=== PATIENT | male | born 1955 | race American Indian/Alaskan Native ===

== ENCOUNTER 2018-07-27 17:01 | Inpatient (IN) | payer OTHER, SELFPAY ==
[2018-07-27] MEDS ORDERED: ATIVAN IV STA (17:41)
--- NOTE | 2018-07-27 17:43 | Emergency Department Report ---
ED General Adult HPI - General Chief complaint: Extremity Injury, Lower Stated complaint: PAIN BOTH SHOULDER/FALL Time Seen by Provider: 07/27/18 17:31 Source: patient, EMS (ems notes not available at time of chart dictation), RN notes reviewed, old records reviewed Mode of arrival: Stretcher Limitations: Physical Limitation - History of Present Illness Initial comments: This is a 63-year-old gentleman, whom I have evaluated in the past, reports hist ory of hypertension, BPH, parkinsonism, typically walks with a walker. Patient presents to the ER with EMS. Patient reports a mechanical fall 2 days ago where he landed onto his left hip. Since then he's been having sharp aching burning left-sided hip pain. The pain does not radiate anywhere. Patient does not think he hit his head. Patient reports poor mobility at baseline, typically walks with a walker, and has had poor mobility for at least 6 months secondary to parkinsonism. He makes no complaint of headache, neck pain, chest pain, abdominal pain or shoulder pain. To me, the patient denies abdominal pain, hematemesis, bright red blood per rectum, or urinary symptoms. -: Sudden Location: left, lower extremity Radiation: non-radiation Quality: aching Consistency: other Improves with: other Worsens with: other Associated Symptoms: loss of appetite, malaise, weakness (global weakness), other (patient reports benzodiazepine dependence, reports that he is feeling very anxious.). denies: confusion, chest pain, cough, diaphoresis, fever/chills, headaches, nausea/vomiting, rash, seizure, shortness of breath, syncope - Related Data Home Medications Medication Instructions Recorded Confirmed Last Taken Finasteride [Proscar] 5 mg PO QDAY 09/17/15 09/17/15 Unknown Previous Rx's Medication Instructions Recorded Last Taken Type Lisinopril [Zestril TAB] 20 mg PO QDAY #30 tablet 04/07/14 04/08/14 Rx hydroCHLOROthiazide [HCTZ] 25 mg PO QDAY #30 tablet 04/07/14 04/08/14 Rx Ciprofloxacin HCl [Ciprofloxacin 500 mg PO Q12H #20 tab 09/11/15 Unknown Rx TAB] Tamsulosin [Flomax] 0.4 mg PO QDAY #30 cap 09/11/15 Unknown Rx Allergies Allergy/AdvReac Type Severity Reaction Status Date / Time No Known Allergies Allergy Verified 06/05/18 08:22 ED Review of Systems ROS: Stated complaint: PAIN BOTH SHOULDER/FALL Other details as noted in HPI Constitutional: denies: fever Eyes: denies: eye discharge ENT: denies: epistaxis Respiratory: denies: cough Cardiovascular: denies: chest pain Genitourinary: denies: urgency, dysuria Musculoskeletal: arthralgia, myalgia Skin: denies: lesions Neurological: weakness Psychiatric: anxiety ED Past Medical Hx - Past Medical History Hx Hypertension: Yes Hx Arthritis: Yes Additional medical history: BPH. parkinson - Surgical History Additional Surgical History: Jeffrey. knee surgery, eye surgery (detached retina). PROSTATE BIOPSY - Social History Smoking Status: Never Smoker Substance Use Type: None - Medications Home Medications: Home Medications Medication Instructions Recorded Confirmed Last Taken Type Lisinopril [Zestril TAB] 20 mg PO QDAY #30 tablet 04/07/14 09/17/15 04/08/14 Rx hydroCHLOROthiazide [HCTZ] 25 mg PO QDAY #30 tablet 04/07/14 09/17/15 04/08/14 Rx Ciprofloxacin HCl [Ciprofloxacin 500 mg PO Q12H #20 tab 09/11/15 09/17/15 Unknown Rx TAB] Tamsulosin [Flomax] 0.4 mg PO QDAY #30 cap 09/11/15 09/17/15 Unknown Rx Finasteride [Proscar] 5 mg PO QDAY 09/17/15 09/17/15 Unknown History ED Physical Exam - General Limitations: Physical Limitation General appearance: alert, anxious - Head Head exam: Present: atraumatic, normocephalic - Eye Eye exam: Present: normal appearance, EOMI. Absent: nystagmus - ENT ENT exam: Present: normal exam, normal orophraynx, mucous membranes moist, normal external ear exam - Neck Neck exam: Present: normal inspection, full ROM. Absent: tenderness, meningismus - Respiratory Respiratory exam: Present: normal lung sounds bilaterally. Absent: respiratory distress - Cardiovascular Cardiovascular Exam: Present: normal rhythm, tachycardia, normal heart sounds. Absent: systolic murmur, diastolic murmur, rubs, gallop - GI/Abdominal GI/Abdominal exam: Present: soft. Absent: distended, tenderness, guarding, rebound, rigid, pulsatile mass - Rectal Rectal exam: Present: deferred - Extremities Exam Extremities exam: Present: normal inspection, full ROM (full passive range of motion of the bilateral knees, bilateral hips.), tenderness (point tenderness to the left proximal femur, thigh), other (2+ pulses noted in the bilateral upper, lower extremities. Compartments soft. No long bony tenderness. The pelvis is stable.). Absent: calf tenderness - Back Exam Back exam: Present: normal inspection, full ROM. Absent: tenderness, CVA tenderness (R), paraspinal tenderness, vertebral tenderness - Neurological Exam Neurological exam: Present: alert, other (2+ pulses noted in the bilateral upper, lower extremities. Compartments soft. No long bony tenderness. The pelvis is stable.). Absent: motor sensory deficit - Psychiatric Psychiatric exam: Present: anxious - Skin Skin exam: Present: warm, dry, intact, normal color. Absent: rash ED Course Vital Signs 07/27/18 17:31 Temperature 97.1 F L Pulse Rate 103 H Respiratory 16 Rate Blood Pressure 103/64 O2 Sat by Pulse 97 Oximetry - Reevaluation(s) Reevaluation #1: 07/27/18 18:01 Differential diagnosis, including not limited to: Intracranial injury, fracture, dislocation, contusion, deconditioning, debility, rhabdomyolysis Assessment and plan: 63-year-old gentleman, who has chronic parkinsonism, chronic anxiety, after mechanical fall 2 days ago, with subacute left-sided hip pain. Patient has an intention tremor. Patient reports that he walks at home typically with a walker. We will treat the patient's pain, obtain screening laboratory studies to exclude renal insufficiency and rhabdomyolysis, obtain x- ray of the pelvis and left femur, noncontrast CT scan of the brain, give IV fluids, and Ativan. Case management consult and physical therapy consults have been requested for home evaluation. Reevaluation #2: 07/27/18 18:54 Laboratory studies demonstrate rhabdomyolysis and hypokalemia, with mild renal impairment. IV fluids, sodium bicarbonate, and potassium repletion has been ordered. X-ray of the pelvis is negative for acute disease, x-ray of the femur demonstrates DJD, possible avulsion fracture and nonspecific bony density. Hospital physician, Dr. Campbell will admit the patient to the medical service for rhabdomyolysis Reevaluation #3: 07/27/18 19:20 CT scan the brain interpreted as negative. Informed patient of pertinent laboratory findings and recommendation for admission, patient verbalized understanding and he is amenable to admission. ED Medical Decision Making - Lab Data Result diagrams: 07/27/18 17:56 07/27/18 17:56 Vital Signs 07/27/18 17:31 Temperature 97.1 F L Pulse Rate 103 H Respiratory 16 Rate Blood Pressure 103/64 O2 Sat by Pulse 97 Oximetry Lab Results 07/27/18 07/27/18 Range/Units 17:56 17:56 WBC 13.2 H (4.5-11.0) K/mm3 RBC 4.44 (3.65-5.03) M/mm3 Hgb 11.8 (11.8-15.2) gm/dl Hct 35.7 (35.5-45.6) % MCV 80 L (84-94) fl MCH 27 L (28-32) pg MCHC 33 (32-34) % RDW 14.7 (13.2-15.2) % Plt Count 402 (140-440) K/mm3 Sodium 137 (137-145) mmol/L Potassium 2.4 L* (3.6-5.0) mmol/L Chloride 93.1 L (98-107) mmol/L Carbon Dioxide 29 (22-30) mmol/L Anion Gap 17 mmol/L BUN 16 (9-20) mg/dL Creatinine 1.6 H (0.8-1.5) mg/dL Estimated GFR 53 ml/min BUN/Creatinine Ratio 10 % Glucose 108 H (75-100) mg/dL Calcium 8.4 (8.4-10.2) mg/dL Magnesium 2.00 (1.7-2.3) mg/dL Total Creatine Kinase 03361 H (55-170) units/L - Radiology Data Radiology results: image reviewed interpreted by me: X-ray of the pelvis shows DJD, no acute disease. X-ray of the femur shows DJD, questionable lesser trochanteric avulsion fracture, nonspecific linear density. Critical care attestation.: If time is entered above; I have spent that time in minutes in the direct care of this critically ill patient, excluding procedure time. ED Disposition Clinical Impression: Rhabdomyolysis, MYCHAL (acute kidney injury), Hypokalemia, Falls, Benzodiazepine dependence Disposition: DC-09 OP ADMIT IP TO THIS HOSP Is pt being admited?: Yes Condition: Good Referrals: PRIMARY CARE, [Primary Care Provider] - 3-5 Days
[2018-07-27] MEDS ORDERED: NACL 0.9% 500 ML 500 ML IV ONE (17:57)
[2018-07-27] MEDS ORDERED: TYLENOL PO ONE (17:58)
[2018-07-27 18:15] LABS: Hematocrit 35.7 % (35.5-45.6); Hemoglobin 11.8 gm/dl (11.8-15.2); Mean Corpuscular HGB Conc 33 % (32-34); Mean Corpuscular Volume 80 fl (84-94); Platelet Count 402 K/mm3 (140-440); Red Blood Count 4.44 M/mm3 (3.65-5.03); Red Cell Distribution Width 14.7 % (13.2-15.2)
[2018-07-27 18:36] LABS: Calcium 8.4 mg/dL (8.4-10.2)
[2018-07-27] MEDS ORDERED: NACL 0.9% 1000 ML 2,000 ML IV ONE (18:53)
[2018-07-27] MEDS ORDERED: K-DUR PO ONE (18:53)
--- NOTE | 2018-07-27 18:53 | History and Physical Report ---
History of Present Illness Chief complaint: confusion History of present illness: 63 YO Male with Dementia, HTN, OA, Parkinsons Disease, BPH presents to ED for evaluation. Pt is confused, and unable to provide detailed history. Pt history taken from ED staff, and EMS. As per staff, the patient has experienced increase d confusion and falls over the past 6 months. Pt experienced a fall 2 days ago, and has experienced increased confusion and weakness over the past 2 days. Pt lives with his son and brother. EMS notified, and upon arrival the patient was found to be confused. Pt transported to [facility] for further care and evaluation. Pt seen and evaluated in ED and found to have Rhabdomyolysis, Encephalopathy, SIRS, and ARF. Pt admitted to medical floor. No further history obtainable. - General Chief complaint: Extremity Injury, Lower Stated complaint: PAIN BOTH SHOULDER/FALL Time Seen by Provider: 07/27/18 17:31 Source: patient, EMS (ems notes not available at time of chart dictation), RN notes reviewed, old records reviewed Mode of arrival: Stretcher Limitations: Physical Limitation - History of Present Illness Initial comments: This is a 63-year-old gentleman, whom I have evaluated in the past, reports history of hypertension, BPH, parkinsonism, typically walks with a walker. Patient presents to the ER with EMS. Patient reports a mechanical fall 2 days ago where he landed onto his left hip. Since then he's been having sharp aching burning left-sided hip pain. The pain does not radiate anywhere. Patient does not think he hit his head. Patient reports poor mobility at baseline, typically walks with a walker, and has had poor mobility for at least 6 months secondary to parkinsonism. He makes no complaint of headache, neck pain, chest pain, abdominal pain or shoulder pain. To me, the patient denies abdominal pain, hematemesis, bright red blood per rectum, or urinary symptoms. -: Sudden Location: left, lower extremity Radiation: non-radiation Quality: aching Consistency: other Improves with: other Worsens with: other Associated Symptoms: loss of appetite, malaise, weakness (global weakness), other (patient reports benzodiazepine dependence, reports that he is feeling very anxious.). denies: confusion, chest pain, cough, diaphoresis, fever/chills, headaches, nausea/vomiting, rash, seizure, shortness of breath, syncope - Related Data Home Medications Medication Instructions Recorded Confirmed Last Taken Finasteride [Proscar] 5 mg PO QDAY 09/17/15 09/17/15 Unknown Previous Rx's Medication Instructions Recorded Last Taken Type Lisinopril [Zestril TAB] 20 mg PO QDAY #30 tablet 04/07/14 04/08/14 Rx hydroCHLOROthiazide [HCTZ] 25 mg PO QDAY #30 tablet 04/07/14 04/08/14 Rx Ciprofloxacin HCl [Ciprofloxacin 500 mg PO Q12H #20 tab 09/11/15 Unknown Rx TAB] Tamsulosin [Flomax] 0.4 mg PO QDAY #30 cap 09/11/15 Unknown Rx Allergies Allergy/AdvReac Type Severity Reaction Status Date / Time No Known Allergies Allergy Verified 06/05/18 08:22 ED Review of Systems ROS: Stated complaint: PAIN BOTH SHOULDER/FALL Other details as noted in HPI Constitutional: denies: fever Eyes: denies: eye discharge ENT: denies: epistaxis Respiratory: denies: cough Cardiovascular: denies: chest pain Genitourinary: denies: urgency, dysuria Musculoskeletal: arthralgia, myalgia Skin: denies: lesions Neurological: weakness Psychiatric: anxiety ED Past Medical Hx - Past Medical History Hx Hypertension: Yes Hx Arthritis: Yes Additional medical history: BPH. parkinson - Surgical History Additional Surgical History: Jeffrey. knee surgery, eye surgery (detached retina). PROSTATE BIOPSY - Social History Smoking Status: Never Smoker Substance Use Type: None - Medications Past History Past Medical History: hypertension, other (BPH, Parkinsons Disease, Dementia) Past Surgical History: total knee replacement, Other (Eye, Prostate Biopsy) Social history: single, lives with family. denies: smoking, alcohol abuse, prescription drug abuse Family history: no significant family history (reviewed) Medications and Allergies Allergies Allergy/AdvReac Type Severity Reaction Status Date / Time No Known Allergies Allergy Verified 06/05/18 08:22 Home Medications Medication Instructions Recorded Confirmed Last Taken Type Lisinopril [Zestril TAB] 20 mg PO QDAY #30 tablet 04/07/14 09/17/15 04/08/14 Rx hydroCHLOROthiazide [HCTZ] 25 mg PO QDAY #30 tablet 04/07/14 09/17/15 04/08/14 Rx Ciprofloxacin HCl [Ciprofloxacin 500 mg PO Q12H #20 tab 09/11/15 09/17/15 Unknown Rx TAB] Tamsulosin [Flomax] 0.4 mg PO QDAY #30 cap 09/11/15 09/17/15 Unknown Rx Finasteride [Proscar] 5 mg PO QDAY 09/17/15 09/17/15 Unknown History Review of Systems ROS unobtainable: due to mental status Exam - Constitutional Vitals: Temp Pulse Resp BP Pulse Ox 97.1 F L 103 H 16 103/64 97 07/27/18 17:31 07/27/18 17:31 07/27/18 17:31 07/27/18 17:31 07/27/18 17:31 General appearance: Present: mild distress - EENT Eyes: Present: PERRL ENT: hearing intact, clear oral mucosa - Neck Neck: Present: supple, normal ROM - Respiratory Respiratory effort: normal Respiratory: bilateral: CTA - Cardiovascular Heart Sounds: Present: S1 & S2. Absent: rub, click - Extremities Extremities: pulses symmetrical, No edema Peripheral Pulses: within normal limits - Abdominal General gastrointestinal: Present: soft, non-tender, non-distended, normal bowel sounds Male genitourinary: Present: normal - Integumentary Integumentary: Present: clear, warm, dry - Musculoskeletal Musculoskeletal: generalized weakness - Psychiatric Psychiatric: no appropriate mood/affect, no intact judgment & insight, no memory intact - Neurologic Neurologic: CNII-XII intact, no focal deficits, moves all extremities, no gait normal Results - Labs CBC & Chem 7: 07/27/18 17:56 07/27/18 19:17 Labs: Abnormal lab results 07/27/18 07/27/18 Range/Units 17:56 17:56 WBC 13.2 H (4.5-11.0) K/mm3 MCV 80 L (84-94) fl MCH 27 L (28-32) pg Potassium 2.4 L* (3.6-5.0) mmol/L Chloride 93.1 L (98-107) mmol/L Creatinine 1.6 H (0.8-1.5) mg/dL Glucose 108 H (75-100) mg/dL Total Creatine Kinase 62366 H (55-170) units/L Assessment and Plan - Patient Problems (1) Encephalopathy Current Visit: Yes Status: Acute Plan to address problem: CT Head, neuro check, thyroid panel, seizure precautions (2) SIRS (systemic inflammatory response syndrome) Current Visit: Yes Status: Acute Plan to address problem: Empiric antibiotic therapy x 1 dose, CBC, CMP, chest x ray, urinalysis (3) MYCHAL (acute kidney injury) Current Visit: Yes Status: Acute Plan to address problem: IVF resuscitation therapy, urine electrolytes, monitor uop q shift, monitor serum creatnine (4) Rhabdomyolysis Current Visit: Yes Status: Acute Qualifiers: Encounter type: initial encounter Plan to address problem: IVF resuscitation therapy, IV bicarbonate, repeat CK level, monitor uop q shift, (5) Debility Current Visit: Yes Status: Acute Plan to address problem: PT consulted. (6) DVT prophylaxis Current Visit: Yes Status: Acute Plan to address problem: SCD to BLE while in bed.
[2018-07-27] MEDS ORDERED: SODIUM CHLORIDE FLUSH SYRINGE 10 ML IV PRN (18:57)
[2018-07-27] MEDS ORDERED: ZOFRAN IV PRN (18:57)
[2018-07-27] MEDS ORDERED: PROVENTIL IH PRN (18:57)
--- NOTE | 2018-07-27 19:14 | Cat Scan Report ---
FINAL REPORT EXAM: CT HEAD/BRAIN WO CON HISTORY: FALL, WAS NOT SURE IF HIT HEAD. HE SEEMS A LITTLE AMS AND UNABLE TO MOVE BUT STATES HE HASN 'T EVER HAD A STROKE. TECHNIQUE: CT was performed from the foramen magnum through the vertex in the axial plane without th e use of intravenous contrast. PRIORS: None. FINDINGS: The yanez/white matter attenuation pattern is normal. There is no mass lesion or mass effect. There ar e no abnormal extra-axial fluid collections. There is no evidence of acute intracranial hemorrhage or infarct. The ventricles are of normal size and configuration. The skull and orbits are unremarkable . The visualized paranasal sinuses are clear. IMPRESSION: Normal CT of the head.
--- NOTE | 2018-07-27 19:47 | XRay Report ---
FINAL REPORT EXAM: XR FEMUR 2+V LT HISTORY: fall left leg pain TECHNIQUE: AP and lateral views of the left femur PRIORS: None. FINDINGS: The left hip joint is normally aligned. There are hypertrophic changes on both sides of the joint con sistent with osteoarthrosis. Bones are normally mineralized. There is a screw in place in the distal lateral femoral condyle. There is no evidence of acute fracture. There is a linear area of soft tissu e calcification in the medial thigh. IMPRESSION: No evidence of acute fracture or subluxation. Soft tissue calcification most likely due to old injury Previous left knee surgery.
--- NOTE | 2018-07-27 19:53 | XRay Report ---
FINAL REPORT EXAM: XR PELVIS 1-2V HISTORY: fall hip pain TECHNIQUE: AP view of the pelvis PRIORS: None. FINDINGS: The pelvic bones are intact. The hip joints are normally aligned. There are hypertrophic changes on b oth sides of both hip joints. The soft tissues are unremarkable. IMPRESSION: No evidence of acute fracture Osteoarthrosis of the bilateral hips
[2018-07-27] MEDS ORDERED: TYLENOL ONE (19:54)
[2018-07-27] MEDS ORDERED: NACL 0.9% 1000 ML 1,000 ML ONE (19:54)
[2018-07-27 20:02] LABS: Calcium 8.3 mg/dL (8.4-10.2)
[2018-07-27] MEDS: KCL 10MEQ/100ML 10 MEQ/100 ML BAG IV SCH ×2 (20:56→23:36)
[2018-07-27 21:24] LABS: Creatinine,Urine 258.6 mg/dL (0.1-20.0)
[2018-07-27] MEDS: SODIUM CHLORIDE FLUSH SYRINGE 10 ML IV SCH (22:22)
[2018-07-28] MEDS: KCL 10MEQ/100ML 10 MEQ/100 ML BAG IV SCH ×2 (00:38→01:46)
[2018-07-28] MEDS: NACL 0.45% 1000 ML 1,000 ML IV SCH ×3 (02:54→21:23)
[2018-07-28] MEDS: TYLENOL PO PRN ×2 (04:08→20:13)
[2018-07-28] MEDS: HCTZ PO SCH (09:57)
[2018-07-28] MEDS: PROSCAR PO SCH (09:59)
[2018-07-28] MEDS ORDERED: ZESTRIL PO SCH (10:00)
[2018-07-28] MEDS: SODIUM CHLORIDE FLUSH SYRINGE 10 ML IV SCH (10:02)
[2018-07-28] MEDS: FLOMAX PO SCH (10:02)
[2018-07-28] MEDS: XANAX PO PRN ×2 (12:20→20:12)
[2018-07-28 14:25] LABS: Blood Urea Nitrogen 13 mg/dL (9-20)
[2018-07-28 16:41] LABS: Bacteria,Urine 3+ /HPF (Negative); Bilirubin,Urine NEG (Negative); Blood,Urine MOD (Negative); Color,Urine Yellow (Yellow); Urobilinogen,Urine < 2.0 mg/dL (<2.0); WBC,Urine > 182.0 /HPF (0.0-6.0)
--- NOTE | 2018-07-28 16:41 | Progress Note ---
Assessment and Plan Assessment and plan: 63 YO Male with Dementia, HTN, OA, Parkinsons Disease, BPH presents to ED for evaluation. Pt is confused, and unable to provide detailed history. Pt history taken from ED staff, and EMS. As per staff, the patient has experienced increased confusion and falls over the past 6 months. Pt experienced a fall 2 days ago, and has experienced increased confusion and weakness over the past 2 days. Pt lives with his son and brother. EMS notified, and upon arrival the patient was found to be confused. Pt transported to [facility] for further care and evaluation. Pt seen and evaluated in ED and found to have Rhabdomyolysis, Encephalopathy, SIRS, and ARF. Pt admitted to medical floor. No further history obtainable. CT head: Normal examination Left hip x-ray shows no evidence of subluxation but no acute fracture Pelvic x-ray shows no evidence of acute fracture also shows osteoarthrosis of the bilateral hips Diagnosis (1) acute metabolic Encephalopathy-resolved (2) SIRS (systemic inflammatory response syndrome) (3) MYCHAL (acute kidney injury) likely secondary to this amount nephropathy (4) Rhabdomyolysis (5) Debility (6) Fall secondary to parkinson and mechanical reasons. No LOC (7) DVT prophylaxis Plan: Supportive care. Discussed with the son, Needs eval for rehab. Multiple falls Continue IV fluids and monitor resolution of creatinine and rhabdomylysis Continue home meds for HTN AND OTHER Chronic condition Check urinalysis. Although fall appears to be mechanical DVT/GI prophy Plan discussed with patient in detail. History Interval history: Patient is seen today for: Rhabdomyolysis Seen and examined at bedside; 24hour events reviewed; nursing staff ; no adverse overnight events reported to me; Denies any chest pain, nausea, vomiting, diarrhea No fever noted blood pressure controlled Hospitalist Physical - Physical exam Narrative exam: VITAL SIGNS: Reviewed. GENERAL: The patient appeared well nourished and normally developed. Vital signs as documented. HEAD: No signs of head trauma. EYES: Pupils are equal. Extraocular motions intact. EARS: Hearing grossly intact. MOUTH: Oropharynx is normal. NECK: No adenopathy, no JVD. CHEST: Chest with clear breath sounds bilaterally. No wheezes, rales, or rhonchi. CARDIAC: Regular rate and rhythm. S1 and S2, without murmurs, gallops, or rubs. VASCULAR: No Edema. Peripheral pulses normal and equal in all extremities. ABDOMEN: Soft, without detectable tenderness. No sign of distention. No rebound or guarding, and no masses palpated. Bowel Sounds normal. MUSCULOSKELETAL: Good range of motion of all major joints. Extremities without clubbing, cyanosis or edema. NEUROLOGIC EXAM: Alert and oriented x 3. No focal sensory or strength deficits. Speech normal. Follows commands. Resting tremor PSYCHIATRIC: Mood normal. SKIN: Excoriation on the right shoulder. - Constitutional Vitals: Temp Pulse Resp BP Pulse Ox 99.4 F 85 20 117/69 99 07/28/18 13:38 07/28/18 13:38 07/28/18 13:38 07/28/18 13:38 07/28/18 13:38 General appearance: Present: mild distress Results - Labs CBC & Chem 7: 07/27/18 17:56 07/28/18 13:48 Labs: Laboratory Last Values WBC 13.2 K/mm3 (4.5-11.0) H 07/27/18 17:56 RBC 4.44 M/mm3 (3.65-5.03) 07/27/18 17:56 Hgb 11.8 gm/dl (11.8-15.2) 07/27/18 17:56 Hct 35.7 % (35.5-45.6) 07/27/18 17:56 MCV 80 fl (84-94) L 07/27/18 17:56 MCH 27 pg (28-32) L 07/27/18 17:56 MCHC 33 % (32-34) 07/27/18 17:56 RDW 14.7 % (13.2-15.2) 07/27/18 17:56 Plt Count 402 K/mm3 (140-440) 07/27/18 17:56 Sodium 136 mmol/L (137-145) L 07/27/18 19:17 Potassium 3.4 mmol/L (3.6-5.0) L D 07/27/18 19:17 Chloride 94.1 mmol/L (98-107) L 07/27/18 19:17 Carbon Dioxide 26 mmol/L (22-30) 07/27/18 19:17 Anion Gap 19 mmol/L 07/27/18 19:17 BUN 13 mg/dL (9-20) 07/28/18 13:48 Creatinine 1.1 mg/dL (0.8-1.5) 07/28/18 13:48 Estimated GFR > 60 ml/min 07/28/18 13:48 BUN/Creatinine Ratio 9 % 07/27/18 19:17 Glucose 113 mg/dL (75-100) H 07/27/18 19:17 Calcium 8.3 mg/dL (8.4-10.2) L 07/27/18 19:17 Magnesium 2.00 mg/dL (1.7-2.3) 07/27/18 17:56 Total Creatine Kinase 8460 units/L (55-170) H 07/28/18 13:48 Urine Creatinine 258.6 mg/dL (0.1-20.0) H 07/27/18 20:44 Urine Sodium 49 mmol/L 07/27/18 20:44
--- NOTE | 2018-07-28 22:00 | XRay Report ---
FINAL REPORT PROCEDURE: XR FOOT 2V LT TECHNIQUE: LEFT foot radiographs, AP and lateral views. HISTORY: pain to Left foot, post fall COMPARISON: No prior studies are available for comparison. FINDINGS: Fracture (s) and/or Dislocation(s): None . Alignment: Normal. Joint space(s): Normal. Soft tissues: Normal. Bone mineralization: Mild degree osteophyte formation is noted involving 1st interphalangeal joint co nsistent with osteoarthritis. Foreign bodies: None. Calcaneal spurring: None. IMPRESSION: No acute fracture Osteoarthritis 1st interphalangeal joint
--- NOTE | 2018-07-28 22:04 | XRay Report ---
FINAL REPORT EXAM: XR ANKLE BILAT 2V HISTORY: fall with possible sprain TECHNIQUE: Two views of each ankle Comparison: None FINDINGS: Global osteopenia. There is an old left interosseous injury with ossification of the distal tibia to the fibula. Mild soft tissue swelling laterally and anteriorly of the bilateral ankles. Mature Achilles calcaneal spur. Small plantar calcaneal spur. Degenerative spurring of the dorsal midfoot the hindfoot. Patient's sock obscures some of the details. There is an incompletely characterized right 3 millimeter x 4 millimeter bone chip along the inferior tip medial malleolus. There appears to be incongruent tibiotalar joint on the left with ossification of the inferior tip me dial malleolus to the talus, possible bony union. IMPRESSION: Soft tissue swelling bilateral ankles laterally and anteriorly. Old injury with interosseous calcification left distal leg. Incongruity assess left tibiotalar joint with possible ankylosis of the medial malleolus to the talus . Degenerative spurring of the dorsal right greater than left midfoot to the hindfoot. 4 millimeter bone chip right medial malleolar tip, correlate for acute pain. Recommend dedicated imag es without the patient's socks on if patient has pain in this region.
[2018-07-29] MEDS: NACL 0.45% 1000 ML 1,000 ML IV SCH (04:25)
[2018-07-29 05:56] LABS: Hematocrit 29.3 % (35.5-45.6); Hemoglobin 9.8 gm/dl (11.8-15.2); Mean Corpuscular HGB Conc 33 % (32-34); Mean Corpuscular Volume 81 fl (84-94); Platelet Count 279 K/mm3 (140-440); Red Cell Distribution Width 14.5 % (13.2-15.2)
[2018-07-29 06:16] LABS: BUN/Creatinine Ratio 11; Blood Urea Nitrogen 11 mg/dL (9-20); Calcium 7.4 mg/dL (8.4-10.2); Hemolysis Index 48
[2018-07-29] MEDS: POTASSIUM CHLORIDE FEEDTUBE SCH ×2 (08:19→10:10)
[2018-07-29] MEDS: HCTZ PO SCH (10:09)
[2018-07-29] MEDS: NACL 0.9% 1000 ML 1,000 ML IV SCH ×3 (10:09→23:07)
[2018-07-29] MEDS: NORVASC PO SCH (10:09)
[2018-07-29] MEDS: FLOMAX PO SCH (10:09)
[2018-07-29] MEDS: PROSCAR PO SCH (10:11)
[2018-07-29] MEDS: ROCEPHIN/NS 1 GM/50 ML 1 GM/50 ML BAG IV SCH (10:11)
[2018-07-29] MEDS: SODIUM CHLORIDE FLUSH SYRINGE 10 ML IV SCH ×3 (10:12→23:07)
--- NOTE | 2018-07-29 13:52 | Progress Note ---
Assessment and Plan Assessment and plan: 63 YO Male with Dementia, HTN, OA, Parkinson's Disease, BPH presents to ED for evaluation. Pt is confused, and unable to provide detailed history. Pt history taken from ED staff, and EMS. As per staff, the patient has experienced increased confusion and falls over the past 6 months. Pt experienced a fall 2 days ago, and has experienced increased confusion and weakness over the past 2 days. Pt lives with his son and brother. EMS notified, and upon arrival the patient was found to be confused. Pt transported to [facility] for further care and evaluation. Pt seen and evaluated in ED and found to have Rhabdomyolysis, Encephalopathy, SIRS, and ARF. Pt admitted to medical floor. No further history obtainable. CT head: Normal examination Left hip x-ray shows no evidence of subluxation but no acute fracture Pelvic x-ray shows no evidence of acute fracture also shows osteoarthrosis of the bilateral hips acute metabolic Encephalopathy - Resolved, patient is alert and oriented Sepsis secondary to UTI - Continue current antibiotic regimen MYCHAL (acute kidney injury) likely due to vasomotor nephropathy - Resolved, without IV fluids Rhabdomyolysis - Continue IV fluids - continue CK Debility - Physical therapy is following Fall secondary to parkinson and mechanical reasons. No LOC - Physical therapy is working with her Hypokalemia - repleted - Will check BMP DVT prophylaxis History Interval history: Patient was seen and evaluated in the morning, patient's complaining left foot pain. Hospitalist Physical - Physical exam Narrative exam: Not in cardiopulmonary distress. The patient is obese. Vital signs as documented. Head exam is unremarkable. No scleral icterus . Neck is without jugular venous distension, thyromegaly, or carotid bruits. Lungs are clear to auscultation. Cardiac exam reveals regular rate and Rhythm. First and second heart sounds normal. No murmurs, rubs or gallops. Abdominal exam reveals normal bowel sounds, no masses, no organomegaly and no aortic enlargement. Extremities are nonedematous and both femoral and pedal pulses are normal. 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 Generalized weakness weakness. - Constitutional Vitals: Temp Pulse Resp BP Pulse Ox 98.3 F 81 20 130/74 99 07/29/18 07:54 07/29/18 10:00 07/29/18 10:00 07/29/18 07:54 07/29/18 13:23 General appearance: Present: mild distress Results - Labs CBC & Chem 7: 07/29/18 04:55 07/29/18 04:55 Labs: Laboratory Last Values WBC 9.2 K/mm3 (4.5-11.0) 07/29/18 04:55 RBC 3.60 M/mm3 (3.65-5.03) L 07/29/18 04:55 Hgb 9.8 gm/dl (11.8-15.2) L 07/29/18 04:55 Hct 29.3 % (35.5-45.6) L D 07/29/18 04:55 MCV 81 fl (84-94) L 07/29/18 04:55 MCH 27 pg (28-32) L 07/29/18 04:55 MCHC 33 % (32-34) 07/29/18 04:55 RDW 14.5 % (13.2-15.2) 07/29/18 04:55 Plt Count 279 K/mm3 (140-440) 07/29/18 04:55 Sodium 131 mmol/L (137-145) L 07/29/18 04:55 Potassium 2.7 mmol/L (3.6-5.0) L* D 07/29/18 04:55 Chloride 91.8 mmol/L (98-107) L 07/29/18 04:55 Carbon Dioxide 27 mmol/L (22-30) 07/29/18 04:55 Anion Gap 15 mmol/L 07/29/18 04:55 BUN 11 mg/dL (9-20) 07/29/18 04:55 Creatinine 1.0 mg/dL (0.8-1.5) 07/29/18 04:55 Estimated GFR > 60 ml/min 07/29/18 04:55 BUN/Creatinine Ratio 11 % 07/29/18 04:55 Glucose 87 mg/dL (75-100) 07/29/18 04:55 Calcium 7.4 mg/dL (8.4-10.2) L 07/29/18 04:55 Magnesium 2.00 mg/dL (1.7-2.3) 07/27/18 17:56 Total Creatine Kinase 5229 units/L (55-170) H 07/29/18 04:44 Urine Color Yellow (Yellow) 07/28/18 16:18 Urine Turbidity Turbid (Clear) 07/28/18 16:18 Urine pH 6.0 (5.0-7.0) 07/28/18 16:18 Ur Specific [place] 1.006 (1.003-1.030) 07/28/18 16:18 Urine Protein 100 mg/dl mg/dL (Negative) 07/28/18 16:18 Urine Glucose (UA) Neg mg/dL (Negative) 07/28/18 16:18 Urine Ketones Neg mg/dL (Negative) 07/28/18 16:18 Urine Blood Mod (Negative) 07/28/18 16:18 Urine Nitrite Neg (Negative) 07/28/18 16:18 Urine Bilirubin Neg (Negative) 07/28/18 16:18 Urine Urobilinogen < 2.0 mg/dL (<2.0) 07/28/18 16:18 Ur Leukocyte Esterase Lg (Negative) 07/28/18 16:18 Urine WBC (Auto) > 182.0 /HPF (0.0-6.0) H 07/28/18 16:18 Urine RBC (Auto) 34.0 /HPF (0.0-6.0) 07/28/18 16:18 Urine Bacteria (Auto) 3+ /HPF (Negative) 07/28/18 16:18 Urine WBC Clumps 2+ /HPF 07/28/18 16:18 Urine Creatinine 258.6 mg/dL (0.1-20.0) H 07/27/18 20:44 Urine Sodium 49 mmol/L 07/27/18 20:44 Nutrition/Malnutrition Assess - Dietary Evaluation Nutrition/Malnutrition Findings: Nutrition Notes Start: 07/28/18 16:38 Freq: Status: Active Protocol: Document 07/28/18 16:38 [facility] (Rec: 07/28/18 16:46 [facility] SRW- [email or web address]) Nutrition Notes Need for Assessment generated from: MST Initial or Follow up Assessment Current Diagnosis Acute Kidney Injury Hypertension Other Pertinent Diagnosis SIRS, Dementia, Parkinson's dz Current Diet Renal Labs/Tests K 3.4 Cr 1.7 Pertinent Medications 1/2NS at 125ml/hr Height 5 ft 6 in Weight 100.8 kg Usual Body Weight 100 kg [place] Body Weight (lbs) 142.0 BMI 35.9 Intake Prior to Admission Fair Weight Status Obese Subjective/Other Information Pt screened for malnutrition risk. He has difficulty feeding himself sec to bilat shoulder pain. Pt assisted with lunch today; he ate 50% of hamburger, 100% salad and 100% sweet tea. Burn Absent Trauma Absent GI Symptoms None Food Allergy No Skin Integrity/Comment Arya: 17 Current % PO Fair (50-74%) #1 Nutrition Diagnosis Predicted suboptimal energy intake Etiology fair appetite, hx of Parkinson 's dz As Evidenced by Signs and Symptoms pt consumed 50% of lunch today and required mealtime assistance Is patient on ventilator? No Is Patient Ambulatory and/or Out of Bed No REE-([place] or-confined to bed) 2099.736 Kcal/Kg value to use for calculation 18 Approximate Energy Requirements Using 1814 kcal/Kg Calculation Used for Recommendations Kcal/kg Additional Notes Pro needs 1-1.2g/kg adjBW: 83- 99g/day Fluid needs 1ml/kcal Nutrition Intervention Change Diet Order: Continue current diet order; provide mealtime assistance as needed Goal #1 PO intakes to meet at least 75 % energy and pro needs Anticipated Discharge Needs: None identified at this time Follow-Up By: 07/30/18 Additional Comments F/U: intakes, need for ONS
[2018-07-29 14:26] LABS: BUN/Creatinine Ratio 11; Blood Urea Nitrogen 11 mg/dL (9-20); Calcium 7.8 mg/dL (8.4-10.2); Hemolysis Index 32
--- NOTE | 2018-07-29 14:52 | XRay Report ---
LEFT FOOT, 2 views: History: Pain in left heel. Bone mineralization is normal. There are mild osteoarthritic changes in the mid foot and great toe. No evidence for fracture, bone lesion or malalignment. No bony erosions. The heel region is unremarkable. IMPRESSION: Osteoarthritic changes. No obvious abnormality in the left heel.
[2018-07-29] MEDS: TYLENOL PO PRN (17:44)
[2018-07-29] MEDS: XANAX PO PRN (18:53)
[2018-07-30] MEDS: NACL 0.9% 1000 ML 1,000 ML IV SCH ×2 (05:27→21:03)
--- NOTE | 2018-07-30 07:46 | Progress Note ---
Assessment and Plan Assessment and plan: 63 YO Male with Dementia, HTN, OA, Parkinson's Disease, BPH presents to ED for evaluation. Pt is confused, and unable to provide detailed history. Pt history taken from ED staff, and EMS. As per staff, the patient has experienced increased confusion and falls over the past 6 months. Pt experienced a fall 2 days ago, and has experienced increased confusion and weakness over the past 2 days. Pt lives with his son and brother. EMS notified, and upon arrival the patient was found to be confused. Pt transported to [facility] for further care and evaluation. Pt seen and evaluated in ED and found to have Rhabdomyolysis, Encephalopathy, SIRS, and ARF. Pt admitted to medical floor. No further history obtainable. CT head: Normal examination Left hip x-ray shows no evidence of subluxation but no acute fracture Pelvic x-ray shows no evidence of acute fracture also shows osteoarthrosis of the bilateral hips Left foot x-ray normal acute metabolic Encephalopathy - Resolved, patient is alert and oriented Sepsis secondary to UTI - Continue current antibiotic regimen - Resolving MYCHAL (acute kidney injury) likely due to vasomotor nephropathy - Resolved, without IV fluids Rhabdomyolysis - Continue IV fluids -Morning CK result is pending Debility - Physical therapy is following - Recommend a rolling walker and subacute rehabilitation Fall secondary to parkinson and mechanical reasons. No LOC - Physical therapy is working with her - We will go to subacute rehabilitation Hypokalemia - repleted - BMP from this morning is pending DVT prophylaxis - On heparin Disposition - Pending Subacute rehabilitationm placement. History Interval history: Patient was seen and evaluated in the morning, didn't have any complaints. Hospitalist Physical - Physical exam Narrative exam: Not in cardiopulmonary distress. The patient is obese. Vital signs as documented. Head exam is unremarkable. No scleral icterus . Neck is without jugular venous distension, thyromegaly, or carotid bruits. Lungs are clear to auscultation. Cardiac exam reveals regular rate and Rhythm. First and second heart sounds no rmal. No murmurs, rubs or gallops. Abdominal exam reveals normal bowel sounds, no masses, no organomegaly and no aortic enlargement. Extremities are nonedematous and both femoral and pedal pulses are normal. 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 Generalized weakness weakness. - Constitutional Vitals: Temp Pulse Resp BP Pulse Ox 99.2 F 80 20 132/74 100 07/30/18 01:59 01/16/19 01:59 07/30/18 06:30 07/30/18 01:59 07/30/18 01:59 General appearance: Present: mild distress Results - Labs CBC & Chem 7: 07/29/18 04:55 07/29/18 13:49 Labs: Laboratory Last Values WBC 9.2 K/mm3 (4.5-11.0) 07/29/18 04:55 RBC 3.60 M/mm3 (3.65-5.03) L 07/29/18 04:55 Hgb 9.8 gm/dl (11.8-15.2) L 07/29/18 04:55 Hct 29.3 % (35.5-45.6) L D 07/29/18 04:55 MCV 81 fl (84-94) L 07/29/18 04:55 MCH 27 pg (28-32) L 07/29/18 04:55 MCHC 33 % (32-34) 07/29/18 04:55 RDW 14.5 % (13.2-15.2) 07/29/18 04:55 Plt Count 279 K/mm3 (140-440) 07/29/18 04:55 Sodium 134 mmol/L (137-145) L 07/29/18 13:49 Potassium 3.4 mmol/L (3.6-5.0) L D 07/29/18 13:49 Chloride 94.0 mmol/L (98-107) L 07/29/18 13:49 Carbon Dioxide 27 mmol/L (22-30) 07/29/18 13:49 Anion Gap 16 mmol/L 07/29/18 13:49 BUN 11 mg/dL (9-20) 07/29/18 13:49 Creatinine 1.0 mg/dL (0.8-1.5) 07/29/18 13:49 Estimated GFR > 60 ml/min 07/29/18 13:49 BUN/Creatinine Ratio 11 % 07/29/18 13:49 Glucose 99 mg/dL (75-100) 07/29/18 13:49 Calcium 7.8 mg/dL (8.4-10.2) L 07/29/18 13:49 Magnesium 2.00 mg/dL (1.7-2.3) 07/27/18 17:56 Total Creatine Kinase 5229 units/L (55-170) H 07/29/18 04:44 Urine Color Yellow (Yellow) 07/28/18 16:18 Urine Turbidity Turbid (Clear) 07/28/18 16:18 Urine pH 6.0 (5.0-7.0) 07/28/18 16:18 Ur Specific [place] 1.006 (1.003-1.030) 07/28/18 16:18 Urine Protein 100 mg/dl mg/dL (Negative) 07/28/18 16:18 Urine Glucose (UA) Neg mg/dL (Negative) 07/28/18 16:18 Urine Ketones Neg mg/dL (Negative) 07/28/18 16:18 Urine Blood Mod (Negative) 07/28/18 16:18 Urine Nitrite Neg (Negative) 07/28/18 16:18 Urine Bilirubin Neg (Negative) 07/28/18 16:18 Urine Urobilinogen < 2.0 mg/dL (<2.0) 07/28/18 16:18 Ur Leukocyte Esterase Lg (Negative) 07/28/18 16:18 Urine WBC (Auto) > 182.0 /HPF (0.0-6.0) H 07/28/18 16:18 Urine RBC (Auto) 34.0 /HPF (0.0-6.0) 07/28/18 16:18 Urine Bacteria (Auto) 3+ /HPF (Negative) 07/28/18 16:18 Urine WBC Clumps 2+ /HPF 07/28/18 16:18 Urine Creatinine 258.6 mg/dL (0.1-20.0) H 07/27/18 20:44 Urine Sodium 49 mmol/L 07/27/18 20:44 Nutrition/Malnutrition Assess - Dietary Evaluation Nutrition/Malnutrition Findings: Nutrition Notes Start: 07/28/18 16:38 Freq: Status: Active Protocol: Document 07/28/18 16:38 [facility] (Rec: 07/28/18 16:46 [facility] SRW- [email or web address]) Nutrition Notes Need for Assessment generated from: MST Initial or Follow up Assessment Current Diagnosis Acute Kidney Injury Hypertension Other Pertinent Diagnosis SIRS, Dementia, Parkinson's dz Current Diet Renal Labs/Tests K 3.4 Cr 1.7 Pertinent Medications 1/2NS at 125ml/hr Height 5 ft 6 in Weight 100.8 kg Usual Body Weight 100 kg [place] Body Weight (lbs) 142.0 BMI 35.9 Intake Prior to Admission Fair Weight Status Obese Subjective/Other Information Pt screened for malnutrition risk. He has difficulty feeding himself sec to bilat shoulder pain. Pt assisted with lunch today; he ate 50% of hamburger, 100% salad and 100% sweet tea. Burn Absent Trauma Absent GI Symptoms None Food Allergy No Skin Integrity/Comment Arya: 17 Current % PO Fair (50-74%) #1 Nutrition Diagnosis Predicted suboptimal energy intake Etiology fair appetite, hx of Parkinson 's dz As Evidenced by Signs and Symptoms pt consumed 50% of lunch today and required mealtime assistance Is patient on ventilator? No Is Patient Ambulatory and/or Out of Bed No REE-([place]-confined to bed) 2099.736 Kcal/Kg value to use for calculation 18 Approximate Energy Requirements Using 1814 kcal/Kg Calculation Used for Recommendations Kcal/kg Additional Notes Pro needs 1-1.2g/kg adjBW: 83- 99g/day Fluid needs 1ml/kcal Nutrition Intervention Change Diet Order: Continue current diet order; provide mealtime assistance as needed Goal #1 PO intakes to meet at least 75 % energy and pro needs Anticipated Discharge Needs: None identified at this time Follow-Up By: 07/30/18 Additional Comments F/U: intakes, need for ONS
[2018-07-30 08:24] LABS: BUN/Creatinine Ratio 11; Blood Urea Nitrogen 9 mg/dL (9-20); Calcium 7.7 mg/dL (8.4-10.2); Hemolysis Index 1
[2018-07-30] MEDS ORDERED: POTASSIUM CHLORIDE FEEDTUBE ONE (09:11)
[2018-07-30] MEDS: ROCEPHIN/NS 1 GM/50 ML 1 GM/50 ML BAG IV SCH (10:53)
[2018-07-30] MEDS: FLOMAX PO SCH (10:56)
[2018-07-30] MEDS: NORVASC PO SCH (10:56)
[2018-07-30] MEDS: HCTZ PO SCH (10:56)
[2018-07-30] MEDS: HEPARIN SUB-Q SCH ×2 (10:56→21:00)
[2018-07-30] MEDS: PROSCAR PO SCH (10:57)
[2018-07-30] MEDS: SODIUM CHLORIDE FLUSH SYRINGE 10 ML IV SCH ×2 (18:39→21:00)
[2018-07-30] MEDS: TYLENOL PO PRN (20:55)
[2018-07-30] MEDS: XANAX PO PRN (20:57)
[2018-07-31 05:54] LABS: BUN/Creatinine Ratio 11; Blood Urea Nitrogen 8 mg/dL (9-20); Calcium 7.5 mg/dL (8.4-10.2); Hemolysis Index 7
[2018-07-31] MEDS: NACL 0.9% 1000 ML 1,000 ML IV SCH ×2 (06:36→18:48)
[2018-07-31] MEDS ORDERED: K-DUR PO ONE (07:45)
[2018-07-31] MEDS: KCL 10MEQ/100ML 10 MEQ/100 ML BAG IV SCH (08:38)
[2018-07-31] MEDS: ROCEPHIN/NS 1 GM/50 ML 1 GM/50 ML BAG IV SCH (08:42)
[2018-07-31] MEDS: K-DUR PO SCH ×2 (08:44→10:30)
[2018-07-31] MEDS: FLOMAX PO SCH (10:26)
[2018-07-31] MEDS: HCTZ PO SCH (10:26)
[2018-07-31] MEDS: PROSCAR PO SCH (10:31)
[2018-07-31] MEDS: NORVASC PO SCH (10:31)
[2018-07-31] MEDS: SODIUM CHLORIDE FLUSH SYRINGE 10 ML IV SCH ×2 (10:32→21:50)
[2018-07-31] MEDS: HEPARIN SUB-Q SCH ×2 (10:32→21:49)
--- NOTE | 2018-07-31 13:00 | Progress Note ---
Assessment and Plan Assessment and plan: 63 YO Male with Dementia, HTN, OA, Parkinson's Disease, BPH presents to ED for evaluation. Pt is confused, and unable to provide detailed history. Pt history taken from ED staff, and EMS. As per staff, the patient has experienced increased confusion and falls over the past 6 months. Pt experienced a fall 2 days ago, and has experienced increased confusion and weakness over the past 2 days. Pt lives with his son and brother. EMS notified, and upon arrival the patient was found to be confused. Pt transported to [facility] for further care and evaluation. Pt seen and evaluated in ED and found to have Rhabdomyolysis, Encephalopathy, SIRS, and ARF. Pt admitted to medical floor. No further history obtainable. CT head: Normal examination Left hip x-ray shows no evidence of subluxation but no acute fracture Pelvic x-ray shows no evidence of acute fracture also shows osteoarthrosis of the bilateral hips Left foot x-ray normal acute metabolic Encephalopathy - Resolved, patient is alert and oriented Sepsis secondary to UTI - Continue current antibiotic regimen - Resolving MYCHAL (acute kidney injury) likely due to vasomotor nephropathy - Resolved, without IV fluids Rhabdomyolysis - Continue IV fluids - Resolving Debility - Physical therapy is following - Recommend a rolling walker and subacute rehabilitation Fall secondary to parkinson and mechanical reasons. No LOC - Physical therapy is working with her - We will go to subacute rehabilitation Hypokalemia - repleted, magnesium level is normal - BMP from this morning is pending DVT prophylaxis - On heparin Disposition - Pending Subacute rehabilitationm placement. Patient is uninsured and is difficult to get rehab for him. History Interval history: Patient was seen and evaluated in the morning, didn't have any complaints. Hospitalist Physical - Physical exam Narrative exam: Not in cardiopulmonary distress. The patient is obese. Vital signs as documented. Head exam is unremarkable. No scleral icterus . Neck is without jugular venous distension, thyromegaly, or carotid bruits. Lungs are clear to auscultation. Cardiac exam reveals regular rate and Rhythm. First and second heart sounds normal. No murmurs, rubs or gallops. Abdominal exam reveals normal bowel sounds, no masses, no organomegaly and no aortic enlargement. Extremities are nonedematous and both femoral and pedal pulses are normal. 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 Generalized weakness weakness. - Constitutional Vitals: Temp Pulse Resp BP Pulse Ox 97.4 F L 77 18 118/72 100 07/31/18 08:15 07/31/18 10:31 07/31/18 08:15 07/31/18 10:31 07/31/18 08:15 General appearance: Present: mild distress Results - Labs CBC & Chem 7: 07/29/18 04:55 07/31/18 05:03 Labs: Laboratory Last Values WBC 9.2 K/mm3 (4.5-11.0) 07/29/18 04:55 RBC 3.60 M/mm3 (3.65-5.03) L 07/29/18 04:55 Hgb 9.8 gm/dl (11.8-15.2) L 07/29/18 04:55 Hct 29.3 % (35.5-45.6) L D 07/29/18 04:55 MCV 81 fl (84-94) L 07/29/18 04:55 MCH 27 pg (28-32) L 07/29/18 04:55 MCHC 33 % (32-34) 07/29/18 04:55 RDW 14.5 % (13.2-15.2) 07/29/18 04:55 Plt Count 279 K/mm3 (140-440) 07/29/18 04:55 Sodium 138 mmol/L (137-145) 07/31/18 05:03 Potassium 2.7 mmol/L (3.6-5.0) L* 07/31/18 05:03 Chloride 98.6 mmol/L (98-107) 07/31/18 05:03 Carbon Dioxide 31 mmol/L (22-30) H 07/31/18 05:03 Anion Gap 11 mmol/L 07/31/18 05:03 BUN 8 mg/dL (9-20) L 07/31/18 05:03 Creatinine 0.7 mg/dL (0.8-1.5) L 07/31/18 05:03 Estimated GFR > 60 ml/min 07/31/18 05:03 BUN/Creatinine Ratio 11 % 07/31/18 05:03 Glucose 99 mg/dL (75-100) 07/31/18 05:03 POC Glucose 115 (70-105) H 07/31/18 08:20 Calcium 7.5 mg/dL (8.4-10.2) L 07/31/18 05:03 Magnesium 1.90 mg/dL (1.7-2.3) 07/30/18 07:26 Total Creatine Kinase 1199 units/L (55-170) H 07/31/18 05:03 Urine Color Yellow (Yellow) 07/28/18 16:18 Urine Turbidity Turbid (Clear) 07/28/18 16:18 Urine pH 6.0 (5.0-7.0) 07/28/18 16:18 Ur Specific [place] 1.006 (1.003-1.030) 07/28/18 16:18 Urine Protein 100 mg/dl mg/dL (Negative) 07/28/18 16:18 Urine Glucose (UA) Neg mg/dL (Negative) 07/28/18 16:18 Urine Ketones Neg mg/dL (Negative) 07/28/18 16:18 Urine Blood Mod (Negative) 07/28/18 16:18 Urine Nitrite Neg (Negative) 07/28/18 16:18 Urine Bilirubin Neg (Negative) 07/28/18 16:18 Urine Urobilinogen < 2.0 mg/dL (<2.0) 07/28/18 16:18 Ur Leukocyte Esterase Lg (Negative) 07/28/18 16:18 Urine WBC (Auto) > 182.0 /HPF (0.0-6.0) H 07/28/18 16:18 Urine RBC (Auto) 34.0 /HPF (0.0-6.0) 07/28/18 16:18 Urine Bacteria (Auto) 3+ /HPF (Negative) 07/28/18 16:18 Urine WBC Clumps 2+ /HPF 07/28/18 16:18 Urine Creatinine 258.6 mg/dL (0.1-20.0) H 07/27/18 20:44 Urine Sodium 49 mmol/L 07/27/18 20:44 Nutrition/Malnutrition Assess - Dietary Evaluation Nutrition/Malnutrition Findings: Nutrition Notes Start: 07/28/18 16:38 Freq: Status: Active Protocol: Document 07/30/18 11:55 [facility] (Rec: 07/30/18 11:59 [facility] SRW- [email or web address]) Nutrition Notes Initial or Follow up Brief Note Current Diet Renal Labs/Tests K 2.6 Pertinent Medications 80mEq KCl x 1 Subjective/Other Information Pt has consumed 88% of meals since last assessment. Percent of energy/protein needs met: 100% energy 83% pro Nutrition Intervention Follow-Up By: 08/06/18 Additional Comments F/U: stable intakes
[2018-07-31] MEDS: TYLENOL PO PRN (19:01)
[2018-07-31] MEDS: XANAX PO PRN (19:03)
[2018-08-01] MEDS: NACL 0.9% 1000 ML 1,000 ML IV SCH ×2 (01:37→07:59)
[2018-08-01] MEDS: TYLENOL PO PRN ×3 (04:24→22:14)
[2018-08-01] MEDS ORDERED: K-DUR PO ONE (08:12)
[2018-08-01 09:59] LABS: BUN/Creatinine Ratio 9; Blood Urea Nitrogen 7 mg/dL (9-20); Hemolysis Index 2
[2018-08-01] MEDS: ROCEPHIN/NS 1 GM/50 ML 1 GM/50 ML BAG IV SCH (10:44)
[2018-08-01] MEDS: XANAX PO PRN (10:45)
[2018-08-01] MEDS: FLOMAX PO SCH (10:46)
[2018-08-01] MEDS: HEPARIN SUB-Q SCH ×2 (10:47→22:16)
[2018-08-01] MEDS: NORVASC PO SCH (10:48)
[2018-08-01] MEDS: PROSCAR PO SCH (10:50)
[2018-08-01] MEDS: SODIUM CHLORIDE FLUSH SYRINGE 10 ML IV SCH (10:51)
[2018-08-01] MEDS: K-DUR PO SCH (12:16)
--- NOTE | 2018-08-01 14:35 | Progress Note ---
Assessment and Plan Assessment and plan: 63 YO Male with Dementia, HTN, OA, Parkinson's Disease, BPH presents to ED for evaluation. Pt is confused, and unable to provide detailed history. Pt history taken from ED staff, and EMS. As per staff, the patient has experienced increased confusion and falls over the past 6 months. Pt experienced a fall 2 days ago, and has experienced increased confusion and weakness over the past 2 days. Pt lives with his son and brother. EMS notified, and upon arrival the patient was found to be confused. Pt transported to [facility] for further care and evaluation. Pt seen and evaluated in ED and found to have Rhabdomyolysis, Encephalopathy, SIRS, and ARF. Pt admitted to medical floor. No further history obtainable. CT head: Normal examination Left hip x-ray shows no evidence of subluxation but no acute fracture Pelvic x-ray shows no evidence of acute fracture also shows osteoarthrosis of the bilateral hips Left foot x-ray normal acute metabolic Encephalopathy - Resolved, patient is alert and oriented Sepsis secondary to UTI - Continue current antibiotic regimen - Resolving MYCHAL (acute kidney injury) likely due to vasomotor nephropathy - Resolved, without IV fluids Rhabdomyolysis - Continue IV fluids - Resolving Debility - Physical therapy is following - Recommend a rolling walker and subacute rehabilitation Fall secondary to parkinson and mechanical reasons. No LOC - Physical therapy is working with her - We will go to subacute rehabilitation Hypokalemia - repleted, magnesium level is normal - BMP from this morning is pending Parkison disease - Will consult neurology DVT prophylaxis - On heparin Disposition - Pending Subacute rehabilitation placement. Patient is uninsured and is diffi cult to get rehab for him. History Interval history: Patient was seen and evaluated in the morning, didn't have any complaints. He was emotional and was crying Hospitalist Physical - Physical exam Narrative exam: Not in cardiopulmonary distress. The patient is obese. Vital signs as documented. Head exam is unremarkable. No scleral icterus . Neck is without jugular venous distension, thyromegaly, or carotid bruits. Lungs are clear to auscultation. Cardiac exam reveals regular rate and Rhythm. First and second heart sounds normal. No murmurs, rubs or gallops. Abdominal exam reveals normal bowel sounds, no masses, no organomegaly and no aortic enlargement. Extremities are nonedematous and both femoral and pedal pulses are normal. 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 Generalized weakness weakness. - Constitutional Vitals: Temp Pulse Resp BP Pulse Ox 98.4 F 73 20 139/81 100 08/01/18 07:57 08/01/18 07:57 08/01/18 07:57 08/01/18 10:48 08/01/18 09:48 General appearance: Present: mild distress Results - Labs CBC & Chem 7: 07/29/18 04:55 08/01/18 15:54 Labs: Laboratory Last Values WBC 9.2 K/mm3 (4.5-11.0) 07/29/18 04:55 RBC 3.60 M/mm3 (3.65-5.03) L 07/29/18 04:55 Hgb 9.8 gm/dl (11.8-15.2) L 07/29/18 04:55 Hct 29.3 % (35.5-45.6) L D 07/29/18 04:55 MCV 81 fl (84-94) L 07/29/18 04:55 MCH 27 pg (28-32) L 07/29/18 04:55 MCHC 33 % (32-34) 07/29/18 04:55 RDW 14.5 % (13.2-15.2) 07/29/18 04:55 Plt Count 279 K/mm3 (140-440) 07/29/18 04:55 Sodium 142 mmol/L (137-145) 08/01/18 09:21 Potassium 3.0 mmol/L (3.6-5.0) L 08/01/18 09:21 Chloride 102.5 mmol/L (98-107) 08/01/18 09:21 Carbon Dioxide 30 mmol/L (22-30) 08/01/18 09:21 Anion Gap 13 mmol/L 08/01/18 09:21 BUN 7 mg/dL (9-20) L 08/01/18 09:21 Creatinine 0.8 mg/dL (0.8-1.5) 08/01/18 09:21 Estimated GFR > 60 ml/min 08/01/18 09:21 BUN/Creatinine Ratio 9 % 08/01/18 09:21 Glucose 119 mg/dL (75-100) H 08/01/18 09:21 POC Glucose 89 (70-105) 08/01/18 08:08 Calcium 8.0 mg/dL (8.4-10.2) L 08/01/18 09:21 Magnesium 1.90 mg/dL (1.7-2.3) 07/30/18 07:26 Total Creatine Kinase 703 units/L (55-170) H 08/01/18 09:21 Urine Color Yellow (Yellow) 07/28/18 16:18 Urine Turbidity Turbid (Clear) 07/28/18 16:18 Urine pH 6.0 (5.0-7.0) 07/28/18 16:18 Ur Specific [place] 1.006 (1.003-1.030) 07/28/18 16:18 Urine Protein 100 mg/dl mg/dL (Negative) 07/28/18 16:18 Urine Glucose (UA) Neg mg/dL (Negative) 07/28/18 16:18 Urine Ketones Neg mg/dL (Negative) 07/28/18 16:18 Urine Blood Mod (Negative) 07/28/18 16:18 Urine Nitrite Neg (Negative) 07/28/18 16:18 Urine Bilirubin Neg (Negative) 07/28/18 16:18 Urine Urobilinogen < 2.0 mg/dL (<2.0) 07/28/18 16:18 Ur Leukocyte Esterase Lg (Negative) 07/28/18 16:18 Urine WBC (Auto) > 182.0 /HPF (0.0-6.0) H 07/28/18 16:18 Urine RBC (Auto) 34.0 /HPF (0.0-6.0) 07/28/18 16:18 Urine Bacteria (Auto) 3+ /HPF (Negative) 07/28/18 16:18 Urine WBC Clumps 2+ /HPF 07/28/18 16:18 Urine Creatinine 258.6 mg/dL (0.1-20.0) H 07/27/18 20:44 Urine Sodium 49 mmol/L 07/27/18 20:44 Nutrition/Malnutrition Assess - Dietary Evaluation Nutrition/Malnutrition Findings: Nutrition Notes Start: 07/28/18 1 6:38 Freq: Status: Active Protocol: Document 07/30/18 11:55 [facility] (Rec: 07/30/18 11:59 [facility] SRW- [email or web address]) Nutrition Notes Initial or Follow up Brief Note Current Diet Renal Labs/Tests K 2.6 Pertinent Medications 80mEq KCl x 1 Subjective/Other Information Pt has consumed 88% of meals since last assessment. Percent of energy/protein needs met: 100% energy 83% pro Nutrition Intervention Follow-Up By: 08/06/18 Additional Comments F/U: stable intakes
[2018-08-02] MEDS: NACL 0.9% 1000 ML 1,000 ML IV SCH (01:10)
[2018-08-02] MEDS: SODIUM CHLORIDE FLUSH SYRINGE 10 ML IV SCH ×3 (01:11→23:41)
[2018-08-02] MEDS: ROCEPHIN/NS 1 GM/50 ML 1 GM/50 ML BAG IV SCH (10:06)
[2018-08-02] MEDS: FLOMAX PO SCH (10:19)
[2018-08-02] MEDS: K-DUR PO SCH (10:19)
[2018-08-02] MEDS: PROSCAR PO SCH (10:20)
[2018-08-02] MEDS: HEPARIN SUB-Q SCH ×2 (10:20→23:40)
[2018-08-02] MEDS: NORVASC PO SCH (10:21)
[2018-08-02 14:00] LABS: BUN/Creatinine Ratio 12; Blood Urea Nitrogen 7 mg/dL (9-20); Hemolysis Index 85
[2018-08-02] MEDS: TYLENOL PO PRN (23:40)
[2018-08-02] MEDS: XANAX PO PRN (23:40)
[2018-08-03] MEDS: K-DUR PO SCH ×2 (02:06→11:04)
[2018-08-03] MEDS: KCL 10MEQ/100ML 10 MEQ/100 ML BAG IV SCH ×2 (02:06→02:08)
[2018-08-03] MEDS: NACL 0.9% 1000 ML 1,000 ML IV SCH ×3 (02:27→19:55)
[2018-08-03 09:24] LABS: BUN/Creatinine Ratio 10; Blood Urea Nitrogen 7 mg/dL (9-20); Calcium 8.2 mg/dL (8.4-10.2); Hemolysis Index 22
[2018-08-03] MEDS: FLOMAX PO SCH (11:05)
[2018-08-03] MEDS: NORVASC PO SCH (11:05)
[2018-08-03] MEDS: PROSCAR PO SCH (11:05)
[2018-08-03] MEDS: HEPARIN SUB-Q SCH ×2 (11:05→22:21)
[2018-08-03] MEDS: SODIUM CHLORIDE FLUSH SYRINGE 10 ML IV SCH ×2 (11:06→22:22)
[2018-08-03] MEDS: ROCEPHIN/NS 1 GM/50 ML 1 GM/50 ML BAG IV SCH (11:33)
--- NOTE | 2018-08-03 12:16 | Progress Note ---
Assessment and Plan Assessment and plan: 63 YO Male with Dementia, HTN, OA, Parkinson's Disease, BPH presents to ED for evaluation. Pt is confused, and unable to provide detailed history. Pt history taken from ED staff, and EMS. As per staff, the patient has experienced increased confusion and falls over the past 6 months. Pt experienced a fall 2 days ago, and has experienced increased confusion and weakness over the past 2 days. Pt lives with his son and brother. EMS notified, and upon arrival the patient was found to be confused. Pt transported to [facility] for further care and evaluation. Pt seen and evaluated in ED and found to have Rhabdomyolysis, Encephalopathy, SIRS, and ARF. Pt admitted to medical floor. No further history obtainable. CT head: Normal examination Left hip x-ray shows no evidence of subluxation but no acute fracture Pelvic x-ray shows no evidence of acute fracture also shows osteoarthrosis of the bilateral hips Left foot x-ray normal acute metabolic Encephalopathy - Resolved, patient is alert and oriented Sepsis secondary to UTI - Continue current antibiotic regimen - Resolving MYCHAL (acute kidney injury) likely due to vasomotor nephropathy - Resolved, without IV fluids Rhabdomyolysis - Continue IV fluids - Resolving Debility - Physical therapy is following - Recommend a rolling walker and subacute rehabilitation Fall secondary to parkinson and mechanical reasons. No LOC -PT evaluation, need rehabilitation. Hypokalemia - repleted, and normal Parkison disease - Will consult neurology to start treatment DVT prophylaxis - On heparin Disposition - Pending Subacute rehabilitation placement. Patient is uninsured and is difficult to get rehab for him. History Interval history: Patient was seen and evaluated in the morning, patient wants to get treatment for his Parkinson's disease. Hospitalist Physical - Physical exam Narrative exam: Not in cardiopulmonary distress. The patient is obese. Vital signs as documented. Head exam is unremarkable. No scleral icterus . Neck is without jugular venous distension, thyromegaly, or carotid bruits. Lungs are clear to auscultation. Cardiac exam reveals regular rate and Rhythm. First and second heart sounds normal. No murmurs, rubs or gallops. Abdominal exam reveals normal bowel sounds, no masses, no organomegaly and no aortic enlargement. Extremities are nonedematous and both femoral and pedal pulses are normal. 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 Generalized weakness weakness. - Constitutional Vitals: Temp Pulse Resp BP Pulse Ox 97.6 F 71 18 144/78 99 08/03/18 07:39 08/03/18 07:50 08/03/18 07:39 08/03/18 11:05 08/03/18 08:21 General appearance: Present: mild distress Results - Labs CBC & Chem 7: 07/29/18 04:55 08/03/18 08:50 Labs: Laboratory Last Values WBC 9.2 K/mm3 (4.5-11.0) 07/29/18 04:55 RBC 3.60 M/mm3 (3.65-5.03) L 07/29/18 04:55 Hgb 9.8 gm/dl (11.8-15.2) L 07/29/18 04:55 Hct 29.3 % (35.5-45.6) L D 07/29/18 04:55 MCV 81 fl (84-94) L 07/29/18 04:55 MCH 27 pg (28-32) L 07/29/18 04:55 MCHC 33 % (32-34) 07/29/18 04:55 RDW 14.5 % (13.2-15.2) 07/29/18 04:55 Plt Count 279 K/mm3 (140-440) 07/29/18 04:55 Sodium 142 mmol/L (137-145) 08/03/18 08:50 Potassium 4.1 mmol/L (3.6-5.0) 08/03/18 08:50 Chloride 104.3 mmol/L (98-107) 08/03/18 08:50 Carbon Dioxide 27 mmol/L (22-30) 08/03/18 08:50 Anion Gap 15 mmol/L 08/03/18 08:50 BUN 7 mg/dL (9-20) L 08/03/18 08:50 Creatinine 0.7 mg/dL (0.8-1.5) L 08/03/18 08:50 Estimated GFR > 60 ml/min 08/03/18 08:50 BUN/Creatinine Ratio 10 % 08/03/18 08:50 Glucose 88 mg/dL (75-100) 08/03/18 08:50 POC Glucose 129 (70-105) H 08/03/18 11:17 Calcium 8.2 mg/dL (8.4-10.2) L 08/03/18 08:50 Magnesium 1.90 mg/dL (1.7-2.3) 07/30/18 07:26 Total Creatine Kinase 386 units/L (55-170) H 08/03/18 08:50 Urine Color Yellow (Yellow) 07/28/18 16:18 Urine Turbidity Turbid (Clear) 07/28/18 16:18 Urine pH 6.0 (5.0-7.0) 07/28/18 16:18 Ur Specific [place] 1.006 (1.003-1.030) 07/28/18 16:18 Urine Protein 100 mg/dl mg/dL (Negative) 07/28/18 16:18 Urine Glucose (UA) Neg mg/dL (Negative) 07/28/18 16:18 Urine Ketones Neg mg/dL (Negative) 07/28/18 16:18 Urine Blood Mod (Negative) 07/28/18 16:18 Urine Nitrite Neg (Negative) 07/28/18 16:18 Urine Bilirubin Neg (Negative) 07/28/18 16:18 Urine Urobilinogen < 2.0 mg/dL (<2.0) 07/28/18 16:18 Ur Leukocyte Esterase Lg (Negative) 07/28/18 16:18 Urine WBC (Auto) > 182.0 /HPF (0.0-6.0) H 07/28/18 16:18 Urine RBC (Auto) 34.0 /HPF (0.0-6.0) 07/28/18 16:18 Urine Bacteria (Auto) 3+ /HPF (Negative) 07/28/18 16:18 Urine WBC Clumps 2+ /HPF 07/28/18 16:18 Urine Creatinine 258.6 mg/dL (0.1-20.0) H 07/27/18 20:44 Urine Sodium 49 mmol/L 07/27/18 20:44 Nutrition/Malnutrition Assess - Dietary Evaluation Nutrition/Malnutrition Findings: Nutrition Notes Start: 07/28/18 16:38 Freq: Status: Active Protocol: Document 07/30/18 11:55 ANGELO (Rec: 07/30/18 11:59 ANGELO SRW- [email or web address]) Nutrition Notes Initial or Follow up Brief Note Current Diet Renal Labs/Tests K 2.6 Pertinent Medications 80mEq KCl x 1 Subjective/Other Information Pt has consumed 88% of meals since last assessment. Percent of energy/protein needs met: 100% energy 83% pro Nutrition Intervention Follow-Up By: 08/06/18 Additional Comments F/U: stable intakes
--- NOTE | 2018-08-03 18:59 | Progress Note ---
Subjective Date of service: 08/03/18 Interval history: CPK is mildly elevated at 386 the creatinine is OK will check w/u for myositis Objective - Vital Sign Vital Signs - 12hr 08/03/18 08/03/18 08/03/18 07:39 07:50 08:21 Temperature 97.6 F Pulse Rate 71 Respiratory 18 Rate Blood Pressure 144/78 O2 Sat by Pulse 99 99 Oximetry 08/03/18 08/03/18 08/03/18 10:00 11:05 15:38 Temperature 97.6 F Pulse Rate Respiratory 18 20 Rate Blood Pressure 144/78 143/86 O2 Sat by Pulse 99 Oximetry 08/03/18 16:31 Temperature Pulse Rate 75 Respiratory Rate Blood Pressure O2 Sat by Pulse 98 Oximetry - Laboratory Findings CBC and BMP: 07/29/18 04:55 08/03/18 08:50 Abnormal Lab Findings: Abnormal Labs 07/27/18 07/27/18 07/27/18 17:56 17:56 19:17 WBC 13.2 H RBC Hgb Hct MCV 80 L MCH 27 L Sodium 136 L Potassium 2.4 L* 3.4 L D Chloride 93.1 L 94.1 L Carbon Dioxide BUN Creatinine 1.6 H 1.7 H Glucose 108 H 113 H POC Glucose Calcium 8.3 L Total Creatine Kinase 89043 H Urine WBC (Auto) Urine Creatinine 07/27/18 07/28/18 07/28/18 20:44 06:26 13:48 WBC RBC Hgb Hct MCV MCH Sodium Potassium Chloride Carbon Dioxide BUN Creatinine Glucose POC Glucose Calcium Total Creatine Kinase 8832 H 8460 H Urine WBC (Auto) Urine Creatinine 258.6 H 07/28/18 07/29/18 07/29/18 16:18 04:44 04:55 WBC RBC 3.60 L Hgb 9.8 L Hct 29.3 L D MCV 81 L MCH 27 L Sodium Potassium Chloride Carbon Dioxide BUN Creatinine Glucose POC Glucose Calcium Total Creatine Kinase 5229 H Urine WBC (Auto) > 182.0 H Urine Creatinine 07/29/18 07/29/18 07/30/18 04:55 13:49 07:26 WBC RBC Hgb Hct MCV MCH Sodium 131 L 134 L Potassium 2.7 L* D 3.4 L D 2.6 L* D Chloride 91.8 L 94.0 L Carbon Dioxide BUN Creatinine Glucose POC Glucose Calcium 7.4 L 7.8 L 7.7 L Total Creatine Kinase 2390 H Urine WBC (Auto) Urine Creatinine 07/30/18 07/30/18 07/31/18 07:39 18:00 05:03 WBC RBC Hgb Hct MCV MCH Sodium Potassium 2.7 L* Chloride Carbon Dioxide 31 H BUN 8 L Creatinine 0.7 L Glucose POC Glucose 118 H 171 H Calcium 7.5 L Total Creatine Kinase 1199 H Urine WBC (Auto) Urine Creatinine 07/31/18 07/31/18 07/31/18 08:20 13:59 16:56 WBC RBC Hgb Hct MCV MCH Sodium Potassium 3.0 L Chloride Carbon Dioxide BUN Creatinine Glucose POC Glucose 115 H 118 H Calcium Total Creatine Kinase Urine WBC (Auto) Urine Creatinine 08/01/18 08/01/18 08/01/18 09:21 13:12 16:33 WBC RBC Hgb Hct MCV MCH Sodium Potassium 3.0 L Chloride Carbon Dioxide BUN 7 L Creatinine Glucose 119 H POC Glucose 133 H 114 H Calcium 8.0 L Total Creatine Kinase 703 H Urine WBC (Auto) Urine Creatinine 08/02/18 08/02/18 08/03/18 11:16 13:30 08:50 WBC RBC Hgb Hct MCV MCH Sodium Potassium Chloride Carbon Dioxide BUN 7 L 7 L Creatinine 0.6 L 0.7 L Glucose 116 H POC Glucose 120 H Calcium 8.0 L 8.2 L Total Creatine Kinase 386 H Urine WBC (Auto) Urine Creatinine 08/03/18 11:17 WBC RBC Hgb Hct MCV MCH Sodium Potassium Chloride Carbon Dioxide BUN Creatinine Glucose POC Glucose 129 H Calcium Total Creatine Kinase Urine WBC (Auto) Urine Creatinine
[2018-08-03] MEDS: XANAX PO PRN (22:26)
[2018-08-04] MEDS: NACL 0.9% 1000 ML 1,000 ML IV SCH ×3 (02:25→16:01)
--- NOTE | 2018-08-04 08:26 | Progress Note ---
Subjective Date of service: 08/04/18 Interval history: curious aspect of the hx is long duration of weakness and frequent falls etiology beinng worked up there has been no prior medical w/u for progressive muscle weakness etiology ? Objective - Vital Sign Vital Signs - 12hr 08/03/18 08/04/18 22:00 01:52 Temperature 98.9 F Pulse Rate 70 Respiratory 20 20 Rate Blood Pressure 158/89 O2 Sat by Pulse 100 96 Oximetry - Laboratory Findings CBC and BMP: 07/29/18 04:55 08/03/18 08:50 Abnormal Lab Findings: Abnormal Labs 07/27/18 07/27/18 07/27/18 17:56 17:56 19:17 WBC 13.2 H RBC Hgb Hct MCV 80 L MCH 27 L Sodium 136 L Potassium 2.4 L* 3.4 L D Chloride 93.1 L 94.1 L Carbon Dioxide BUN Creatinine 1.6 H 1.7 H Glucose 108 H 113 H POC Glucose Calcium 8.3 L Total Creatine Kinase 54934 H Urine WBC (Auto) Urine Creatinine 07/27/18 07/28/18 07/28/18 20:44 06:26 13:48 WBC RBC Hgb Hct MCV MCH Sodium Potassium Chloride Carbon Dioxide BUN Creatinine Glucose POC Glucose Calcium Total Creatine Kinase 8832 H 8460 H Urine WBC (Auto) Urine Creatinine 258.6 H 07/28/18 07/29/18 07/29/18 16:18 04:44 04:55 WBC RBC 3.60 L Hgb 9.8 L Hct 29.3 L D MCV 81 L MCH 27 L Sodium Potassium Chloride Carbon Dioxide BUN Creatinine Glucose POC Glucose Calcium Total Creatine Kinase 5229 H Urine WBC (Auto) > 182.0 H Urine Creatinine 07/29/18 07/29/18 07/30/18 04:55 13:49 07:26 WBC RBC Hgb Hct MCV MCH Sodium 131 L 134 L Potassium 2.7 L* D 3.4 L D 2.6 L* D Chloride 91.8 L 94.0 L Carbon Dioxide BUN Creatinine Glucose POC Glucose Calcium 7.4 L 7.8 L 7.7 L Total Creatine Kinase 2390 H Urine WBC (Auto) Urine Creatinine 07/30/18 07/30/18 07/31/18 07:39 18:00 05:03 WBC RBC Hgb Hct MCV MCH Sodium Potassium 2.7 L* Chloride Carbon Dioxide 31 H BUN 8 L Creatinine 0.7 L Glucose POC Glucose 118 H 171 H Calcium 7.5 L Total Creatine Kinase 1199 H Urine WBC (Auto) Urine Creatinine 07/31/18 07/31/18 07/31/18 08:20 13:59 16:56 WBC RBC Hgb Hct MCV MCH Sodium Potassium 3.0 L Chloride Carbon Dioxide BUN Creatinine Glucose POC Glucose 115 H 118 H Calcium Total Creatine Kinase Urine WBC (Auto) Urine Creatinine 08/01/18 08/01/18 08/01/18 09:21 13:12 16:33 WBC RBC Hgb Hct MCV MCH Sodium Potassium 3.0 L Chloride Carbon Dioxide BUN 7 L Creatinine Glucose 119 H POC Glucose 133 H 114 H Calcium 8.0 L Total Creatine Kinase 703 H Urine WBC (Auto) Urine Creatinine 08/02/18 08/02/18 08/03/18 11:16 13:30 08:50 WBC RBC Hgb Hct MCV MCH Sodium Potassium Chloride Carbon Dioxide BUN 7 L 7 L Creatinine 0.6 L 0.7 L Glucose 116 H POC Glucose 120 H Calcium 8.0 L 8.2 L Total Creatine Kinase 386 H Urine WBC (Auto) Urine Creatinine 08/03/18 11:17 WBC RBC Hgb Hct MCV MCH Sodium Potassium Chloride Carbon Dioxide BUN Creatinine Glucose POC Glucose 129 H Calcium Total Creatine Kinase Urine WBC (Auto) Urine Creatinine
--- NOTE | 2018-08-04 09:35 | Consultation ---
HISTORY OF PRESENT ILLNESS: This is a 63-year-old black male that was admitted to the Emergency Room of [facility] on 07/27/2018. Neurological consultation is obtained on 08/04/2018 for further evaluation of generalized weakness, elevated CPK, frequent falls. The patient has had a prior medical history of being weak, off balance for several months. He states he frequently falls, cannot get up, he has a prior history of hypertension and parkinsonism. He presented to the Emergency Room since then with being very poor mobility, complaining of malaise, weakness, generalized problems with movement. We do not have any history of what Parkinson's medicine he was having. He did have on presentation a CT scan of the head. His creatinine was elevated at 1.6, potassium was low at 2.4. Prior medical history would indicate that he has no known allergies. PHYSICAL EXAMINATION: GENERAL: He is alert, complains of generalized weakness. NEUROLOGIC: Motor tone is symmetrically reduced. Weakness is present throughout. There is increased rigidity, ____ problems. Motor tone is reduced in all extremities. He has slight tremor, slight rigidity. Cranial nerves are intact. Motor and sensory examination is otherwise unremarkable. No gross tremors are present. NECK: He has supple neck. IMPRESSION: From reviewing his CT scan, he has had some slight atrophy that I would expect to see given his level of Parkinson's. I believe Parkinson's is probably the cause of his falls. His CPK will be further assessed. Certainly he had electrolyte abnormality. I do not find any evidence to suggest he has Lewy body dementia. I will follow the patient with you. JOB# [id number] KIMBERLEE/NTS
[2018-08-04] MEDS: FLOMAX PO SCH (09:41)
[2018-08-04] MEDS: NORVASC PO SCH (09:45)
[2018-08-04] MEDS: XANAX PO PRN (09:45)
[2018-08-04] MEDS: PROSCAR PO SCH (09:46)
[2018-08-04] MEDS: HEPARIN SUB-Q SCH ×2 (09:46→21:38)
[2018-08-04] MEDS: SODIUM CHLORIDE FLUSH SYRINGE 10 ML IV SCH ×2 (09:47→21:39)
--- NOTE | 2018-08-04 13:13 | Discharge Summary ---
Providers - Providers Date of Admission: 07/27/18 18:57 Attending physician: RANI YUNG MD 07/27/18 17:41 Consult to Case Management [CONS] Stat Services Needed at Discharge: Physical Therapy Video Intern Notified:: awaiting call back Physical Therapy Evaluation and Treat [CONS] Stat Comment: Reason For Exam: needs ambulatory assistance Weight bearing status?: Partial wt bearing Assistive devices?: Yes If so list: Walker 07/27/18 20:26 Consult to Case Management [CONS] Routine Services Needed at Discharge: Other Notified:: YES If yes, spoke with:: DARSHAN Comment:: Discharge Planning 07/28/18 13:24 Consult to Case Management [CONS] Routine Services Needed at Discharge: Video Intern Notified:: DARSHAN Additional Physician Instructions: eval for SNF 07/31/18 08:10 Consult to Wound/ET Nurse [CONS] Routine Reason For Exam: wound eval for L heel wound. 08/03/18 10:46 Consult to Physician [CONS] Routine Comment: called answ. serv./teresa Consulting Provider: MERLYN PATTERSON Physician Instructions: Reason For Exam: parkinson, patient wants to start treatment Primary care physician: TECHNICAL CONSULTANT Hospitalization Reason for admission: Rhabdomyolysis, parkinson's disease, frequent fall Condition: Good Disposition: DC/[place]-06 HOME UNDER HOME HL[facility] Time spent for discharge: 34 minutes - Discharge Diagnoses (1) Parkinson disease, symptomatic Status: Acute (2) MYCHAL (acute kidney injury) Status: Acute (3) Debility Status: Acute (4) Falls Status: Acute (5) Hypokalemia Status: Acute (6) Rhabdomyolysis Status: Acute Qualifiers: Encounter type: initial encounter Core Measure Documentation - Palliative Care Palliative Care/ Comfort Measures: Not Applicable - Core Measures Any of the following diagnoses?: none Exam - Physical Exam Narrative exam: Not in cardiopulmonary distress. The patient is obese. Vital signs as documented. Head exam is unremarkable. No scleral icterus . Neck is without jugular venous distension, thyromegaly, or carotid bruits. Lungs are clear to auscultation. Cardiac exam reveals regular rate and Rhythm. First and second heart sounds normal. No murmurs, rubs or gallops. Abdominal exam reveals normal bowel sounds, no masses, no organomegaly and no aortic enlargement. 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 Generalized weakness weakness. - Constitutional Vitals: Temp Pulse Resp BP Pulse Ox 98.0 F 71 20 149/88 98 08/04/18 07:21 08/04/18 07:21 08/04/18 10:00 08/04/18 07:21 08/04/18 10:00 Plan Activity: advance as tolerated Weight Bearing Status: Weight Bear as Tolerated Diet: regular Special Instructions: physical therapy Additional Instructions: F/U at [facility] in 1-2 weeks Follow up with: AMANDA ROUSE MD [Primary Care Provider] - 3-5 Days MERLYN PATTERSON MD [Staff Physician] - 14 Days Prescriptions: ALPRAZolam [Xanax] 0.5 tab PO DAILY PRN #6 tablet PRN Reason: Anxiety amLODIPine [Norvasc] 5 mg PO DAILY #30 tablet Carbidopa/Levodopa 25-250 [Sinemet 25/250] 1 each PO BID #60 tablet Finasteride [Proscar] 5 mg PO QDAY #30 tablet Tamsulosin [Flomax] 0.4 mg PO QDAY #30 cap
--- NOTE | 2018-08-04 14:21 | Progress Note ---
Assessment and Plan Assessment and plan: 63 YO Male with Dementia, HTN, OA, Parkinson's Disease, BPH presents to ED for evaluation. Pt is confused, and unable to provide detailed history. Pt history taken from ED staff, and EMS. As per staff, the patient has experienced increased confusion and falls over the past 6 months. Pt experienced a fall 2 days ago, and has experienced increased confusion and weakness over the past 2 days. Pt lives with his son and brother. EMS notified, and upon arrival the patient was found to be confused. Pt transported to [facility] for further care and evaluation. Pt seen and evaluated in ED and found to have Rhabdomyolysis, Encephalopathy, SIRS, and ARF. Pt admitted to medical floor. No further history obtainable. CT head: Normal examination Left hip x-ray shows no evidence of subluxation but no acute fracture Pelvic x-ray shows no evidence of acute fracture also shows osteoarthrosis of the bilateral hips Left foot x-ray normal acute metabolic Encephalopathy - Resolved, patient is alert and oriented Sepsis secondary to UTI - Continue current antibiotic regimen - Resolved MYCHAL (acute kidney injury) likely due to vasomotor nephropathy - Resolved, with IV fluids Rhabdomyolysis - resolved with IV fluids Debility - Physical therapy is following - Recommended subacute rehabilitation Fall secondary to parkinson and mechanical reasons. No LOC -PT evaluation, need rehabilitation. Hypokalemia - repleted, and normal Parkison disease - consulted neurology started him on carbidopa/levodopa - MRI/MRA ordered by neurology today DVT prophylaxis - On heparin Disposition - The plan was to discharge him to subacute rehabilitation, but the patient is unfunded and couldn't get subacute rehab, so he will go to home with home health tomorrow. Follow MRI/MRA. discussed with case management. Scripts in the chart. - Patient Problems (1) Parkinson disease, symptomatic Current Visit: Yes Status: Acute (2) MYCHAL (acute kidney injury) Current Visit: Yes Status: Acute (3) Debility Current Visit: Yes Status: Acute (4) Falls Current Visit: Yes Status: Acute (5) Hypokalemia Current Visit: Yes Status: Acute (6) Rhabdomyolysis Current Visit: Yes Status: Acute Qualifiers: Encounter type: initial encounter History Interval history: Patient was seen and evaluated in the morning, no new complaints today. Hospitalist Physical - Physical exam Narrative exam: Not in cardiopulmonary distress. The patient is obese. Vital signs as documented. Head exam is unremarkable. No scleral icterus . Neck is without jugular venous distension, thyromegaly, or carotid bruits. Lungs are clear to auscultation. Cardiac exam reveals regular rate and Rhythm. First and second heart sounds normal. No murmurs, rubs or gallops. Abdominal exam reveals normal bowel sounds, no masses, no organomegaly and no aortic enlargement. 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 Generalized weakness. - Constitutional Vitals: Temp Pulse Resp BP Pulse Ox 97.6 F 88 18 156/85 99 08/04/18 13:51 08/04/18 13:51 08/04/18 13:51 08/04/18 13:51 08/04/18 13:51 General appearance: Present: mild distress Results - Labs CBC & Chem 7: 07/29/18 04:55 08/03/18 08:50 Labs: Laboratory Last Values WBC 9.2 K/mm3 (4.5-11.0) 07/29/18 04:55 RBC 3.60 M/mm3 (3.65-5.03) L 07/29/18 04:55 Hgb 9.8 gm/dl (11.8-15.2) L 07/29/18 04:55 Hct 29.3 % (35.5-45.6) L D 07/29/18 04:55 MCV 81 fl (84-94) L 07/29/18 04:55 MCH 27 pg (28-32) L 07/29/18 04:55 MCHC 33 % (32-34) 07/29/18 04:55 RDW 14.5 % (13.2-15.2) 07/29/18 04:55 Plt Count 279 K/mm3 (140-440) 07/29/18 04:55 ESR 79 mm/Hr (0-20) 08/03/18 Unknown Sodium 142 mmol/L (137-145) 08/03/18 08:50 Potassium 4.1 mmol/L (3.6-5.0) 08/03/18 08:50 Chloride 104.3 mmol/L (98-107) 08/03/18 08:50 Carbon Dioxide 27 mmol/L (22-30) 08/03/18 08:50 Anion Gap 15 mmol/L 08/03/18 08:50 BUN 7 mg/dL (9-20) L 08/03/18 08:50 Creatinine 0.7 mg/dL (0.8-1.5) L 08/03/18 08:50 Estimated GFR > 60 ml/min 08/03/18 08:50 BUN/Creatinine Ratio 10 % 08/03/18 08:50 Glucose 88 mg/dL (75-100) 08/03/18 08:50 POC Glucose 83 (70-105) 08/04/18 11:34 Calcium 8.2 mg/dL (8.4-10.2) L 08/03/18 08:50 Magnesium 1.90 mg/dL (1.7-2.3) 07/30/18 07:26 Total Creatine Kinase 386 units/L (55-170) H 08/03/18 08:50 Urine Color Yellow (Yellow) 07/28/18 16:18 Urine Turbidity Turbid (Clear) 07/28/18 16:18 Urine pH 6.0 (5.0-7.0) 07/28/18 16:18 Ur Specific [place] 1.006 (1.003-1.030) 07/28/18 16:18 Urine Protein 100 mg/dl mg/dL (Negative) 07/28/18 16:18 Urine Glucose (UA) Neg mg/dL (Negative) 07/28/18 16:18 Urine Ketones Neg mg/dL (Negative) 07/28/18 16:18 Urine Blood Mod (Negative) 07/28/18 16:18 Urine Nitrite Neg (Negative) 07/28/18 16:18 Urine Bilirubin Neg (Negative) 07/28/18 16:18 Urine Urobilinogen < 2.0 mg/dL (<2.0) 07/28/18 16:18 Ur Leukocyte Esterase Lg (Negative) 07/28/18 16:18 Urine WBC (Auto) > 182.0 /HPF (0.0-6.0) H 07/28/18 16:18 Urine RBC (Auto) 34.0 /HPF (0.0-6.0) 07/28/18 16:18 Urine Bacteria (Auto) 3+ /HPF (Negative) 07/28/18 16:18 Urine WBC Clumps 2+ /HPF 07/28/18 16:18 Urine Creatinine 258.6 mg/dL (0.1-20.0) H 07/27/18 20:44 Urine Sodium 49 mmol/L 07/27/18 20:44 Nutrition/Malnutrition Assess - Dietary Evaluation Nutrition/Malnutrition Findings: Nutrition Notes Start: 07/28/18 16:3 8 Freq: Status: Active Protocol: Document 07/30/18 11:55 ANGELO (Rec: 07/30/18 11:59 INCLEOPATRA SRW- [email or web address]) Nutrition Notes Initial or Follow up Brief Note Current Diet Renal Labs/Tests K 2.6 Pertinent Medications 80mEq KCl x 1 Subjective/Other Information Pt has consumed 88% of meals since last assessment. Percent of energy/protein needs met: 100% energy 83% pro Nutrition Intervention Follow-Up By: 08/06/18 Additional Comments F/U: stable intakes
[2018-08-04] MEDS: SINEMET PO SCH ×2 (16:11→21:38)
[2018-08-04] MEDS ORDERED: XANAX PO ONE (18:44)
--- NOTE | 2018-08-04 19:31 | Magnetic Resonance Report ---
FINAL REPORT EXAM: MR BRAIN WO CON HISTORY: seizure TECHNIQUE: MRI brain without contrast PRIORS: None. FINDINGS: There is normal signal throughout the brain parenchyma. No evidence for brain edema pattern or mass e ffect. Ventricles and sulci are within normal limits. No evidence for acute intra-axial or extra-axia l hemorrhage. No evidence for acute restriction on diffusion-weighted study. Brainstem and posterior fossa structur es are unremarkable. IMPRESSION: Negative. No focal abnormality identified which is a CT
[2018-08-05] MEDS: NACL 0.9% 1000 ML 1,000 ML IV SCH ×2 (02:36→10:12)
[2018-08-05] MEDS: FLOMAX PO SCH (10:11)
[2018-08-05] MEDS: NORVASC PO SCH (10:11)
[2018-08-05] MEDS: SINEMET PO SCH (10:11)
[2018-08-05] MEDS: PROSCAR PO SCH (10:12)
[2018-08-05] MEDS: HEPARIN SUB-Q SCH (10:12)
[2018-08-05] MEDS: SODIUM CHLORIDE FLUSH SYRINGE 10 ML IV SCH (10:22)
--- NOTE | 2018-08-05 11:51 | Discharge Summary ---
Providers - Providers Date of Admission: 07/27/18 18:57 Attending physician: SHERLY DICKERSON MD 07/27/18 17:41 Consult to Case Management [CONS] Stat Services Needed at Discharge: Physical Therapy Assistant Pressman Notified:: awaiting call back Physical Therapy Evaluation and Treat [CONS] Stat Comment: Reason For Exam: needs ambulatory assistance Weight bearing status?: Partial wt bearing Assistive devices?: Yes If so list: Walker 07/27/18 20:26 Consult to Case Management [CONS] Routine Services Needed at Discharge: Other Notified:: YES If yes, spoke with:: DARSHAN Comment:: Discharge Planning 07/28/18 13:24 Consult to Case Management [CONS] Routine Services Needed at Discharge: Assistant Pressman Notified:: DARSHAN Additional Physician Instructions: eval for SNF 07/31/18 08:10 Consult to Wound/ET Nurse [CONS] Routine Reason For Exam: wound eval for L heel wound. 08/03/18 10:46 Consult to Physician [CONS] Routine Comment: called answ. serv./teresa Consulting Provider: MERLYN PATTERSON Physician Instructions: Reason For Exam: parkinson, patient wants to start treatment Primary care physician: BEATER DUMPER Hospitalization Condition: Good Hospital course: 63 YO Male with Dementia, HTN, OA, Parkinson's Disease, who presented to the ER with confusion, generalized weakness. The patient was found to have UTI, he was treated with antibiotics, he was also found to have nontraumatic rhabdomyolysis and acute kidney injury, he received IV fluids with improvement, electrolytes were repleted. The patient's receive physical therapy, subacute rehabilitation placement was recommended, but patient was unfunded and cannot afford to go to the facilities. Therefore he was discharged home with home health for home PT baudilio services. CT head: Normal examination Left hip x-ray shows no evidence of subluxation but no acute fracture Pelvic x-ray shows no evidence of acute fracture also shows osteoarthrosis of the bilateral hips Left foot x-ray normal MRI brain no acute findings Diagnosis acute metabolic Encephalopathy Sepsis secondary to UTI MYCHAL (acute kidney injury) likely due to vasomotor nephropathy Rhabdomyolysis Debility Fall secondary to parkinson and mechanical reasons. Hypokalemia Parkison disease - Disposition: DC/TX-06 HOME UNDER HOME [facility] Time spent for discharge: 33 minutes Core Measure Documentation - Palliative Care Palliative Care/ Comfort Measures: Not Applicable - Core Measures Any of the following diagnoses?: none Exam - Constitutional Vitals: Temp Pulse Resp BP Pulse Ox 98.0 F 68 18 158/82 100 08/05/18 08:01 08/05/18 10:11 08/05/18 08:01 08/05/18 10:11 08/05/18 10:00 General appearance: Present: no acute distress, well-nourished - EENT Eyes: Present: PERRL ENT: hearing intact, clear oral mucosa - Neck Neck: Present: supple, normal ROM - Respiratory Respiratory effort: normal Respiratory: bilateral: CTA - Cardiovascular Heart Sounds: Present: S1 & S2. Absent: rub, click - Extremities Extremities: pulses symmetrical, No edema Peripheral Pulses: within normal limits - Abdominal General gastrointestinal: Present: soft, non-tender, non-distended, normal bowel sounds Male genitourinary: Present: normal - Integumentary Integumentary: Present: clear, warm, dry - Musculoskeletal Musculoskeletal: gait normal, strength equal bilaterally - Psychiatric Psychiatric: appropriate mood/affect, intact judgment & insight - Neurologic Neurologic: CNII-XII intact, moves all extremities (tremors in both hands, shuffling gait), no gait normal Plan Follow up with: PRIMARY CARE, [Primary Care Provider] - 3-5 Days MERLYN PATTERSON MD [Staff Physician] - 14 Days Prescriptions: ALPRAZolam [Xanax] 0.5 tab PO DAILY PRN #6 tablet PRN Reason: Anxiety amLODIPine [Norvasc] 5 mg PO DAILY #30 tablet Carbidopa/Levodopa 25-250 [Sinemet 25/250] 1 each PO BID #60 tablet Finasteride [Proscar] 5 mg PO QDAY #30 tablet Tamsulosin [Flomax] 0.4 mg PO QDAY #30 cap
[2018-08-05 13:41] VITALS: BP 115/75
== END 2018-08-05 18:30 | disposition home health service (06) | DRG 871 ==
LOC: ED 17:01 → 3A 18:57 → 2B-ACE 20:28
PROVIDERS: ADMIT Internal Medicine; ATTEND Internal Medicine
DX: A41.9 Sepsis, unspecified organism (principal); N17.0 Acute kidney failure with tubular necrosis; G93.41 Metabolic encephalopathy; M62.82 Rhabdomyolysis; N39.0 Urinary tract infection, site not specified; F13.20 Sedative, hypnotic or anxiolytic dependence, uncomplicated; F03.90 Unspecified dementia, unspecified severity, without behavioral disturbance, psychotic disturbance, mood disturbance, and anxiety; I10 Essential (primary) hypertension; M19.90 Unspecified osteoarthritis, unspecified site; G20 Parkinson's disease; W18.39XA Other fall on same level, initial encounter; E87.6 Hypokalemia; N40.0 Benign prostatic hyperplasia without lower urinary tract symptoms; Z96.659 Presence of unspecified artificial knee joint; F41.9 Anxiety disorder, unspecified; Y93.89 Activity, other specified; Y92.89 Other specified places as the place of occurrence of the external cause; Y99.8 Other external cause status; Z79.899 Other long term (current) drug therapy
CPT/HCPCS: 36415; 70450; 70551; 72170; 80048; 81001; 82550; 82565; 82570; 82962; 83735; 84132; 84300; 84520; 85027; 85652; 94760; 96361; 96374; 96375; G0378; J0696; J1644; J2060; J3480; J7030; J7040

== ENCOUNTER 2019-04-04 11:26 | Inpatient (IN) | payer OTHER, SELFPAY ==
[2019-04-04] MEDS ORDERED: SODIUM CHLORIDE 0.9% 500 ML 500 ML IV ONE (12:09)
[2019-04-04] MEDS ORDERED: SODIUM CHLORIDE 0.9% 1000 ML IV SOLN IV ONE (12:11)
[2019-04-04] MEDS ORDERED: SODIUM CHLORIDE 0.9% 1000 ML 1,000 ML ONE ×2 (12:14→15:56)
--- NOTE | 2019-04-04 12:20 | Emergency Department Report ---
ED General Adult HPI - General Chief complaint: Weakness Stated complaint: BARRON Time Seen by Provider: 04/04/19 12:01 Source: EMS Mode of arrival: Stretcher Limitations: Physical Limitation - History of Present Illness Initial comments: This is a 64 y/o male with a hx of parkinsons and UTI requiring hospitlization in 08/02. He states he has similar sx. He has been unable to get OOB since last NOC states 11 hrs. Sts ordinarily can walk. Presents with SIRS criteria and sts can't stop shaking. Thinks has UTI. Reticent to aloow daniel but cannot give urine specimen. Per July admission discharge summary: 63 YO Male with Dementia, HTN, OA, Parkinson's Disease, who presented to the ER with confusion, generalized weakness. The patient was found to have UTI, he was treated with antibiotics, he was also found to have nontraumatic rhabdomyolysis and acute kidney injury, he received IV fluids with improvement, electrolytes were repleted. The patient's receive physical therapy, subacute rehabilitation placement was recommended, but patient was unfunded and cannot afford to go to the facilities. Therefore he was discharged home with home health for home PT baudilio services. CT head: Normal examination Left hip x-ray shows no evidence of subluxation but no acute fracture Pelvic x-ray shows no evidence of acute fracture also shows osteoarthrosis of the bilateral hips Left foot x-ray normal MRI brain no acute findings Diagnosis acute metabolic Encephalopathy Sepsis secondary to UTI MYCHAL (acute kidney injury) likely due to vasomotor nephropathy Rhabdomyolysis Debility Fall secondary to parkinson and mechanical reasons. Hypokalemia Parkison disease - Disposition: DC/TX-06 HOME UNDER HOME [facility] Time spent for discharge: 33 minutes -: hour(s) Associated Symptoms: weakness, other (difficulty urinating) Treatments Prior to Arrival: none - Related Data Home Medications Medication Instructions Recorded Confirmed Last Taken amLODIPine 5 mg PO QDAY 07/28/18 07/28/18 07/27/18 10:00 Previous Rx's Medication Instructions Recorded Last Taken Type ALPRAZolam [Xanax] 0.5 tab PO DAILY PRN #6 tablet 08/04/18 Unknown Rx Carbidopa/Levodopa 25-250 [Sinemet 1 each PO BID #60 tablet 08/04/18 Unknown Rx 25/250] Finasteride [Proscar] 5 mg PO QDAY #30 tablet 08/04/18 Unknown Rx Tamsulosin [Flomax] 0.4 mg PO QDAY #30 cap 08/04/18 Unknown Rx amLODIPine [Norvasc] 5 mg PO DAILY #30 tablet 08/04/18 Unknown Rx Allergies Allergy/AdvReac Type Severity Reaction Status Date / Time No Known Allergies Allergy Verified 06/05/18 08:22 ED Review of Systems ROS: Stated complaint: BARRON Other details as noted in HPI Constitutional: chills (presume although pt thought was parkinson's initially), weakness, other (shaky) Eyes: denies: eye pain, vision change ENT: denies: throat pain, epistaxis Respiratory: shortness of breath. denies: cough Cardiovascular: denies: chest pain, palpitations Endocrine: no symptoms reported Gastrointestinal: denies: abdominal pain, vomiting Genitourinary: dysuria Skin: denies: rash, lesions Neurological: denies: headache, numbness Hematological/Lymphatic: denies: easy bleeding, easy bruising (denies trauma) ED Past Medical Hx - Past Medical History Previous Medical History?: Yes Hx Hypertension: Yes Hx Arthritis: Yes Additional medical history: BPH. parkinson - Surgical History Past Surgical History?: Yes Additional Surgical History: Jeffrey. knee surgery, eye surgery (detached retina). PROSTATE BIOPSY - Social History Smoking Status: Never Smoker Substance Use Type: None - Medications Home Medications: Home Medications Medication Instructions Recorded Confirmed Last Taken Type amLODIPine 5 mg PO QDAY 07/28/18 07/28/18 07/27/18 10:00 History ALPRAZolam [Xanax] 0.5 tab PO DAILY PRN #6 tablet 08/04/18 Unknown Rx Carbidopa/Levodopa 25-250 [Sinemet 1 each PO BID #60 tablet 08/04/18 Unknown Rx 25/250] Finasteride [Proscar] 5 mg PO QDAY #30 tablet 08/04/18 Unknown Rx Tamsulosin [Flomax] 0.4 mg PO QDAY #30 cap 08/04/18 Unknown Rx amLODIPine [Norvasc] 5 mg PO DAILY #30 tablet 08/04/18 Unknown Rx ED Physical Exam - General Limitations: Physical Limitation General appearance: alert, in no apparent distress, other (toxic appearing) - Head Head exam: Present: atraumatic, normocephalic - Eye Eye exam: Present: normal appearance. Absent: scleral icterus - ENT ENT exam: Present: mucous membranes dry - Neck Neck exam: Present: normal inspection. Absent: tenderness, meningismus - Respiratory Respiratory exam: Present: normal lung sounds bilaterally. Absent: respiratory distress - Cardiovascular Cardiovascular Exam: Present: normal rhythm, tachycardia. Absent: systolic murmur, diastolic murmur, rubs, gallop - GI/Abdominal GI/Abdominal exam: Present: soft, distended (somewhat), normal bowel sounds. Absent: tenderness, guarding, rebound, rigid - Rectal Rectal exam: Present: deferred - Extremities Exam Extremities exam: Present: normal inspection - Back Exam Back exam: Present: normal inspection, other (Limited exam). Absent: CVA tenderness (R), CVA tenderness (L) - Neurological Exam Neurological exam: Present: alert, oriented X3, other (no gross focal deficit) - Psychiatric Psychiatric exam: Present: normal mood, flat affect - Skin Skin exam: Present: warm, dry, intact, normal color. Absent: rash ED Course Vital Signs 04/04/19 04/04/19 11:40 11:52 Temperature 98.3 F Pulse Rate 100 H 140 H Blood Pressure 99/53 O2 Sat by Pulse 96 Oximetry - Reevaluation(s) Reevaluation #1: Patient was treated empirically for sepsis shortly after arrival. Modifications will be made as per findings of renal function, etc. Referred to the hospitalist service for further care and evaluation. They will need either likely stepdown unit or ICU placement depending on clinical progress 04/04/19 13:04 Reevaluation #2: The total white count is still pending. I have called the lab to check on the status. CK is also pending the patient's previously been in rhabdo. I asked nursing staff to place a Daniel that the patient will cooperate. 04/04/19 13:06 Reevaluation #3: White count now reported to be 1.0 04/04/19 13:13 ED Medical Decision Making - Lab Data Result diagrams: 04/04/19 12:18 04/04/19 12:18 Laboratory Results - last 24 hr 04/04/19 04/04/19 04/04/19 12:18 12:18 12:18 WBC RBC 4.68 Hgb 13.6 Hct 40.0 MCV 85 MCH 29 MCHC 34 RDW 13.3 Plt Count 206 Stanton % (Auto) 1.4 Eos % (Auto) 0.1 Stanton # 0.0 Eos # 0.0 Baso # 0.0 Seg Neutrophils % 83.5 H Seg Neutrophils # 0.8 L PT 14.5 INR 1.16 H APTT 26.6 VBG pH 7.417 Laboratory Results - last 24 hr 04/04/19 04/04/19 04/04/19 12:18 12:18 12:18 WBC RBC 4.68 Hgb 13.6 Hct 40.0 MCV 85 MCH 29 MCHC 34 RDW 13.3 Plt Count 206 Stanton % (Auto) 1.4 Eos % (Auto) 0.1 Stanton # 0.0 Eos # 0.0 Baso # 0.0 Seg Neutrophils % 83.5 H Seg Neutrophils # 0.8 L PT 14.5 INR 1.16 H APTT 26.6 VBG pH Sodium 140 Potassium 3.2 L Chloride 98.5 Carbon Dioxide 24 Anion Gap 21 BUN 19 Creatinine 1.4 Estimated GFR > 60 BUN/Creatinine Ratio 14 Glucose 105 H Lactic Acid Calcium 8.4 Total Bilirubin 0.60 AST 20 ALT 11 Alkaline Phosphatase 54 Troponin T Total Protein 6.9 Albumin 3.7 L Albumin/Globulin Ratio 1.2 04/04/19 04/04/19 04/04/19 12:18 12:18 12:18 WBC RBC Hgb Hct MCV MCH MCHC RDW Plt Count Stanton % (Auto) Eos % (Auto) Stanton # Eos # Baso # Seg Neutrophils % Seg Neutrophils # PT INR APTT VBG pH 7.417 Sodium Potassium Chloride Carbon Dioxide Anion Gap BUN Creatinine Estimated GFR BUN/Creatinine Ratio Glucose Lactic Acid 6.40 H* Calcium Total Bilirubin AST ALT Alkaline Phosphatase Troponin T 0.016 Total Protein Albumin Albumin/Globulin Ratio - EKG Data -: EKG Interpreted by Pr EKG shows normal: sinus rhythm Rate: tachycardia - EKG Data Interpretation: nonspecific ST-T wave nilson - Radiology Data Radiology results: report reviewed Diffuse ST depression Critical Care Time: Yes Critical care time in (mins) excluding proc time.: 60 Critical care attestation.: If time is entered above; I have spent that time in minutes in the direct care of this critically ill patient, excluding procedure time. ED Disposition Clinical Impression: Sepsis Qualifiers: Sepsis type: sepsis due to unspecified organism Sepsis acute organ dysfunction status: unspecified Qualified Code(s): A41.9 - Sepsis, unspecified organism Neutropenia Qualifiers: Neutropenia type: due to infection Qualified Code(s): D70.3 - Neutropenia due to infection Disposition: DC09 OP ADMIT IP TO THIS HOSP Is pt being admited?: Yes Does the pt Need Aspirin: Yes Condition: Stable Time of Disposition: 13:15
[2019-04-04 12:36] LABS: Hemoglobin 13.6 gm/dl (11.8-15.2); Mean Corpuscular HGB Conc 34 % (32-34); Mean Corpuscular Volume 85 fl (84-94); Platelet Count 206 K/mm3 (140-440); Red Blood Count 4.68 M/mm3 (3.65-5.03); Red Cell Distribution Width 13.3 % (13.2-15.2)
[2019-04-04 12:50] LABS: Eosinophils % (Auto) 0.1 % (0.0-4.3); Monocytes % (Auto) 1.4 % (0.0-7.3)
[2019-04-04 12:51] LABS: INR 1.16 (0.87-1.13)
[2019-04-04 12:52] LABS: Partial Thromboplastin Time 26.6 Sec. (24.2-36.6)
[2019-04-04] MEDS ORDERED: VANCOMYCIN PHARMACY TO DOSE IV SCH (13:00)
[2019-04-04 13:01] LABS: Alanine Aminotransferase 11 units/L (7-56); Albumin 3.7 g/dL (3.9-5); BUN/Creatinine Ratio 14; Blood Urea Nitrogen 19 mg/dL (9-20); Calcium 8.4 mg/dL (8.4-10.2); Hemolysis Index 5
--- NOTE | 2019-04-04 13:08 | XRay Report ---
CHEST 1 VIEW INDICATION / CLINICAL INFORMATION: possible Sepsis. COMPARISON: None available. FINDINGS: SUPPORT DEVICES: None. HEART / MEDIASTINUM: No significant abnormality. LUNGS / PLEURA: No significant pulmonary or pleural abnormality. No pneumothorax. ADDITIONAL FINDINGS: No significant additional findings. IMPRESSION: 1. No acute findings. Signer Name: Viral Pinto MD Signed: 04/04/2019 1:04 PM Workstation Name: [id number]
[2019-04-04] MEDS ORDERED: ASPIRIN 81 MG TAB CHEW PO ONE (13:15)
[2019-04-04] MEDS ORDERED: VANCOMYCIN 1,750 MG in SODIUM CHLORIDE 0.9% 500 ML 500 ML IV ONE (13:30)
--- NOTE | 2019-04-04 13:37 | History and Physical Report ---
History of Present Illness Chief complaint: I think i have another UTI History of present illness: 64 YO Male with Dementia, HTN, OA, Parkinsons Disease, BPH presents to ED for evaluation. Pt is confused, but is able to provide minimal history history. Pt reports feeling weak, and having shaking chills. Further history taken from son and daughter who are at bedside during exam and interview. As per family, the patient has experienced increased confusion and weakness over the past 2 weeks. As per son, the patient is currently non-ambulatory and bedbound, and requires 4/6 assistance with activities of daily living. EMS notified, and upon arrival the patient was found to be confused. Pt transported to [facility] for further care and evaluation. Pt seen and evaluated in ED and found to have SIRS, Neutropenia, UTI, Acidosis, and Encephalopathy. Pt admitted to medical floor. No reports of fever, chills, CP,Palpitations, NVD, Falls, Trauma, ingestion of food/water from now or different sources, productive cough, or recent ill contacts. Prior admission on 07/27/18 reviewed. All listed medication reconciled at time of admission. Past History Past Medical History: arthritis, hypertension, other (Dementia,Parkinsons Disease, BPH) Past Surgical History: total knee replacement, Other (Prostate biopsy, Eye surgery) Social history: single, lives with family. denies: smoking, alcohol abuse, prescription drug abuse Family history: hypertension Medications and Allergies Allergies Allergy/AdvReac Type Severity Reaction Status Date / Time No Known Allergies Allergy Verified 06/05/18 08:22 Home Medications Medication Instructions Recorded Confirmed Last Taken Type ALPRAZolam [Xanax] 0.5 tab PO DAILY PRN #6 tablet 08/04/18 04/04/19 Unknown Rx Carbidopa/Levodopa 25-250 [Sinemet 1 each PO BID #60 tablet 08/04/18 04/04/19 Unknown Rx 25/250] Tamsulosin [Flomax] 0.4 mg PO QDAY #30 cap 08/04/18 04/04/19 Unknown Rx amLODIPine [Norvasc] 5 mg PO DAILY #30 tablet 08/04/18 04/04/19 Unknown Rx Finasteride 1 mg PO DAILY 04/04/19 04/04/19 Unknown History Hydrochlorothiazide 25 mg PO DAILY 04/04/19 04/04/19 Unknown History Lisinopril 20 mg PO DAILY 04/04/19 04/04/19 Unknown History Losartan 50 mg PO DAILY 04/04/19 04/04/19 Unknown History Valsartan 320 mg PO DAILY 04/04/19 04/04/19 Unknown History Active Meds: Active Medications Aztreonam (Azactam/Ns 1 Gm/50 Ml) 1 gm in 50 mls @ 50 mls/hr IV Q8H ANDREZ; Protocol Vancomycin HCl 1,750 mg/ (Sodium Chloride) 535 mls @ 267.5 mls/hr IV ONCE ONE Stop: 04/04/19 15:29 Review of Systems ROS unobtainable: due to mental status Exam - Constitutional Vitals: Temp Pulse Resp BP Pulse Ox 98.3 F 140 H 99/53 96 04/04/19 11:40 04/04/19 11:52 04/04/19 11:40 04/04/19 11:40 General appearance: Present: mild distress - EENT Eyes: Present: PERRL ENT: hearing intact, clear oral mucosa - Neck Neck: Present: supple, normal ROM - Respiratory Respiratory effort: normal Respiratory: bilateral: CTA - Cardiovascular Heart Sounds: Present: S1 & S2. Absent: rub, click - Extremities Extremities: pulses symmetrical, No edema Peripheral Pulses: within normal limits - Abdominal General gastrointestinal: Present: soft, non-tender, non-distended, normal bowel sounds Male genitourinary: Present: normal - Integumentary Integumentary: Present: clear, dry, clammy, decreased turgor - Musculoskeletal Musculoskeletal: generalized weakness - Psychiatric Psychiatric: appropriate mood/affect, no intact judgment & insight, no memory intact, cooperative - Neurologic Neurologic: CNII-XII intact, moves all extremities, no gait normal Results - Labs CBC & Chem 7: 04/04/19 12:18 04/04/19 12:18 Labs: Abnormal lab results 04/04/19 04/04/19 04/04/19 Range/Units 12:18 12:18 12:18 WBC 1.0 L* (4.5-11.0) K/mm3 Seg Neutrophils % 83.5 H (40.0-70.0) % Seg Neutrophils # 0.8 L (1.8-7.7) K/mm3 INR 1.16 H (0.87-1.13) Potassium 3.2 L (3.6-5.0) mmol/L Glucose 105 H (75-100) mg/dL Lactic Acid (0.7-2.0) mmol/L Albumin 3.7 L (3.9-5) g/dL 04/04/19 Range/Units 12:18 WBC (4.5-11.0) K/mm3 Seg Neutrophils % (40.0-70.0) % Seg Neutrophils # (1.8-7.7) K/mm3 INR (0.87-1.13) Potassium (3.6-5.0) mmol/L Glucose (75-100) mg/dL Lactic Acid 6.40 H* (0.7-2.0) mmol/L Albumin (3.9-5) g/dL Assessment and Plan - Patient Problems (1) SIRS (systemic inflammatory response syndrome) Current Visit: Yes Status: Acute Plan to address problem: IV antibiotic therapy, CBC, CMP, Urinalysis, Chest x ray, HIV 1/2, PSA, CT Abdomen pelvis, (2) Acidosis Current Visit: Yes Status: Acute Plan to address problem: IVF resuscitation therapy, repeat bmp, (3) HTN (hypertension) Current Visit: Yes Status: Acute Qualifiers: Hypertension type: essential hypertension Qualified Code(s): I10 - Essential (primary) hypertension Plan to address problem: Monitor bp q shift, continue medical management. (4) Dementia Current Visit: Yes Status: Acute Qualifiers: Dementia type: Parkinson's disease Dementia behavioral disturbance: without behavioral disturbance Qualified Code(s): G20 - Parkinson's disease; F02.80 - Dementia in other diseases classified elsewhere without behavioral disturbance Plan to address problem: CT Head, continue current therapy, fall precautions, (5) Debility Current Visit: Yes Status: Acute Plan to address problem: supportive care, PT consulted in ED,. CT Lumbar spine (6) Neutropenia Current Visit: Yes Status: Acute Qualifiers: Neutropenia type: due to infection Qualified Code(s): D70.3 - Neutropenia due to infection Plan to address problem: supportive care, neutropenic precautions, ANC:800, ID consulted in ED (7) DVT prophylaxis Current Visit: Yes Status: Acute Plan to address problem: SCD to BLE while in bed, supportive care. prophylactic lovenox
[2019-04-04 13:39] LABS: Basophils % (Manual) 0 % (0.0-1.8); Monocytes % (Manual) 0 % (0.0-7.3); Platelet Estimate Consistent w Auto; RBC Morphology Normal; Total Cells Counted 100
[2019-04-04] MEDS ORDERED: ALPRAZolam 1 MG TAB PO PRN (13:43)
[2019-04-04] MEDS: AZTREONAM/NS 1 GM/50 ML 1 GM/50 ML VIAL IV SCH ×2 (13:56→22:43)
[2019-04-04 14:12] LABS: Amphetamine Screen,Urine PRESUMPTIVE NEGATIVE; Benzodiazepines Screen,Urine PRESUMPTIVE NEGATIVE; Cannabinoid Screen,Urine PRESUMPTIVE NEGATIVE; Cocaine Screen,Urine PRESUMPTIVE NEGATIVE; Methadone Screen,Urine PRESUMPTIVE NEGATIVE; Opiate Screen,Urine PRESUMPTIVE NEGATIVE
[2019-04-04 14:32] LABS: Bacteria,Urine 2+ /HPF (Negative); Bilirubin,Urine NEG (Negative); Blood,Urine LG (Negative); Color,Urine Yellow (Yellow); Urobilinogen,Urine < 2.0 mg/dL (<2.0)
[2019-04-04 14:34] LABS: WBC,Urine > 182.0 /HPF (0.0-6.0)
[2019-04-04] MEDS ORDERED: ONDANSETRON 4 MG/2 ML INJ IV PRN (14:35)
[2019-04-04] MEDS ORDERED: ALBUTEROL 2.5 MG/3 ML NEBU IH PRN (14:35)
--- NOTE | 2019-04-04 15:08 | Cat Scan Report ---
CT head/brain wo con INDICATION / CLINICAL INFORMATION: 64 years Male; confusion. TECHNIQUE: Routine CT head without contrast. All CT scans at this location are performed using CT dos e reduction for ALARA by means of automated exposure control. COMPARISON: 07/27/2018 FINDINGS: BRAIN / INTRACRANIAL CONTENTS: No acute hemorrhage, mass effect, midline shift, hydrocephalus, or acu te, large territorial infarct. There may be minimal cerebral atrophy. This is within normal limits gi priscila the patient's age. No significant white matter abnormality. CRANIOCERVICAL JUNCTION: No significant abnormality. ORBITS: No significant abnormality of visualized orbits. SINUSES / MASTOIDS: No significant abnormality of the visualized paranasal sinuses or mastoid air harris ls. Osteoma seen in the ethmoids on the right-of no clinical significance. ADDITIONAL FINDINGS: None. IMPRESSION: 1. No focal mass, hemorrhage, hydrocephalus, or acute, large territorial infarct. Signer Name: Yadiel Lowry MD, III Signed: 04/04/2019 3:03 PM Workstation Name: [id number]
[2019-04-04] MEDS: SODIUM CHLORIDE 0.9% 1000 ML 1,000 ML IV SCH ×2 (15:51→22:43)
--- NOTE | 2019-04-04 16:55 | Cat Scan Report ---
CT abdomen pelvis w con INDICATION / CLINICAL INFORMATION: MAIN: pain ABD PAIN OMNIP 300 100ML PT UNABLE TO RAISE ARMS. TECHNIQUE: All CT scans at this location are performed using CT dose reduction for ALARA by means of automated e xposure control. COMPARISON: None available. FINDINGS: Mild dependent atelectasis is seen in both lower lungs. No evidence of airspace consolidation. ABDOMEN: Moderate fluid and gas distention of the stomach. There is mild distention of the proximal small bowel without clear-cut transition zone. There is rete ntion of the fecal material throughout the colon and rectum. A small hepatic cyst is identified. No other significant hepatic findings. The gallbladder, spleen and pancreas are normal. Left hydronephrosis with duplex collecting system dilated to the level of the left ureterovesical ernst ction. Urinary bladder is catheterized and there may be an intraluminal mass at the level of the left trigon e. No evidence of right hydronephrosis. A 3.5 cm right renal cyst is identified. No retroperitoneal adenopathy. Pelvis: There are no acute inflammatory changes seen in the pelvis. IMPRESSION: 1. Suspected bladder lesion obstructing the left trigone resulting in hydronephrosis of the duplex le ft renal collecting system. 2. Moderate degree of colonic and rectal fecal retention with mild fluid distention of the stomach an d proximal small bowel. Signer Name: Viral Pinto MD Signed: 04/04/2019 4:51 PM Workstation Name: [id number]
--- NOTE | 2019-04-04 17:09 | Cat Scan Report ---
CT lumbar spine w con INDICATION / CLINICAL INFORMATION: 64 years Male; weakness. TECHNIQUE: Axial CT images of the lumbar spine were obtained. Sagittal and coronal reformatted images were prod uced. All CT scans at this location are performed using CT dose reduction for ALARA by means of autom ated exposure control. COMPARISON: None available. FINDINGS: POST-SURGICAL CHANGES: None. ALIGNMENT: No significant abnormality. VERTEBRAE: No signs of fracture. Vertebral bodies are grossly normal in height throughout. [id number] ANALYSIS: Intervertebral disc spaces are fairly well-maintained. L1-2: Mild facet hypertrophy. No significant sequela. L2-3: Mild disc bulge and facet hypertrophy. No significant sequela. Mild thecal sac narrowing. L3-4: Mild disc bulge and [id number] facet hypertrophy. Mild to moderate canal stenosis. There is moderate foraminal narrowing bilaterally from the facet hypertrophy. There is encroachment upon L 3 nerves without impingement. L4-5: Mild disc bulge and moderate facet hypertrophy. Mild to moderate canal narrowing. Moderate to high-grade foraminal narrowing seen from facet hypertrophy. There is encroachment upon and perhaps alexa rderline flattening of the exiting L4 nerves. L5-S1: Mild facet hypertrophy. Mild to moderate foraminal narrowing bilaterally. No significant sequ love. PARASPINAL SOFT TISSUES: No significant abnormality. ADDITIONAL FINDINGS: Simple cysts seen in the kidneys. Duplicated, dilated collecting system seen on the left. Please see report from CT of the abdomen and pelvis performed same day. Sacroiliac joint spurring noted bilaterally. IMPRESSION: 1. Degenerative changes of the lumbar spine as described above. Most marked findings may be at L4-5 o r perhaps L3-4. Signer Name: Yadiel Lowry MD, III Signed: 04/04/2019 5:05 PM Workstation Name: [id number]
[2019-04-04] MEDS: CARBIDOPA/LEVODOPA 25-250 TAB PO SCH (22:44)
[2019-04-05] MEDS: VANCOMYCIN/NS 1 GM/250 ML 1 GM/250 ML BAG IV SCH ×2 (01:13→15:49)
[2019-04-05 05:50] LABS: Hemoglobin 12.9 gm/dl (11.8-15.2); Mean Corpuscular HGB Conc 35 % (32-34); Mean Corpuscular Volume 84 fl (84-94); Platelet Count 144 K/mm3 (140-440); Red Blood Count 4.43 M/mm3 (3.65-5.03); Red Cell Distribution Width 13.6 % (13.2-15.2)
[2019-04-05] MEDS: AZTREONAM/NS 1 GM/50 ML 1 GM/50 ML VIAL IV SCH ×2 (06:11→14:02)
[2019-04-05 06:19] LABS: Albumin 3.2 g/dL (3.9-5); Calcium 7.6 mg/dL (8.4-10.2)
[2019-04-05 06:38] LABS: RBC Morphology Normal; Total Cells Counted 100
[2019-04-05] MEDS ORDERED: LISINOPRIL 20 MG TAB PO SCH (10:00)
[2019-04-05] MEDS ORDERED: NON-FORMULARY EACH (Amlodipine 5 MG) PO SCH (10:00)
[2019-04-05] MEDS ORDERED: amLODIPine 5 MG TAB PO SCH ×2 (10:00)
[2019-04-05] MEDS ORDERED: NON-FORMULARY EACH (Hydrochlorothiazide 25 MG) PO SCH (10:00)
[2019-04-05] MEDS ORDERED: FINASTERIDE 1 MG PO SCH (10:00)
[2019-04-05] MEDS ORDERED: VALSARTAN 320 MG PO SCH (10:00)
[2019-04-05] MEDS ORDERED: NON-FORMULARY EACH (Lisinopril 20 MG) PO SCH (10:00)
[2019-04-05] MEDS ORDERED: NON-FORMULARY EACH (Losartan 50 MG) PO SCH (10:00)
[2019-04-05] MEDS ORDERED: hydroCHLOROthiazide 25 MG TAB PO SCH (10:00)
[2019-04-05] MEDS ORDERED: LOSARTAN 50 MG TAB PO SCH (10:00)
[2019-04-05] MEDS ORDERED: VALSARTAN 160MG TAB PO SCH (10:00)
[2019-04-05] MEDS: FINASTERIDE 5 MG TAB PO SCH (10:27)
[2019-04-05] MEDS: TAMSULOSIN 0.4 MG CAP PO SCH (10:27)
[2019-04-05] MEDS: CARBIDOPA/LEVODOPA 25-250 TAB PO SCH ×2 (10:43→21:59)
[2019-04-05] MEDS ORDERED: SODIUM CHLORIDE 0.9% 500 ML 500 ML IV ONE (11:07)
--- NOTE | 2019-04-05 13:47 | History and Physical Report ---
History of Present Illness Date of examination: 04/05/19 Date of admission: 04/04/19 14:35 History of present illness: 64 YO Male with Dementia, HTN, OA, Parkinsons Disease, BPH presents to ED for evaluation. Pt is confused, but is able to provide minimal history history. Pt reports feeling weak, and having shaking chills. Further history taken from son and daughter who are at bedside during exam and interview. As per family, the patient has experienced increased confusion and weakness over the past 2 weeks. As per son, the patient is currently non-ambulatory and bedbound, and requires 4/6 assistance with activities of daily living. EMS notified, and upon arrival the patient was found to be confused. Pt transported to [facility] for further care and evaluation. Pt seen and evaluated in ED and found to have SIRS, Neutropenia, UTI, Acidosis, and Encephalopathy. Pt admitted to medical floor. No reports of fever, chills, CP,Palpitations, NVD, Falls, Trauma, ingestion of food/water from now or different sources, productive cough, or recent ill contacts. Prior admission on 07/27/18 reviewed. All listed medication reconciled at time of admission. Past History Past Medical History: arthritis, hypertension, other (Dementia,Parkinsons Disease, BPH) Past Surgical History: total knee replacement, Other (Prostate biopsy, Eye surgery) Social history: single, lives with family. denies: smoking, alcohol abuse, prescription drug abuse Family history: hypertension Medications and Allergies Allergies Allergy/AdvReac Type Severity Reaction Status Date / Time No Known Allergies Allergy Verified 06/05/18 08:22 Home Medications Medication Instructions Recorded Confirmed Last Taken Type ALPRAZolam [Xanax] 0.5 tab PO DAILY PRN #6 tablet 08/04/18 04/04/19 Unknown Rx Carbidopa/Levodopa 25-250 [Sinemet 1 each PO BID #60 tablet 08/04/18 04/04/19 Unknown Rx 25/250] Tamsulosin [Flomax] 0.4 mg PO QDAY #30 cap 08/04/18 04/04/19 Unknown Rx amLODIPine [Norvasc] 5 mg PO DAILY #30 tablet 08/04/18 04/04/19 Unknown Rx Finasteride 1 mg PO DAILY 04/04/19 04/04/19 Unknown History Hydrochlorothiazide 25 mg PO DAILY 04/04/19 04/04/19 Unknown History Lisinopril 20 mg PO DAILY 04/04/19 04/04/19 Unknown History Losartan 50 mg PO DAILY 04/04/19 04/04/19 Unknown History Valsartan 320 mg PO DAILY 04/04/19 04/04/19 Unknown History Active Meds: Active Medications Acetaminophen (Tylenol) 650 mg PO Q4H PRN PRN Reason: Pain MILD(1-3)/Fever >100.5/RIOJAS Albuterol (Proventil) 2.5 mg IH Q4HRT PRN PRN Reason: Shortness Of Breath Alprazolam (Xanax) 0.5 mg PO DAILY PRN PRN Reason: Anxiety Amlodipine Besylate (Norvasc) 5 mg PO DAILY [facility] Last Admin: 04/05/19 10:28 Dose: Not Given Documented by: Carbidopa/Levodopa (Sinemet) 1 each PO BID [facility] Last Admin: 04/05/19 10:43 Dose: 1 each Documented by: Finasteride (Proscar) 5 mg PO QDAY [facility] Last Admin: 04/05/19 10:27 Dose: 5 mg Documented by: Hydrochlorothiazide (Hctz) 25 mg PO QDAY [facility] Last Admin: 04/05/19 10:28 Dose: Not Given Documented by: Aztreonam (Azactam/Ns 1 Gm/50 Ml) 1 gm in 50 mls @ 50 mls/hr IV Q8H [facility]; Protocol Last Admin: 04/05/19 06:11 Dose: 50 mls/hr Documented by: Vancomycin HCl (Vancomycin/Ns 1 Gm/250 Ml) 1 gm in 250 mls @ 125 mls/hr IV Q12H [facility] Last Admin: 04/05/19 01:13 Dose: 125 mls/hr Documented by: Sodium Chloride (Nacl 0.9% 1000 Ml) 1,000 mls @ 75 mls/hr IV DIRECT [facility] Last Admin: 04/04/19 22:43 Dose: 75 mls/hr Documented by: Lisinopril (Zestril) 20 mg PO QDAY [facility] Last Admin: 04/05/19 10:29 Dose: Not Given Documented by: Miscellaneous Medication (Finasteride) 1 mg PO DAILY [facility] Ondansetron HCl (Zofran) 4 mg IV Q8H PRN PRN Reason: Nausea And Vomiting Sodium Chloride (Sodium Chloride Flush Syringe 10 Ml) 10 ml IV BID [facility] Last Admin: 04/05/19 10:29 Dose: 10 ml Documented by: Sodium Chloride (Sodium Chloride Flush Syringe 10 Ml) 10 ml IV PRN PRN PRN Reason: LINE FLUSH Tamsulosin HCl (Flomax) 0.4 mg PO QDAY [facility] Last Admin: 04/05/19 10:27 Dose: 0.4 mg Documented by: Valsartan (Diovan) 320 mg PO QDAY [facility] Last Admin: 04/05/19 10:28 Dose: Not Given Documented by: Exam - Constitutional Vitals: Temp Pulse Resp BP Pulse Ox 98.0 F 106 H 24 81/46 98 04/05/19 11:45 04/05/19 11:45 04/05/19 11:45 04/05/19 11:45 04/05/19 12:11 Results - Labs CBC & Chem 7: 04/05/19 05:22 04/05/19 05:22 Labs: Laboratory Last Values WBC 17.9 K/mm3 (4.5-11.0) H 04/05/19 05:22 RBC 4.43 M/mm3 (3.65-5.03) 04/05/19 05:22 Hgb 12.9 gm/dl (11.8-15.2) 04/05/19 05:22 Hct 37.0 % (35.5-45.6) 04/05/19 05:22 MCV 84 fl (84-94) 04/05/19 05:22 MCH 29 pg (28-32) 04/05/19 05:22 MCHC 35 % (32-34) H 04/05/19 05:22 RDW 13.6 % (13.2-15.2) 04/05/19 05:22 Plt Count 144 K/mm3 (140-440) 04/05/19 05:22 Schleicher % (Auto) 1.4 % (0.0-7.3) 04/04/19 12:18 Eos % (Auto) 0.1 % (0.0-4.3) 04/04/19 12:18 Schleicher # 0.0 K/mm3 (0.0-0.8) 04/04/19 12:18 Eos # 0.0 K/mm3 (0.0-0.4) 04/04/19 12:18 Baso # 0.0 K/mm3 (0.0-0.1) 04/04/19 12:18 Add Manual Diff Complete 04/05/19 05:22 Total Counted 100 04/05/19 05:22 Seg Neutrophils % Cfo Controller 04/05/19 05:22 Seg Neuts % (Manual) 93.0 % (40.0-70.0) H 04/05/19 05:22 0 % 04/05/19 05:22 2.0 % (13.4-35.0) L 04/05/19 05:22 Reactive Lymphs % (Man) 0 % 04/05/19 05:22 3.0 % (0.0-7.3) 04/05/19 05:22 1.0 % (0.0-4.3) 04/05/19 05:22 1.0 % (0.0-1.8) 04/05/19 05:22 0 % 04/05/19 05:22 0 % 04/05/19 05:22 0 % 04/05/19 05:22 0 % 04/05/19 05:22 Nucleated RBC % Not Reportable 04/05/19 05:22 Seg Neutrophils # 0.8 K/mm3 (1.8-7.7) L 04/04/19 12:18 Seg Neutrophils # Man 16.6 K/mm3 (1.8-7.7) H 04/05/19 05:22 Band Neutrophils # 0.0 K/mm3 04/05/19 05:22 0.4 K/mm3 (1.2-5.4) L 04/05/19 05:22 Abs React Lymphs (Man) 0.0 K/mm3 04/05/19 05:22 0.5 K/mm3 (0.0-0.8) 04/05/19 05:22 0.2 K/mm3 (0.0-0.4) 04/05/19 05:22 0.2 K/mm3 (0.0-0.1) H 04/05/19 05:22 0.0 K/mm3 04/05/19 05:22 0.0 K/mm3 04/05/19 05:22 0.0 K/mm3 04/05/19 05:22 Blast Cells # 0.0 K/mm3 04/05/19 05:22 WBC Morphology Not Reportable 04/05/19 05:22 Hypersegmented Neuts Not Reportable 04/05/19 05:22 Hyposegmented Neuts Not Reportable 04/05/19 05:22 Hypogranular Neuts Not Reportable 04/05/19 05:22 Not Reportable 04/05/19 05:22 Not Reportable 04/05/19 05:22 Not Reportable 04/05/19 05:22 Not Reportable 04/05/19 05:22 Not Reportable 04/05/19 05:22 Not Reportable 04/05/19 05:22 Not Reportable 04/05/19 05:22 Not Reportable 04/05/19 05:22 Plt Clumps, EDTA Not Reportable 04/05/19 05:22 Not Reportable 04/05/19 05:22 Not Reportable 04/05/19 05:22 Not Reportable 04/05/19 05:22 Plt Morphology Comment Not Reportable 04/05/19 05:22 RBC Morphology Normal 04/05/19 05:22 Dimorphic RBCs Not Reportable 04/05/19 05:22 Not Reportable 04/05/19 05:22 Not Reportable 04/05/19 05:22 Not Reportable 04/05/19 05:22 Not Reportable 04/05/19 05:22 Not Reportable 04/05/19 05:22 Not Reportable 04/05/19 05:22 Not Reportable 04/05/19 05:22 Not Reportable 04/05/19 05:22 Not Reportable 04/05/19 05:22 Not Reportable 04/05/19 05:22 Not Reportable 04/05/19 05:22 Not Reportable 04/05/19 05:22 Not Reportable 04/05/19 05:22 Not Reportable 04/05/19 05:22 Not Reportable 04/05/19 05:22 Not Reportable 04/05/19 05:22 Not Reportable 04/05/19 05:22 Not Reportable 04/05/19 05:22 Not Reportable 04/05/19 05:22 Acanthocytes (Spur) Not Reportable 04/05/19 05:22 Rouleaux Not Reportable 04/05/19 05:22 Not Reportable 04/05/19 05:22 Not Reportable 04/05/19 05:22 Not Reportable 04/05/19 05:22 Not Reportable 04/05/19 05:22 Hem Pathologist Commnt No 04/05/19 05:22 PT 14.5 Sec. (12.2-14.9) 04/04/19 12:18 INR 1.16 (0.87-1.13) H 04/04/19 12:18 APTT 26.6 Sec. (24.2-36.6) 04/04/19 12:18 VBG pH 7.417 (7.320-7.420) 04/04/19 12:18 Sodium 139 mmol/L (137-145) 04/05/19 05:22 Potassium 3.0 mmol/L (3.6-5.0) L 04/05/19 05:22 Chloride 101.6 mmol/L (98-107) 04/05/19 05:22 Carbon Dioxide 19 mmol/L (22-30) L 04/05/19 05:22 21 mmol/L 04/05/19 05:22 BUN 34 mg/dL (9-20) H 04/05/19 05:22 2.4 mg/dL (0.8-1.5) H D 04/05/19 05:22 Estimated GFR 33 ml/min 04/05/19 05:22 14 % 04/05/19 05:22 Glucose 72 mg/dL (75-100) L 04/05/19 05:22 Lactic Acid 2.80 mmol/L (0.7-2.0) H* 04/05/19 05:22 Calcium 7.6 mg/dL (8.4-10.2) L 04/05/19 05:22 Magnesium 1.50 mg/dL (1.7-2.3) L 04/04/19 13:53 0.50 mg/dL (0.1-1.2) 04/05/19 05:22 AST 250 units/L (5-40) H 04/05/19 05:22 ALT 108 units/L (7-56) H 04/05/19 05:22 52 units/L (35-129) 04/05/19 05:22 0.016 ng/mL (0.00-0.029) 04/04/19 12:18 6.2 g/dL (6.3-8.2) L 04/05/19 05:22 3.2 g/dL (3.9-5) L 04/05/19 05:22 1.1 % 04/05/19 05:22 Yellow (Yellow) 04/04/19 Unknown Turbid (Clear) 04/04/19 Unknown 7.0 (5.0-7.0) 04/04/19 Unknown Ur Specific [place] 1.008 (1.003-1.030) 04/04/19 Unknown 100 mg/dl mg/dL (Negative) 04/04/19 Unknown Neg mg/dL (Negative) 04/04/19 Unknown Neg mg/dL (Negative) 04/04/19 Unknown Lg (Negative) 04/04/19 Unknown Neg (Negative) 04/04/19 Unknown Neg (Negative) 04/04/19 Unknown < 2.0 mg/dL (<2.0) 04/04/19 Unknown Ur Leukocyte Esterase Lg (Negative) 04/04/19 Unknown > 182.0 /HPF (0.0-6.0) H 04/04/19 Unknown 87.0 /HPF (0.0-6.0) 04/04/19 Unknown 2+ /HPF (Negative) 04/04/19 Unknown 3+ /HPF 04/04/19 Unknown Presumptive negative 04/04/19 Unknown Presumptive negative 04/04/19 Unknown Ur Barbiturates Screen Presumptive negative 04/04/19 Unknown Ur Phencyclidine Scrn Presumptive negative 04/04/19 Unknown Ur Amphetamines Screen Presumptive negative 04/04/19 Unknown U Benzodiazepines Scrn Presumptive negative 04/04/19 Unknown Presumptive negative 04/04/19 Unknown U Marijuana (THC) Screen Presumptive negative 04/04/19 Unknown Disclamer 04/04/19 Unknown Assessment and Plan Assessment and plan: (1) SIRS (systemic inflammatory response syndrome) Current Visit: Yes Status: Acute Plan to address problem: Source of infection not clear IV antibiotic therapy, CBC, CMP, Urinalysis, Chest x ray, HIV 1/2, PSA, CT Abdomen pelvis, (2) Acidosis Current Visit: Yes Status: Acute Plan to address problem: IVF resuscitation therapy, repeat bmp, (3) HTN (hypertension) Current Visit: Yes Status: Acute Qualifiers: Hypertension type: essential hypertension Qualified Code(s): I10 - Essential (primary) hypertension Plan to address problem: Will hold antihypertensives b/c of low BP (4) Dementia Current Visit: Yes Status: Acute Qualifiers: Dementia type: Parkinson's disease Dementia behavioral disturbance: without behavioral disturbance Qualified Code(s): G20 - Parkinson's disease; F02.80 - Dementia in other diseases classified elsewhere without behavioral disturbance Plan to address problem: CT Head, continue current therapy, fall precautions, (5) Debility Current Visit: Yes Status: Acute Plan to address problem: supportive care, PT consulted in ED,. CT Lumbar spine (6) Neutropenia Current Visit: Yes Status: Acute Qualifiers: Neutropenia type: due to infection Qualified Code(s): D70.3 - Neutropenia due to infection Plan to address problem: Improved (7) DVT prophylaxis Current Visit: Yes Status: Acute Plan to address problem: SCD to BLE while in bed, supportive care. prophylactic lovenox Advance Directives: Yes
[2019-04-05] MEDS ORDERED: POTASSIUM CHLORIDE ER 20 MEQ TAB PO ONE (14:30)
[2019-04-05] MEDS ORDERED: VANCOMYCIN 1,500 MG in SODIUM CHLORIDE 0.9% 500 ML 500 ML IV SCH (15:00)
[2019-04-05] MEDS: SODIUM CHLORIDE 0.9% 1000 ML 1,000 ML IV SCH (16:13)
[2019-04-05] MEDS: ACETAMINOPHEN 325 MG TAB PO PRN (16:31)
--- NOTE | 2019-04-05 17:06 | Consultation ---
History of Present Illness - Reason for Consult Consult date: 04/05/19 fever, neutropenia, UTI Requesting physician: MERLYN LUKE - History of Present Illness 64 y/o male with history of Parkinson, BPH with a indwelling daniel and previous UTI admitted on due to 24 hour history of acute SOB, shakes and severe generalized weakness. Patient is confused currently. It seems like the daniel was placed 2 weeks ago. In the ED, temp 98.3--> 101.5, HR 100, BP 99/53, O2 sat 96%. WBC 1. Hg 13.6. Plat 2016. Seg 83%. Creat 1.4. Lactate 6.4. UA with large LE and wbc 182. Blood culture 04/04/2019 GNR 4 of 4 bottles. Urine culture 04/04/2019 GNR >100K colonies. CXR negative. CT head negative. ID consulted for management of neutropenia and fever. Review of Systems: limited General: no fever, chills, no malaise Cutaneous: no rash, pruritus Head: no headaches or injury Eyes: no changes in vision, eye pain, double vision Ears: no ear pain, ear discharge, ringing or hearing loss Nose: no nose bleeding, stuffiness Mouth & throat: no bleeding gums, no horseness, no dental problems, or swollen glands Neck: no pain, node enlargement/lumps, tyroid enlargement or tenderness Respiratory: + SOB, no cough, no SAWYER, wheezing, sputum, hemoptysis, pleuritic chest pain Cardiovascular: no chest pain, leg edema, cyanosis, SAWYER, orthopnea Musculoskeletal: no edema Gastrointestinal: no nausea, no vomiting, no hematemesis, diarrhea, constipation, melena, bright red blood in stools, fecal incontinence, jaundice Genitourinary/Reproductive: no frequent urination, dysuria, hematuria, incontinence Neurogical: no seizures, no headaches, no weakness, no paresthesias, no loss of speech or vision; no memory loss, no vertigo, no tremors, no numbness Psychiatric: stable mood; no excessive anxiety, sadness or moodiness Past History Past Medical History: arthritis, hypertension, other (Dementia,Parkinsons Disease, BPH) Past Surgical History: total knee replacement, Other (Prostate biopsy, Eye surgery) Social history: single, lives with family. denies: smoking, alcohol abuse, prescription drug abuse Family history: hypertension Medications and Allergies Allergies Allergy/AdvReac Type Severity Reaction Status Date / Time No Known Allergies Allergy Verified 06/05/18 08:22 Home Medications Medication Instructions Recorded Confirmed Last Taken Type ALPRAZolam [Xanax] 0.5 tab PO DAILY PRN #6 tablet 08/04/18 04/04/19 Unknown Rx Carbidopa/Levodopa 25-250 [Sinemet 1 each PO BID #60 tablet 08/04/18 04/04/19 Unknown Rx 25/250] Tamsulosin [Flomax] 0.4 mg PO QDAY #30 cap 08/04/18 04/04/19 Unknown Rx amLODIPine [Norvasc] 5 mg PO DAILY #30 tablet 08/04/18 04/04/19 Unknown Rx Finasteride 1 mg PO DAILY 04/04/19 04/04/19 Unknown History Hydrochlorothiazide 25 mg PO DAILY 04/04/19 04/04/19 Unknown History Lisinopril 20 mg PO DAILY 04/04/19 04/04/19 Unknown History Losartan 50 mg PO DAILY 04/04/19 04/04/19 Unknown History Valsartan 320 mg PO DAILY 04/04/19 04/04/19 Unknown History Active Meds: Active Medications Acetaminophen (Tylenol) 650 mg PO Q4H PRN PRN Reason: Pain MILD(1-3)/Fever >100.5/RIOJAS Last Admin: 04/05/19 16:31 Dose: 650 mg Documented by: Albuterol (Proventil) 2.5 mg IH Q4HRT PRN PRN Reason: Shortness Of Breath Alprazolam (Xanax) 0.5 mg PO DAILY PRN PRN Reason: Anxiety Carbidopa/Levodopa (Sinemet) 1 each PO BID [facility] Last Admin: 04/05/19 10:43 Dose: 1 each Documented by: Finasteride (Proscar) 5 mg PO QDAY [facility] Last Admin: 04/05/19 10:27 Dose: 5 mg Documented by: Aztreonam (Azactam/Ns 1 Gm/50 Ml) 1 gm in 50 mls @ 50 mls/hr IV Q8H [facility]; Prot ocol Last Admin: 04/05/19 14:02 Dose: 50 mls/hr Documented by: Vancomycin HCl 1,500 mg/ (Sodium Chloride) 530 mls @ 333.333 mls/hr IV Q24H [facility] Last Admin: 04/05/19 16:55 Dose: 333.333 mls/hr Documented by: Sodium Chloride (Nacl 0.9% 1000 Ml) 1,000 mls @ 100 mls/hr IV DIRECT [facility] Ondansetron HCl (Zofran) 4 mg IV Q8H PRN PRN Reason: Nausea And Vomiting Sodium Chloride (Sodium Chloride Flush Syringe 10 Ml) 10 ml IV BID [facility] Last Admin: 04/05/19 10:29 Dose: 10 ml Documented by: Sodium Chloride (Sodium Chloride Flush Syringe 10 Ml) 10 ml IV PRN PRN PRN Reason: LINE FLUSH Tamsulosin HCl (Flomax) 0.4 mg PO QDAY [facility] Last Admin: 04/05/19 10:27 Dose: 0.4 mg Documented by: Physical Examination - Physical Exam Narrative exam: General appearance: Alert in NAD confused Eyes: anicteric sclerae, moist conjunctivae; no lid-lag; PERRLA HENT: Atraumatic; oropharynx clear limited Lungs: CTA, with normal respiratory effort and no intercostal retractions CV: RRR no murmur Abdomen: Soft, non-tender; no masses or hepatosplenomegaly Extremities: katie leg edema Skin: No rash. Psych: No agitated Neuro: alert and oriented x 2. Moving all extremities - Constitutional Vitals: Vital Signs Temp Pulse Resp BP Pulse Ox 101.5 F H 107 H 20 87/50 93 04/05/19 16:14 04/05/19 16:14 04/05/19 16:14 04/05/19 16:14 04/05/19 16:14 Temperature -Last 24 Hours Temperature 101.5 F Temperature 98.0 F Temperature 98.9 F Temperature 97.9 F Temperature 97.4 F Results - Labs CBC & Chem 7: 04/05/19 05:22 04/05/19 05:22 Labs: Abnormal lab results 04/04/19 04/05/19 04/05/19 Range/Units 22:50 05:22 05:22 WBC 17.9 H (4.5-11.0) K/mm3 MCHC 35 H (32-34) % Seg Neuts % (Manual) 93.0 H (40.0-70.0) % Lymphocytes % (Manual) 2.0 L (13.4-35.0) % Seg Neutrophils # Man 16.6 H (1.8-7.7) K/mm3 Lymphocytes # (Manual) 0.4 L (1.2-5.4) K/mm3 Basophils # (Manual) 0.2 H (0.0-0.1) K/mm3 Potassium 3.0 L (3.6-5.0) mmol/L Carbon Dioxide 19 L (22-30) mmol/L BUN 34 H (9-20) mg/dL Creatinine 2.4 H D (0.8-1.5) mg/dL Glucose 72 L (75-100) mg/dL Lactic Acid 5.40 H* (0.7-2.0) mmol/L Calcium 7.6 L (8.4-10.2) mg/dL AST 250 H (5-40) units/L ALT 108 H (7-56) units/L Total Protein 6.2 L (6.3-8.2) g/dL Albumin 3.2 L (3.9-5) g/dL 04/05/19 Range/Units 05:22 WBC (4.5-11.0) K/mm3 MCHC (32-34) % Seg Neuts % (Manual) (40.0-70.0) % Lymphocytes % (Manual) (13.4-35.0) % Seg Neutrophils # Man (1.8-7.7) K/mm3 Lymphocytes # (Manual) (1.2-5.4) K/mm3 Basophils # (Manual) (0.0-0.1) K/mm3 Potassium (3.6-5.0) mmol/L Carbon Dioxide (22-30) mmol/L BUN (9-20) mg/dL Creatinine (0.8-1.5) mg/dL Glucose (75-100) mg/dL Lactic Acid 2.80 H* (0.7-2.0) mmol/L Calcium (8.4-10.2) mg/dL AST (5-40) units/L ALT (7-56) units/L Total Protein (6.3-8.2) g/dL Albumin (3.9-5) g/dL Assessment and Plan Cultures: Blood culture 04/04/2019 GNR 4 of 4 bottles. Urine culture 04/04/2019 GNR >100K colonies. Assessment: 64 y/o male with history of Parkinson, BPH with a indwelling daniel and previous UTI admitted on due to 24 hour history of acute SOB, shakes and severe generalized weakness. Patient is confused currently. It seems like the daniel was placed 2 weeks ago. In the ED, temp 98.3--> 101.5, HR 100, BP 99/53, O2 sat 96%. WBC 1. Hg 13.6. Plat 2016. Seg 83%. Creat 1.4. Lactate 6.4. UA with large LE and wbc 182. CXR negative. CT head negative. ID consulted for management of neutropenia and fever. 1) Severe Sepsis: present on admission with neutropenia (now resolved), fever, tachycardia, hypotension, elevated lactate; source UTI and GNR bacteremia. CXR negative. 2) GNR UTI with GNR bacteremia: CAUTI. Daniel was exchanged in the ED. Blood culture growing 04/04/2019 GNR 4 of 4 bottles. Urine culture 04/04/2019 GNR >100K colonies. History of previous UTIs. 3) Acute encephalopathy due to #1 Recommendations: f/u blood and urine cultures stop aztreonam and vancomycin start cefepime 2 gm IV q 12 hours (due to history of previous UTIs) f/u abdominal CT no need for neutropenic precautions Will follow.Dr Eli clay tomorrow Samantha Gómez MD Infectious Diseases Event Manager [facility] M [phone] O [phone]
[2019-04-05] MEDS: CEFEPIME/NS 2 GM/100 ML 2 GM/100 ML BAG IV SCH (21:58)
[2019-04-06] MEDS: SODIUM CHLORIDE 0.9% 1000 ML 1,000 ML IV SCH (05:46)
[2019-04-06] MEDS: CEFEPIME/NS 2 GM/100 ML 2 GM/100 ML BAG IV SCH (05:46)
[2019-04-06] MEDS: TAMSULOSIN 0.4 MG CAP PO SCH (10:24)
[2019-04-06] MEDS: CARBIDOPA/LEVODOPA 25-250 TAB PO SCH ×2 (10:24→23:17)
[2019-04-06] MEDS: FINASTERIDE 5 MG TAB PO SCH (10:24)
--- NOTE | 2019-04-06 13:10 | Progress Note ---
Assessment and Plan (1) Sepsis: Current Visit: Yes Status: Acute Plan to address problem: Sec to UTI On Cefepime ID consult appreciated (2)UTI GNR positive On Cefepime (3) Acidosis Current Visit: Yes Status: Acute Plan to address problem: IVF (4) HTN (hypertension) Current Visit: Yes Status: Acute Qualifiers: Hypertension type: essential hypertension Qualified Code(s): I10 - Essential (primary) hypertension Plan to address problem: Monitor bp q shift, continue medical management. (5) Dementia Current Visit: Yes Status: Acute Qualifiers: Dementia type: Parkinson's disease Dementia behavioral disturbance: without behavioral disturbance Qualified Code(s): G20 - Parkinson's disease; F02.80 - Dementia in other diseases classified elsewhere without behavioral disturbance Plan to address problem: CT Head, continue current therapy, fall precautions, (6) Debility Current Visit: Yes Status: Acute Plan to address problem: supportive care, PT consulted in ED,. CT Lumbar spine (7) Neutropenia Current Visit: Yes Status: Acute Qualifiers: Neutropenia type: due to infection Qualified Code(s): D70.3 - Neutropenia due to infection Plan to address problem: Resolved Now Leukocytosis (8) DVT prophylaxis Current Visit: Yes Status: Acute Plan to address problem: SCD to BLE while in bed, supportive care. prophylactic lovenox Subjective Date of service: 04/05/19 Principal diagnosis: Sepsis,UTI Interval history: 64 y/o male with a hx of parkinsons and UTI requiring hospitlization in Jul 2018. He states he has similar sx. He has been unable to get OOB since last admission. Sits ordinarily-- can walk. Presents with SIRS criteria and can't stop shaking. Has UTI. Objective - Constitutional Vitals: Vital Signs - 12hr 04/06/19 04/06/19 05:14 09:30 Temperature 99.7 F H Pulse Rate 102 H Pulse Rate [ 102 H Right] Respiratory 27 H 27 H Rate Blood Pressure 98/61 O2 Sat by Pulse 91 91 Oximetry General appearance: Present: no acute distress, well-nourished - EENT Eyes: PERRL, EOM intact ENT: hearing intact, clear oral mucosa Ears: bilateral: normal - Neck Neck: supple, normal ROM - Respiratory Respiratory effort: normal Respiratory: bilateral: CTA - Breasts Breasts: normal - Cardiovascular Heart rate: 88 Rhythm: regular Heart Sounds: Present: S1 & S2. Absent: gallop, rub Extremities: no ischemia, pulses intact, No edema, normal color, Full ROM - Gastrointestinal General gastrointestinal: Present: soft, non-tender, non-distended, normal bowel sounds - Genitourinary Male genitourinary: normal - Integumentary Integumentary: clear, warm, dry - Musculoskeletal Musculoskeletal: 1, strength equal bilaterally - Neurologic Neurologic: moves all extremities - Psychiatric Psychiatric: memory intact, appropriate mood/affect, intact judgment & insight - Allied health notes Allied health notes reviewed: nursing, case management - Labs CBC & Chem 7: 04/05/19 05:22 04/05/19 05:22
--- NOTE | 2019-04-06 13:15 | Progress Note ---
Assessment and Plan (1) Sepsis: Current Visit: Yes Status: Acute Plan to address problem: Sec to UTI On Cefepime ID consult appreciated (2)UTI GNR positive On Cefepime (3) Acidosis Current Visit: Yes Status: Acute Plan to address problem: IVF (4) HTN (hypertension) Current Visit: Yes Status: Acute Qualifiers: Hypertension type: essential hypertension Qualified Code(s): I10 - Essential (primary) hypertension Plan to address problem: Monitor bp q shift, continue medical management. (5) Dementia Current Visit: Yes Status: Acute Qualifiers: Dementia type: Parkinson's disease Dementia behavioral disturbance: without behavioral disturbance Qualified Code(s): G20 - Parkinson's disease; F02.80 - Dementia in other diseases classified elsewhere without behavioral disturbance Plan to address problem: CT Head, continue current therapy, fall precautions, (6) Debility Current Visit: Yes Status: Acute Plan to address problem: supportive care, PT consulted in ED,. CT Lumbar spine (7) Neutropenia Current Visit: Yes Status: Acute Qualifiers: Neutropenia type: due to infection Qualified Code(s): D70.3 - Neutropenia due to infection Plan to address problem: Resolved Now Leukocytosis (8) DVT prophylaxis Current Visit: Yes Status: Acute Plan to address problem: SCD to BLE while in bed, supportive care. prophylactic lovenox Subjective Date of service: 04/06/19 Principal diagnosis: Sepsis,UTI Interval history: 64 y/o male with a hx of parkinsons and UTI requiring hospitlization in Jul 2018. He states he has similar sx. He has been unable to get OOB since last admission. Sits ordinarily-- can walk. Presents with SIRS criteria and can't stop shaking. Has UTI. Objective - Constitutional Vitals: Vital Signs - 12hr 04/06/19 04/06/19 05:14 09:30 Temperature 99.7 F H Pulse Rate 102 H Pulse Rate [ 102 H Right] Respiratory 27 H 27 H Rate Blood Pressure 98/61 O2 Sat by Pulse 91 91 Oximetry General appearance: Present: no acute distress, well-nourished - EENT Eyes: PERRL, EOM intact ENT: hearing intact, clear oral mucosa Ears: bilateral: normal - Neck Neck: supple, normal ROM - Respiratory Respiratory effort: normal Respiratory: bilateral: CTA - Breasts Breasts: normal - Cardiovascular Heart rate: 78 Rhythm: regular Heart Sounds: Present: S1 & S2. Absent: gallop, rub Extremities: pulses intact, No edema, normal color, Full ROM - Gastrointestinal General gastrointestinal: Present: soft, non-tender, non-distended, normal bowel sounds - Genitourinary Male genitourinary: normal - Integumentary Integumentary: clear, warm, dry - Musculoskeletal Musculoskeletal: 1, strength equal bilaterally - Neurologic Neurologic: moves all extremities - Psychiatric Psychiatric: memory intact, appropriate mood/affect, intact judgment & insight - Labs CBC & Chem 7: 04/05/19 05:22 04/05/19 05:22
--- NOTE | 2019-04-06 13:16 | Progress Note ---
Assessment and Plan Cultures: Blood culture and urine culture: Klebsiella pneumoniae Assessment: 64 y/o male with Parkinson, BPH with a indwelling daniel and previous UTI admitted on due to 24 hour history of acute SOB, shakes and severe generalized weakness. Patient is confused currently. It seems like the daniel was placed 2 weeks ago. In the ED, temp 98.3--> 101.5, HR 100, BP 99/53, O2 sat 96%. WBC 1. Hg 13.6. Plat 2016. Seg 83%. Creat 1.4. Lactate 6.4. UA with large LE and wbc 182. CXR negative. CT head negative. ID consulted for management of neutropenia and fever. 1) Severe Sepsis secondary to Klebsiella bacteremia from UTI: CXR negative. Daniel was exchanged in the ED. History of previous UTIs. CT showed ?bladder lesion with left renal hydronephrosis. 2) Acute encephalopathy due to #1 Recommendations: discontinued Cefepime started IV Ceftriaxone Urology consult follow clinically, once improved, can d/c on PO abx d/w Dr Nadya Benitez MD, FACP [facility] M: [phone] O: [phone] F: [phone] Subjective Date of service: 04/06/19 Principal diagnosis: Sepsis,UTI Interval history: No fever. Still confused. Brother at bedside. Objective - Exam Narrative Exam: Physical Exam: Constitutional: Alert, confused Head, Ears, Nose: Normocephalic, atraumatic. External ears, nose normal Eyes: Conjunctivae/corneas clear. No icterus. No ptosis. Neck: Supple, no meningeal signs Cardiovascular: S1, S2 normal. Respiratory: Good air entry, clear to auscultation bilaterally GI: Soft, non-tender; bowel sounds normal. No peritoneal signs. Daniel + Musculoskeletal: No pedal edema, no cyanosis. Skin: No rash or abscess Hem/Lymphatic: No palpable cervical or supraclavicular nodes. No lymphangitis Psych: no agitation Neurological: Awake, alert, confused - Constitutional Vitals: Vital Signs Temp Pulse Resp BP Pulse Ox 99.7 F H 102 H 27 H 98/61 91 04/06/19 05:14 04/06/19 09:30 04/06/19 09:30 04/06/19 05:14 04/06/19 09:30 Temperature -Last 24 Hours Temperature 99.7 F Temperature 98.9 F Temperature 101.5 F - Labs CBC & Chem 7: 04/06/19 13:05 04/05/19 05:22 - Imaging and cardiology CT scan - abdomen: report reviewed, image reviewed (?bladder lesion with left hydronephrosis.)
[2019-04-06 13:49] LABS: Hematocrit 42.2 % (35.5-45.6); Hemoglobin 13.8 gm/dl (11.8-15.2); Mean Corpuscular HGB Conc 33 % (32-34); Mean Corpuscular Volume 86 fl (84-94); Platelet Count 133 K/mm3 (140-440); Red Blood Count 4.91 M/mm3 (3.65-5.03); Red Cell Distribution Width 14.1 % (13.2-15.2)
[2019-04-06 14:13] LABS: Albumin 3.1 g/dL (3.9-5); Calcium 6.9 mg/dL (8.4-10.2)
[2019-04-06] MEDS ORDERED: EPINEPHrine/PF (1:1,000) 1 MG/1 ML INJ ONE (14:27)
[2019-04-06 15:19] LABS: Band Neutrophils # (Manual) 8.2 K/mm3; Basophils % (Manual) 0 % (0.0-1.8); Eosinophils % (Manual) 0 % (0.0-4.3); Total Cells Counted 100
[2019-04-06 15:20] LABS: Dohle Bodies 2+
[2019-04-06 15:21] LABS: RBC Morphology Normal
[2019-04-06 15:22] LABS: Large Platelets Few; Platelet Estimate Cons
[2019-04-06] MEDS: cefTRIAXone/NS 2 GM/100 ML 2 GM/100 ML BAG IV SCH (15:43)
[2019-04-06] MEDS: ACETAMINOPHEN 325 MG TAB PO PRN (23:17)
[2019-04-07 05:26] LABS: Hematocrit 37.9 % (35.5-45.6); Hemoglobin 12.8 gm/dl (11.8-15.2); Mean Corpuscular HGB Conc 34 % (32-34); Mean Corpuscular Volume 85 fl (84-94); Red Blood Count 4.44 M/mm3 (3.65-5.03); Red Cell Distribution Width 14.4 % (13.2-15.2)
[2019-04-07 05:34] LABS: Platelet Count 95 K/mm3 (140-440)
[2019-04-07 05:50] LABS: Calcium 6.7 mg/dL (8.4-10.2)
[2019-04-07 06:49] LABS: Basophils % (Manual) 0 % (0.0-1.8); Eosinophils % (Manual) 0 % (0.0-4.3); Total Cells Counted 100
[2019-04-07 06:50] LABS: Burr Cells 1+; Platelet Estimate Consistent w Auto; Poikilocytosis 1+
[2019-04-07] MEDS: FINASTERIDE 5 MG TAB PO SCH (09:16)
[2019-04-07] MEDS: TAMSULOSIN 0.4 MG CAP PO SCH (09:16)
[2019-04-07] MEDS: cefTRIAXone/NS 2 GM/100 ML 2 GM/100 ML BAG IV SCH (09:17)
[2019-04-07] MEDS: CARBIDOPA/LEVODOPA 25-250 TAB PO SCH ×2 (09:17→22:47)
--- NOTE | 2019-04-07 12:30 | Progress Note ---
Assessment and Plan susppect hydro with infection LK needs perc neuro status sig impaired dictated Subjective Date of service: 04/07/19 Principal diagnosis: Sepsis,UTI Objective - Constitutional Vitals: Vital Signs - 12hr 04/07/19 04/07/19 04/07/19 04:37 08:19 10:00 Temperature 97.4 F L Pulse Rate 107 H 103 H Respiratory 19 Rate Blood Pressure 101/65 107/71 O2 Sat by Pulse 98 91 96 Oximetry 04/07/19 11:38 Temperature 97.3 F L Pulse Rate 99 H Respiratory 18 Rate Blood Pressure 105/73 O2 Sat by Pulse 90 Oximetry General appearance: Present: mild distress - Neck Neck: supple - Respiratory Respiratory effort: labored Extremities: no ischemia - Genitourinary Male genitourinary: symmetrical - Labs CBC & Chem 7: 04/07/19 04:55 04/07/19 04:55 Labs: Abnormal lab results 04/06/19 04/06/19 04/07/19 Range/Units 13:05 13:05 04:55 WBC 29.2 H 22.6 H (4.5-11.0) K/mm3 Plt Count 133 L 95 L (140-440) K/mm3 Seg Neuts % (Manual) 96.0 H (40.0-70.0) % Lymphocytes % (Manual) 2.0 L 2.0 L (13.4-35.0) % Seg Neutrophils # Man 19.6 H 21.7 H (1.8-7.7) K/mm3 Lymphocytes # (Manual) 0.6 L 0.5 L (1.2-5.4) K/mm3 Monocytes # (Manual) 0.9 H (0.0-0.8) K/mm3 Chloride (98-107) mmol/L Carbon Dioxide 16 L (22-30) mmol/L BUN 68 H (9-20) mg/dL Creatinine 3.6 H (0.8-1.5) mg/dL Calcium 6.9 L (8.4-10.2) mg/dL AST 355 H (5-40) units/L ALT 76 H (7-56) units/L Albumin 3.1 L (3.9-5) g/dL 04/07/19 Range/Units 04:55 WBC (4.5-11.0) K/mm3 Plt Count (140-440) K/mm3 Seg Neuts % (Manual) (40.0-70.0) % Lymphocytes % (Manual) (13.4-35.0) % Seg Neutrophils # Man (1.8-7.7) K/mm3 Lymphocytes # (Manual) (1.2-5.4) K/mm3 Monocytes # (Manual) (0.0-0.8) K/mm3 Chloride 108.7 H (98-107) mmol/L Carbon Dioxide 18 L (22-30) mmol/L BUN 79 H (9-20) mg/dL Creatinine 4.0 H (0.8-1.5) mg/dL Calcium 6.7 L (8.4-10.2) mg/dL AST (5-40) units/L ALT (7-56) units/L Albumin (3.9-5) g/dL Medications & Allergies - Medications Allergies/Adverse Reactions: Allergies No Known Allergies Allergy (Verified 06/05/18 08:22) Home Medications: Home Medications Medication Instructions Recorded Confirmed Last Taken Type ALPRAZolam [Xanax] 0.5 tab PO DAILY PRN #6 tablet 08/04/18 04/04/19 Unknown Rx Carbidopa/Levodopa 25-250 [Sinemet 1 each PO BID #60 tablet 08/04/18 04/04/19 Unknown Rx 25/250] Tamsulosin [Flomax] 0.4 mg PO QDAY #30 cap 08/04/18 04/04/19 Unknown Rx amLODIPine [Norvasc] 5 mg PO DAILY #30 tablet 08/04/18 04/04/19 Unknown Rx Finasteride 1 mg PO DAILY 04/04/19 04/04/19 Unknown History Hydrochlorothiazide 25 mg PO DAILY 04/04/19 04/04/19 Unknown History Lisinopril 20 mg PO DAILY 04/04/19 04/04/19 Unknown History Losartan 50 mg PO DAILY 04/04/19 04/04/19 Unknown History Valsartan 320 mg PO DAILY 04/04/19 04/04/19 Unknown History Active Medications: Generic Name Dose Route Start Last Admin Trade Name Freq PRN Reason Stop Dose Admin Acetaminophen 650 mg 04/04/19 14:35 04/06/19 23:17 Tylenol PO 650 mg Q4H PRN Administration Pain MILD(1-3)/Fever >100.5/RIOJAS Albuterol 2.5 mg 04/04/19 14:35 Proventil IH Q4HRT PRN Shortness Of Breath Alprazolam 0.5 mg 04/04/19 13:43 Xanax PO DAILY PRN Anxiety Carbidopa/Levodopa 1 each 04/04/19 22:00 04/07/19 09:17 Sinemet PO 1 each BID ANDREZ Administration Finasteride 5 mg 04/05/19 10:00 04/07/19 09:16 Proscar PO 5 mg QDAY ANDREZ Administration Sodium Chloride 1,000 mls @ 100 mls/hr 04/05/19 17:00 04/06/19 05:46 Nacl 0.9% 1000 Ml IV 100 mls/hr DIRECT ANDREZ Administration Ceftriaxone Sodium 2 gm in 100 mls @ 200 mls/hr 04/06/19 15:00 04/07/19 09:17 Rocephin/Ns 2 Gm/100 Ml IV 200 mls/hr Q24HR ANDREZ Administration Protocol Ondansetron HCl 4 mg 04/04/19 14:35 04/06/19 13:43 Zofran IV 4 mg Q8H PRN Administration Nausea And Vomiting Sodium Chloride 10 ml 04/04/19 22:00 04/07/19 09:18 Sodium Chloride Flush Syringe 10 Ml IV Not Given BID ANDREZ Sodium Chloride 10 ml 04/04/19 14:35 Sodium Chloride Flush Syringe 10 Ml IV PRN PRN LINE FLUSH Tamsulosin HCl 0.4 mg 04/05/19 10:00 04/07/19 09:16 Flomax PO 0.4 mg QDAY ANDREZ Administration
--- NOTE | 2019-04-07 14:13 | Progress Note ---
Assessment and Plan Cultures: Blood culture and urine culture: Klebsiella pneumoniae Assessment: 64 y/o male with Parkinson, BPH with a indwelling daniel and previous UTI admitted on due to 24 hour history of acute SOB, shakes and severe generalized weakness. Patient is confused currently. It seems like the daniel was placed 2 weeks ago. In the ED, temp 98.3--> 101.5, HR 100, BP 99/53, O2 sat 96%. WBC 1. Hg 13.6. Plat 2016. Seg 83%. Creat 1.4. Lactate 6.4. UA with large LE and wbc 182. CXR negative. CT head negative. ID consulted for management of neutropenia and fever. 1) Severe Sepsis secondary to Klebsiella bacteremia from UTI: CXR negative. Daniel was exchanged in the ED. History of previous UTIs. CT showed ?bladder lesion with left renal hydronephrosis. Urology consulted, planning possible perc neph. 2) Acute encephalopathy due to #1 3) MYCHAL: creatinine increasing. Recommendations: continue IV Ceftriaxone while inpatient, once improved, can d/c on PO abx appreciate urology recs, planned for possible perc neph Hay Benitez MD, FACP [facility] M: [phone] O: [phone] F: [phone] Subjective Date of service: 04/07/19 Principal diagnosis: Sepsis,UTI Interval history: No fever. Feels fair. Tired. Mental status be, slow to respond. Objective - Exam Narrative Exam: Physical Exam: Constitutional: Alert, awake Head, Ears, Nose: Normocephalic, atraumatic. External ears, nose normal Eyes: Conjunctivae/corneas clear. No icterus. No ptosis. Neck: Supple, no meningeal signs Cardiovascular: S1, S2 normal. Respiratory: Good air entry, clear to auscultation bilaterally GI: Soft, non-tender; bowel sounds normal. No peritoneal signs. Daniel + Musculoskeletal: No pedal edema, no cyanosis. Skin: No rash or abscess Hem/Lymphatic: No palpable cervical or supraclavicular nodes. No lymphangitis Psych: no agitation Neurological: Awake, alert - Constitutional Vitals: Vital Signs Temp Pulse Resp BP Pulse Ox 97.3 F L 99 H 18 105/73 90 04/07/19 11:38 04/07/19 11:38 04/07/19 11:38 04/07/19 11:38 04/07/19 11:38 Temperature -Last 24 Hours Temperature 97.3 F Temperature 97.4 F Temperature 97.6 F Temperature 99.1 F - Labs CBC & Chem 7: 04/07/19 04:55 04/07/19 04:55 Labs: Abnormal lab results 04/06/19 04/06/19 04/07/19 Range/Units 13:05 13:05 04:55 WBC 22.6 H (4.5-11.0) K/mm3 Plt Count 95 L (140-440) K/mm3 Seg Neuts % (Manual) 96.0 H (40.0-70.0) % Lymphocytes % (Manual) 2.0 L 2.0 L (13.4-35.0) % Seg Neutrophils # Man 19.6 H 21.7 H (1.8-7.7) K/mm3 Lymphocytes # (Manual) 0.6 L 0.5 L (1.2-5.4) K/mm3 Monocytes # (Manual) 0.9 H (0.0-0.8) K/mm3 Chloride (98-107) mmol/L Carbon Dioxide 16 L (22-30) mmol/L BUN 68 H (9-20) mg/dL Creatinine 3.6 H (0.8-1.5) mg/dL Calcium 6.9 L (8.4-10.2) mg/dL AST 355 H (5-40) units/L ALT 76 H (7-56) units/L Albumin 3.1 L (3.9-5) g/dL 04/07/19 Range/Units 04:55 WBC (4.5-11.0) K/mm3 Plt Count (140-440) K/mm3 Seg Neuts % (Manual) (40.0-70.0) % Lymphocytes % (Manual) (13.4-35.0) % Seg Neutrophils # Man (1.8-7.7) K/mm3 Lymphocytes # (Manual) (1.2-5.4) K/mm3 Monocytes # (Manual) (0.0-0.8) K/mm3 Chloride 108.7 H (98-107) mmol/L Carbon Dioxide 18 L (22-30) mmol/L BUN 79 H (9-20) mg/dL Creatinine 4.0 H (0.8-1.5) mg/dL Calcium 6.7 L (8.4-10.2) mg/dL AST (5-40) units/L ALT (7-56) units/L Albumin (3.9-5) g/dL
--- NOTE | 2019-04-07 15:19 | Progress Note ---
Assessment and Plan Assessment and plan: 64 y/o male with a hx of parkinsons and UTI requiring hospitlization in Jul 2018. He states he has similar sx. He has been unable to get OOB since last admission. Sits ordinarily-- can walk. Presents with SIRS criteria and can't stop shaking. Has UTI. (1) Sepsis: Current Visit: Yes Status: Acute Plan to address problem: Sec to UTI On Cefepime ID consult appreciated (2)UTI GNR positive On Cefepime Acute renal failure - CT abdomen and pelvis there is a lesion in the bladder with left hy dronephrosis - urology was consulted and will do nephrostomy tube today - I mad him NPO (3) Acidosis Current Visit: Yes Status: Acute Plan to address problem: IVF (4) HTN (hypertension) Current Visit: Yes Status: Acute Qualifiers: Hypertension type: essential hypertension Qualified Code(s): I10 - Essential (primary) hypertension Plan to address problem: Monitor bp q shift, continue medical management. (5) Dementia Current Visit: Yes Status: Acute Qualifiers: Dementia type: Parkinson's disease Dementia behavioral disturbance: without behavioral disturbance Qualified Code(s): G20 - Parkinson's disease; F02.80 - Dementia in other diseases classified elsewhere without behavioral disturbance Plan to address problem: CT Head, continue current therapy, fall precautions, (6) Debility Current Visit: Yes Status: Acute Plan to address problem: supportive care, PT consulted in ED,. CT Lumbar spine (7) Neutropenia Current Visit: Yes Status: Acute Qualifiers: Neutropenia type: due to infection Qualified Code(s): D70.3 - Neutropenia due to infection Plan to address problem: Resolved Now Leukocytosis (8) DVT prophylaxis Current Visit: Yes Status: Acute Plan to address problem: SCD to BLE while in bed, supportive care. prophylactic lovenox History Interval history: patient was seen and evaluated this morning. patient was slow to answer questions. Hospitalist Physical - Physical exam Narrative exam: Not in cardiopulmonary distress. The patient appeared well nourished and normally developed. Vital signs as documented. Head exam is unremarkable. No scleral icterus . Neck is without jugular venous distension, thyromegaly, or carotid bruits. Lungs are clear to auscultation. Cardiac exam reveals regular rate and Rhythm. Abdominal exam reveals normal bowel sounds. Extremities are nonedematous and both femoral and pedal pulses are normal. 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 No focal weakness. - Constitutional Vitals: Temp Pulse Resp BP Pulse Ox 97.3 F L 99 H 18 105/73 90 04/07/19 11:38 04/07/19 11:38 04/07/19 11:38 04/07/19 11:38 04/07/19 11:38 General appearance: Present: mild distress Results - Labs CBC & Chem 7: 04/07/19 04:55 04/07/19 04:55 Labs: Laboratory Last Values WBC 22.6 K/mm3 (4.5-11.0) H 04/07/19 04:55 RBC 4.44 M/mm3 (3.65-5.03) 04/07/19 04:55 Hgb 12.8 gm/dl (11.8-15.2) 04/07/19 04:55 Hct 37.9 % (35.5-45.6) 04/07/19 04:55 MCV 85 fl (84-94) 04/07/19 04:55 MCH 29 pg (28-32) 04/07/19 04:55 MCHC 34 % (32-34) 04/07/19 04:55 RDW 14.4 % (13.2-15.2) 04/07/19 04:55 Plt Count 95 K/mm3 (140-440) L 04/07/19 04:55 [place] % (Auto) 1.4 % (0.0-7.3) 04/04/19 12:18 Eos % (Auto) 0.1 % (0.0-4.3) 04/04/19 12:18 [place] # 0.0 K/mm3 (0.0-0.8) 04/04/19 12:18 Eos # 0.0 K/mm3 (0.0-0.4) 04/04/19 12:18 Baso # 0.0 K/mm3 (0.0-0.1) 04/04/19 12:18 Add Manual Diff Complete 04/07/19 04:55 Total Counted 100 04/07/19 04:55 Seg Neutrophils % Pipe Cleaner 04/06/19 13:05 Seg Neuts % (Manual) 96.0 % (40.0-70.0) H 04/07/19 04:55 0 % 04/07/19 04:55 2.0 % (13.4-35.0) L 04/07/19 04:55 Reactive Lymphs % (Man) 0 % 04/07/19 04:55 2.0 % (0.0-7.3) 04/07/19 04:55 0 % (0.0-4.3) 04/07/19 04:55 0 % (0.0-1.8) 04/07/19 04:55 0 % 04/07/19 04:55 0 % 04/07/19 04:55 0 % 04/07/19 04:55 0 % 04/07/19 04:55 Nucleated RBC % Not Reportable 04/07/19 04:55 Seg Neutrophils # 0.8 K/mm3 (1.8-7.7) L 04/04/19 12:18 Seg Neutrophils # Man 21.7 K/mm3 (1.8-7.7) H 04/07/19 04:55 Band Neutrophils # 0.0 K/mm3 04/07/19 04:55 0.5 K/mm3 (1.2-5.4) L 04/07/19 04:55 Abs React Lymphs (Man) 0.0 K/mm3 04/07/19 04:55 0.5 K/mm3 (0.0-0.8) 04/07/19 04:55 0.0 K/mm3 (0.0-0.4) 04/07/19 04:55 0.0 K/mm3 (0.0-0.1) 04/07/19 04:55 0.0 K/mm3 04/07/19 04:55 0.0 K/mm3 04/07/19 04:55 0.0 K/mm3 04/07/19 04:55 Blast Cells # 0.0 K/mm3 04/07/19 04:55 WBC Morphology Not Reportable 04/07/19 04:55 Hypersegmented Neuts Not Reportable 04/07/19 04:55 Hyposegmented Neuts Not Reportable 04/07/19 04:55 Hypogranular Neuts Not Reportable 04/07/19 04:55 Not Reportable 04/07/19 04:55 Not Reportable 04/07/19 04:55 Not Reportable 04/07/19 04:55 Not Reportable 04/07/19 04:55 Not Reportable 04/07/19 04:55 Not Reportable 04/07/19 04:55 Consistent w auto 04/07/19 04:55 Not Reportable 04/07/19 04:55 Plt Clumps, EDTA Not Reportable 04/07/19 04:55 Not Reportable 04/07/19 04:55 Not Reportable 04/07/19 04:55 Not Reportable 04/07/19 04:55 Plt Morphology Comment Not Reportable 04/07/19 04:55 RBC Morphology Not Reportable 04/07/19 04:55 Dimorphic RBCs Not Reportable 04/07/19 04:55 Not Reportable 04/07/19 04:55 Not Reportable 04/07/19 04:55 1+ 04/07/19 04:55 Not Reportable 04/07/19 04:55 Not Reportable 04/07/19 04:55 Not Reportable 04/07/19 04:55 Not Reportable 04/07/19 04:55 Not Reportable 04/07/19 04:55 Not Reportable 04/07/19 04:55 Not Reportable 04/07/19 04:55 Not Reportable 04/07/19 04:55 Not Reportable 04/07/19 04:55 Not Reportable 04/07/19 04:55 Not Reportable 04/07/19 04:55 Not Reportable 04/07/19 04:55 1+ 04/07/19 04:55 Not Reportable 04/07/19 04:55 Not Reportable 04/07/19 04:55 Not Reportable 04/07/19 04:55 Acanthocytes (Spur) Not Reportable 04/07/19 04:55 Rouleaux Not Reportable 04/07/19 04:55 Not Reportable 04/07/19 04:55 Not Reportable 04/07/19 04:55 Not Reportable 04/07/19 04:55 Not Reportable 04/07/19 04:55 Hem Pathologist Commnt No 04/07/19 04:55 PT 14.5 Sec. (12.2-14.9) 04/04/19 12:18 INR 1.16 (0.87-1.13) H 04/04/19 12:18 APTT 26.6 Sec. (24.2-36.6) 04/04/19 12:18 VBG pH 7.417 (7.320-7.420) 04/04/19 12:18 Sodium 140 mmol/L (137-145) 04/07/19 04:55 Potassium 4.5 mmol/L (3.6-5.0) 04/07/19 04:55 Chloride 108.7 mmol/L (98-107) H 04/07/19 04:55 Carbon Dioxide 18 mmol/L (22-30) L 04/07/19 04:55 18 mmol/L 04/07/19 04:55 BUN 79 mg/dL (9-20) H 04/07/19 04:55 4.0 mg/dL (0.8-1.5) H 04/07/19 04:55 Estimated GFR 18 ml/min 04/07/19 04:55 20 % 04/07/19 04:55 Glucose 90 mg/dL (75-100) 04/07/19 04:55 Lactic Acid 2.80 mmol/L (0.7-2.0) H* 04/05/19 05:22 Calcium 6.7 mg/dL (8.4-10.2) L 04/07/19 04:55 Magnesium 1.50 mg/dL (1.7-2.3) L 04/04/19 13:53 0.60 mg/dL (0.1-1.2) 04/06/19 13:05 AST 355 units/L (5-40) H 04/06/19 13:05 ALT 76 units/L (7-56) H 04/06/19 13:05 71 units/L (35-129) 04/06/19 13:05 0.016 ng/mL (0.00-0.029) 04/04/19 12:18 6.9 g/dL (6.3-8.2) 04/06/19 13:05 3.1 g/dL (3.9-5) L 04/06/19 13:05 0.8 % 04/06/19 13:05 Yellow (Yellow) 04/04/19 Unknown Turbid (Clear) 04/04/19 Unknown 7.0 (5.0-7.0) 04/04/19 Unknown Ur Specific Sneads 1.008 (1.003-1.030) 04/04/19 Unknown 100 mg/dl mg/dL (Negative) 04/04/19 Unknown Neg mg/dL (Negative) 04/04/19 Unknown Neg mg/dL (Negative) 04/04/19 Unknown Lg (Negative) 04/04/19 Unknown Neg (Negative) 04/04/19 Unknown Neg (Negative) 04/04/19 Unknown < 2.0 mg/dL (<2.0) 04/04/19 Unknown Ur Leukocyte Esterase Lg (Negative) 04/04/19 Unknown > 182.0 /HPF (0.0-6.0) H 04/04/19 Unknown 87.0 /HPF (0.0-6.0) 04/04/19 Unknown 2+ /HPF (Negative) 04/04/19 Unknown 3+ /HPF 04/04/19 Unknown Presumptive negative 04/04/19 Unknown Presumptive negative 04/04/19 Unknown Ur Barbiturates Screen Presumptive negative 04/04/19 Unknown Ur Phencyclidine Scrn Presumptive negative 04/04/19 Unknown Ur Amphetamines Screen Presumptive negative 04/04/19 Unknown U Benzodiazepines Scrn Presumptive negative 04/04/19 Unknown Presumptive negative 04/04/19 Unknown U Marijuana (THC) Screen Presumptive negative 04/04/19 Unknown Disclamer 04/04/19 Unknown HIV 1&2 Antibody Rapid Non react (Non React) 04/04/19 22:50 Non react (Non React) 04/04/19 22:50 Active Medications - Current Medications Current Medications: Generic Name Dose Route Start Last Admin Trade Name Freq PRN Reason Stop Dose Admin Acetaminophen 650 mg 04/04/19 14:35 04/06/19 23:17 Tylenol PO 650 mg Q4H PRN Administration Pain MILD(1-3)/Fever >100.5/RIOJAS Albuterol 2.5 mg 04/04/19 14:35 Proventil IH Q4HRT PRN Shortness Of Breath Alprazolam 0.5 mg 04/04/19 13:43 Xanax PO DAILY PRN Anxiety Carbidopa/Levodopa 1 each 04/04/19 22:00 04/07/19 09:17 Sinemet PO 1 each BID ANDREZ Administration Finasteride 5 mg 04/05/19 10:00 04/07/19 09:16 Proscar PO 5 mg QDAY ANDREZ Administration Sodium Chloride 1,000 mls @ 100 mls/hr 04/05/19 17:00 04/06/19 05:46 Nacl 0.9% 1000 Ml IV 100 mls/hr DIRECT ANDREZ Administration Ceftriaxone Sodium 2 gm in 100 mls @ 200 mls/hr 04/06/19 15:00 04/07/19 09:17 Rocephin/Ns 2 Gm/100 Ml IV 200 mls/hr Q24HR ANDREZ Administration Protocol Ondansetron HCl 4 mg 04/04/19 14:35 04/06/19 13:43 Zofran IV 4 mg Q8H PRN Administration Nausea And Vomiting Sodium Chloride 10 ml 04/04/19 22:00 04/07/19 09:18 Sodium Chloride Flush Syringe 10 Ml IV Not Given BID ANDREZ Sodium Chloride 10 ml 04/04/19 14:35 Sodium Chloride Flush Syringe 10 Ml IV PRN PRN LINE FLUSH Tamsulosin HCl 0.4 mg 04/05/19 10:00 04/07/19 09:16 Flomax PO 0.4 mg QDAY ANDREZ Administration Nutrition/Malnutrition Assess - Dietary Evaluation Nutrition/Malnutrition Findings: Nutrition Notes Start: 04/05/19 16:00 Freq: Status: Active Protocol: Document 04/07/19 13:33 DW (Rec: 04/07/19 13:59 DW [id number]) Co-Sign 04/07/19 13:33 NHALL Nutrition Notes Initial or Follow up Reassessment Current Diagnosis Sepsis,Hypertension Other Pertinent Diagnosis Dementia, Parkinsons Current Diet NPO Labs/Tests Reviewed Pertinent Medications Reviewed Height 6 ft 9 in Weight 108.3 kg [place] Body Weight (kg) 105.45 BMI 25.5 Subjective/Other Information Pt stated he has been eating 25% of his meals and drinks 100% ONS.Pt stated that he has been difficulty swallowing and needs assistance when eating. Pt NPO for schdeuled procedure tomorrow Percent of energy/protein needs met: 38%/39% Burn Absent Trauma Absent Difficulty In Swallowing Current % PO Poor (25-49%) #2 Nutrition Diagnosis Inadequate oral intake Etiology dementia and swallowing difficulty As Evidenced by Signs and Symptoms Pt consuming 25% of his meals and meeting 38% kcal needs and 39% PRO needs #1 Nutrition Diagnosis Malnutrition Diagnosis Progress(for reassessment Continues documentation) Is patient on ventilator? No Is Patient Ambulatory and/or Out of Bed No REE-([facility]-confined to bed) [phone] Calculation Used for Recommendations [facility] Additional Notes PRO needs: 108-130g (1-1.2g/kg ) Fluid Needs: 1 mL/kcal Nutrition Intervention Change Diet Order: Continue Current Diet Add Supplement/Snack (indicate name/kcal Ensure Enlive Chocolate BID /protein ) Provides kCal: 700 Provides Protein (gm) 40 Goal #1 Meet at least 75% of calorie and protein needs via PO and ONS intakes Anticipated Discharge Needs: Regular diet Follow-Up By: 04/08/19 Additional Comments FU diet advancement and ONS order
--- NOTE | 2019-04-07 16:34 | Consultation ---
History of Present Illness - Reason for Consult Consult date: 04/07/19 Hydronephrosis - History of Present Illness 64 YO Male with Dementia, HTN, OA, Parkinsons Disease, BPH presents to ED for e valuation. Pt is confused, but is able to provide minimal history history. Pt reports feeling weak, and having shaking chills. Further history taken from son and daughter who are at bedside during exam and interview. As per family, the patient has experienced increased confusion and weakness over the past 2 weeks. As per son, the patient is currently non-ambulatory and bedbound, and requires 4/6 assistance with activities of daily living. EMS notified, and upon arrival the patient was found to be confused. Pt transported to [facility] for further care and evaluation. Pt seen and evaluated in ED and found to have SIRS, Neutropenia, UTI, Acidosis, and Encephalopathy. Pt admitted to medical floor. No reports of fever, chills, CP,Palpitations, NVD, Falls, Trauma, ingestion of food/water from now or different sources, productive cough, or recent ill contacts. Prior admission on 07/27/18 reviewed. All listed medication reconciled at time of admission. Past History Past Medical History: arthritis, hypertension, other (Dementia,Parkinsons Disease, BPH) Past Surgical History: total knee replacement, Other (Prostate biopsy, Eye surge ry) Social history: single, lives with family. denies: smoking, alcohol abuse, prescription drug abuse Family history: hypertension Medications and Allergies Allergies Allergy/AdvReac Type Severity Reaction Status Date / Time No Known Allergies Allergy Verified 06/05/18 08:22 Home Medications Medication Instructions Recorded Confirmed Last Taken Type ALPRAZolam [Xanax] 0.5 tab PO DAILY PRN #6 tablet 08/04/18 04/04/19 Unknown Rx Carbidopa/Levodopa 25-250 [Sinemet 1 each PO BID #60 tablet 08/04/18 04/04/19 Unknown Rx 25/250] Tamsulosin [Flomax] 0.4 mg PO QDAY #30 cap 08/04/18 04/04/19 Unknown Rx amLODIPine [Norvasc] 5 mg PO DAILY #30 tablet 08/04/18 04/04/19 Unknown Rx Finasteride 1 mg PO DAILY 04/04/19 04/04/19 Unknown History Hydrochlorothiazide 25 mg PO DAILY 04/04/19 04/04/19 Unknown History Lisinopril 20 mg PO DAILY 04/04/19 04/04/19 Unknown History Losartan 50 mg PO DAILY 04/04/19 04/04/19 Unknown History Valsartan 320 mg PO DAILY 04/04/19 04/04/19 Unknown History Active Meds: Active Medications Acetaminophen (Tylenol) 650 mg PO Q4H PRN PRN Reason: Pain MILD(1-3)/Fever >100.5/RIOJAS Last Admin: 04/06/19 23:17 Dose: 650 mg Documented by: Albuterol (Proventil) 2.5 mg IH Q4HRT PRN PRN Reason: Shortness Of Breath Alprazolam (Xanax) 0.5 mg PO DAILY PRN PRN Reason: Anxiety Carbidopa/Levodopa (Sinemet) 1 each PO BID [facility] Last Admin: 04/07/19 09:17 Dose: 1 each Documented by: Finasteride (Proscar) 5 mg PO QDAY [facility] Last Admin: 04/07/19 09:16 Dose: 5 mg Documented by: Sodium Chloride (Nacl 0.9% 1000 Ml) 1,000 mls @ 100 mls/hr IV DIRECT [facility] Last Admin: 04/06/19 05:46 Dose: 100 mls/hr Documented by: Ceftriaxone Sodium (Rocephin/Ns 2 Gm/100 Ml) 2 gm in 100 mls @ 200 mls/hr IV Q24HR [facility]; Protocol Last Admin: 04/07/19 09:17 Dose: 200 mls/hr Documented by: Ondansetron HCl (Zofran) 4 mg IV Q8H PRN PRN Reason: Nausea And Vomiting Last Admin: 04/06/19 13:43 Dose: 4 mg Documented by: Sodium Chloride (Sodium Chloride Flush Syringe 10 Ml) 10 ml IV BID [facility] Last Admin: 04/07/19 09:18 Dose: Not Given Documented by: Sodium Chloride (Sodium Chloride Flush Syringe 10 Ml) 10 ml IV PRN PRN PRN Reason: LINE FLUSH Tamsulosin HCl (Flomax) 0.4 mg PO QDAY [facility] Last Admin: 04/07/19 09:16 Dose: 0.4 mg Documented by: Review of Systems ROS unobtainable: due to mental status Exam - Constitutional Vitals: Temp Pulse Resp BP Pulse Ox 97.3 F L 99 H 18 105/73 90 04/07/19 11:38 04/07/19 11:38 04/07/19 11:38 04/07/19 11:38 04/07/19 11:38 General appearance: Present: no acute distress, other (A&O x0) - Respiratory Respiratory effort: normal - Abdominal General gastrointestinal: Present: non-tender - Psychiatric Psychiatric: other (A&Ox0) - Neurologic Neurologic: other (A&Ox0) Results - Labs CBC & Chem 7: 04/07/19 04:55 04/07/19 04:55 Labs: Abnormal lab results 04/07/19 04/07/19 Range/Units 04:55 04:55 WBC 22.6 H (4.5-11.0) K/mm3 Plt Count 95 L (140-440) K/mm3 Seg Neuts % (Manual) 96.0 H (40.0-70.0) % Lymphocytes % (Manual) 2.0 L (13.4-35.0) % Seg Neutrophils # Man 21.7 H (1.8-7.7) K/mm3 Lymphocytes # (Manual) 0.5 L (1.2-5.4) K/mm3 Chloride 108.7 H (98-107) mmol/L Carbon Dioxide 18 L (22-30) mmol/L BUN 79 H (9-20) mg/dL Creatinine 4.0 H (0.8-1.5) mg/dL Calcium 6.7 L (8.4-10.2) mg/dL - Imaging and Cardiology CT scan - abdomen: report reviewed, image reviewed Assessment and Plan 64-year-old male who presents with urosepsis with left-sided hydronephrosis with suspected bladder lesion versus massively enlarged prostate. Urology contacted interventional radiology to assist with nephrostomy tube placement. Nephrostomy tube placement is reasonable. Patient is quite ill. We'll attempt the procedure with minimal sedation Risks, benefits, and alternatives discussed the patient's son.
[2019-04-07] MEDS ORDERED: HEPARIN 10,000 UNITS/10 ML VIAL ONE (18:01)
[2019-04-07] MEDS ORDERED: SODIUM CHLORIDE IRRI 500 ML 500 ML IR ONE (18:01)
[2019-04-07] MEDS ORDERED: LIDOCAINE 1%/EPINEPHRINE 1:100,000 VIAL (20 ML) INFILTRATI ONE (18:01)
[2019-04-07] MEDS ORDERED: ceFAZolin/Water 2 GM/20 ML 2 GM/20 ML SYRINGE IV ONE ×2 (18:06→19:14)
[2019-04-07] MEDS ORDERED: SODIUM CHLORIDE 0.9% 250ML 250 ML ONE (18:06)
[2019-04-07] MEDS ORDERED: PROPOFOL 1,000 MG/100 ML BOTTLE IV ONE (18:50)
[2019-04-07] MEDS ORDERED: MIDAZOLAM 5 MG/5 ML INJ MDV IV ONE (18:51)
[2019-04-07] MEDS ORDERED: KETAMINE/STERILE WATER 50 MG/ML SYRINGE ONE (18:51)
[2019-04-07] MEDS ORDERED: fentaNYL 250 MCG/5 ML INJ ONE (18:51)
[2019-04-07] MEDS ORDERED: SUCCINYLCHOLINE CHLORIDE 200 MG/10 ML INJ MDV ONE (18:52)
[2019-04-07] MEDS ORDERED: ROCURONIUM 50 MG/5 ML INJ IV ONE (18:52)
[2019-04-07] MEDS ORDERED: LIDOCAINE MPF (2%) 20 MG/1 ML VIAL 5 ML ONE (18:52)
[2019-04-07] MEDS ORDERED: PHENYLEPHRINE/NS 1,000 MCG/10 ML SYRINGE (OR USE) IV ONE (19:00)
[2019-04-07] MEDS ORDERED: SODIUM CHLORIDE 0.9% 1000 ML 1,000 ML ONE ×2 (19:15→21:22)
[2019-04-07] MEDS: SODIUM CHLORIDE 0.9% 1000 ML 1,000 ML IV SCH ×2 (20:04→23:08)
--- NOTE | 2019-04-07 20:47 | Anesthesia Day of Surgery ---
Anesthesia Day of Surgery - Day of Surgery Patient Examined: Yes Patient H&P Reviewed: Yes Patient is NPO: Yes
--- NOTE | 2019-04-07 20:47 | Anesthesia Consultation ---
Anesthesia Consult and Med Hx Date of service: 04/07/19 - Airway Mental/Hyoid Distance: Adequate Intubation Access Assessment: Possibly Difficult (uncooperative with airway exam) - Pulmonary Exam CTA: No (diminshed bilateral bases) - Cardiac Exam Cardiac Exam: RRR (tachycardia) - Pre-Operative Health Status ASA Pre-Surgery Classification: ASA4, Emergency Proposed Anesthetic Plan: General - Pulmonary Hx Respiratory Symptoms: Yes (increasing O2 requirements this admission per chart review) SOB: Yes - Cardiovascular System Hx Hypertension: Yes - Central Nervous System Hx Neuromuscular Disorder: Yes (parkinson's dementia) - Endocrine Hx Renal Disease: Yes (ARF) Hx Liver Disease: No Hx Insulin Dependent Diabetes: No Hx Non-Insulin Dependent Diabetes: No Hx Thyroid Disease: No - Hematic Hx Anemia: No (thrombocytopenia) - Other Systems Hx Obesity: No - Additional Comments Anesthesia Medical History Comments: Patient with urosepsis originally scheduled for IR nephrostomy tube placement with local only however patient desaturated after being placed in the prone position. Anesthesia consulted for sedation/airway management. Patient with increased WOB, SpO2 >95% on NRB, obtunded on initial exam (mentation at preprocedure baseline per report). Given overall clinical picture and urgent nature of procedure (sepsis, renal failure), plan GETA and post-op ICU admission with continued mechanical ventilation. Anesthetic plan and risks discussed with son, Vincent Jr Sabino via telephone. Consent also obtained for CVC placement as patient may require pressor support intra/post procedure.
--- NOTE | 2019-04-07 20:54 | Event Note ---
Date: 04/07/19 (Central Line Placement) Central line indication: sepsis w/ anticipated need for vasopressor support. Consent obtained from son Vincent GalloJr via telephone and covered in global anesthesia consent. Patient placed under general anesthesia and intubated for planned IR procedure. Sterile prep/drape of R neck in usual fashion. R IJ identified with ultrasound. Vessel punctured under ultrasound visualization and dark, non-pulsatile blood aspirated easily. Guidewire advanced to 20cm easily, no ectopy noted on EKG monitoring. Wire confirmed in vessel lumen with ultrasound. TLC advanced over wire, wire removed, and ports aspirated and flushed. Biopatch and sterile occlusive dressing applied. No immediate complications noted. Savita Bentley MD Anesthesiology
--- NOTE | 2019-04-07 21:14 | Post Operative Note ---
Date of procedure: 04/07/19 Pre-op diagnosis: Left hydronephrosis Post-op diagnosis: same Findings: Urine sent for culture Procedure: Ultrasound and fluoroscopic guided access of a posterior calyx of the left kidney Fluorscopic guided placement of an 8 Fr nephrostomy tube Anesthesia: SILVERIO Surgeon: BRYSON BUTLER Estimated blood loss: minimal Condition: stable Disposition: ICU
--- NOTE | 2019-04-07 21:14 | Operative Report ---
Operative Report Operative Report: EXAM: 1. Ultrasound and fluoroscopic guided access of a posterior lower pole left- sided calyx 2. Fluoroscopic-guided placement of a left-sided percutaneous nephrostomy tube DATE: 04/07/19 LEGAL ASSISTANT: BRYSON BUTLER MD INDICATION: Acute renal failure with left-sided hydronephrosis and urosepsis MEDICATIONS: Please see nursing report for full details. DEVICES: 8 Uzbek nephrostomy tube CONTRAST: Please see label fuser tender report for full details PROCEDURE: The risks, benefits, and alternatives were discussed with the patient; informed consent was obtained. The patient was prepped and draped in a sterile fashion in the prone position. The left flank was evaluated with ultrasound. Under direct ultrasound guidance, a left posterior calyx was punctured with a 21-gauge echo tipped needle. Urine was aspirated. Contrast was injected documenting the collecting system. Needle was exchanged for a 6 Uzbek transitional dilator Accustick system. After the dilator was advanced over the wire, the wire, inner metal cannula and inner dilator were removed. Contrast was injected confirming position within the collecting system. 0.035 inch wire was advanced through the transitional dilator. Transitional dilator was exchanged for an 8 Uzbek dilator. 8 Uzbek nephrostomy tube was then advanced over the wire. Wire was removed. The nephrostomy tube was positioned in the renal pelvis and the cope loop was successfully deployed. The nephrostomy tube was secured with 2-0 Ethilon. Patient tolerated the procedure well and was transferred out of the angiography suite in stable condition. FINDINGS: 1. Under direct ultrasound guidance, a posterior lower pole calyx was punctured with a 21-gauge needle. 2. Nephrostograms and antegrade ureterogram of the left collecting system demonstrates severe hydroureter with mild to moderate hydronephrosis. 3. Successful nephrostomy tube placement in the left collecting system through a lower pole posterior calyx. IMPRESSION: Successful nephrostomy tube placement in the left kidney.
--- NOTE | 2019-04-07 22:13 | Post Anesthesia Evaluation ---
- Post Anesthesia Evaluation Patient Participated: No (sedated) Airway Patent: Yes Stable Respiratory Function: Yes Nausea/Vomiting: No (unable to assess) Temp > 96.8F: Yes Pain Manageable: Yes Adequeate Hydration: Yes Anesthesia Complications: No Patient on Ventilator: Yes (500x14, FiO2 60%, Peep 6) Other Comments: Transported to ICU intubated/AMBU, monitors on with VSS throughout. Handoff given to SOLUTIONS DEVELOPMENT ANALYST at bedside. RT placed patient on vent. CXR ordered for line/tube placement.
--- NOTE | 2019-04-07 23:03 | XRay Report ---
CHEST 1 VIEW INDICATION / CLINICAL INFORMATION: Newly placed ETT and R IJ TLC. COMPARISON: 04/04/2019 chest FINDINGS: SUPPORT DEVICES: Endotracheal tube tip is in the midthoracic trachea in the usual position. Right IJ central venous line tip is at the atriocaval junction. HEART / MEDIASTINUM: Normal heart size. LUNGS / PLEURA: Low lung volumes. Bilateral patchy and linear airspace opacities are present. No pneu mothorax. ADDITIONAL FINDINGS: No significant additional findings. IMPRESSION: 1. Satisfactory device positioning. 2. Low lung volumes with bilateral platelike atelectasis. No other significant change in the appearan ce of the lungs. Signer Name: Dash Horn MD Signed: 04/07/2019 10:59 PM Workstation Name: [id number]
[2019-04-07] MEDS ORDERED: LIP THERAPY VASELINE TP PRN (23:24)
[2019-04-07] MEDS ORDERED: MINERAL OIL/PETROLATUM, WHITE OPHTH OINT 3.5 GM OU PRN (23:24)
[2019-04-07] MEDS ORDERED: PROPOFOL 1,000 MG/100 ML BOTTLE IV SCH (23:45)
--- NOTE | 2019-04-08 03:27 | Consultation ---
HISTORY OF PRESENT ILLNESS: The patient is a 64-year-old gentleman who was admitted 3 days ago and was found to have Klebsiella sepsis. He has moderate left hydro with a possible mass around the left orifice. He has a big prostate as well. He has significant mental status changes as well. I have just met him for the first time, but his son says 2 weeks ago, he was watching football and doing whatever he wanted to do. PAST MEDICAL HISTORY: Hypertension, ?dementia and Parkinson's. PAST SURGICAL HISTORY: Knee surgery and prostate biopsy. SOCIAL HISTORY: Negative. MEDICATIONS: Lisinopril, losartan, hydrochlorothiazide, Flomax, Proscar, L-Dopa. ALLERGIES: Negative. REVIEW OF SYSTEMS: Unobtainable. PHYSICAL EXAMINATION: GENERAL: On exam, he is in mild discomfort. He had some respiratory distress and he could not give a history. ABDOMEN: Distended. No localized tenderness. GENITALIA: He has a condom catheter draining dark urine. Testes mildly atrophic. IMPRESSION: A gentleman with mental status changes; severe hydronephrosis, left; history of prostatism, on Proscar and Flomax. I suspect he has been followed urologically. He needs emergent left percutaneous nephrostomy and only thing we can get anything in from below to see if that cools him down and makes him better and I spoke to Dr. Alcala about it and he will see the patient now. JOB# [id number] TORY/ELSIE
[2019-04-08] MEDS: SODIUM CHLORIDE 0.9% 1000 ML 1,000 ML IV SCH ×4 (08:30→17:42)
--- NOTE | 2019-04-08 08:39 | XRay Report ---
CHEST 1 VIEW INDICATION: follow up respiratory failure. COMPARISON: One day prior. FINDINGS: Support devices: Unchanged. Heart: Stable. Lungs/Pleura: Patchy bilateral pulmonary opacities and small left pleural effusion are relatively sta ble. No pneumothorax. IMPRESSION: 1. No significant change. Signer Name: Geremias Claire MD Signed: 04/08/2019 8:35 AM Workstation Name: [email or web address]
[2019-04-08 09:01] LABS: Hematocrit 32.2 % (35.5-45.6); Hemoglobin 10.7 gm/dl (11.8-15.2); Mean Corpuscular HGB Conc 33 % (32-34); Mean Corpuscular Volume 83 fl (84-94); Red Blood Count 3.86 M/mm3 (3.65-5.03); Red Cell Distribution Width 14.4 % (13.2-15.2)
[2019-04-08 09:12] LABS: Calcium 6.7 mg/dL (8.4-10.2)
[2019-04-08 09:13] LABS: Platelet Count 71 K/mm3 (140-440)
--- NOTE | 2019-04-08 09:23 | Consultation ---
History of Present Illness Consult date: 04/08/19 Requesting physician: BRYSON BUTLER Reason for consult: other (sepsis post nephrostomy tube placement) History of present illness: 64 y/o male with sepsis, hydronephrosis and pelvic mass vs enlarged prostate admitted to the ICU post op from nephrostomy tube placement for hydronephrosis. Patient was intubated for the procedure as he desaturated while prone. Patient was not extubated at the discretion of the anesthesia and IR and transitioned to the ICU. He did not require pressors overnight. Today he is awake and alert, following commands on 30% and PEEP of 6. Remainder of the review is negative or obtainable. Patient is not currently sedated. Past History Past Medical History: arthritis, hypertension, other (Dementia,Parkinsons Disease, BPH) Past Surgical History: total knee replacement, Other (Prostate biopsy, Eye surgery) Social history: single, lives with family. denies: smoking, alcohol abuse, prescription drug abuse Family history: hypertension Medications and Allergies Allergies Allergy/AdvReac Type Severity Reaction Status Date / Time No Known Allergies Allergy Verified 06/05/18 08:22 Home Medications Medication Instructions Recorded Confirmed Last Taken Type ALPRAZolam [Xanax] 0.5 tab PO DAILY PRN #6 tablet 08/04/18 04/04/19 Unknown Rx Carbidopa/Levodopa 25-250 [Sinemet 1 each PO BID #60 tablet 08/04/18 04/04/19 Unknown Rx 25/250] Tamsulosin [Flomax] 0.4 mg PO QDAY #30 cap 08/04/18 04/04/19 Unknown Rx amLODIPine [Norvasc] 5 mg PO DAILY #30 tablet 08/04/18 04/04/19 Unknown Rx Finasteride 1 mg PO DAILY 04/04/19 04/04/19 Unknown History Hydrochlorothiazide 25 mg PO DAILY 04/04/19 04/04/19 Unknown History Lisinopril 20 mg PO DAILY 04/04/19 04/04/19 Unknown History Losartan 50 mg PO DAILY 04/04/19 04/04/19 Unknown History Valsartan 320 mg PO DAILY 04/04/19 04/04/19 Unknown History Active Meds: Active Medications Acetaminophen (Tylenol) 650 mg PO Q4H PRN PRN Reason: Pain MILD(1-3)/Fever >100.5/RIOJAS Last Admin: 04/06/19 23:17 Dose: 650 mg Documented by: Albuterol (Proventil) 2.5 mg IH Q4HRT PRN PRN Reason: Shortness Of Breath Alprazolam (Xanax) 0.5 mg PO DAILY PRN PRN Reason: Anxiety Carbidopa/Levodopa (Sinemet) 1 each PO BID [facility] Last Admin: 04/07/19 22:47 Dose: Not Given Documented by: Finasteride (Proscar) 5 mg PO QDAY [facility] Last Admin: 04/07/19 09:16 Dose: 5 mg Documented by: Hydrophilic Ointment (Vaseline Lip Therapy) 1 applic TP Q2HR PRN PRN Reason: Dry Lips Sodium Chloride (Nacl 0.9% 1000 Ml) 1,000 mls @ 100 mls/hr IV DIRECT [facility] Last Admin: 04/08/19 08:30 Dose: 100 mls/hr Documented by: Ceftriaxone Sodium (Rocephin/Ns 2 Gm/100 Ml) 2 gm in 100 mls @ 200 mls/hr IV Q24HR [facility]; Protocol Last Admin: 04/07/19 09:17 Dose: 200 mls/hr Documented by: Propofol (Diprivan 10 Mg/Ml) 1,000 mg in 100 mls @ 3.249 mls/hr IV TITR [facility]; Protocol Multi-Ingred Cream/Lotion/Oil/Oint (Artificial Tears Ophth Oint) 1 applic OU Q4HR PRN PRN Reason: Dry Eye(s) Ondansetron HCl (Zofran) 4 mg IV Q8H PRN PRN Reason: Nausea And Vomiting Last Admin: 04/06/19 13:43 Dose: 4 mg Documented by: Sodium Chloride (Sodium Chloride Flush Syringe 10 Ml) 10 ml IV BID [facility] Last Admin: 04/07/19 22:48 Dose: Not Given Documented by: Sodium Chloride (Sodium Chloride Flush Syringe 10 Ml) 10 ml IV PRN PRN PRN Reason: LINE FLUSH Tamsulosin HCl (Flomax) 0.4 mg PO QDAY [facility] Last Admin: 04/07/19 09:16 Dose: 0.4 mg Documented by: Review of Systems ROS unobtainable: due to endotracheal tube Physical Examination Vital signs: Vital Signs Temp Pulse BP Pulse Ox 98.3 F 100 H 99/53 96 04/04/19 11:40 04/04/19 11:40 04/04/19 11:40 04/04/19 11:40 General appearance: no acute distress, alert Eyes: non-icteric ENT: other (orally intubated and sedated) Neck: supple, other (large in circumference) Effort: normal Ascultation: Bilateral: clear Percussion: Bilateral: not dull Cardiovascular: regular rate and rhythm Gastrointestinal: normoactive bowel sounds, soft, other (obese) Extremities: edema non-focal exam Results - Laboratory Findings CBC and BMP: 04/08/19 08:41 04/08/19 08:41 ABG POC ABG pH 7.340 (7.35-7.45) L 04/08/19 05:34 POC ABG pCO2 32.0 (35-45) L 04/08/19 05:34 POC ABG pO2 103 (80-105) 04/08/19 05:34 POC ABG HCO3 17.3 (22-26 mml/L) 04/08/19 05:34 POC ABG Total CO2 18 (23-27mmol/L) 04/08/19 05:34 POC ABG O2 Sat 98 04/08/19 05:34 PT/INR, D-dimer PT 14.5 Sec. (12.2-14.9) 04/04/19 12:18 INR 1.16 (0.87-1.13) H 04/04/19 12:18 Abnormal lab findings: Abnormal Labs 04/04/19 04/04/19 04/04/19 12:18 12:18 12:18 WBC 1.0 L* Hgb Hct MCV MCHC Plt Count Seg Neutrophils % 83.5 H Seg Neuts % (Manual) 80.0 H Lymphocytes % (Manual) 12.0 L Seg Neutrophils # 0.8 L Seg Neutrophils # Man 0.8 L Lymphocytes # (Manual) 0.1 L Monocytes # (Manual) Basophils # (Manual) INR 1.16 H POC ABG pH POC ABG pCO2 POC ABG pO2 Potassium 3.2 L Chloride Carbon Dioxide BUN Creatinine Glucose 105 H Lactic Acid Calcium Magnesium AST ALT Total Protein Albumin 3.7 L Urine WBC (Auto) 04/04/19 04/04/19 04/04/19 12:18 13:53 13:53 WBC Hgb Hct MCV MCHC Plt Count Seg Neutrophils % Seg Neuts % (Manual) Lymphocytes % (Manual) Seg Neutrophils # Seg Neutrophils # Man Lymphocytes # (Manual) Monocytes # (Manual) Basophils # (Manual) INR POC ABG pH POC ABG pCO2 POC ABG pO2 Potassium Chloride Carbon Dioxide BUN Creatinine Glucose Lactic Acid 6.40 H* 6.00 H* Calcium Magnesium 1.50 L AST ALT Total Protein Albumin Urine WBC (Auto) 04/04/19 04/04/19 04/05/19 22:50 Unknown 05:22 WBC 17.9 H Hgb Hct MCV MCHC 35 H Plt Count Seg Neutrophils % Seg Neuts % (Manual) 93.0 H Lymphocytes % (Manual) 2.0 L Seg Neutrophils # Seg Neutrophils # Man 16.6 H Lymphocytes # (Manual) 0.4 L Monocytes # (Manual) Basophils # (Manual) 0.2 H INR POC ABG pH POC ABG pCO2 POC ABG pO2 Potassium Chloride Carbon Dioxide BUN Creatinine Glucose Lactic Acid 5.40 H* Calcium Magnesium AST ALT Total Protein Albumin Urine WBC (Auto) > 182.0 H 04/05/19 04/05/19 04/06/19 05:22 05:22 13:05 WBC 29.2 H Hgb Hct MCV MCHC Plt Count 133 L Seg Neutrophils % Seg Neuts % (Manual) Lymphocytes % (Manual) 2.0 L Seg Neutrophils # Seg Neutrophils # Man 19.6 H Lymphocytes # (Manual) 0.6 L Monocytes # (Manual) 0.9 H Basophils # (Manual) INR POC ABG pH POC ABG pCO2 POC ABG pO2 Potassium 3.0 L Chloride Carbon Dioxide 19 L BUN 34 H Creatinine 2.4 H D Glucose 72 L Lactic Acid 2.80 H* Calcium 7.6 L Magnesium AST 250 H ALT 108 H Total Protein 6.2 L Albumin 3.2 L Urine WBC (Auto) 04/06/19 04/07/19 04/07/19 13:05 04:55 04:55 WBC 22.6 H Hgb Hct MCV MCHC Plt Count 95 L Seg Neutrophils % Seg Neuts % (Manual) 96.0 H Lymphocytes % (Manual) 2.0 L Seg Neutrophils # Seg Neutrophils # Man 21.7 H Lymphocytes # (Manual) 0.5 L Monocytes # (Manual) Basophils # (Manual) INR POC ABG pH POC ABG pCO2 POC ABG pO2 Potassium Chloride 108.7 H Carbon Dioxide 16 L 18 L BUN 68 H 79 H Creatinine 3.6 H 4.0 H Glucose Lactic Acid Calcium 6.9 L 6.7 L Magnesium AST 355 H ALT 76 H Total Protein Albumin 3.1 L Urine WBC (Auto) 04/07/19 04/08/19 04/08/19 23:44 05:34 08:41 WBC 21.0 H Hgb 10.7 L Hct 32.2 L MCV 83 L MCHC Plt Count 71 L Seg Neutrophils % Seg Neuts % (Manual) Lymphocytes % (Manual) Seg Neutrophils # Seg Neutrophils # Man Lymphocytes # (Manual) Monocytes # (Manual) Basophils # (Manual) INR POC ABG pH 7.207 L 7.340 L POC ABG pCO2 48.6 H 32.0 L POC ABG pO2 130 H Potassium Chloride Carbon Dioxide BUN Creatinine Glucose Lactic Acid Calcium Magnesium AST ALT Total Protein Albumin Urine WBC (Auto) 04/08/19 08:41 WBC Hgb Hct MCV MCHC Plt Count Seg Neutrophils % Seg Neuts % (Manual) Lymphocytes % (Manual) Seg Neutrophils # Seg Neutrophils # Man Lymphocytes # (Manual) Monocytes # (Manual) Basophils # (Manual) INR POC ABG pH POC ABG pCO2 POC ABG pO2 Potassium Chloride 108.6 H Carbon Dioxide 18 L BUN 96 H Creatinine 4.5 H Glucose Lactic Acid Calcium 6.7 L Magnesium AST ALT Total Protein Albumin Urine WBC (Auto) - Diagnostic Findings Chest x-ray: image reviewed (small left pleural effusion, same side as hydronephrosis other be clear) Assessment and Plan 64 y/o male with sepsis from urinary source and hydronephrosis s/p percutaneous nephrostomy tubes. 1. Extubate 2. Abx therapy, may need ID consult 3. Tube drainage 4. Given hemodynamic stability, once extubated will monitor for a few hours but likely can be transitioned back to floor for management. CCT 31 minutes
--- NOTE | 2019-04-08 10:31 | Progress Note ---
Assessment and Plan Cultures: Blood culture and urine culture: Klebsiella pneumoniae Assessment: 64 y/o male with Parkinson, BPH with a indwelling daniel and previous UTI admitted on due to 24 hour history of acute SOB, shakes and severe generalized weakness. Patient is confused currently. It seems like the daniel was placed 2 weeks ago. In the ED, temp 98.3--> 101.5, HR 100, BP 99/53, O2 sat 96%. WBC 1. Hg 13.6. Plat 2016. Seg 83%. Creat 1.4. Lactate 6.4. UA with large LE and wbc 182. CXR negative. CT head negative. ID consulted for management of neutropenia and fever. 1) Severe Sepsis secondary to Klebsiella bacteremia from UTI: CXR negative. Daniel was exchanged in the ED. History of previous UTIs. CT showed ?bladder lesion with left renal hydronephrosis. Urology and IR following, underwent perc neph. by IR on 04/07/2019. 2) Acute encephalopathy due to #1: improving. 3) MYCHAL: creatinine high. Renally dose abx. 4) Neutropenia has resolved. Recommendations: continue IV Ceftriaxone while inpatient, once improved, can d/c on PO abx. Plan for additional 7 days of abx from the date of nephrostomy placement neutropenia has resolved, neutropenic precautions discontinued Hay Benitez MD, FACP [facility] M: [phone] O: [phone] F: [phone] Subjective Date of service: 04/08/19 Principal diagnosis: Sepsis,UTI Interval history: no fever. got moved to ICU post procedure yesterday after he got intubated due to hypoxia while prone. Doing well today, already extubated. Denies any complaints. Objective - Exam Narrative Exam: Physical Exam: Constitutional: Alert, awake Head, Ears, Nose: Normocephalic, atraumatic. External ears, nose normal Eyes: Conjunctivae/corneas clear. No icterus. No ptosis. Neck: Supple, no meningeal signs Cardiovascular: S1, S2 normal. Respiratory: Good air entry, clear to auscultation bilaterally GI: Soft, non-tender; bowel sounds normal. No peritoneal signs. Daniel +, left sided nephrostomy + Musculoskeletal: No pedal edema, no cyanosis. Skin: No rash or abscess Hem/Lymphatic: No palpable cervical or supraclavicular nodes. No lymphangitis Psych: no agitation Neurological: Awake, alert. Tremors + - Constitutional Vitals: Vital Signs Temp Pulse Resp BP Pulse Ox 99.1 F 98 H 23 122/77 97 04/08/19 07:58 04/08/19 09:27 04/08/19 09:15 04/08/19 09:27 04/08/19 09:56 Temperature -Last 24 Hours Temperature 99.1 F Temperature 99.1 F Temperature 98.5 F Temperature 97.3 F Temperature 97.3 F - Labs CBC & Chem 7: 04/08/19 08:41 04/08/19 08:41 Labs: Abnormal lab results 04/07/19 04/08/19 04/08/19 Range/Units 23:44 05:34 08:41 WBC 21.0 H (4.5-11.0) K/mm3 Hgb 10.7 L (11.8-15.2) gm/dl Hct 32.2 L (35.5-45.6) % MCV 83 L (84-94) fl Plt Count 71 L (140-440) K/mm3 POC ABG pH 7.207 L 7.340 L (7.35-7.45) POC ABG pCO2 48.6 H 32.0 L (35-45) POC ABG pO2 130 H (80-105) Chloride (98-107) mmol/L Carbon Dioxide (22-30) mmol/L BUN (9-20) mg/dL Creatinine (0.8-1.5) mg/dL Calcium (8.4-10.2) mg/dL 04/08/19 Range/Units 08:41 WBC (4.5-11.0) K/mm3 Hgb (11.8-15.2) gm/dl Hct (35.5-45.6) % MCV (84-94) fl Plt Count (140-440) K/mm3 POC ABG pH (7.35-7.45) POC ABG pCO2 (35-45) POC ABG pO2 (80-105) Chloride 108.6 H (98-107) mmol/L Carbon Dioxide 18 L (22-30) mmol/L BUN 96 H (9-20) mg/dL Creatinine 4.5 H (0.8-1.5) mg/dL Calcium 6.7 L (8.4-10.2) mg/dL
[2019-04-08 10:45] LABS: Basophils % (Manual) 0 % (0.0-1.8); Eosinophils % (Manual) 0 % (0.0-4.3); Total Cells Counted 100
[2019-04-08 10:56] LABS: Anisocytosis Few; Platelet Estimate Consistent w Auto; Poikilocytosis Few
[2019-04-08 11:15] LABS: Hematocrit 29.3 % (35.5-45.6); Hemoglobin 9.9 gm/dl (11.8-15.2)
--- NOTE | 2019-04-08 12:13 | Gastroenterology Consultation ---
<DEWAYNE DUKES - Last Filed: 04/08/19 12:45> History of Present Illness - Reason for Consult Consult date: 04/08/19 GI bleed Requesting physician: RANI YUNG - History of Present Illness Patient is a 64 y/o male with PMH of Dementia, HTN, OA, Parkinsons Disease, and BPH who was admitted and currently being treated for severe sepsis 2/2 Klebsiella bacteremia from UTI with left renal hydronephrosis (s/p nephrostomy tube placement yesterday), acute renal failure, encephalopathy (improving), and neutropenia (resolved) who developed acute onset of rectal bleeding this am to which GI has been consulted. Upon exam, there is gross hematochezia on bed pad with clots underneath patient. No hematemesis or melena per nursing. Denies CP, SOB, abd pain or N/V. Prior GI history unknown. Past History Past Medical History: arthritis, hypertension, other (Dementia,Parkinsons Disease, BPH) Past Surgical History: total knee replacement, Other (Prostate biopsy, Eye surgery) Social history: single, lives with family. denies: smoking, alcohol abuse, prescription drug abuse Family history: hypertension Medications and Allergies Allergies Allergy/AdvReac Type Severity Reaction Status Date / Time No Known Allergies Allergy Verified 06/05/18 08:22 Home Medications Medication Instructions Recorded Confirmed Last Taken Type ALPRAZolam [Xanax] 0.5 tab PO DAILY PRN #6 tablet 08/04/18 04/04/19 Unknown Rx Carbidopa/Levodopa 25-250 [Sinemet 1 each PO BID #60 tablet 08/04/18 04/04/19 Unknown Rx 25/250] Tamsulosin [Flomax] 0.4 mg PO QDAY #30 cap 08/04/18 04/04/19 Unknown Rx amLODIPine [Norvasc] 5 mg PO DAILY #30 tablet 08/04/18 04/04/19 Unknown Rx Finasteride 1 mg PO DAILY 04/04/19 04/04/19 Unknown History Hydrochlorothiazide 25 mg PO DAILY 04/04/19 04/04/19 Unknown History Lisinopril 20 mg PO DAILY 04/04/19 04/04/19 Unknown History Losartan 50 mg PO DAILY 04/04/19 04/04/19 Unknown History Valsartan 320 mg PO DAILY 04/04/19 04/04/19 Unknown History Active Meds: Active Medications Acetaminophen (Tylenol) 650 mg PO Q4H PRN PRN Reason: Pain MILD(1-3)/Fever >100.5/RIOJAS Last Admin: 04/06/19 23:17 Dose: 650 mg Documented by: Albuterol (Proventil) 2.5 mg IH Q4HRT PRN PRN Reason: Shortness Of Breath Alprazolam (Xanax) 0.5 mg PO DAILY PRN PRN Reason: Anxiety Carbidopa/Levodopa (Sinemet) 1 each PO BID [facility] Last Admin: 04/07/19 22:47 Dose: Not Given Documented by: Finasteride (Proscar) 5 mg PO QDAY [facility] Last Admin: 04/07/19 09:16 Dose: 5 mg Documented by: Hydrophilic Ointment (Vaseline Lip Therapy) 1 applic TP Q2HR PRN PRN Reason: Dry Lips Sodium Chloride (Nacl 0.9% 1000 Ml) 1,000 mls @ 100 mls/hr IV DIRECT [facility] Last Admin: 04/08/19 08:30 Dose: 100 mls/hr Documented by: Ceftriaxone Sodium (Rocephin/Ns 2 Gm/100 Ml) 2 gm in 100 mls @ 200 mls/hr IV Q24HR [facility]; Protocol Last Admin: 04/07/19 09:17 Dose: 200 mls/hr Documented by: Multi-Ingred Cream/Lotion/Oil/Oint (Artificial Tears Ophth Oint) 1 applic OU Q4HR PRN PRN Reason: Dry Eye(s) Ondansetron HCl (Zofran) 4 mg IV Q8H PRN PRN Reason: Nausea And Vomiting Last Admin: 04/06/19 13:43 Dose: 4 mg Documented by: Sodium Chloride (Sodium Chloride Flush Syringe 10 Ml) 10 ml IV BID [facility] Last Admin: 04/07/19 22:48 Dose: Not Given Documented by: Sodium Chloride (Sodium Chloride Flush Syringe 10 Ml) 10 ml IV PRN PRN PRN Reason: LINE FLUSH Tamsulosin HCl (Flomax) 0.4 mg PO QDAY [facility] Last Admin: 04/07/19 09:16 Dose: 0.4 mg Documented by: medications reviewed/updated as required Review of Systems - Review of Systems Gastrointestinal: hematochezia Exam - Constitutional Vital Signs: Temp Pulse Resp BP Pulse Ox 99.1 F 99 H 14 123/81 98 04/08/19 07:58 04/08/19 11:01 04/08/19 11:01 04/08/19 11:01 04/08/19 11:01 General appearance: mild distress - EENT Eyes: PERRL, EOM intact - Respiratory Respiratory effort: normal - Cardiovascular Rhythm: other (tachycardia) - Gastrointestinal General gastrointestinal: Present: soft, non-tender, non-distended, normal bowel sounds - Neurologic Neurological: oriented to person - Labs CBC & Chem 7: 04/08/19 10:51 04/08/19 08:41 Lab Results: Laboratory Results - last 24 hr 04/07/19 04/08/19 04/08/19 23:44 05:34 08:41 WBC 21.0 H RBC 3.86 Hgb 10.7 L Hct 32.2 L MCV 83 L MCH 28 MCHC 33 RDW 14.4 Plt Count 71 L Add Manual Diff Complete Total Counted 100 Seg Neutrophils % Carriage Setter Seg Neuts % (Manual) 94.0 H Band Neutrophils % 0 Lymphocytes % (Manual) 4.0 L Reactive Lymphs % (Man) 0 Monocytes % (Manual) 2.0 Eosinophils % (Manual) 0 Basophils % (Manual) 0 Metamyelocytes % 0 Myelocytes % 0 Promyelocytes % 0 Blast Cells % 0 Nucleated RBC % Not Reportable Seg Neutrophils # Man 19.7 H Band Neutrophils # 0.0 Lymphocytes # (Manual) 0.8 L Abs React Lymphs (Man) 0.0 Monocytes # (Manual) 0.4 Eosinophils # (Manual) 0.0 Basophils # (Manual) 0.0 Metamyelocytes # 0.0 Myelocytes # 0.0 Promyelocytes # 0.0 Blast Cells # 0.0 WBC Morphology Not Reportable Hypersegmented Neuts Not Reportable Hyposegmented Neuts Not Reportable Hypogranular Neuts Not Reportable Smudge Cells Not Reportable Toxic Granulation Not Reportable Toxic Vacuolation Not Reportable Dohle Bodies Not Reportable Pelger-Huet Anomaly Not Reportable Araseli Rods Not Reportable Platelet Estimate Consistent w auto Clumped Platelets Not Reportable Plt Clumps, EDTA Not Reportable Large Platelets Not Reportable Giant Platelets Not Reportable Platelet Satelliting Not Reportable Plt Morphology Comment Not Reportable RBC Morphology Not Reportable Dimorphic RBCs Not Reportable Polychromasia Not Reportable Hypochromasia Not Reportable Poikilocytosis Few Anisocytosis Few Microcytosis Not Reportable Macrocytosis Not Reportable Spherocytes Not Reportable Pappenheimer Bodies Not Reportable Sickle Cells Not Reportable Target Cells Not Reportable Tear Drop Cells Not Reportable Ovalocytes Not Reportable Helmet Cells Not Reportable Reid-Edith Endave Bodies Not Reportable De Beque Rings Not Reportable [place] Cells Not Reportable Bite Cells Not Reportable Crenated Cell Not Reportable Elliptocytes Not Reportable Acanthocytes (Spur) Not Reportable Rouleaux Not Reportable Hemoglobin C Crystals Not Reportable Schistocytes Not Reportable Malaria parasites Not Reportable Amilcar Bodies Not Reportable Hem Pathologist Commnt No POC ABG pH 7.207 L 7.340 L POC ABG pCO2 48.6 H 32.0 L POC ABG pO2 130 H 103 POC ABG HCO3 19.3 17.3 POC ABG Total CO2 21 18 POC ABG O2 Sat 98 98 POC ABG Base Excess -9 -8 FiO2 60 30 Sodium Potassium Chloride Carbon Dioxide Anion Gap BUN Creatinine Estimated GFR BUN/Creatinine Ratio Glucose Calcium 04/08/19 04/08/19 08:41 10:51 WBC RBC Hgb 9.9 L Hct 29.3 L MCV MCH MCHC RDW Plt Count Add Manual Diff Total Counted Seg Neutrophils % Seg Neuts % (Manual) Band Neutrophils % Lymphocytes % (Manual) Reactive Lymphs % (Man) Monocytes % (Manual) Eosinophils % (Manual) Basophils % (Manual) Metamyelocytes % Myelocytes % Promyelocytes % Blast Cells % Nucleated RBC % Seg Neutrophils # Man Band Neutrophils # Lymphocytes # (Manual) Abs React Lymphs (Man) Monocytes # (Manual) Eosinophils # (Manual) Basophils # (Manual) Metamyelocytes # Myelocytes # Promyelocytes # Blast Cells # WBC Morphology Hypersegmented Neuts Hyposegmented Neuts Hypogranular Neuts Smudge Cells Toxic Granulation Toxic Vacuolation Dohle Bodies Pelger-Huet Anomaly Araseli Rods Platelet Estimate Clumped Platelets Plt Clumps, EDTA Large Platelets Giant Platelets Platelet Satelliting Plt Morphology Comment RBC Morphology Dimorphic RBCs Polychromasia Hypochromasia Poikilocytosis Anisocytosis Microcytosis Macrocytosis Spherocytes Pappenheimer Bodies Sickle Cells Target Cells Tear Drop Cells Ovalocytes Helmet Cells Reid-Edith Endave Bodies De Beque Rings Lorna Cells Bite Cells Crenated Cell Elliptocytes Acanthocytes (Spur) Rouleaux Hemoglobin C Crystals Schistocytes Malaria parasites Amilcar Bodies Hem Pathologist Commnt POC ABG pH POC ABG pCO2 POC ABG pO2 POC ABG HCO3 POC ABG Total CO2 POC ABG O2 Sat POC ABG Base Excess FiO2 Sodium 142 Potassium 4.3 Chloride 108.6 H Carbon Dioxide 18 L Anion Gap 20 BUN 96 H Creatinine 4.5 H Estimated GFR 16 BUN/Creatinine Ratio 21 Glucose 77 Calcium 6.7 L Assessment and Plan 1.GI bleed/gross hematochezia -plt 71-trending down -H/H 9.96/29.3-trending down -continue to monitor H/H and transfuse as needed -hold blood thinning medications -clinically, patient is currently in ICU with noted gross hematochezia w/ clots on bed pad underneath pt upon exam with also noted hypotension -etiology unclear -will order stat NM bleeding scan for further evaluation and labs to r/o DIC -start on PPI -continue supportive care -further recommendations to follow above results <BRYSON OREILLY - Last Filed: 04/08/19 23:23> Medications and Allergies Active Meds: Active Medications Acetaminophen (Tylenol) 650 mg PO Q4H PRN PRN Reason: Pain MILD(1-3)/Fever >100.5/RIOJAS Last Admin: 04/06/19 23:17 Dose: 650 mg Documented by: Albuterol (Proventil) 2.5 mg IH Q4HRT PRN PRN Reason: Shortness Of Breath Alprazolam (Xanax) 0.5 mg PO DAILY PRN PRN Reason: Anxiety Carbidopa/Levodopa (Sinemet) 1 each PO BID [facility] Last Admin: 04/08/19 12:57 Dose: Not Given Documented by: Finasteride (Proscar) 5 mg PO QDAY [facility] Last Admin: 04/08/19 12:57 Dose: Not Given Documented by: Hydrophilic Ointment (Vaseline Lip Therapy) 1 applic TP Q2HR PRN PRN Reason: Dry Lips Sodium Chloride (Nacl 0.9% 1000 Ml) 1,000 mls @ 100 mls/hr IV DIRECT [facility] Last Admin: 04/08/19 17:42 Dose: 100 mls/hr Documented by: Ceftriaxone Sodium (Rocephin/Ns 2 Gm/100 Ml) 2 gm in 100 mls @ 200 mls/hr IV Q24HR [facility]; Protocol Last Admin: 04/07/19 09:17 Dose: 200 mls/hr Documented by: Sodium Chloride (Nacl 0.9% 1000 Ml) 1,000 mls @ 0 mls/hr IV ONCE [facility] Stop: 04/09/19 13:01 Last Admin: 04/08/19 13:58 Dose: 999 mls/hr Documented by: Norepinephrine (Levophed Drip 4 Mg/Ns 250 Ml) 4 mg in 250 mls @ 7.5 mls/hr IV TITR [facility]; Protocol Last Titration: 04/08/19 15:00 Dose: 4 mcg/min, 15 mls/hr Documented by: Sodium Chloride (Nacl 0.9% 1000 Ml) 1,000 mls @ 50 mls/hr IV DIRECT [facility] Multi-Ingred Cream/Lotion/Oil/Oint (Artificial Tears Ophth Oint) 1 applic OU Q4HR PRN PRN Reason: Dry Eye(s) Ondansetron HCl (Zofran) 4 mg IV Q8H PRN PRN Reason: Nausea And Vomiting Last Admin: 04/06/19 13:43 Dose: 4 mg Documented by: Pantoprazole Sodium (Protonix) 40 mg IV BID [facility] Sodium Chloride (Sodium Chloride Flush Syringe 10 Ml) 10 ml IV BID [facility] Last Admin: 04/08/19 12:58 Dose: 10 ml Documented by: Sodium Chloride (Sodium Chloride Flush Syringe 10 Ml) 10 ml IV PRN PRN PRN Reason: LINE FLUSH Tamsulosin HCl (Flomax) 0.4 mg PO QDAY [facility] Last Admin: 04/08/19 12:57 Dose: Not Given Documented by: Exam - Constitutional Vital Signs: Temp Pulse Resp BP Pulse Ox 99.2 F 105 H 20 116/80 98 04/08/19 18:24 04/08/19 18:24 04/08/19 18:24 04/08/19 18:24 04/08/19 18:24 - Labs CBC & Chem 7: 04/08/19 17:36 04/08/19 08:41 Lab Results: Laboratory Results - last 24 hr 04/07/19 04/08/19 04/08/19 23:44 05:34 08:41 WBC 21.0 H RBC 3.86 Hgb 10.7 L Hct 32.2 L MCV 83 L MCH 28 MCHC 33 RDW 14.4 Plt Count 71 L Add Manual Diff Complete Total Counted 100 Seg Neutrophils % Carriage Setter Seg Neuts % (Manual) 94.0 H Band Neutrophils % 0 Lymphocytes % (Manual) 4.0 L Reactive Lymphs % (Man) 0 Monocytes % (Manual) 2.0 Eosinophils % (Manual) 0 Basophils % (Manual) 0 Metamyelocytes % 0 Myelocytes % 0 Promyelocytes % 0 Blast Cells % 0 Nucleated RBC % Not Reportable Seg Neutrophils # Man 19.7 H Band Neutrophils # 0.0 Lymphocytes # (Manual) 0.8 L Abs React Lymphs (Man) 0.0 Monocytes # (Manual) 0.4 Eosinophils # (Manual) 0.0 Basophils # (Manual) 0.0 Metamyelocytes # 0.0 Myelocytes # 0.0 Promyelocytes # 0.0 Blast Cells # 0.0 WBC Morphology Not Reportable Hypersegmented Neuts Not Reportable Hyposegmented Neuts Not Reportable Hypogranular Neuts Not Reportable Smudge Cells Not Reportable Toxic Granulation Not Reportable Toxic Vacuolation Not Reportable Dohle Bodies Not Reportable Pelger-Huet Anomaly Not Reportable Araseli Rods Not Reportable Platelet Estimate Consistent w auto Clumped Platelets Not Reportable Plt Clumps, EDTA Not Reportable Large Platelets Not Reportable Giant Platelets Not Reportable Platelet Satelliting Not Reportable Plt Morphology Comment Not Reportable RBC Morphology Not Reportable Dimorphic RBCs Not Reportable Polychromasia Not Reportable Hypochromasia Not Reportable Poikilocytosis Few Anisocytosis Few Microcytosis Not Reportable Macrocytosis Not Reportable Spherocytes Not Reportable Pappenheimer Bodies Not Reportable Sickle Cells Not Reportable Target Cells Not Reportable Tear Drop Cells Not Reportable Ovalocytes Not Reportable Helmet Cells Not Reportable Reid-Edith Endave Bodies Not Reportable De Beque Rings Not Reportable [place] Cells Not Reportable Bite Cells Not Reportable Crenated Cell Not Reportable Elliptocytes Not Reportable Acanthocytes (Spur) Not Reportable Rouleaux Not Reportable Hemoglobin C Crystals Not Reportable Schistocytes Not Reportable Malaria parasites Not Reportable Amilcar Bodies Not Reportable Hem Pathologist Commnt No PT INR APTT Fibrinogen D-Dimer POC ABG pH 7.207 L 7.340 L POC ABG pCO2 48.6 H 32.0 L POC ABG pO2 130 H 103 POC ABG HCO3 19.3 17.3 POC ABG Total CO2 21 18 POC ABG O2 Sat 98 98 POC ABG Base Excess -9 -8 FiO2 60 30 Sodium Potassium Chloride Carbon Dioxide Anion Gap BUN Creatinine Estimated GFR BUN/Creatinine Ratio Glucose Calcium Blood Type Antibody Screen Crossmatch 04/08/19 04/08/19 04/08/19 08:41 10:51 12:29 WBC RBC Hgb 9.9 L Hct 29.3 L MCV MCH MCHC RDW Plt Count Add Manual Diff Total Counted Seg Neutrophils % Seg Neuts % (Manual) Band Neutrophils % Lymphocytes % (Manual) Reactive Lymphs % (Man) Monocytes % (Manual) Eosinophils % (Manual) Basophils % (Manual) Metamyelocytes % Myelocytes % Promyelocytes % Blast Cells % Nucleated RBC % Seg Neutrophils # Man Band Neutrophils # Lymphocytes # (Manual) Abs React Lymphs (Man) Monocytes # (Manual) Eosinophils # (Manual) Basophils # (Manual) Metamyelocytes # Myelocytes # Promyelocytes # Blast Cells # WBC Morphology Hypersegmented Neuts Hyposegmented Neuts Hypogranular Neuts Smudge Cells Toxic Granulation Toxic Vacuolation Dohle Bodies Pelger-Huet Anomaly Araseli Rods Platelet Estimate Clumped Platelets Plt Clumps, EDTA Large Platelets Giant Platelets Platelet Satelliting Plt Morphology Comment RBC Morphology Dimorphic RBCs Polychromasia Hypochromasia Poikilocytosis Anisocytosis Microcytosis Macrocytosis Spherocytes Pappenheimer Bodies Sickle Cells Target Cells Tear Drop Cells Ovalocytes Helmet Cells Reid-Edith Endave Bodies De Beque Rings Lorna Cells Bite Cells Crenated Cell Elliptocytes Acanthocytes (Spur) Rouleaux Hemoglobin C Crystals Schistocytes Malaria parasites Amilcar Bodies Hem Pathologist Commnt PT 15.2 H INR 1.23 H APTT 31.1 Fibrinogen 355 D-Dimer > 35761 H POC ABG pH POC ABG pCO2 POC ABG pO2 POC ABG HCO3 POC ABG Total CO2 POC ABG O2 Sat POC ABG Base Excess FiO2 Sodium 142 Potassium 4.3 Chloride 108.6 H Carbon Dioxide 18 L Anion Gap 20 BUN 96 H Creatinine 4.5 H Estimated GFR 16 BUN/Creatinine Ratio 21 Glucose 77 Calcium 6.7 L Blood Type Antibody Screen Crossmatch 09/25/19 09/25/19 14:58 17:36 WBC RBC Hgb 7.1 L Hct 21.6 L D MCV MCH MCHC RDW Plt Count Add Manual Diff Total Counted Seg Neutrophils % Seg Neuts % (Manual) Band Neutrophils % Lymphocytes % (Manual) Reactive Lymphs % (Man) Monocytes % (Manual) Eosinophils % (Manual) Basophils % (Manual) Metamyelocytes % Myelocytes % Promyelocytes % Blast Cells % Nucleated RBC % Seg Neutrophils # Man Band Neutrophils # Lymphocytes # (Manual) Abs React Lymphs (Man) Monocytes # (Manual) Eosinophils # (Manual) Basophils # (Manual) Metamyelocytes # Myelocytes # Promyelocytes # Blast Cells # WBC Morphology Hypersegmented Neuts Hyposegmented Neuts Hypogranular Neuts Smudge Cells Toxic Granulation Toxic Vacuolation Dohle Bodies Pelger-Huet Anomaly Araseli Rods Platelet Estimate Clumped Platelets Plt Clumps, EDTA Large Platelets Giant Platelets Platelet Satelliting Plt Morphology Comment RBC Morphology Dimorphic RBCs Polychromasia Hypochromasia Poikilocytosis Anisocytosis Microcytosis Macrocytosis Spherocytes Pappenheimer Bodies Sickle Cells Target Cells Tear Drop Cells Ovalocytes Helmet Cells Reid-Edith Endave Bodies De Beque Rings [place] Cells Bite Cells Crenated Cell Elliptocytes Acanthocytes (Spur) Rouleaux Hemoglobin C Crystals Schistocytes Malaria parasites Amilcar Bodies Hem Pathologist Commnt PT INR APTT Fibrinogen D-Dimer POC ABG pH POC ABG pCO2 POC ABG pO2 POC ABG HCO3 POC ABG Total CO2 POC ABG O2 Sat POC ABG Base Excess FiO2 Sodium Potassium Chloride Carbon Dioxide Anion Gap BUN Creatinine Estimated GFR BUN/Creatinine Ratio Glucose Calcium Blood Type B POSITIVE Antibody Screen Negative Crossmatch See Detail Assessment and Plan patient with active bleeding, bleeding scan to help isolate source, with final plan based upon bleeding scan update - scan initially said bladder, reviewed with radiology, felt source is rectal (makes more sense based upon clinical presentation) so will proceed with emergency flex sig given active severe life threatening GI bleed - Patient Problems (1) Hematochezia Current Visit: Yes Status: Acute
--- NOTE | 2019-04-08 12:44 | Progress Note ---
Assessment and Plan post L perc above noted Subjective Date of service: 04/08/19 Principal diagnosis: Sepsis,UTI Objective - Constitutional Vitals: Vital Signs - 12hr 04/08/19 04/08/19 04/08/19 00:45 01:00 01:12 Temperature Pulse Rate 97 H 97 H 98 H Pulse Rate [ Right] Respiratory 15 16 Rate Blood Pressure 99/65 99/65 98/63 O2 Sat by Pulse 100 99 98 Oximetry 04/08/19 04/08/19 04/08/19 01:15 01:30 01:45 Temperature Pulse Rate 97 H 98 H 97 H Pulse Rate [ Right] Respiratory 16 17 16 Rate Blood Pressure 98/63 98/63 99/63 O2 Sat by Pulse 99 96 98 Oximetry 04/08/19 04/08/19 04/08/19 02:00 02:15 02:30 Temperature Pulse Rate 98 H 98 H 98 H Pulse Rate [ Right] Respiratory 17 15 21 Rate Blood Pressure 99/63 104/65 114/69 O2 Sat by Pulse 97 97 98 Oximetry 04/08/19 04/08/19 04/08/19 02:45 03:00 03:15 Temperature Pulse Rate 98 H 96 H 101 H Pulse Rate [ Right] Respiratory 17 18 22 Rate Blood Pressure 98/62 97/64 117/78 O2 Sat by Pulse 98 98 97 Oximetry 04/08/19 04/08/19 04/08/19 03:30 03:45 04:00 Temperature 99.1 F Pulse Rate 98 H 100 H 100 H Pulse Rate [ 98 H Right] Respiratory 20 21 24 Rate Blood Pressure 107/68 116/70 118/72 O2 Sat by Pulse 98 98 97 Oximetry 04/08/19 04/08/19 04/08/19 04:15 04:30 04:45 Temperature Pulse Rate 99 H 98 H 99 H Pulse Rate [ Right] Respiratory 22 22 21 Rate Blood Pressure 116/73 113/68 106/68 O2 Sat by Pulse 98 98 98 Oximetry 04/08/19 04/08/19 04/08/19 05:00 05:15 05:16 Temperature Pulse Rate 98 H 96 H 96 H Pulse Rate [ Right] Respiratory 21 21 Rate Blood Pressure 106/66 101/61 101/61 O2 Sat by Pulse 98 98 97 Oximetry 04/08/19 04/08/19 04/08/19 05:30 05:45 06:00 Temperature Pulse Rate 98 H 96 H 98 H Pulse Rate [ Right] Respiratory 22 23 25 H Rate Blood Pressure 111/68 106/66 103/70 O2 Sat by Pulse 98 98 98 Oximetry 04/08/19 04/08/19 04/08/19 06:15 06:30 06:45 Temperature Pulse Rate 97 H 97 H 98 H Pulse Rate [ Right] Respiratory 23 23 24 Rate Blood Pressure 109/63 105/66 112/71 O2 Sat by Pulse 98 98 98 Oximetry 04/08/19 04/08/19 04/08/19 07:00 07:15 07:30 Temperature Pulse Rate 107 H 105 H 103 H Pulse Rate [ Right] Respiratory 24 28 H 26 H Rate Blood Pressure 128/81 126/68 116/70 O2 Sat by Pulse 99 98 98 Oximetry 04/08/19 04/08/19 04/08/19 07:45 07:58 08:00 Temperature 99.1 F Pulse Rate 101 H 103 H Pulse Rate [ 101 H Right] Respiratory 22 25 H Rate Blood Pressure 118/69 125/79 O2 Sat by Pulse 98 97 Oximetry 04/08/19 04/08/19 04/08/19 08:15 08:30 08:45 Temperature Pulse Rate 102 H 105 H 101 H Pulse Rate [ Right] Respiratory 26 H 29 H 23 Rate Blood Pressure 123/72 140/92 140/92 O2 Sat by Pulse 98 98 98 Oximetry 04/08/19 04/08/19 04/08/19 09:00 09:15 09:27 Temperature Pulse Rate 99 H 97 H 98 H Pulse Rate [ Right] Respiratory 24 23 Rate Blood Pressure 138/77 126/77 122/77 O2 Sat by Pulse 99 98 99 Oximetry 04/08/19 04/08/19 04/08/19 09:30 09:45 09:56 Temperature Pulse Rate 98 H 100 H Pulse Rate [ Right] Respiratory 26 H 23 Rate Blood Pressure 125/75 138/80 O2 Sat by Pulse 99 99 97 Oximetry 04/08/19 04/08/19 04/08/19 10:00 10:15 10:30 Temperature Pulse Rate 99 H 100 H 98 H Pulse Rate [ Right] Respiratory 30 H 32 H 30 H Rate Blood Pressure 117/72 126/72 127/71 O2 Sat by Pulse 97 97 97 Oximetry 04/08/19 04/08/19 10:45 11:01 Temperature Pulse Rate 100 H 99 H Pulse Rate [ Right] Respiratory 34 H 14 Rate Blood Pressure 123/81 123/81 O2 Sat by Pulse 97 98 Oximetry - Labs CBC & Chem 7: 04/08/19 10:51 04/08/19 08:41 Labs: Abnormal lab results 04/07/19 04/08/19 04/08/19 Range/Units 23:44 05:34 08:41 WBC 21.0 H (4.5-11.0) K/mm3 Hgb 10.7 L (11.8-15.2) gm/dl Hct 32.2 L (35.5-45.6) % MCV 83 L (84-94) fl Plt Count 71 L (140-440) K/mm3 Seg Neuts % (Manual) 94.0 H (40.0-70.0) % Lymphocytes % (Manual) 4.0 L (13.4-35.0) % Seg Neutrophils # Man 19.7 H (1.8-7.7) K/mm3 Lymphocytes # (Manual) 0.8 L (1.2-5.4) K/mm3 POC ABG pH 7.207 L 7.340 L (7.35-7.45) POC ABG pCO2 48.6 H 32.0 L (35-45) POC ABG pO2 130 H (80-105) Chloride (98-107) mmol/L Carbon Dioxide (22-30) mmol/L BUN (9-20) mg/dL Creatinine (0.8-1.5) mg/dL Calcium (8.4-10.2) mg/dL 04/08/19 04/08/19 Range/Units 08:41 10:51 WBC (4.5-11.0) K/mm3 Hgb 9.9 L (11.8-15.2) gm/dl Hct 29.3 L (35.5-45.6) % MCV (84-94) fl Plt Count (140-440) K/mm3 Seg Neuts % (Manual) (40.0-70.0) % Lymphocytes % (Manual) (13.4-35.0) % Seg Neutrophils # Man (1.8-7.7) K/mm3 Lymphocytes # (Manual) (1.2-5.4) K/mm3 POC ABG pH (7.35-7.45) POC ABG pCO2 (35-45) POC ABG pO2 (80-105) Chloride 108.6 H (98-107) mmol/L Carbon Dioxide 18 L (22-30) mmol/L BUN 96 H (9-20) mg/dL Creatinine 4.5 H (0.8-1.5) mg/dL Calcium 6.7 L (8.4-10.2) mg/dL Medications & Allergies - Medications Allergies/Adverse Reactions: Allergies No Known Allergies Allergy (Verified 06/05/18 08:22) Home Medications: Home Medications Medication Instructions Recorded Confirmed Last Taken Type ALPRAZolam [Xanax] 0.5 tab PO DAILY PRN #6 tablet 08/04/18 04/04/19 Unknown Rx Carbidopa/Levodopa 25-250 [Sinemet 1 each PO BID #60 tablet 08/04/18 04/04/19 Unknown Rx 25/250] Tamsulosin [Flomax] 0.4 mg PO QDAY #30 cap 08/04/18 04/04/19 Unknown Rx amLODIPine [Norvasc] 5 mg PO DAILY #30 tablet 08/04/18 04/04/19 Unknown Rx Finasteride 1 mg PO DAILY 04/04/19 04/04/19 Unknown History Hydrochlorothiazide 25 mg PO DAILY 04/04/19 04/04/19 Unknown History Lisinopril 20 mg PO DAILY 04/04/19 04/04/19 Unknown History Losartan 50 mg PO DAILY 04/04/19 04/04/19 Unknown History Valsartan 320 mg PO DAILY 04/04/19 04/04/19 Unknown History Active Medications: Generic Name Dose Route Start Last Admin Trade Name Navjotq PRN Reason Stop Dose Admin Acetaminophen 650 mg 04/04/19 14:35 04/06/19 23:17 Tylenol PO 650 mg Q4H PRN Administration Pain MILD(1-3)/Fever >100.5/RIOJAS Albuterol 2.5 mg 04/04/19 14:35 Proventil IH Q4HRT PRN Shortness Of Breath Alprazolam 0.5 mg 04/04/19 13:43 Xanax PO DAILY PRN Anxiety Carbidopa/Levodopa 1 each 04/04/19 22:00 04/07/19 22:47 Sinemet PO Not Given BID ANDREZ Finasteride 5 mg 04/05/19 10:00 04/07/19 09:16 Proscar PO 5 mg QDAY ANDREZ Administration Hydrophilic Ointment 1 applic 04/07/19 23:24 Vaseline Lip Therapy TP Q2HR PRN Dry Lips Sodium Chloride 1,000 mls @ 100 mls/hr 04/05/19 17:00 04/08/19 08:30 Nacl 0.9% 1000 Ml IV 100 mls/hr DIRECT ANDREZ Administration Ceftriaxone Sodium 2 gm in 100 mls @ 200 mls/hr 04/06/19 15:00 04/07/19 09:17 Rocephin/Ns 2 Gm/100 Ml IV 200 mls/hr Q24HR ANDREZ Administration Protocol Multi-Ingred Cream/Lotion/Oil/Oint 1 applic 04/07/19 23:24 Artificial Tears Ophth Oint OU Q4HR PRN Dry Eye(s) Ondansetron HCl 4 mg 04/04/19 14:35 04/06/19 13:43 Zofran IV 4 mg Q8H PRN Administration Nausea And Vomiting Sodium Chloride 10 ml 04/04/19 22:00 04/07/19 22:48 Sodium Chloride Flush Syringe 10 Ml IV Not Given BID ANDREZ Sodium Chloride 10 ml 04/04/19 14:35 Sodium Chloride Flush Syringe 10 Ml IV PRN PRN LINE FLUSH Tamsulosin HCl 0.4 mg 04/05/19 10:00 04/07/19 09:16 Flomax PO 0.4 mg QDAY ANDREZ Administration
[2019-04-08] MEDS: TAMSULOSIN 0.4 MG CAP PO SCH (12:57)
[2019-04-08] MEDS: CARBIDOPA/LEVODOPA 25-250 TAB PO SCH ×2 (12:57→21:32)
[2019-04-08] MEDS: FINASTERIDE 5 MG TAB PO SCH (12:57)
[2019-04-08 13:00] LABS: Fibrinogen 355 mg/dl (211-480); INR 1.23 (0.87-1.13)
[2019-04-08 13:01] LABS: Partial Thromboplastin Time 31.1 Sec. (24.2-36.6)
[2019-04-08] MEDS: NORepinephrine/NS 4 MG-250 ML 4 MG/250 ML BAG IV SCH ×3 (14:45→22:34)
--- NOTE | 2019-04-08 15:18 | Nuclear Medicine Report ---
GI bleeding Scan HISTORY: GI bleed. TECHNIQUE: Patient was given 27.5 mCi of technetium UltraTag red blood cells. COMPARISON: CT abdomen from 04/04/2019 FINDINGS: There is radiotracer accumulation in the midline in the region of the urinary bladder over the lower abdomen/pelvis which is somewhat crescentic and irregular in appearance. There is otherwis e no abnormal radiotracer accumulation in the expected course of the GI tract or elsewhere within the abdomen/pelvis. On the comparison CT examination, the bladder is grossly abnormal which may reflect an underlying mass or possibly underlying blood clots. IMPRESSION: Abnormal appearance of the urinary bladder with radiotracer accumulation appears irregul ar within this region. Correlation with the previous CT abdomen from 4 days ago shows a bladder mass versus blood clot formation within the urinary bladder. Consider the bladder as a potential source of hemorrhage. Signer Name: Frandy Jackson MD Signed: 04/08/2019 3:13 PM Workstation Name: [id number]
--- NOTE | 2019-04-08 15:53 | Event Note ---
Date: 04/08/19 Bleeding scan results show bladder as potential source of hemorrhage. Hospitalist Dr. Spain notified.
--- NOTE | 2019-04-08 16:10 | Event Note ---
Date: 04/08/19 Patient has active rectal bleeding, with a drop in hemoglobin and hemodynamic instability. Discussed with Belen Burton. Discussed with Dr Alcala the interventional radiologist. Couldn't reach to GI attending production mechanic. Will try to contact him again. Ordered 2 units of blood to be given emergently discussed with his daughter Patricia Gallo about the prognosis of the patient.
[2019-04-08] MEDS ORDERED: SODIUM CHLORIDE 0.9% 500 ML 500 ML ONE ×2 (16:15→19:28)
--- NOTE | 2019-04-08 16:21 | Progress Note ---
Assessment and Plan Assessment and plan: 64 y/o male with a hx of parkinsons and UTI requiring hospitlization in Jul 2018. He states he has similar sx. He has been unable to get OOB since last admission. Sits ordinarily-- can walk. Presents with SIRS criteria and can't stop shaking. Has UTI. Patient was taken to OR yesterday and patient desat and not able to tolerate the procedure with out intubation, patient was intubated 04/07/[address] and transferred to ICU. patient extubated on 04/08/19 Rectal bleeding - patient is bleeding from the rectum massively, hemoglobin drop from 12.8 to 9.9, the true value may be lower, - patient is on emergency blood transfusion, 2 units of blood are hanging, will give him FFP patient has central line - Discussed with Dr Sherwood and said he will do emergent flex sigmoidoscopy - If that is not successful Dr Alcala said he will do angiography, embolization - patient is on levophed now - discussed with the daughter the patient's condition (1) Sepsis: Current Visit: Yes Status: Acute Plan to address problem: Sec to UTI On Cefepime ID consult appreciated Aspiration pneumonia, UTI - continue with Iv antibiotics Per ID - patient was intubated 04/07 and extubated 04/08 (2)UTI GNR positive On Cefepime Acute renal failure - CT abdomen and pelvis there is a lesion in the bladder with left hydronephrosis - urology was consulted and Nephrostomy tube was done yesterday by IR (3) Acidosis Current Visit: Yes Status: Acute Plan to address problem: IVF (4) HTN (hypertension) Current Visit: Yes Status: Acute Qualifiers: Hypertension type: essential hypertension Qualified Code(s): I10 - Essential (primary) hypertension Plan to address problem: Monitor bp q shift, continue medical management. (5) Dementia Current Visit: Yes Status: Acute Qualifiers: Dementia type: Parkinson's disease Dementia behavioral disturbance: without behavioral disturbance Qualified Code(s): G20 - Parkinson's disease; F02.80 - Dementia in other diseases classified elsewhere without behavioral disturbance Plan to address problem: CT Head, continue current therapy, fall precautions, (6) Debility - supportive care - PT/OT when stable (7) Neutropenia Resolved Now Leukocytosis (8) DVT prophylaxis Current Visit: Yes Status: Acute Plan to address problem: SCD to BLE while in bed The high probability of a clinically significant, sudden or life threatening deterioration of the [GI, renal, CVS] system(s) required my full and direct attention, intervention and personal management. The aggregate critical care time was [65] minutes. This time is in addition to time spent performing reported procedures but includes the following: [x] Data Review and interpretation [x Patient assessment and monitoring of vital signs [x] Documentation [x] Medication orders and management History Interval history: patient was seen and evaluated, Patient has active rectal bleeding. His bottom i s soaked with blood and his BP is dropping and tachycardic. Hospitalist Physical - Physical exam Narrative exam: Patient was extubated this morning and saturating well in room air. The patient is obese. Vital signs as documented. Head exam is unremarkable. No scleral icterus . Neck is without jugular venous distension, thyromegaly, or carotid bruits. Lungs intubated on MV. Cardiac exam reveals regular rate and Rhythm. Abdominal exam reveals normal bowel sounds. Active rectal bleeding his bottom is soaked with blood. there is left nephrostomy tube. Extremities are nonedematous. LEAD MATERIAL HANDLER: Alert and oriented 3. No focal weakness. - Constitutional Vitals: Temp Pulse Resp BP Pulse Ox 98.7 F 99 H 36 H 87/48 99 04/08/19 12:00 04/08/19 12:45 04/08/19 12:45 04/08/19 12:45 04/08/19 12:45 General appearance: Present: no acute distress, other (A&O x0) Results - Labs CBC & Chem 7: 04/08/19 10:51 04/08/19 08:41 Labs: Laboratory Last Values WBC 21.0 K/mm3 (4.5-11.0) H 04/08/19 08:41 RBC 3.86 M/mm3 (3.65-5.03) 04/08/19 08:41 Hgb 9.9 gm/dl (11.8-15.2) L 04/08/19 10:51 Hct 29.3 % (35.5-45.6) L 04/08/19 10:51 MCV 83 fl (84-94) L 04/08/19 08:41 MCH 28 pg (28-32) 04/08/19 08:41 MCHC 33 % (32-34) 04/08/19 08:41 RDW 14.4 % (13.2-15.2) 04/08/19 08:41 Plt Count 71 K/mm3 (140-440) L 04/08/19 08:41 Wood % (Auto) 1.4 % (0.0-7.3) 04/04/19 12:18 Eos % (Auto) 0.1 % (0.0-4.3) 04/04/19 12:18 Wood # 0.0 K/mm3 (0.0-0.8) 04/04/19 12:18 Eos # 0.0 K/mm3 (0.0-0.4) 04/04/19 12:18 Baso # 0.0 K/mm3 (0.0-0.1) 04/04/19 12:18 Add Manual Diff Complete 04/08/19 08:41 Total Counted 100 04/08/19 08:41 Seg Neutrophils % Collections Professional 04/08/19 08:41 Seg Neuts % (Manual) 94.0 % (40.0-70.0) H 04/08/19 08:41 0 % 04/08/19 08:41 4.0 % (13.4-35.0) L 04/08/19 08:41 Reactive Lymphs % (Man) 0 % 04/08/19 08:41 2.0 % (0.0-7.3) 04/08/19 08:41 0 % (0.0-4.3) 04/08/19 08:41 0 % (0.0-1.8) 04/08/19 08:41 0 % 04/08/19 08:41 0 % 04/08/19 08:41 0 % 04/08/19 08:41 0 % 04/08/19 08:41 Nucleated RBC % Not Reportable 04/08/19 08:41 Seg Neutrophils # 0.8 K/mm3 (1.8-7.7) L 04/04/19 12:18 Seg Neutrophils # Man 19.7 K/mm3 (1.8-7.7) H 04/08/19 08:41 Band Neutrophils # 0.0 K/mm3 04/08/19 08:41 0.8 K/mm3 (1.2-5.4) L 04/08/19 08:41 Abs React Lymphs (Man) 0.0 K/mm3 04/08/19 08:41 0.4 K/mm3 (0.0-0.8) 04/08/19 08:41 0.0 K/mm3 (0.0-0.4) 04/08/19 08:41 0.0 K/mm3 (0.0-0.1) 04/08/19 08:41 0.0 K/mm3 04/08/19 08:41 0.0 K/mm3 04/08/19 08:41 0.0 K/mm3 04/08/19 08:41 Blast Cells # 0.0 K/mm3 04/08/19 08:41 WBC Morphology Not Reportable 04/08/19 08:41 Hypersegmented Neuts Not Reportable 04/08/19 08:41 Hyposegmented Neuts Not Reportable 04/08/19 08:41 Hypogranular Neuts Not Reportable 04/08/19 08:41 Not Reportable 04/08/19 08:41 Not Reportable 04/08/19 08:41 Not Reportable 04/08/19 08:41 Not Reportable 04/08/19 08:41 Not Reportable 04/08/19 08:41 Not Reportable 04/08/19 08:41 Consistent w auto 04/08/19 08:41 Not Reportable 04/08/19 08:41 Plt Clumps, EDTA Not Reportable 04/08/19 08:41 Not Reportable 04/08/19 08:41 Not Reportable 04/08/19 08:41 Not Reportable 04/08/19 08:41 Plt Morphology Comment Not Reportable 04/08/19 08:41 RBC Morphology Not Reportable 04/08/19 08:41 Dimorphic RBCs Not Reportable 04/08/19 08:41 Not Reportable 04/08/19 08:41 Not Reportable 04/08/19 08:41 Few 04/08/19 08:41 Few 04/08/19 08:41 Not Reportable 04/08/19 08:41 Not Reportable 04/08/19 08:41 Not Reportable 04/08/19 08:41 Not Reportable 04/08/19 08:41 Not Reportable 04/08/19 08:41 Not Reportable 04/08/19 08:41 Not Reportable 04/08/19 08:41 Not Reportable 04/08/19 08:41 Not Reportable 04/08/19 08:41 Not Reportable 04/08/19 08:41 Not Reportable 04/08/19 08:41 Not Reportable 04/08/19 08:41 Not Reportable 04/08/19 08:41 Not Reportable 04/08/19 08:41 Not Reportable 04/08/19 08:41 Acanthocytes (Spur) Not Reportable 04/08/19 08:41 Rouleaux Not Reportable 04/08/19 08:41 Not Reportable 04/08/19 08:41 Not Reportable 04/08/19 08:41 Not Reportable 04/08/19 08:41 Not Reportable 04/08/19 08:41 Hem Pathologist Commnt No 04/08/19 08:41 PT 15.2 Sec. (12.2-14.9) H 04/08/19 12:29 INR 1.23 (0.87-1.13) H 04/08/19 12:29 APTT 31.1 Sec. (24.2-36.6) 04/08/19 12:29 355 mg/dl (211-480) 04/08/19 12:29 > 34019 ng/mlDDU (0-234) H 04/08/19 12:29 POC ABG pH 7.340 (7.35-7.45) L 04/08/19 05:34 POC ABG pCO2 32.0 (35-45) L 04/08/19 05:34 POC ABG pO2 103 (80-105) 04/08/19 05:34 POC ABG HCO3 17.3 (22-26 mml/L) 04/08/19 05:34 POC ABG Total CO2 18 (23-27mmol/L) 04/08/19 05:34 POC ABG O2 Sat 98 04/08/19 05:34 POC ABG Base Excess -8 ((-2) - (+3)mmol/L) 04/08/19 05:34 VBG pH 7.417 (7.320-7.420) 04/04/19 12:18 30 % 04/08/19 05:34 Sodium 142 mmol/L (137-145) 04/08/19 08:41 Potassium 4.3 mmol/L (3.6-5.0) 04/08/19 08:41 Chloride 108.6 mmol/L (98-107) H 04/08/19 08:41 Carbon Dioxide 18 mmol/L (22-30) L 04/08/19 08:41 20 mmol/L 04/08/19 08:41 BUN 96 mg/dL (9-20) H 04/08/19 08:41 4.5 mg/dL (0.8-1.5) H 04/08/19 08:41 Estimated GFR 16 ml/min 04/08/19 08:41 21 % 04/08/19 08:41 Glucose 77 mg/dL (75-100) 04/08/19 08:41 Lactic Acid 2.80 mmol/L (0.7-2.0) H* 04/05/19 05:22 Calcium 6.7 mg/dL (8.4-10.2) L 04/08/19 08:41 Magnesium 1.50 mg/dL (1.7-2.3) L 04/04/19 13:53 0.60 mg/dL (0.1-1.2) 04/06/19 13:05 AST 355 units/L (5-40) H 04/06/19 13:05 ALT 76 units/L (7-56) H 04/06/19 13:05 71 units/L (35-129) 04/06/19 13:05 0.016 ng/mL (0.00-0.029) 04/04/19 12:18 6.9 g/dL (6.3-8.2) 04/06/19 13:05 3.1 g/dL (3.9-5) L 04/06/19 13:05 0.8 % 04/06/19 13:05 Yellow (Yellow) 04/04/19 Unknown Turbid (Clear) 04/04/19 Unknown 7.0 (5.0-7.0) 04/04/19 Unknown Ur Specific Colon 1.008 (1.003-1.030) 04/04/19 Unknown 100 mg/dl mg/dL (Negative) 04/04/19 Unknown Neg mg/dL (Negative) 04/04/19 Unknown Neg mg/dL (Negative) 04/04/19 Unknown Lg (Negative) 04/04/19 Unknown Neg (Negative) 04/04/19 Unknown Neg (Negative) 04/04/19 Unknown < 2.0 mg/dL (<2.0) 04/04/19 Unknown Ur Leukocyte Esterase Lg (Negative) 04/04/19 Unknown > 182.0 /HPF (0.0-6.0) H 04/04/19 Unknown 87.0 /HPF (0.0-6.0) 04/04/19 Unknown 2+ /HPF (Negative) 04/04/19 Unknown 3+ /HPF 04/04/19 Unknown Presumptive negative 04/04/19 Unknown Presumptive negative 04/04/19 Unknown Ur Barbiturates Screen Presumptive negative 04/04/19 Unknown Ur Phencyclidine Scrn Presumptive negative 04/04/19 Unknown Ur Amphetamines Screen Presumptive negative 04/04/19 Unknown U Benzodiazepines Scrn Presumptive negative 04/04/19 Unknown Presumptive negative 04/04/19 Unknown U Marijuana (THC) Screen Presumptive negative 04/04/19 Unknown Disclamer 04/04/19 Unknown HIV 1&2 Antibody Rapid Non react (Non React) 04/04/19 22:50 Non react (Non React) 04/04/19 22:50 Crossmatch See Detail 04/08/19 14:58 Active Medications - Current Medications Current Medications: Generic Name Dose Route Start Last Admin Trade Name Freq PRN Reason Stop Dose Admin Acetaminophen 650 mg 04/04/19 14:35 04/06/19 23:17 Tylenol PO 650 mg Q4H PRN Administration Pain MILD(1-3)/Fever >100.5/RIOJAS Albuterol 2.5 mg 04/04/19 14:35 Proventil IH Q4HRT PRN Shortness Of Breath Alprazolam 0.5 mg 04/04/19 13:43 Xanax PO DAILY PRN Anxiety Carbidopa/Levodopa 1 each 04/04/19 22:00 04/08/19 12:57 Sinemet PO Not Given BID ANDREZ Finasteride 5 mg 04/05/19 10:00 04/08/19 12:57 Proscar PO Not Given QDAY ANDREZ Hydrophilic Ointment 1 applic 04/07/19 23:24 Vaseline Lip Therapy TP Q2HR PRN Dry Lips Sodium Chloride 1,000 mls @ 100 mls/hr 04/05/19 17:00 04/08/19 08:30 Nacl 0.9% 1000 Ml IV 100 mls/hr DIRECT ANDREZ Administration Ceftriaxone Sodium 2 gm in 100 mls @ 200 mls/hr 04/06/19 15:00 04/07/19 09:17 Rocephin/Ns 2 Gm/100 Ml IV 200 mls/hr Q24HR ANDREZ Administration Protocol Sodium Chloride 1,000 mls @ 0 mls/hr 04/08/19 13:00 04/08/19 13:58 Nacl 0.9% 1000 Ml IV 04/09/19 13:01 999 mls/hr ONCE ANDREZ Administration As Directed Norepinephrine 4 mg in 250 mls @ 7.5 mls/hr 04/08/19 13:00 04/08/19 15:00 Levophed Drip 4 Mg/Ns 250 Ml IV 4 mcg/min TITR ANDREZ 15 mls/hr Titration Protocol 2 MCG/MIN Multi-Ingred Cream/Lotion/Oil/Oint 1 applic 04/07/19 23:24 Artificial Tears Ophth Oint OU Q4HR PRN Dry Eye(s) Ondansetron HCl 4 mg 04/04/19 14:35 04/06/19 13:43 Zofran IV 4 mg Q8H PRN Administration Nausea And Vomiting Pantoprazole Sodium 40 mg 04/08/19 22:00 Protonix IV BID ANDREZ Sodium Chloride 10 ml 04/04/19 22:00 04/08/19 12:58 Sodium Chloride Flush Syringe 10 Ml IV 10 ml BID ANDREZ Administration Sodium Chloride 10 ml 04/04/19 14:35 Sodium Chloride Flush Syringe 10 Ml IV PRN PRN LINE FLUSH Tamsulosin HCl 0.4 mg 04/05/19 10:00 04/08/19 12:57 Flomax PO Not Given QDAY ANDREZ Nutrition/Malnutrition Assess - Dietary Evaluation Nutrition/Malnutrition Findings: Nutrition Notes Start: 04/05/19 16:00 Freq: Status: Active Protocol: Document 04/08/19 08:44 LM (Rec: 04/08/19 08:52 LM [id number]) Nutrition Notes Initial or Follow up Reassessment Current Diagnosis Acute Kidney Injury,Sepsis, Hypertension Other Pertinent Diagnosis Dementia, Parkinsons, UTI Current Diet NPO Labs/Tests BUN 79 Cr 4 Pertinent Medications Reviewed Height 5 ft 10 in Weight 108.3 kg [place] Body Weight (kg) 75.45 BMI 34.2 Subjective/Other Information MD consult to evaluate nutritional intake. Already following pt. Pt is on vent. Pt ht corrected. Burn Absent Trauma Absent Minimum of two criteria Yes #2 Nutrition Diagnosis Inadequate oral intake As Evidenced by Signs and Symptoms Pt on vent Diagnosis Progress(for reassessment Continues documentation) #1 Nutrition Diagnosis Malnutrition Diagnosis Progress(for reassessment Continues documentation) Is patient on ventilator? Yes Is Patient Ambulatory and/or Out of Bed No REE-([facility]-confined to bed) 2259.948 Kcal/Kg value to use for calculation 17 Approximate Energy Requirements Using 1841 kcal/Kg Calculation Used for Recommendations Kcal/kg Additional Notes Protein: 151 g (>2g/kg IBW 75. 45 kg) Fluids 1 ml/kcal or per MD Nutrition Intervention Change Diet Order: recommend TF or diet advancement if passes bedside swallow Nutrition Support: Vital HP at 75 ml/hr Flush 50 ml q4hr Kcal 1,800 Protein (gm) 158 Fluid (mL) 1,505 Goal #1 TF start/tolerance diet advancement per SHUTTLE PREPARATION SUPERVISOR Anticipated Discharge Needs: unable to determine at this time Follow-Up By: 04/10/19 Additional Comments F/U for TF consult/diet advancement
[2019-04-08] MEDS ORDERED: SODIUM CHLORIDE 0.9% 500 ML 500 ML IV ONE ×3 (16:43→16:50)
[2019-04-08] MEDS ORDERED: LIDOCAINE MPF (2%) 20 MG/1 ML VIAL 5 ML ONE (17:00)
[2019-04-08] MEDS ORDERED: PROPOFOL 200 MG/20 ML VIAL IV ONE ×2 (17:04→17:05)
[2019-04-08 17:52] LABS: Hematocrit 21.6 % (35.5-45.6); Hemoglobin 7.1 gm/dl (11.8-15.2)
--- NOTE | 2019-04-08 17:53 | Anesthesia Day of Surgery ---
Anesthesia Day of Surgery - Day of Surgery Patient Examined: Yes Patient H&P Reviewed: Yes Patient is NPO: Yes
[2019-04-08] MEDS ORDERED: SODIUM CHLORIDE 0.9% 1000 ML 1,000 ML IV SCH (18:00)
[2019-04-08] MEDS ORDERED: WATER FOR IRRIG STERILE 1,000 ML BOTTLE ONE (18:06)
--- NOTE | 2019-04-08 19:49 | Operative Report ---
Operative Report Operative Report: DOS: 04/08/19 SURGEON: Dash Sherwood MD Flexible sigmoidoscopy REPORT with hemostasis PREOPERATIVE AND POSTOPERATIVE DIAGNOSIS: GI bleeding DESCRIPTION OF PROCEDURE: The colonoscope was passed to the mid sigmoid colon Scope was carefully withdrawn. At the end of procedure, the scope was cleaned using normal technique. Vital signs monitored continuously throughout. SEDATION: Provided by Anesthesiology Services. Quality of the prep was poor COMPLICATIONS: None. ESTIMATED BLOOD LOSS: 250cc FINDINGS: * normal sigmoid colon with overlying brown stool * Large amount of blood in the distal sigmoid and rectum with fresh blood and clots. This was carefully and thoroughly washed * Multiple small clean based ulcers in the rectum, uncertain etiology * 4mm ulcer in the rectum with active bleeding. Attempted placement of a clip, this did not stop the bleeding. 5cc 1:10,000 epinephrine was then injected in 1cc aliquots around the bleeding ulcer. Then a second clip was placed. At this point the bleeding slowed significantly. Lastly, gold probe was used to cauterize the area, and complete hemostasis was attained. * The distal 1.5cm of the rectal mucosa was completely eroded, though there was no active bleeding. Etiology unclear, nurse reported to trauma and no rectal tubes this admission RECOMMENDATIONS: * Patient with many small ulcers and severe ulceration of the distal rectum, not actively bleeding, the bleeding ulcer was treated successfully but is at risk for rebleed. Therefore recommend monitor CBC Q6H and transfuse PRN. * If patient rebleeds, please call me back immediately and I will attempt to use hemospray to treat the area * If that fails, will ask IR to intervene
[2019-04-08] MEDS: PANTOPRAZOLE 40 MG INJ IV SCH (21:40)
[2019-04-09 02:57] LABS: Hematocrit 23.2 % (35.5-45.6); Hemoglobin 7.7 gm/dl (11.8-15.2)
--- NOTE | 2019-04-09 03:51 | XRay Report ---
CHEST 1 VIEW 04/09/2019 3:08 AM INDICATION / CLINICAL INFORMATION: follow up respiratory failure. COMPARISON: Chest x-ray on 04/08/2019 FINDINGS: SUPPORT DEVICES: The ET tube has been removed. Right IJ central venous catheter is in unchanged posit ion. HEART / MEDIASTINUM: Stable. LUNGS / PLEURA: Mildly increased small left pleural effusion. Stable bilateral perihilar opacities. N o pneumothorax. ADDITIONAL FINDINGS: No significant additional findings. IMPRESSION: 1. Mild increase in size of the small left pleural effusion. Signer Name: Jon Naik MD Signed: 04/09/2019 3:47 AM Workstation Name: [id number]
[2019-04-09 06:23] LABS: Hematocrit 22.3 % (35.5-45.6); Hemoglobin 7.4 gm/dl (11.8-15.2)
[2019-04-09] MEDS: cefTRIAXone/NS 2 GM/100 ML 2 GM/100 ML BAG IV SCH (10:41)
[2019-04-09] MEDS: PANTOPRAZOLE 40 MG INJ IV SCH (10:42)
[2019-04-09] MEDS: FINASTERIDE 5 MG TAB PO SCH (11:05)
[2019-04-09] MEDS: CARBIDOPA/LEVODOPA 25-250 TAB PO SCH ×2 (11:06→21:37)
[2019-04-09] MEDS: TAMSULOSIN 0.4 MG CAP PO SCH (11:07)
--- NOTE | 2019-04-09 11:07 | Progress Note ---
Assessment and Plan Cultures: Blood culture and urine culture: Klebsiella pneumoniae Assessment: 64 y/o male with Parkinson, BPH with a indwelling daniel and previous UTI admitted on due to 24 hour history of acute SOB, shakes and severe generalized weakness. Patient is confused currently. It seems like the daniel was placed 2 weeks ago. In the ED, temp 98.3--> 101.5, HR 100, BP 99/53, O2 sat 96%. WBC 1. Hg 13.6. Plat 2016. Seg 83%. Creat 1.4. Lactate 6.4. UA with large LE and wbc 182. CXR negative. CT head negative. ID consulted for management of neutropenia and fever. 1) Severe Sepsis secondary to Klebsiella bacteremia from UTI: CXR negative. Daniel was exchanged in the ED. History of previous UTIs. CT showed ?bladder lesion with left renal hydronephrosis. Urology and IR following, underwent perc neph. by IR on 04/07/2019. 2) Acute encephalopathy due to #1: improving. 3) MYCHAL: creatinine high. Renally dose abx. 4) Neutropenia has resolved. 5) Acute blood loss anemia, secondary to LGI Bleed: s/p flex sig, found to have bleeding rectal ulcer Recommendations: continue IV Ceftriaxone while inpatient, once improved, can d/c on PO abx. Plan for 7 days of abx from the date of nephrostomy placement (end date for abx: 04/14/2019) Hay Benitez MD, FACP [facility] ([facility] M: [phone] O: [phone] F: [phone] Subjective Date of service: 04/09/19 Principal diagnosis: Sepsis,UTI Interval history: No fever. Had lower GI bleed, underwent flex sig with identification of a bleeding rectal ulcer. Patient denies any complaints. Remains in ICU. Objective - Exam Narrative Exam: Physical Exam: Constitutional: Alert, awake Head, Ears, Nose: Normocephalic, atraumatic. External ears, nose normal Eyes: Conjunctivae/corneas clear. No icterus. No ptosis. Neck: Supple, no meningeal signs Cardiovascular: S1, S2 normal. Respiratory: Good air entry, clear to auscultation bilaterally GI: Soft, non-tender; bowel sounds normal. No peritoneal signs. Daniel +, left sided nephrostomy + Musculoskeletal: pedal edema +, no cyanosis. Skin: No rash or abscess Hem/Lymphatic: No palpable cervical or supraclavicular nodes. No lymphangitis Psych: no agitation Neurological: Awake, alert. Tremors + - Constitutional Vitals: Vital Signs Temp Pulse Resp BP Pulse Ox 98.3 F 92 H 19 138/79 100 04/09/19 04:00 04/09/19 09:15 04/09/19 09:15 04/09/19 09:15 04/09/19 09:15 Temperature -Last 24 Hours Temperature 98.3 F Temperature 98.6 F Temperature 98.6 F Temperature 98.6 F Temperature 99.2 F Temperature 99.2 F Temperature 99.6 F Temperature 99.6 F Temperature 99.2 F Temperature 99.2 F Temperature 99.0 F Temperature 99.0 F Temperature 98.8 F Temperature 99.6 F Temperature 98.7 F Temperature 98.7 F Temperature 99.2 F Temperature 99.2 F Temperature 98.7 F Temperature 98.1 F Temperature 98.2 F Temperature 98 F Temperature 98.7 F Temperature 99.2 F Temperature 98.7 F - Labs CBC & Chem 7: 04/09/19 05:55 04/08/19 08:41 Labs: Abnormal lab results 04/08/19 04/08/19 04/08/19 Range/Units 10:51 12:29 14:58 Hgb 9.9 L (11.8-15.2) gm/dl Hct 29.3 L (35.5-45.6) % PT 15.2 H (12.2-14.9) Sec. INR 1.23 H (0.87-1.13) D-Dimer > 57157 H (0-234) ng/mlDDU Crossmatch See Detail 04/08/19 04/09/19 04/09/19 Range/Units 17:36 02:30 05:55 Hgb 7.1 L 7.7 L 7.4 L (11.8-15.2) gm/dl Hct 21.6 L D 23.2 L 22.3 L (35.5-45.6) % PT (12.2-14.9) Sec. INR (0.87-1.13) D-Dimer (0-234) ng/mlDDU Crossmatch - Imaging and cardiology Chest x-ray: report reviewed, image reviewed (left pleural effusion)
[2019-04-09 11:24] LABS: Hematocrit 23.1 % (35.5-45.6); Hemoglobin 7.7 gm/dl (11.8-15.2)
--- NOTE | 2019-04-09 12:01 | Progress Note ---
Assessment and Plan 64 y/o male with sepsis from urinary source and hydronephrosis s/p percutaneous nephrostomy tubes, now with lower GI bleed from rectum 1. Continue q6hour H/H 2. Transfuse if less than 7 3. Abx per ID 4. Continue supportive care 5. Continue ICU monitoring at least another 24 hours. CCT 31 minutes Subjective Date of service: 04/09/19 Principal diagnosis: Sepsis,UTI Interval history: Patient scoped yesterday by GI, found to have numerous rectal ulcers. Some clipped and some cauterized. HgB has been stable at 7 but did get 4 units when HgB was 9.9 on yesterday. BP stable. Awake and alert on nasal cannula. Objective Vital Signs - 12hr 04/09/19 04/09/19 04/09/19 00:00 00:15 00:30 Temperature 98.6 F Pulse Rate 97 H 94 H 100 H Pulse Rate [ Right] Respiratory 22 23 37 H Rate Blood Pressure 126/77 137/70 115/82 O2 Sat by Pulse 100 100 100 Oximetry 04/09/19 04/09/19 04/09/19 00:45 01:00 01:08 Temperature 98.6 F Pulse Rate 96 H 97 H 99 H Pulse Rate [ Right] Respiratory 28 H 38 H 29 H Rate Blood Pressure 151/77 125/75 145/75 O2 Sat by Pulse 100 100 100 Oximetry 04/09/19 04/09/19 04/09/19 01:15 01:30 01:45 Temperature 98.6 F Pulse Rate 102 H 102 H 98 H Pulse Rate [ Right] Respiratory 29 H 31 H 27 H Rate Blood Pressure 124/53 138/72 147/76 O2 Sat by Pulse 100 100 99 Oximetry 04/09/19 04/09/19 04/09/19 02:00 02:15 02:30 Temperature Pulse Rate 97 H 91 H 94 H Pulse Rate [ Right] Respiratory 27 H 25 H 17 Rate Blood Pressure 135/72 125/61 120/66 O2 Sat by Pulse 100 100 100 Oximetry 04/09/19 04/09/19 04/09/19 02:45 03:00 03:15 Temperature Pulse Rate 94 H 93 H 95 H Pulse Rate [ Right] Respiratory 25 H 17 26 H Rate Blood Pressure 122/77 118/72 119/77 O2 Sat by Pulse 100 100 100 Oximetry 04/09/19 04/09/19 04/09/19 03:31 03:45 04:00 Temperature 98.3 F Pulse Rate 98 H 94 H 93 H Pulse Rate [ Right] Respiratory 33 H 27 H 27 H Rate Blood Pressure 129/76 131/70 132/77 O2 Sat by Pulse 100 100 100 Oximetry 04/09/19 04/09/19 04/09/19 04:15 04:30 04:45 Temperature Pulse Rate 96 H 92 H 93 H Pulse Rate [ Right] Respiratory 28 H 23 24 Rate Blood Pressure 152/69 133/74 133/79 O2 Sat by Pulse 100 100 100 Oximetry 04/09/19 04/09/19 04/09/19 05:00 05:15 05:30 Temperature Pulse Rate 92 H 97 H 92 H Pulse Rate [ Right] Respiratory 24 28 H 21 Rate Blood Pressure 127/76 131/81 128/74 O2 Sat by Pulse 100 100 100 Oximetry 04/09/19 04/09/19 04/09/19 05:45 06:00 06:15 Temperature Pulse Rate 92 H 95 H 94 H Pulse Rate [ Right] Respiratory 19 25 H 25 H Rate Blood Pressure 133/73 143/64 139/71 O2 Sat by Pulse 100 100 100 Oximetry 04/09/19 04/09/19 04/09/19 06:31 06:45 07:01 Temperature Pulse Rate 93 H 99 H 93 H Pulse Rate [ Right] Respiratory 17 30 H 28 H Rate Blood Pressure 127/75 139/81 135/67 O2 Sat by Pulse 100 100 100 Oximetry 04/09/19 04/09/19 04/09/19 07:15 07:31 07:37 Temperature Pulse Rate 95 H 92 H Pulse Rate [ 90 Right] Respiratory 31 H 27 H 26 H Rate Blood Pressure 132/69 122/66 O2 Sat by Pulse 100 100 100 Oximetry 04/09/19 04/09/19 04/09/19 07:45 08:00 08:01 Temperature 99.2 F Pulse Rate 94 H 93 H Pulse Rate [ Right] Respiratory 26 H 28 H Rate Blood Pressure 139/75 134/73 O2 Sat by Pulse 100 100 Oximetry 04/09/19 04/09/19 04/09/19 08:03 08:15 08:31 Temperature Pulse Rate 95 H 84 Pulse Rate [ Right] Respiratory 32 H 28 H Rate Blood Pressure 149/74 140/73 O2 Sat by Pulse 100 100 99 Oximetry 04/09/19 04/09/19 04/09/19 08:45 09:00 09:15 Temperature Pulse Rate 89 90 92 H Pulse Rate [ Right] Respiratory 25 H 29 H 19 Rate Blood Pressure 135/79 138/79 138/79 O2 Sat by Pulse 99 99 100 Oximetry 04/09/19 04/09/19 04/09/19 09:31 09:45 10:00 Temperature Pulse Rate 88 92 H 92 H Pulse Rate [ Right] Respiratory 20 29 H 27 H Rate Blood Pressure 138/79 138/79 149/73 O2 Sat by Pulse 100 100 100 Oximetry 04/09/19 04/09/19 04/09/19 10:15 10:31 10:45 Temperature Pulse Rate 88 86 90 Pulse Rate [ Right] Respiratory 19 14 30 H Rate Blood Pressure 149/73 149/73 149/73 O2 Sat by Pulse 100 100 100 Oximetry 04/09/19 11:00 Temperature Pulse Rate 89 Pulse Rate [ Right] Respiratory 29 H Rate Blood Pressure 145/78 O2 Sat by Pulse 100 Oximetry Constitutional: no acute distress, alert Eyes: non-icteric ENT: other (orally intubated and sedated) Neck: supple, other (large in circumference) Effort: normal Ascultation: Bilateral: clear Percussion: Bilateral: not dull Cardiovascular: regular rate and rhythm Gastrointestinal: normoactive bowel sounds, soft, other (obese) Extremities: edema Neurologic: non-focal exam CBC and BMP: 04/09/19 05:55 04/08/19 08:41 ABG, PT/INR, D-dimer: ABG POC ABG pH 7.340 (7.35-7.45) L 04/08/19 05:34 POC ABG pCO2 32.0 (35-45) L 04/08/19 05:34 POC ABG pO2 103 (80-105) 04/08/19 05:34 POC ABG HCO3 17.3 (22-26 mml/L) 04/08/19 05:34 POC ABG Total CO2 18 (23-27mmol/L) 04/08/19 05:34 POC ABG O2 Sat 98 04/08/19 05:34 PT/INR, D-dimer PT 15.2 Sec. (12.2-14.9) H 09/25/19 12:29 INR 1.23 (0.87-1.13) H 04/08/19 12:29 > 15758 ng/mlDDU (0-234) H 04/08/19 12:29 Abnormal lab findings: Abnormal Labs 04/04/19 04/04/19 04/04/19 12:18 12:18 12:18 WBC 1.0 L* Hgb Hct MCV MCHC Plt Count Seg Neutrophils % 83.5 H Seg Neuts % (Manual) 80.0 H Lymphocytes % (Manual) 12.0 L Seg Neutrophils # 0.8 L Seg Neutrophils # Man 0.8 L Lymphocytes # (Manual) 0.1 L Monocytes # (Manual) Basophils # (Manual) PT INR 1.16 H D-Dimer POC ABG pH POC ABG pCO2 POC ABG pO2 Potassium 3.2 L Chloride Carbon Dioxide BUN Creatinine Glucose 105 H Lactic Acid Calcium Magnesium AST ALT Total Protein Albumin 3.7 L Urine WBC (Auto) Crossmatch 04/04/19 04/04/19 04/04/19 12:18 13:53 13:53 WBC Hgb Hct MCV MCHC Plt Count Seg Neutrophils % Seg Neuts % (Manual) Lymphocytes % (Manual) Seg Neutrophils # Seg Neutrophils # Man Lymphocytes # (Manual) Monocytes # (Manual) Basophils # (Manual) PT INR D-Dimer POC ABG pH POC ABG pCO2 POC ABG pO2 Potassium Chloride Carbon Dioxide BUN Creatinine Glucose Lactic Acid 6.40 H* 6.00 H* Calcium Magnesium 1.50 L AST ALT Total Protein Albumin Urine WBC (Auto) Crossmatch 04/04/19 04/04/19 04/05/19 22:50 Unknown 05:22 WBC 17.9 H Hgb Hct MCV MCHC 35 H Plt Count Seg Neutrophils % Seg Neuts % (Manual) 93.0 H Lymphocytes % (Manual) 2.0 L Seg Neutrophils # Seg Neutrophils # Man 16.6 H Lymphocytes # (Manual) 0.4 L Monocytes # (Manual) Basophils # (Manual) 0.2 H PT INR D-Dimer POC ABG pH POC ABG pCO2 POC ABG pO2 Potassium Chloride Carbon Dioxide BUN Creatinine Glucose Lactic Acid 5.40 H* Calcium Magnesium AST ALT Total Protein Albumin Urine WBC (Auto) > 182.0 H Crossmatch 04/05/19 04/05/19 04/06/19 05:22 05:22 13:05 WBC 29.2 H Hgb Hct MCV MCHC Plt Count 133 L Seg Neutrophils % Seg Neuts % (Manual) Lymphocytes % (Manual) 2.0 L Seg Neutrophils # Seg Neutrophils # Man 19.6 H Lymphocytes # (Manual) 0.6 L Monocytes # (Manual) 0.9 H Basophils # (Manual) PT INR D-Dimer POC ABG pH POC ABG pCO2 POC ABG pO2 Potassium 3.0 L Chloride Carbon Dioxide 19 L BUN 34 H Creatinine 2.4 H D Glucose 72 L Lactic Acid 2.80 H* Calcium 7.6 L Magnesium AST 250 H ALT 108 H Total Protein 6.2 L Albumin 3.2 L Urine WBC (Auto) Crossmatch 04/06/19 04/07/19 04/07/19 13:05 04:55 04:55 WBC 22.6 H Hgb Hct MCV MCHC Plt Count 95 L Seg Neutrophils % Seg Neuts % (Manual) 96.0 H Lymphocytes % (Manual) 2.0 L Seg Neutrophils # Seg Neutrophils # Man 21.7 H Lymphocytes # (Manual) 0.5 L Monocytes # (Manual) Basophils # (Manual) PT INR D-Dimer POC ABG pH POC ABG pCO2 POC ABG pO2 Potassium Chloride 108.7 H Carbon Dioxide 16 L 18 L BUN 68 H 79 H Creatinine 3.6 H 4.0 H Glucose Lactic Acid Calcium 6.9 L 6.7 L Magnesium AST 355 H ALT 76 H Total Protein Albumin 3.1 L Urine WBC (Auto) Crossmatch 04/07/19 04/08/19 04/08/19 23:44 05:34 08:41 WBC 21.0 H Hgb 10.7 L Hct 32.2 L MCV 83 L MCHC Plt Count 71 L Seg Neutrophils % Seg Neuts % (Manual) 94.0 H Lymphocytes % (Manual) 4.0 L Seg Neutrophils # Seg Neutrophils # Man 19.7 H Lymphocytes # (Manual) 0.8 L Monocytes # (Manual) Basophils # (Manual) PT INR D-Dimer POC ABG pH 7.207 L 7.340 L POC ABG pCO2 48.6 H 32.0 L POC ABG pO2 130 H Potassium Chloride Carbon Dioxide BUN Creatinine Glucose Lactic Acid Calcium Magnesium AST ALT Total Protein Albumin Urine WBC (Auto) Crossmatch 04/08/19 04/08/19 04/08/19 08:41 10:51 12:29 WBC Hgb 9.9 L Hct 29.3 L MCV MCHC Plt Count Seg Neutrophils % Seg Neuts % (Manual) Lymphocytes % (Manual) Seg Neutrophils # Seg Neutrophils # Man Lymphocytes # (Manual) Monocytes # (Manual) Basophils # (Manual) PT 15.2 H INR 1.23 H D-Dimer > 68056 H POC ABG pH POC ABG pCO2 POC ABG pO2 Potassium Chloride 108.6 H Carbon Dioxide 18 L BUN 96 H Creatinine 4.5 H Glucose Lactic Acid Calcium 6.7 L Magnesium AST ALT Total Protein Albumin Urine WBC (Auto) Crossmatch 04/08/19 04/08/19 04/09/19 14:58 17:36 02:30 WBC Hgb 7.1 L 7.7 L Hct 21.6 L D 23.2 L MCV MCHC Plt Count Seg Neutrophils % Seg Neuts % (Manual) Lymphocytes % (Manual) Seg Neutrophils # Seg Neutrophils # Man Lymphocytes # (Manual) Monocytes # (Manual) Basophils # (Manual) PT INR D-Dimer POC ABG pH POC ABG pCO2 POC ABG pO2 Potassium Chloride Carbon Dioxide BUN Creatinine Glucose Lactic Acid Calcium Magnesium AST ALT Total Protein Albumin Urine WBC (Auto) Crossmatch See Detail 04/09/19 04/09/19 05:27 05:55 WBC Hgb 7.7 L 7.4 L Hct 23.1 L 22.3 L MCV MCHC Plt Count Seg Neutrophils % Seg Neuts % (Manual) Lymphocytes % (Manual) Seg Neutrophils # Seg Neutrophils # Man Lymphocytes # (Manual) Monocytes # (Manual) Basophils # (Manual) PT INR D-Dimer POC ABG pH POC ABG pCO2 POC ABG pO2 Potassium Chloride Carbon Dioxide BUN Creatinine Glucose Lactic Acid Calcium Magnesium AST ALT Total Protein Albumin Urine WBC (Auto) Crossmatch
[2019-04-09 12:20] LABS: Calcium 6.7 mg/dL (8.4-10.2)
--- NOTE | 2019-04-09 12:21 | Gastroenterology Progress Note ---
<DEWAYNE DUKES - Last Filed: 04/09/19 12:25> Assessment and Plan 1.GI bleed/gross hematochezia -H/H 7.4/22.3-stable -continue to monitor H/H and transfuse as needed -hold blood thinning medications -s/p flex sig yesterday that showed: normal sigmoid colon with overlying brown stool * Large amount of blood in the distal sigmoid and rectum with fresh blood and clots. This was carefully and thoroughly washed * Multiple small clean based ulcers in the rectum, uncertain etiology * 4mm ulcer in the rectum with active bleeding. Attempted placement of a clip, this did not stop the bleeding. 5cc 1:10,000 epinephrine was then injected in 1cc aliquots around the bleeding ulcer. Then a second clip was placed. At this point the bleeding slowed significantly. Lastly, gold probe was used to cauterize the area, and complete hemostasis was attained. * The distal 1.5cm of the rectal mucosa was completely eroded, though there was no active bleeding. Etiology unclear, nurse reported to trauma and no rectal tubes this admission (stercoral?) -clinically, patient remains in ICU but now off pressor support and currently HD stable with no active signs of bleeding this am. Denies abd pain or N/V. -okay for liquids today -start on daily stool softener -continue PPI and supportive care -if rebleeds, please call immediately and will repeat flex sig with use hemospray to treat the area (if this fails, will ask IR to intervene) -will follow Subjective Date of service: 04/09/19 Principal diagnosis: hematochezia Interval history: Patient remains in ICU but now off pressor support. No acute distress or active signs of bleeding this am. Denies abd pain or N/V. Objective - Constitutional Vitals: Temp Pulse Resp BP Pulse Ox 99.2 F 90 17 145/78 100 04/09/19 08:00 04/09/19 12:15 04/09/19 12:15 04/09/19 12:15 04/09/19 12:15 General appearance: no acute distress - Respiratory Respiratory effort: normal Respiratory: bilateral: CTA (anterior) - Cardiovascular Rhythm: regular - Gastrointestinal General gastrointestinal: Present: soft, non-distended, normal bowel sounds - Neurologic Neurological: oriented to person - Labs CBC & Chem 7: 04/09/19 05:55 04/09/19 05:27 Labs: Laboratory Results - last 24 hr 04/08/19 04/08/19 04/08/19 12:29 14:58 17:36 Hgb 7.1 L Hct 21.6 L D PT 15.2 H INR 1.23 H APTT 31.1 Fibrinogen 355 D-Dimer > 54132 H Sodium Potassium Chloride Carbon Dioxide Anion Gap BUN Creatinine Estimated GFR BUN/Creatinine Ratio Glucose Calcium Blood Type B POSITIVE Antibody Screen Negative Crossmatch See Detail 04/09/19 04/09/19 04/09/19 02:30 05:27 05:27 Hgb 7.7 L 7.7 L Hct 23.2 L 23.1 L PT INR APTT Fibrinogen D-Dimer Sodium 149 H Potassium 3.6 Chloride 118.8 H Carbon Dioxide 19 L Anion Gap 15 BUN 108 H Creatinine 4.3 H Estimated GFR 17 BUN/Creatinine Ratio 25 Glucose 95 Calcium 6.7 L Blood Type Antibody Screen Crossmatch 04/09/19 05:55 Hgb 7.4 L Hct 22.3 L PT INR APTT Fibrinogen D-Dimer Sodium Potassium Chloride Carbon Dioxide Anion Gap BUN Creatinine Estimated GFR BUN/Creatinine Ratio Glucose Calcium Blood Type Antibody Screen Crossmatch <BRYSON OREILLY - Last Filed: 04/09/19 23:13> Assessment and Plan Patient seen and examined. I have reviewed the advanced practitioner's evaluation, assessment, and plan, and agree with them. I note the following additions: bleeding stopped after successful intervention last night, etiology of the ulcers are not clear but do not recommend repeat flex sig for biopsy given recent life threatening bleed, will need to follow up and consider repeat flex sig in 2-4 weeks once patient is fully stabilized - Patient Problems (1) Hematochezia Current Visit: Yes Status: Acute Objective - Constitutional Vitals: Temp Pulse Resp BP Pulse Ox 98.5 F 98 H 35 H 138/75 100 04/09/19 23:11 04/09/19 22:46 04/09/19 22:46 04/09/19 22:46 04/09/19 22:46 - Labs CBC & Chem 7: 04/09/19 21:30 04/09/19 05:27 Labs: Laboratory Results - last 24 hr 04/08/19 04/09/19 04/09/19 14:58 02:30 05:27 Hgb 7.7 L 7.7 L Hct 23.2 L 23.1 L Sodium Potassium Chloride Carbon Dioxide Anion Gap BUN Creatinine Estimated GFR BUN/Creatinine Ratio Glucose Calcium Blood Type B POSITIVE Antibody Screen Negative Crossmatch See Detail 04/09/19 04/09/19 04/09/19 05:27 05:55 15:15 Hgb 7.4 L 7.4 L Hct 22.3 L 23.0 L Sodium 149 H Potassium 3.6 Chloride 118.8 H Carbon Dioxide 19 L Anion Gap 15 BUN 108 H Creatinine 4.3 H Estimated GFR 17 BUN/Creatinine Ratio 25 Glucose 95 Calcium 6.7 L Blood Type Antibody Screen Crossmatch 04/09/19 21:30 Hgb 7.5 L Hct 23.0 L Sodium Potassium Chloride Carbon Dioxide Anion Gap BUN Creatinine Estimated GFR BUN/Creatinine Ratio Glucose Calcium Blood Type Antibody Screen Crossmatch
--- NOTE | 2019-04-09 13:34 | Progress Note ---
Assessment and Plan Assessment and plan: 64 y/o male with a hx of parkinsons and UTI requiring hospitlization in Jul 2018. He states he has similar sx. He has been unable to get OOB since last admission. Sits ordinarily-- can walk. Presents with SIRS criteria and can't stop shaking. Has UTI. Patient was taken to OR yesterday and patient desat and not able to tolerate the procedure with out intubation, patient was intubated 04/07/[address] and transferred to ICU. patient extubated on 04/08/19 Rectal bleeding - Patient had massive rectal bleeding with hemodynamic compromise and significant drop in H&H - Patient was transfused 4 units of blood, FFP - GI did emergent flexible sigmoidoscopy and found patient has a rectal ulcers with active bleeding and stopped it - We'll follow H&H closely, will transfuse as needed (1) Sepsis secondary to GI Current Visit: Yes Status: Acute Plan to address problem: Sec to UTI On Cefepime ID consult appreciated Aspiration pneumonia, UTI - continue with Iv antibiotics Per ID - patient was intubated 04/07 and extubated 04/08 Acute renal failure - CT abdomen and pelvis there is a lesion in the bladder with left hydronephrosis - urology was consulted and Nephrostomy tube was done yesterday by IR (3) Acidosis Current Visit: Yes Status: Acute Plan to address problem: IVF (4) HTN (hypertension) Current Visit: Yes Status: Acute Qualifiers: Hypertension type: essential hypertension Qualified Code(s): I10 - Essential (primary) hypertension Plan to address problem: Monitor bp q shift, continue medical management. (5) Dementia - CT head is normal - Continue supportive care (6) Debility - supportive care - PT/OT when stable (7) Neutropenia Resolved Now Leukocytosis (8) DVT prophylaxis Current Visit: Yes Status: Acute Plan to address problem: SCD to BLE while in bed History Interval history: patient was seen and evaluated, Patient is stable today, off pressers. Hospitalist Physical - Physical exam Narrative exam: Patient is not in cardiopulmonary distress. The patient is obese. Vital signs as documented. Head exam is unremarkable. No scleral icterus . Neck is without jugular venous distension, thyromegaly, or carotid bruits. Lungs intubated on MV. Cardiac exam reveals regular rate and Rhythm. Abdominal exam reveals normal bowel sounds. There is left nephrostomy tube. Extremities are nonedematous. 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 No focal weakness. - Constitutional Vitals: Temp Pulse Resp BP Pulse Ox 99.2 F 90 17 145/78 100 04/09/19 08:00 04/09/19 12:15 04/09/19 12:15 04/09/19 12:15 04/09/19 12:15 General appearance: Present: no acute distress, other (A&O x0) Results - Labs CBC & Chem 7: 04/09/19 05:55 04/09/19 05:27 Labs: Laboratory Last Values WBC 21.0 K/mm3 (4.5-11.0) H 04/08/19 08:41 RBC 3.86 M/mm3 (3.65-5.03) 04/08/19 08:41 Hgb 7.4 gm/dl (11.8-15.2) L 04/09/19 05:55 Hct 22.3 % (35.5-45.6) L 04/09/19 05:55 MCV 83 fl (84-94) L 04/08/19 08:41 MCH 28 pg (28-32) 04/08/19 08:41 MCHC 33 % (32-34) 04/08/19 08:41 RDW 14.4 % (13.2-15.2) 04/08/19 08:41 Plt Count 71 K/mm3 (140-440) L 04/08/19 08:41 [place] % (Auto) 1.4 % (0.0-7.3) 04/04/19 12:18 Eos % (Auto) 0.1 % (0.0-4.3) 04/04/19 12:18 [place] # 0.0 K/mm3 (0.0-0.8) 04/04/19 12:18 Eos # 0.0 K/mm3 (0.0-0.4) 04/04/19 12:18 Baso # 0.0 K/mm3 (0.0-0.1) 04/04/19 12:18 Add Manual Diff Complete 04/08/19 08:41 Total Counted 100 04/08/19 08:41 Seg Neutrophils % Books Salesperson 04/08/19 08:41 Seg Neuts % (Manual) 94.0 % (40.0-70.0) H 04/08/19 08:41 0 % 04/08/19 08:41 4.0 % (13.4-35.0) L 04/08/19 08:41 Reactive Lymphs % (Man) 0 % 04/08/19 08:41 2.0 % (0.0-7.3) 04/08/19 08:41 0 % (0.0-4.3) 04/08/19 08:41 0 % (0.0-1.8) 04/08/19 08:41 0 % 04/08/19 08:41 0 % 04/08/19 08:41 0 % 04/08/19 08:41 0 % 04/08/19 08:41 Nucleated RBC % Not Reportable 04/08/19 08:41 Seg Neutrophils # 0.8 K/mm3 (1.8-7.7) L 04/04/19 12:18 Seg Neutrophils # Man 19.7 K/mm3 (1.8-7.7) H 04/08/19 08:41 Band Neutrophils # 0.0 K/mm3 04/08/19 08:41 0.8 K/mm3 (1.2-5.4) L 04/08/19 08:41 Abs React Lymphs (Man) 0.0 K/mm3 04/08/19 08:41 0.4 K/mm3 (0.0-0.8) 04/08/19 08:41 0.0 K/mm3 (0.0-0.4) 04/08/19 08:41 0.0 K/mm3 (0.0-0.1) 04/08/19 08:41 0.0 K/mm3 04/08/19 08:41 0.0 K/mm3 04/08/19 08:41 0.0 K/mm3 04/08/19 08:41 Blast Cells # 0.0 K/mm3 04/08/19 08:41 WBC Morphology Not Reportable 04/08/19 08:41 Hypersegmented Neuts Not Reportable 04/08/19 08:41 Hyposegmented Neuts Not Reportable 04/08/19 08:41 Hypogranular Neuts Not Reportable 04/08/19 08:41 Not Reportable 04/08/19 08:41 Not Reportable 04/08/19 08:41 Not Reportable 04/08/19 08:41 Not Reportable 04/08/19 08:41 Not Reportable 04/08/19 08:41 Not Reportable 04/08/19 08:41 Consistent w auto 04/08/19 08:41 Not Reportable 04/08/19 08:41 Plt Clumps, EDTA Not Reportable 04/08/19 08:41 Not Reportable 04/08/19 08:41 Not Reportable 04/08/19 08:41 Not Reportable 04/08/19 08:41 Plt Morphology Comment Not Reportable 04/08/19 08:41 RBC Morphology Not Reportable 04/08/19 08:41 Dimorphic RBCs Not Reportable 04/08/19 08:41 Not Reportable 04/08/19 08:41 Not Reportable 04/08/19 08:41 Few 04/08/19 08:41 Few 04/08/19 08:41 Not Reportable 04/08/19 08:41 Not Reportable 04/08/19 08:41 Not Reportable 04/08/19 08:41 Not Reportable 04/08/19 08:41 Not Reportable 04/08/19 08:41 Not Reportable 04/08/19 08:41 Not Reportable 04/08/19 08:41 Not Reportable 04/08/19 08:41 Not Reportable 04/08/19 08:41 Not Reportable 04/08/19 08:41 Not Reportable 04/08/19 08:41 Not Reportable 04/08/19 08:41 Not Reportable 04/08/19 08:41 Not Reportable 04/08/19 08:41 Not Reportable 04/08/19 08:41 Acanthocytes (Spur) Not Reportable 04/08/19 08:41 [place]le[place] Not Reportable 04/08/19 08:41 Not Reportable 04/08/19 08:41 Not Reportable 04/08/19 08:41 Not Reportable 04/08/19 08:41 Not Reportable 04/08/19 08:41 Hem Pathologist Commnt No 04/08/19 08:41 PT 15.2 Sec. (12.2-14.9) H 04/08/19 12:29 INR 1.23 (0.87-1.13) H 04/08/19 12:29 APTT 31.1 Sec. (24.2-36.6) 04/08/19 12:29 355 mg/dl (211-480) 04/08/19 12:29 > 32675 ng/mlDDU (0-234) H 04/08/19 12:29 POC ABG pH 7.340 (7.35-7.45) L 04/08/19 05:34 POC ABG pCO2 32.0 (35-45) L 04/08/19 05:34 POC ABG pO2 103 (80-105) 04/08/19 05:34 POC ABG HCO3 17.3 (22-26 mml/L) 04/08/19 05:34 POC ABG Total CO2 18 (23-27mmol/L) 04/08/19 05:34 POC ABG O2 Sat 98 04/08/19 05:34 POC ABG Base Excess -8 ((-2) - (+3)mmol/L) 04/08/19 05:34 VBG pH 7.417 (7.320-7.420) 04/04/19 12:18 30 % 04/08/19 05:34 Sodium 149 mmol/L (137-145) H 04/09/19 05:27 Potassium 3.6 mmol/L (3.6-5.0) 04/09/19 05:27 Chloride 118.8 mmol/L (98-107) H 04/09/19 05:27 Carbon Dioxide 19 mmol/L (22-30) L 04/09/19 05:27 15 mmol/L 04/09/19 05:27 BUN 108 mg/dL (9-20) H 04/09/19 05:27 4.3 mg/dL (0.8-1.5) H 04/09/19 05:27 Estimated GFR 17 ml/min 04/09/19 05:27 25 % 04/09/19 05:27 Glucose 95 mg/dL (75-100) 04/09/19 05:27 Lactic Acid 2.80 mmol/L (0.7-2.0) H* 04/05/19 05:22 Calcium 6.7 mg/dL (8.4-10.2) L 04/09/19 05:27 Magnesium 1.50 mg/dL (1.7-2.3) L 04/04/19 13:53 0.60 mg/dL (0.1-1.2) 04/06/19 13:05 AST 355 units/L (5-40) H 04/06/19 13:05 ALT 76 units/L (7-56) H 04/06/19 13:05 71 units/L (35-129) 04/06/19 13:05 0.016 ng/mL (0.00-0.029) 04/04/19 12:18 6.9 g/dL (6.3-8.2) 04/06/19 13:05 3.1 g/dL (3.9-5) L 04/06/19 13:05 0.8 % 04/06/19 13:05 Yellow (Yellow) 04/04/19 Unknown Turbid (Clear) 04/04/19 Unknown 7.0 (5.0-7.0) 04/04/19 Unknown Ur Specific [place] 1.008 (1.003-1.030) 04/04/19 Unknown 100 mg/dl mg/dL (Negative) 04/04/19 Unknown Neg mg/dL (Negative) 04/04/19 Unknown Neg mg/dL (Negative) 04/04/19 Unknown Lg (Negative) 04/04/19 Unknown Neg (Negative) 04/04/19 Unknown Neg (Negative) 04/04/19 Unknown < 2.0 mg/dL (<2.0) 04/04/19 Unknown Ur Leukocyte Esterase Lg (Negative) 04/04/19 Unknown > 182.0 /HPF (0.0-6.0) H 04/04/19 Unknown 87.0 /HPF (0.0-6.0) 04/04/19 Unknown 2+ /HPF (Negative) 04/04/19 Unknown 3+ /HPF 04/04/19 Unknown Presumptive negative 04/04/19 Unknown Presumptive negative 04/04/19 Unknown Ur Barbiturates Screen Presumptive negative 04/04/19 Unknown Ur Phencyclidine Scrn Presumptive negative 04/04/19 Unknown Ur Amphetamines Screen Presumptive negative 04/04/19 Unknown U Benzodiazepines Scrn Presumptive negative 04/04/19 Unknown Presumptive negative 04/04/19 Unknown U Marijuana (THC) Screen Presumptive negative 04/04/19 Unknown Disclamer 04/04/19 Unknown HIV 1&2 Antibody Rapid Non react (Non React) 04/04/19 22:50 Non react (Non React) 04/04/19 22:50 Blood Type B POSITIVE 04/08/19 14:58 Antibody Screen Negative 04/08/19 14:58 Crossmatch See Detail 04/08/19 14:58 Active Medications - Current Medications Current Medications: Generic Name Dose Route Start Last Admin Trade Name Freq PRN Reason Stop Dose Admin Acetaminophen 650 mg 04/04/19 14:35 04/06/19 23:17 Tylenol PO 650 mg Q4H PRN Administration Pain MILD(1-3)/Fever >100.5/RIOJAS Albuterol 2.5 mg 04/04/19 14:35 Proventil IH Q4HRT PRN Shortness Of Breath Alprazolam 0.5 mg 04/04/19 13:43 Xanax PO DAILY PRN Anxiety Carbidopa/Levodopa 1 each 04/04/19 22:00 04/09/19 11:06 Sinemet PO 1 each BID ANDREZ Administration Docusate Sodium 100 mg 04/09/19 22:00 Colace PO BID ANDREZ Finasteride 5 mg 04/05/19 10:00 04/09/19 11:05 Proscar PO 5 mg QDAY ANDREZ Administration Hydrophilic Ointment 1 applic 04/07/19 23:24 Vaseline Lip Therapy TP Q2HR PRN Dry Lips Sodium Chloride 1,000 mls @ 100 mls/hr 04/05/19 17:00 04/08/19 17:42 Nacl 0.9% 1000 Ml IV 100 mls/hr DIRECT ANDREZ Administration Ceftriaxone Sodium 2 gm in 100 mls @ 200 mls/hr 04/06/19 15:00 04/09/19 10:41 Rocephin/Ns 2 Gm/100 Ml IV 200 mls/hr Q24HR ANDREZ Administration Protocol Norepinephrine 4 mg in 250 mls @ 7.5 mls/hr 04/08/19 13:00 04/09/19 01:00 Levophed Drip 4 Mg/Ns 250 Ml IV 0 mcg/min TITR ANDREZ 0 mls/hr Titration Protocol 2 MCG/MIN Sodium Chloride 1,000 mls @ 50 mls/hr 04/08/19 18:00 Nacl 0.9% 1000 Ml IV DIRECT ANDREZ Multi-Ingred Cream/Lotion/Oil/Oint 1 applic 04/07/19 23:24 Artificial Tears Ophth Oint OU Q4HR PRN Dry Eye(s) Ondansetron HCl 4 mg 04/04/19 14:35 04/06/19 13:43 Zofran IV 4 mg Q8H PRN Administration Nausea And Vomiting Pantoprazole Sodium 40 mg 04/10/19 10:00 Protonix PO QDAY ANDREZ Sodium Chloride 10 ml 04/04/19 22:00 04/09/19 11:07 Sodium Chloride Flush Syringe 10 Ml IV 10 ml BID ANDREZ Administration Sodium Chloride 10 ml 04/04/19 14:35 Sodium Chloride Flush Syringe 10 Ml IV PRN PRN LINE FLUSH Tamsulosin HCl 0.4 mg 04/05/19 10:00 04/09/19 11:07 Flomax PO 0.4 mg QDAY ANDREZ Administration Nutrition/Malnutrition Assess - Dietary Evaluation Nutrition/Malnutrition Findings: Nutrition Notes Start: 04/05/19 16:00 Freq: Status: Active Protocol: Document 04/08/19 08:44 LM (Rec: 04/08/19 08:52 LM [facility][id number]) Nutrition Notes Initial or Follow up Reassessment Current Diagnosis Acute Kidney Injury,Sepsis, Hypertension Other Pertinent Diagnosis Dementia, Parkinsons, UTI Current Diet NPO Labs/Tests BUN 79 Cr 4 Pertinent Medications Reviewed Height 5 ft 10 in Weight 108.3 kg [place]ha Body Weight (kg) 75.45 BMI 34.2 Subjective/Other Information MD consult to evaluate nutritional intake. Already following pt. Pt is on vent. Pt ht corrected. Burn Absent Trauma Absent Minimum of two criteria Yes #2 Nutrition Diagnosis Inadequate oral intake As Evidenced by Signs and Symptoms Pt on vent Diagnosis Progress(for reassessment Continues documentation) #1 Nutrition Diagnosis Malnutrition Diagnosis Progress(for reassessment Continues documentation) Is patient on ventilator? Yes Is Patient Ambulatory and/or Out of Bed No REE-([place]-confined to bed) 2259.948 Kcal/Kg value to use for calculation 17 Approximate Energy Requirements Using 1841 kcal/Kg Calculation Used for Recommendations Kcal/kg Additional Notes Protein: 151 g (>2g/kg IBW 75. 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
[2019-04-09 16:16] LABS: Hemoglobin 7.4 gm/dl (11.8-15.2)
[2019-04-09] MEDS: DOCUSATE SODIUM 100 MG CAP PO SCH (21:37)
[2019-04-09 21:57] LABS: Hemoglobin 7.5 gm/dl (11.8-15.2)
[2019-04-10 00:36] LABS: Hematocrit 21.8 % (35.5-45.6); Hemoglobin 7.2 gm/dl (11.8-15.2)
--- NOTE | 2019-04-10 03:15 | XRay Report ---
CHEST 1 VIEW 04/10/2019 2:46 AM INDICATION / CLINICAL INFORMATION: follow up respiratory failure. COMPARISON: 04/09/2019. FINDINGS: SUPPORT DEVICES: Stable satisfactory device positioning. HEART / MEDIASTINUM: Stable. LUNGS / PLEURA: Stable small left pleural effusion and left greater than right perihilar opacities. N o pneumothorax. ADDITIONAL FINDINGS: No significant additional findings. IMPRESSION: 1. No adverse change from the prior exam. Signer Name: Jon Naik MD Signed: 04/10/2019 3:11 AM Workstation Name: [facility]
[2019-04-10 05:59] LABS: Hematocrit 21.7 % (35.5-45.6); Hemoglobin 7.1 gm/dl (11.8-15.2); Mean Corpuscular HGB Conc 33 % (32-34); Mean Corpuscular Volume 83 fl (84-94); Red Cell Distribution Width 16.6 % (13.2-15.2)
[2019-04-10 06:02] LABS: Platelet Count 97 K/mm3 (140-440)
[2019-04-10 06:45] LABS: Total Cells Counted 100
[2019-04-10 06:46] LABS: Band Neutrophils # (Manual) 0.3 K/mm3; Basophils % (Manual) 0 % (0.0-1.8); Eosinophils % (Manual) 0 % (0.0-4.3)
[2019-04-10 06:48] LABS: Platelet Estimate Consistent w Auto
--- NOTE | 2019-04-10 09:58 | Gastroenterology Progress Note ---
<DEWAYNE DUKES - Last Filed: 04/10/19 10:02> Assessment and Plan 1.GI bleed/gross hematochezia -H/H 7.1/21.6-stable -continue to monitor H/H and transfuse as needed -s/p flex sig 04/08/19 that showed: normal sigmoid colon with overlying brown stool * Large amount of blood in the distal sigmoid and rectum with fresh blood and clots. This was carefully and thoroughly washed * Multiple small clean based ulcers in the rectum, uncertain etiology * 4mm ulcer in the rectum with active bleeding. Attempted placement of a clip, this did not stop the bleeding. 5cc 1:10,000 epinephrine was then injected in 1cc aliquots around the bleeding ulcer. Then a second clip was placed. At this point the bleeding slowed significantly. Lastly, gold probe was used to cauterize the area, and complete hemostasis was attained. * The distal 1.5cm of the rectal mucosa was completely eroded, though there was no active bleeding. Etiology unclear, nurse reported to trauma and no rectal tubes this admission -etiology of ulcers unclear- possible stercoral vs other -clinically, patient remains in ICU but now HD stable with no active signs of bl eeding overnight or this am. Denies abd pain or N/V. -okay to advance diet as tolerated -continue daily stool softener -continue PPI and supportive care -recommend repeat flex sig with bx as outpatient in 2-4 weeks once patient is fully stabilized -no further GI recommendations at this time -will sign off; please call immediately if rebleeds (will repeat flex sig with hemospray to treat area-if this failys will ask IR to intervene) Subjective Date of service: 04/10/19 Principal diagnosis: hematochezia Interval history: No acute distress or active signs of bleeding overnight or this am. Denies abd pain or N/V. Objective - Constitutional Vitals: Temp Pulse Resp BP Pulse Ox 98.2 F 91 H 26 H 155/87 100 04/10/19 08:00 04/10/19 08:16 04/10/19 08:16 04/10/19 08:16 04/10/19 08:39 General appearance: no acute distress - Respiratory Respiratory effort: normal - Cardiovascular Rhythm: regular - Gastrointestinal General gastrointestinal: Present: soft, non-tender, non-distended, normal bowel sounds - Neurologic Neurological: oriented to person - Labs CBC & Chem 7: 04/10/19 04:57 04/10/19 04:57 Labs: Laboratory Results - last 24 hr 04/09/19 04/09/19 04/09/19 05:27 05:27 05:55 WBC RBC Hgb 7.7 L 7.4 L Hct 23.1 L 22.3 L MCV MCH MCHC RDW Plt Count Add Manual Diff Total Counted Seg Neutrophils % Seg Neuts % (Manual) Band Neutrophils % Lymphocytes % (Manual) Reactive Lymphs % (Man) Monocytes % (Manual) Eosinophils % (Manual) Basophils % (Manual) Metamyelocytes % Myelocytes % Promyelocytes % Blast Cells % Nucleated RBC % Seg Neutrophils # Man Band Neutrophils # Lymphocytes # (Manual) Abs React Lymphs (Man) Monocytes # (Manual) Eosinophils # (Manual) Basophils # (Manual) Metamyelocytes # Myelocytes # Promyelocytes # Blast Cells # WBC Morphology Hypersegmented Neuts Hyposegmented Neuts Hypogranular Neuts Smudge Cells Toxic Granulation Toxic Vacuolation Dohle Bodies Pelger-Huet Anomaly Araseli Rods Platelet Estimate Clumped Platelets Plt Clumps, EDTA Large Platelets Giant Platelets Platelet Satelliting Plt Morphology Comment RBC Morphology Dimorphic RBCs Polychromasia Hypochromasia Poikilocytosis Anisocytosis Microcytosis Macrocytosis Spherocytes Pappenheimer Bodies Sickle Cells Target Cells Tear Drop Cells Ovalocytes Helmet Cells Reid-Hock[place] Bodies [place] Rings [place] Cells Bite Cells Crenated Cell Elliptocytes Acanthocytes (Spur) Rouleaux Hemoglobin C Crystals Schistocytes Malaria parasites Amilcar Bodies Hem Pathologist Commnt Sodium 149 H Potassium 3.6 Chloride 118.8 H Carbon Dioxide 19 L Anion Gap 15 BUN 108 H Creatinine 4.3 H Estimated GFR 17 BUN/Creatinine Ratio 25 Glucose 95 Calcium 6.7 L Triglycerides 04/09/19 04/09/19 04/10/19 15:15 21:30 00:23 WBC RBC Hgb 7.4 L 7.5 L 7.2 L Hct 23.0 L 23.0 L 21.8 L MCV MCH MCHC RDW Plt Count Add Manual Diff Total Counted Seg Neutrophils % Seg Neuts % (Manual) Band Neutrophils % Lymphocytes % (Manual) Reactive Lymphs % (Man) Monocytes % (Manual) Eosinophils % (Manual) Basophils % (Manual) Metamyelocytes % Myelocytes % Promyelocytes % Blast Cells % Nucleated RBC % Seg Neutrophils # Man Band Neutrophils # Lymphocytes # (Manual) Abs React Lymphs (Man) Monocytes # (Manual) Eosinophils # (Manual) Basophils # (Manual) Metamyelocytes # Myelocytes # Promyelocytes # Blast Cells # WBC Morphology Hypersegmented Neuts Hyposegmented Neuts Hypogranular Neuts Smudge Cells Toxic Granulation Toxic Vacuolation Dohle Bodies Pelger-Huet Anomaly Araseli Rods Platelet Estimate Clumped Platelets Plt Clumps, EDTA Large Platelets Giant Platelets Platelet Satelliting Plt Morphology Comment RBC Morphology Dimorphic RBCs Polychromasia Hypochromasia Poikilocytosis Anisocytosis Microcytosis Macrocytosis Spherocytes Pappenheimer Bodies Sickle Cells Target Cells Tear Drop Cells Ovalocytes Helmet Cells Reid-Hockessin Bodies [place] Rings Lorna Cells Bite Cells Crenated Cell Elliptocytes Acanthocytes (Spur) Rouleaux Hemoglobin C Crystals Schistocytes Malaria parasites Amilcar Bodies Hem Pathologist Commnt Sodium Potassium Chloride Carbon Dioxide Anion Gap BUN Creatinine Estimated GFR BUN/Creatinine Ratio Glucose Calcium Triglycerides 04/10/19 04/10/19 04:57 04:57 WBC 32.9 H RBC 2.60 L Hgb 7.1 L Hct 21.7 L MCV 83 L MCH 27 L MCHC 33 RDW 16.6 H Plt Count 97 L Add Manual Diff Complete Total Counted 100 Seg Neutrophils % Corporate Administrative Assistant Seg Neuts % (Manual) 89.0 H Band Neutrophils % 1.0 Lymphocytes % (Manual) 4.0 L Reactive Lymphs % (Man) 0 Monocytes % (Manual) 4.0 Eosinophils % (Manual) 0 Basophils % (Manual) 0 Metamyelocytes % 2.0 Myelocytes % 0 Promyelocytes % 0 Blast Cells % 0 Nucleated RBC % Not Reportable Seg Neutrophils # Man 29.3 H Band Neutrophils # 0.3 Lymphocytes # (Manual) 1.3 Abs React Lymphs (Man) 0.0 Monocytes # (Manual) 1.3 H Eosinophils # (Manual) 0.0 Basophils # (Manual) 0.0 Metamyelocytes # 0.7 Myelocytes # 0.0 Promyelocytes # 0.0 Blast Cells # 0.0 WBC Morphology Not Reportable Hypersegmented Neuts Not Reportable Hyposegmented Neuts Not Reportable Hypogranular Neuts Not Reportable Smudge Cells Not Reportable Toxic Granulation Not Reportable Toxic Vacuolation Not Reportable Dohle Bodies Not Reportable Pelger-Huet Anomaly Not Reportable Araseli Rods Not Reportable Platelet Estimate Consistent w auto Clumped Platelets Not Reportable Plt Clumps, EDTA Not Reportable Large Platelets Not Reportable Giant Platelets Not Reportable Platelet Satelliting Not Reportable Plt Morphology Comment Not Reportable RBC Morphology Not Reportable Dimorphic RBCs Not Reportable Polychromasia Not Reportable Hypochromasia Not Reportable Poikilocytosis Not Reportable Anisocytosis Not Reportable Microcytosis Few Macrocytosis Not Reportable Spherocytes Not Reportable Pappenheimer Bodies Not Reportable Sickle Cells Not Reportable Target Cells Not Reportable Tear Drop Cells Not Reportable Ovalocytes Not Reportable Helmet Cells Not Reportable Reid-Hockessin Bodies Not Reportable [place] Rings Not Reportable [place] Cells Not Reportable Bite Cells Not Reportable Crenated Cell Not Reportable Elliptocytes Few Acanthocytes (Spur) Not Reportable Rouleaux Not Reportable Hemoglobin C Crystals Not Reportable Schistocytes Not Reportable Malaria parasites Not Reportable Amilcar Bodies Not Reportable Hem Pathologist Commnt Sent to pathology Sodium 147 H Potassium 3.5 L Chloride 116.3 H Carbon Dioxide 20 L Anion Gap 14 BUN 108 H Creatinine 4.1 H Estimated GFR 18 BUN/Creatinine Ratio 26 Glucose 97 Calcium 7.0 L Triglycerides 126 <BRYSON OREILLY - Last Filed: 04/10/19 14:15> Assessment and Plan Patient seen and examined. I have reviewed the advanced practitioner's evaluation, assessment, and plan, and agree with them. I note the following additions: No more bleeding, will sign off, recommend repeat flex sig with bx as outpatient in 2-4 weeks once patient is fully stabilized - Patient Problems (1) Hematochezia Current Visit: Yes Status: Acute Objective - Constitutional Vitals: Temp Pulse Resp BP Pulse Ox 97.4 F L 86 22 146/85 100 04/10/19 12:00 04/10/19 12:16 04/10/19 12:16 04/10/19 12:16 04/10/19 12:16 - Labs CBC & Chem 7: 04/10/19 04:57 04/10/19 04:57 Labs: Laboratory Results - last 24 hr 04/09/19 04/09/19 04/10/19 15:15 21:30 00:23 WBC RBC Hgb 7.4 L 7.5 L 7.2 L Hct 23.0 L 23.0 L 21.8 L MCV MCH MCHC RDW Plt Count Add Manual Diff Total Counted Seg Neutrophils % Seg Neuts % (Manual) Band Neutrophils % Lymphocytes % (Manual) Reactive Lymphs % (Man) Monocytes % (Manual) Eosinophils % (Manual) Basophils % (Manual) Metamyelocytes % Myelocytes % Promyelocytes % Blast Cells % Nucleated RBC % Seg Neutrophils # Man Band Neutrophils # Lymphocytes # (Manual) Abs React Lymphs (Man) Monocytes # (Manual) Eosinophils # (Manual) Basophils # (Manual) Metamyelocytes # Myelocytes # Promyelocytes # Blast Cells # Pathologist Review WBC Morphology Hypersegmented Neuts Hyposegmented Neuts Hypogranular Neuts Smudge Cells Toxic Granulation Toxic Vacuolation Dohle Bodies Pelger-Huet Anomaly Araseli Rods Platelet Estimate Clumped Platelets Plt Clumps, EDTA Large Platelets Giant Platelets Platelet Satelliting Plt Morphology Comment RBC Morphology Dimorphic RBCs Polychromasia Hypochromasia Poikilocytosis Anisocytosis Microcytosis Macrocytosis Spherocytes Pappenheimer Bodies Sickle Cells Target Cells Tear Drop Cells Ovalocytes Helmet Cells Reid-Hockessin Bodies [place] Rings Lorna Cells Bite Cells Crenated Cell Elliptocytes Acanthocytes (Spur) Rouleaux Hemoglobin C Crystals Schistocytes Malaria parasites Amilcar Bodies Hem Pathologist Commnt Sodium Potassium Chloride Carbon Dioxide Anion Gap BUN Creatinine Estimated GFR BUN/Creatinine Ratio Glucose Calcium Triglycerides 04/10/19 04/10/19 04:57 04:57 WBC 32.9 H RBC 2.60 L Hgb 7.1 L Hct 21.7 L MCV 83 L MCH 27 L MCHC 33 RDW 16.6 H Plt Count 97 L Add Manual Diff Complete Total Counted 100 Seg Neutrophils % Corporate Administrative Assistant Seg Neuts % (Manual) 89.0 H Band Neutrophils % 1.0 Lymphocytes % (Manual) 4.0 L Reactive Lymphs % (Man) 0 Monocytes % (Manual) 4.0 Eosinophils % (Manual) 0 Basophils % (Manual) 0 Metamyelocytes % 2.0 Myelocytes % 0 Promyelocytes % 0 Blast Cells % 0 Nucleated RBC % Not Reportable Seg Neutrophils # Man 29.3 H Band Neutrophils # 0.3 Lymphocytes # (Manual) 1.3 Abs React Lymphs (Man) 0.0 Monocytes # (Manual) 1.3 H Eosinophils # (Manual) 0.0 Basophils # (Manual) 0.0 Metamyelocytes # 0.7 Myelocytes # 0.0 Promyelocytes # 0.0 Blast Cells # 0.0 Pathologist Review WBC Morphology Not Reportable Hypersegmented Neuts Not Reportable Hyposegmented Neuts Not Reportable Hypogranular Neuts Not Reportable Smudge Cells Not Reportable Toxic Granulation Not Reportable Toxic Vacuolation Not Reportable Dohle Bodies Not Reportable Pelger-Huet Anomaly Not Reportable Araseli Rods Not Reportable Platelet Estimate Consistent w auto Clumped Platelets Not Reportable Plt Clumps, EDTA Not Reportable Large Platelets Not Reportable Giant Platelets Not Reportable Platelet Satelliting Not Reportable Plt Morphology Comment Not Reportable RBC Morphology Not Reportable Dimorphic RBCs Not Reportable Polychromasia Not Reportable Hypochromasia Not Reportable Poikilocytosis Not Reportable Anisocytosis Not Reportable Microcytosis Few Macrocytosis Not Reportable Spherocytes Not Reportable Pappenheimer Bodies Not Reportable Sickle Cells Not Reportable Target Cells Not Reportable Tear Drop Cells Not Reportable Ovalocytes Not Reportable Helmet Cells Not Reportable Reid-Hockessin Bodies Not Reportable [place] Rings Not Reportable [place] Cells Not Reportable Bite Cells Not Reportable Crenated Cell Not Reportable Elliptocytes Few Acanthocytes (Spur) Not Reportable Rouleaux Not Reportable Hemoglobin C Crystals Not Reportable Schistocytes Not Reportable Malaria parasites Not Reportable Amilcar Bodies Not Reportable Hem Pathologist Commnt Sent to pathology Sodium 147 H Potassium 3.5 L Chloride 116.3 H Carbon Dioxide 20 L Anion Gap 14 BUN 108 H Creatinine 4.1 H Estimated GFR 18 BUN/Creatinine Ratio 26 Glucose 97 Calcium 7.0 L Triglycerides 126
[2019-04-10] MEDS: TAMSULOSIN 0.4 MG CAP PO SCH (10:59)
[2019-04-10] MEDS: cefTRIAXone/NS 2 GM/100 ML 2 GM/100 ML BAG IV SCH (10:59)
[2019-04-10] MEDS: PANTOPRAZOLE 40 MG TAB PO SCH (10:59)
[2019-04-10] MEDS: DOCUSATE SODIUM 100 MG CAP PO SCH ×2 (10:59→22:56)
[2019-04-10] MEDS: CARBIDOPA/LEVODOPA 25-250 TAB PO SCH ×2 (10:59→22:56)
[2019-04-10] MEDS: FINASTERIDE 5 MG TAB PO SCH (10:59)
--- NOTE | 2019-04-10 11:16 | Progress Note ---
Assessment and Plan 64 y/o male with sepsis from urinary source and hydronephrosis s/p percutaneous nephrostomy tubes, now with lower GI bleed from rectum 1. Can likely go back to daily CBC 2. Transfuse if less than 7 3. Abx per ID 4. Continue supportive care 5. Will order PT consult with specific instructions that ok to work with given HgB less than 8 6. STable for transfer to the floor. Subjective Date of service: 04/10/19 Principal diagnosis: hematochezia Interval history: No acute events. No further bleeding. HgB has been stable. Mental status is stable. BP stable to elevated. Objective Vital Signs - 12hr 04/09/19 04/09/19 04/09/19 23:16 23:30 23:46 Temperature Pulse Rate 97 H 95 H 95 H Pulse Rate [ Right] Respiratory 28 H 27 H 26 H Rate Blood Pressure 141/90 141/90 141/90 O2 Sat by Pulse 100 100 100 Oximetry 04/10/19 04/10/19 04/10/19 00:00 00:16 00:30 Temperature Pulse Rate 98 H 91 H 93 H Pulse Rate [ 98 H Right] Respiratory 33 H 21 20 Rate Blood Pressure 157/88 157/88 157/88 O2 Sat by Pulse 99 100 100 Oximetry 04/10/19 04/10/19 04/10/19 00:46 01:00 01:16 Temperature Pulse Rate 90 91 H 91 H Pulse Rate [ Right] Respiratory 22 22 18 Rate Blood Pressure 157/88 134/69 134/69 O2 Sat by Pulse 100 100 100 Oximetry 04/10/19 04/10/19 04/10/19 01:30 01:46 02:00 Temperature Pulse Rate 91 H 99 H 97 H Pulse Rate [ 97 H Right] Respiratory 18 33 H 33 H Rate Blood Pressure 134/69 134/69 148/86 O2 Sat by Pulse 100 100 99 Oximetry 04/10/19 04/10/19 04/10/19 02:16 02:30 02:46 Temperature Pulse Rate 98 H 98 H 97 H Pulse Rate [ Right] Respiratory 34 H 32 H 33 H Rate Blood Pressure 148/86 148/86 148/86 O2 Sat by Pulse 99 100 100 Oximetry 04/10/19 04/10/19 04/10/19 03:00 03:16 03:30 Temperature Pulse Rate 96 H 96 H 104 H Pulse Rate [ Right] Respiratory 31 H 30 H 45 H Rate Blood Pressure 136/81 136/81 136/81 O2 Sat by Pulse 100 99 98 Oximetry 04/10/19 04/10/19 04/10/19 03:46 03:47 04:00 Temperature 99.7 F H Pulse Rate 92 H 94 H Pulse Rate [ 97 H Right] Respiratory 23 28 H Rate Blood Pressure 136/81 126/79 O2 Sat by Pulse 99 100 Oximetry 04/10/19 04/10/19 04/10/19 04:16 04:30 04:46 Temperature Pulse Rate 93 H 91 H 91 H Pulse Rate [ Right] Respiratory 19 18 18 Rate Blood Pressure 126/79 126/79 126/79 O2 Sat by Pulse 99 100 99 Oximetry 04/10/19 04/10/19 04/10/19 05:00 05:16 05:30 Temperature Pulse Rate 85 93 H 92 H Pulse Rate [ Right] Respiratory 30 H 30 H 22 Rate Blood Pressure 156/88 156/88 156/88 O2 Sat by Pulse 100 100 100 Oximetry 04/10/19 04/10/19 04/10/19 05:46 06:00 06:16 Temperature Pulse Rate 92 H 93 H 90 Pulse Rate [ 98 H Right] Respiratory 25 H 29 H 17 Rate Blood Pressure 156/88 141/85 141/85 O2 Sat by Pulse 100 100 99 Oximetry 04/10/19 04/10/19 04/10/19 06:30 06:46 07:00 Temperature Pulse Rate 89 90 91 H Pulse Rate [ Right] Respiratory 18 18 26 H Rate Blood Pressure 141/85 141/85 144/76 O2 Sat by Pulse 100 99 100 Oximetry 04/10/19 04/10/19 04/10/19 07:16 07:30 07:46 Temperature Pulse Rate 93 H 93 H 91 H Pulse Rate [ Right] Respiratory 23 29 H 26 H Rate Blood Pressure 144/76 144/76 144/76 O2 Sat by Pulse 100 99 100 Oximetry 04/10/19 04/10/19 04/10/19 08:00 08:16 08:30 Temperature 98.2 F Pulse Rate 93 H 91 H 91 H Pulse Rate [ 92 H Right] Respiratory 28 H 26 H 29 H Rate Blood Pressure 155/87 155/87 155/87 O2 Sat by Pulse 100 100 100 Oximetry 04/10/19 04/10/19 04/10/19 08:39 08:46 09:00 Temperature Pulse Rate 91 H 90 Pulse Rate [ Right] Respiratory 25 H 29 H Rate Blood Pressure 155/87 150/78 O2 Sat by Pulse 100 100 100 Oximetry 04/10/19 04/10/19 04/10/19 09:16 09:30 09:46 Temperature Pulse Rate 88 88 91 H Pulse Rate [ Right] Respiratory 16 17 28 H Rate Blood Pressure 150/78 150/78 150/78 O2 Sat by Pulse 100 100 99 Oximetry 04/10/19 04/10/19 04/10/19 10:00 10:16 10:30 Temperature Pulse Rate 94 H 91 H 92 H Pulse Rate [ Right] Respiratory 32 H 31 H 30 H Rate Blood Pressure 160/87 160/87 160/87 O2 Sat by Pulse 100 100 100 Oximetry Constitutional: no acute distress, alert Eyes: non-icteric ENT: other (orally intubated and sedated) Neck: supple, other (large in circumference) Effort: normal Ascultation: Bilateral: clear Percussion: Bilateral: not dull Cardiovascular: regular rate and rhythm Gastrointestinal: normoactive bowel sounds, soft, other (obese) Extremities: edema Neurologic: non-focal exam CBC and BMP: 04/10/19 04:57 04/10/19 04:57 ABG, PT/INR, D-dimer: ABG POC ABG pH 7.340 (7.35-7.45) L 04/08/19 05:34 POC ABG pCO2 32.0 (35-45) L 04/08/19 05:34 POC ABG pO2 103 (80-105) 04/08/19 05:34 POC ABG HCO3 17.3 (22-26 mml/L) 04/08/19 05:34 POC ABG Total CO2 18 (23-27mmol/L) 04/08/19 05:34 POC ABG O2 Sat 98 04/08/19 05:34 PT/INR, D-dimer PT 15.2 Sec. (12.2-14.9) H 04/08/19 12:29 INR 1.23 (0.87-1.13) H 04/08/19 12:29 > 43465 ng/mlDDU (0-234) H 04/08/19 12:29 Abnormal lab findings: Abnormal Labs 0904/04/19 04/04/19 12:18 12:18 12:18 WBC 1.0 L* RBC Hgb Hct MCV MCH MCHC RDW Plt Count Seg Neutrophils % 83.5 H Seg Neuts % (Manual) 80.0 H Lymphocytes % (Manual) 12.0 L Seg Neutrophils # 0.8 L Seg Neutrophils # Man 0.8 L Lymphocytes # (Manual) 0.1 L Monocytes # (Manual) Basophils # (Manual) PT INR 1.16 H D-Dimer POC ABG pH POC ABG pCO2 POC ABG pO2 Sodium Potassium 3.2 L Chloride Carbon Dioxide BUN Creatinine Glucose 105 H Lactic Acid Calcium Magnesium AST ALT Total Protein Albumin 3.7 L Urine WBC (Auto) Crossmatch 04/04/19 04/04/19 04/04/19 12:18 13:53 13:53 WBC RBC Hgb Hct MCV MCH MCHC RDW Plt Count Seg Neutrophils % Seg Neuts % (Manual) Lymphocytes % (Manual) Seg Neutrophils # Seg Neutrophils # Man Lymphocytes # (Manual) Monocytes # (Manual) Basophils # (Manual) PT INR D-Dimer POC ABG pH POC ABG pCO2 POC ABG pO2 Sodium Potassium Chloride Carbon Dioxide BUN Creatinine Glucose Lactic Acid 6.40 H* 6.00 H* Calcium Magnesium 1.50 L AST ALT Total Protein Albumin Urine WBC (Auto) Crossmatch 04/04/19 04/04/19 04/05/19 22:50 Unknown 05:22 WBC 17.9 H RBC Hgb Hct MCV MCH MCHC 35 H RDW Plt Count Seg Neutrophils % Seg Neuts % (Manual) 93.0 H Lymphocytes % (Manual) 2.0 L Seg Neutrophils # Seg Neutrophils # Man 16.6 H Lymphocytes # (Manual) 0.4 L Monocytes # (Manual) Basophils # (Manual) 0.2 H PT INR D-Dimer POC ABG pH POC ABG pCO2 POC ABG pO2 Sodium Potassium Chloride Carbon Dioxide BUN Creatinine Glucose Lactic Acid 5.40 H* Calcium Magnesium AST ALT Total Protein Albumin Urine WBC (Auto) > 182.0 H Crossmatch 04/05/19 04/05/19 04/06/19 05:22 05:22 13:05 WBC 29.2 H RBC Hgb Hct MCV MCH MCHC RDW Plt Count 133 L Seg Neutrophils % Seg Neuts % (Manual) Lymphocytes % (Manual) 2.0 L Seg Neutrophils # Seg Neutrophils # Man 19.6 H Lymphocytes # (Manual) 0.6 L Monocytes # (Manual) 0.9 H Basophils # (Manual) PT INR D-Dimer POC ABG pH POC ABG pCO2 POC ABG pO2 Sodium Potassium 3.0 L Chloride Carbon Dioxide 19 L BUN 34 H Creatinine 2.4 H D Glucose 72 L Lactic Acid 2.80 H* Calcium 7.6 L Magnesium AST 250 H ALT 108 H Total Protein 6.2 L Albumin 3.2 L Urine WBC (Auto) Crossmatch 04/06/19 04/07/19 04/07/19 13:05 04:55 04:55 WBC 22.6 H RBC Hgb Hct MCV MCH MCHC RDW Plt Count 95 L Seg Neutrophils % Seg Neuts % (Manual) 96.0 H Lymphocytes % (Manual) 2.0 L Seg Neutrophils # Seg Neutrophils # Man 21.7 H Lymphocytes # (Manual) 0.5 L Monocytes # (Manual) Basophils # (Manual) PT INR D-Dimer POC ABG pH POC ABG pCO2 POC ABG pO2 Sodium Potassium Chloride 108.7 H Carbon Dioxide 16 L 18 L BUN 68 H 79 H Creatinine 3.6 H 4.0 H Glucose Lactic Acid Calcium 6.9 L 6.7 L Magnesium AST 355 H ALT 76 H Total Protein Albumin 3.1 L Urine WBC (Auto) Crossmatch 04/07/19 04/08/19 04/08/19 23:44 05:34 08:41 WBC 21.0 H RBC Hgb 10.7 L Hct 32.2 L MCV 83 L MCH MCHC RDW Plt Count 71 L Seg Neutrophils % Seg Neuts % (Manual) 94.0 H Lymphocytes % (Manual) 4.0 L Seg Neutrophils # Seg Neutrophils # Man 19.7 H Lymphocytes # (Manual) 0.8 L Monocytes # (Manual) Basophils # (Manual) PT INR D-Dimer POC ABG pH 7.207 L 7.340 L POC ABG pCO2 48.6 H 32.0 L POC ABG pO2 130 H Sodium Potassium Chloride Carbon Dioxide BUN Creatinine Glucose Lactic Acid Calcium Magnesium AST ALT Total Protein Albumin Urine WBC (Auto) Crossmatch 04/08/19 04/08/19 04/08/19 08:41 10:51 12:29 WBC RBC Hgb 9.9 L Hct 29.3 L MCV MCH MCHC RDW Plt Count Seg Neutrophils % Seg Neuts % (Manual) Lymphocytes % (Manual) Seg Neutrophils # Seg Neutrophils # Man Lymphocytes # (Manual) Monocytes # (Manual) Basophils # (Manual) PT 15.2 H INR 1.23 H D-Dimer > 96317 H POC ABG pH POC ABG pCO2 POC ABG pO2 Sodium Potassium Chloride 108.6 H Carbon Dioxide 18 L BUN 96 H Creatinine 4.5 H Glucose Lactic Acid Calcium 6.7 L Magnesium AST ALT Total Protein Albumin Urine WBC (Auto) Crossmatch 04/08/19 04/08/19 04/09/19 14:58 17:36 02:30 WBC RBC Hgb 7.1 L 7.7 L Hct 21.6 L D 23.2 L MCV MCH MCHC RDW Plt Count Seg Neutrophils % Seg Neuts % (Manual) Lymphocytes % (Manual) Seg Neutrophils # Seg Neutrophils # Man Lymphocytes # (Manual) Monocytes # (Manual) Basophils # (Manual) PT INR D-Dimer POC ABG pH POC ABG pCO2 POC ABG pO2 Sodium Potassium Chloride Carbon Dioxide BUN Creatinine Glucose Lactic Acid Calcium Magnesium AST ALT Total Protein Albumin Urine WBC (Auto) Crossmatch See Detail 04/09/19 04/09/19 04/09/19 05:27 05:27 05:55 WBC RBC Hgb 7.7 L 7.4 L Hct 23.1 L 22.3 L MCV MCH MCHC RDW Plt Count Seg Neutrophils % Seg Neuts % (Manual) Lymphocytes % (Manual) Seg Neutrophils # Seg Neutrophils # Man Lymphocytes # (Manual) Monocytes # (Manual) Basophils # (Manual) PT INR D-Dimer POC ABG pH POC ABG pCO2 POC ABG pO2 Sodium 149 H Potassium Chloride 118.8 H Carbon Dioxide 19 L BUN 108 H Creatinine 4.3 H Glucose Lactic Acid Calcium 6.7 L Magnesium AST ALT Total Protein Albumin Urine WBC (Auto) Crossmatch 04/09/19 04/09/19 04/10/19 15:15 21:30 00:23 WBC RBC Hgb 7.4 L 7.5 L 7.2 L Hct 23.0 L 23.0 L 21.8 L MCV MCH MCHC RDW Plt Count Seg Neutrophils % Seg Neuts % (Manual) Lymphocytes % (Manual) Seg Neutrophils # Seg Neutrophils # Man Lymphocytes # (Manual) Monocytes # (Manual) Basophils # (Manual) PT INR D-Dimer POC ABG pH POC ABG pCO2 POC ABG pO2 Sodium Potassium Chloride Carbon Dioxide BUN Creatinine Glucose Lactic Acid Calcium Magnesium AST ALT Total Protein Albumin Urine WBC (Auto) Crossmatch 04/10/19 04/10/19 04:57 04:57 WBC 32.9 H RBC 2.60 L Hgb 7.1 L Hct 21.7 L MCV 83 L MCH 27 L MCHC RDW 16.6 H Plt Count 97 L Seg Neutrophils % Seg Neuts % (Manual) 89.0 H Lymphocytes % (Manual) 4.0 L Seg Neutrophils # Seg Neutrophils # Man 29.3 H Lymphocytes # (Manual) Monocytes # (Manual) 1.3 H Basophils # (Manual) PT INR D-Dimer POC ABG pH POC ABG pCO2 POC ABG pO2 Sodium 147 H Potassium 3.5 L Chloride 116.3 H Carbon Dioxide 20 L BUN 108 H Creatinine 4.1 H Glucose Lactic Acid Calcium 7.0 L Magnesium AST ALT Total Protein Albumin Urine WBC (Auto) Crossmatch
--- NOTE | 2019-04-10 11:57 | Consultation ---
History of Present Illness - Reason for Consult Consult date: 04/10/19 acute renal failure - History of Present Illness patient was admitted on 04/04/19 for severe sepsis secondary to UTI and was found to have left hydronephosis and underwent nephrostomy tube placement, he also had rectal bleeding required transfusion and GI evaluation for colonoscopy, his creatinine noted to be rising slowly and renal consult was requested Past History Past Medical History: arthritis, hypertension, other (Dementia,Parkinsons Disease, BPH) Past Surgical History: total knee replacement, Other (Prostate biopsy, Eye surgery) Social history: single, lives with family. denies: smoking, alcohol abuse, prescription drug abuse Family history: hypertension Medications and Allergies Allergies Allergy/AdvReac Type Severity Reaction Status Date / Time No Known Allergies Allergy Verified 06/05/18 08:22 Home Medications Medication Instructions Recorded Confirmed Last Taken Type ALPRAZolam [Xanax] 0.5 tab PO DAILY PRN #6 tablet 08/04/18 04/04/19 Unknown Rx Carbidopa/Levodopa 25-250 [Sinemet 1 each PO BID #60 tablet 08/04/18 04/04/19 Unknown Rx 25/250] Tamsulosin [Flomax] 0.4 mg PO QDAY #30 cap 08/04/18 04/04/19 Unknown Rx amLODIPine [Norvasc] 5 mg PO DAILY #30 tablet 08/04/18 04/04/19 Unknown Rx Finasteride 1 mg PO DAILY 04/04/19 04/04/19 Unknown History Hydrochlorothiazide 25 mg PO DAILY 04/04/19 04/04/19 Unknown History Lisinopril 20 mg PO DAILY 04/04/19 04/04/19 Unknown History Losartan 50 mg PO DAILY 04/04/19 04/04/19 Unknown History Valsartan 320 mg PO DAILY 04/04/19 04/04/19 Unknown History Active Meds: Active Medications Acetaminophen (Tylenol) 650 mg PO Q4H PRN PRN Reason: Pain MILD(1-3)/Fever >100.5/RIOJAS Last Admin: 04/06/19 23:17 Dose: 650 mg Documented by: Albuterol (Proventil) 2.5 mg IH Q4HRT PRN PRN Reason: Shortness Of Breath Alprazolam (Xanax) 0.5 mg PO DAILY PRN PRN Reason: Anxiety Carbidopa/Levodopa (Sinemet) 1 each PO BID [facility] Last Admin: 04/10/19 10:59 Dose: 1 each Documented by: Docusate Sodium (Colace) 100 mg PO BID [facility] Last Admin: 04/10/19 10:59 Dose: 100 mg Documented by: Finasteride (Proscar) 5 mg PO QDAY [facility] Last Admin: 04/10/19 10:59 Dose: 5 mg Documented by: Hydrophilic Ointment (Vaseline Lip Therapy) 1 applic TP Q2HR PRN PRN Reason: Dry Lips Ceftriaxone Sodium (Rocephin/Ns 2 Gm/100 Ml) 2 gm in 100 mls @ 200 mls/hr IV Q24HR [facility]; Protocol Last Admin: 04/10/19 10:59 Dose: 200 mls/hr Documented by: Norepinephrine (Levophed Drip 4 Mg/Ns 250 Ml) 4 mg in 250 mls @ 7.5 mls/hr IV TITR [facility]; Protocol Last Titration: 04/09/19 01:00 Dose: 0 mcg/min, 0 mls/hr Documented by: Multi-Ingred Cream/Lotion/Oil/Oint (Artificial Tears Ophth Oint) 1 applic OU Q4HR PRN PRN Reason: Dry Eye(s) Ondansetron HCl (Zofran) 4 mg IV Q8H PRN PRN Reason: Nausea And Vomiting Last Admin: 04/06/19 13:43 Dose: 4 mg Documented by: Pantoprazole Sodium (Protonix) 40 mg PO QDAY [facility] Last Admin: 04/10/19 10:59 Dose: 40 mg Documented by: Sodium Chloride (Sodium Chloride Flush Syringe 10 Ml) 10 ml IV BID [facility] Last Admin: 04/10/19 11:00 Dose: 10 ml Documented by: Sodium Chloride (Sodium Chloride Flush Syringe 10 Ml) 10 ml IV PRN PRN PRN Reason: LINE FLUSH Tamsulosin HCl (Flomax) 0.4 mg PO QDAY [facility] Last Admin: 04/10/19 10:59 Dose: 0.4 mg Documented by: Review of Systems All systems: negative (weakness) Exam - Vital Signs Vital signs: Vital Signs Temp Pulse BP Pulse Ox 98.3 F 100 H 99/53 96 04/04/19 11:40 04/04/19 11:40 04/04/19 11:40 04/04/19 11:40 - General Appearance General appearance: well-developed, well-nourished EENT: ATNC, PERRL, mucous membranes moist Neck: Present: neck supple Respiratory: Clear to Ascultation Heart: regular, S1S2 Gastrointestinal: Present: normoactive bowel sounds. Absent: tenderness, distended Integumentary: no rash, warm and dry Neurologic: no focal deficit, no asterixis Musculoskeletal: Present: other (trace pitting edema in BLE) Psychiatric: cooperative Results - Lab Results 04/10/19 04:57 04/10/19 04:57 Most recent lab results Calcium 7.0 mg/dL (8.4-10.2) L 04/10/19 04:57 Magnesium 1.50 mg/dL (1.7-2.3) L 04/04/19 13:53 Assessment and Plan acute kidney injury secondary to ischemic ATN Left hydronephrosis s/p nephrostomy tube GI bleed, s/p transfusion, followed by GI Sepsis on broad spectrum abx, followed by ID Acidosis secondary to renal failure Hypernatremia due to decreased oral fluid intake - will check urine lytes, eos and protein - appears volume overloaded, no indication for IVF for now - currnelty non-oliguric, 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
--- NOTE | 2019-04-10 12:01 | Progress Note ---
Assessment and Plan Cultures: Blood culture and urine culture: Klebsiella pneumoniae 04/07/2019 left kidney: no growth 04/07/2019 sputum: usual resp everett Assessment: 64 y/o male with Parkinson, BPH with a indwelling daniel and previous UTI admitted with: 1) Severe Sepsis secondary to Klebsiella bacteremia from UTI: CXR negative. Daniel was exchanged in the ED. History of previous UTIs. CT showed ?bladder lesion with left renal hydronephrosis. Urology and IR following, underwent perc neph. by IR on 04/07/2019. 2) Acute encephalopathy due to #1: improving. 3) MYCHAL: creatinine high. Renally dose abx. 4) Neutropenia has resolved. Now has Leukemoid reaction. 5) Acute blood loss anemia, secondary to LGI Bleed: s/p flex sig, found to have bleeding rectal ulcer. Recommendations: clinically stable. Leukemoid reaction is probably reactive from GI bleed. No fever. continue IV Ceftriaxone, once improved, can d/c on PO abx. Plan for 7 days of abx from the date of nephrostomy placement (end date for abx: 04/14/2019) Hay Benitez MD, FACP [facility] ([facility] M: [phone] O: [phone] F: [phone] Subjective Date of service: 04/10/19 Principal diagnosis: hematochezia Interval history: No fever. No new complaints. Adequate urine output per RN. Patient feels well. No new GI bleed. Objective - Exam Narrative Exam: Physical Exam: Constitutional: Alert, awake Head, Ears, Nose: Normocephalic, atraumatic. External ears, nose normal Eyes: Conjunctivae/corneas clear. No icterus. No ptosis. Neck: Supple, no meningeal signs Cardiovascular: S1, S2 normal. Respiratory: Good air entry, clear to auscultation bilaterally GI: Soft, non-tender; bowel sounds normal. No peritoneal signs. Condom cath +, left sided nephrostomy + Musculoskeletal: pedal edema +, no cyanosis. Skin: No rash or abscess Hem/Lymphatic: No palpable cervical or supraclavicular nodes. No lymphangitis Psych: no agitation Neurological: Awake, alert. Tremors + - Constitutional Vitals: Vital Signs Temp Pulse Resp BP Pulse Ox 98.2 F 92 H 30 H 160/87 100 04/10/19 08:00 04/10/19 10:30 04/10/19 10:30 04/10/19 10:30 04/10/19 10:30 Temperature -Last 24 Hours Temperature 98.2 F Temperature 99.7 F Temperature 98.5 F Temperature 98.1 F Temperature 97.6 F Temperature 97.9 F Temperature 97.9 F - Labs CBC & Chem 7: 04/10/19 04:57 04/10/19 04:57 Labs: Abnormal lab results 04/09/19 04/09/19 04/09/19 Range/Units 05:27 15:15 21:30 WBC (4.5-11.0) K/mm3 RBC (3.65-5.03) M/mm3 Hgb 7.4 L 7.5 L (11.8-15.2) gm/dl Hct 23.0 L 23.0 L (35.5-45.6) % MCV (84-94) fl MCH (28-32) pg RDW (13.2-15.2) % Plt Count (140-440) K/mm3 Seg Neuts % (Manual) (40.0-70.0) % Lymphocytes % (Manual) (13.4-35.0) % Seg Neutrophils # Man (1.8-7.7) K/mm3 Monocytes # (Manual) (0.0-0.8) K/mm3 Sodium 149 H (137-145) mmol/L Potassium (3.6-5.0) mmol/L Chloride 118.8 H (98-107) mmol/L Carbon Dioxide 19 L (22-30) mmol/L BUN 108 H (9-20) mg/dL Creatinine 4.3 H (0.8-1.5) mg/dL Calcium 6.7 L (8.4-10.2) mg/dL 04/10/19 04/10/19 04/10/19 Range/Units 00:23 04:57 04:57 WBC 32.9 H (4.5-11.0) K/mm3 RBC 2.60 L (3.65-5.03) M/mm3 Hgb 7.2 L 7.1 L (11.8-15.2) gm/dl Hct 21.8 L 21.7 L (35.5-45.6) % MCV 83 L (84-94) fl MCH 27 L (28-32) pg RDW 16.6 H (13.2-15.2) % Plt Count 97 L (140-440) K/mm3 Seg Neuts % (Manual) 89.0 H (40.0-70.0) % Lymphocytes % (Manual) 4.0 L (13.4-35.0) % Seg Neutrophils # Man 29.3 H (1.8-7.7) K/mm3 Monocytes # (Manual) 1.3 H (0.0-0.8) K/mm3 Sodium 147 H (137-145) mmol/L Potassium 3.5 L (3.6-5.0) mmol/L Chloride 116.3 H (98-107) mmol/L Carbon Dioxide 20 L (22-30) mmol/L BUN 108 H (9-20) mg/dL Creatinine 4.1 H (0.8-1.5) mg/dL Calcium 7.0 L (8.4-10.2) mg/dL
--- NOTE | 2019-04-10 14:32 | Progress Note ---
Assessment and Plan Assessment and plan: 64 y/o male with a hx of parkinsons and UTI requiring hospitlization in Jul 2018. He states he has similar sx. He has been unable to get OOB since last admission. Sits ordinarily-- can walk. Presents with SIRS criteria and can't stop shaking. Has UTI. Patient was taken to OR yesterday and patient desat and not able to tolerate the procedure with out intubation, patient was intubated 04/07/[address] and transferred to ICU. patient extubated on 04/08/19 Rectal bleeding - Patient had massive rectal bleeding with hemodynamic compromise and significant drop in H&H - Patient was transfused 4 units of blood, FFP - GI did emergent flexible sigmoidoscopy and found patient has a rectal ulcers with active bleeding and stopped it - We'll follow H&H closely, will transfuse as needed\ Severe anemia secondary to acute blood loss anemia - Patient has hgb 7.1 this morning - Will transfuse him if hgb drop below 7 or symptomatic (1) Sepsis secondary to GI Current Visit: Yes Status: Acute Plan to address problem: Sec to UTI On Cefepime ID consult appreciated Aspiration pneumonia, UTI - continue with Iv antibiotics Per ID - patient was intubated 04/07 and extubated 04/08 Acute renal failure secondary to ATN - CT abdomen and pelvis there is a lesion in the bladder with left hydronephrosis - urology was consulted and Nephrostomy tube was done yesterday by IR - Nephrology is following, no 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 (5) Dementia - CT head is normal - Continue supportive care (6) Debility - supportive care - PT/OT when stable (7) Neutropenia Resolved Now Leukocytosis (8) DVT prophylaxis Current Visit: Yes Status: Acute Plan to address problem: SCD to BLE while in bed Disposition; transfer the patient to the floor. History Interval history: patient was seen and evaluated, Patient is stable today, alert and oriented. Hospitalist Physical - Physical exam Narrative exam: Patient is not in cardiopulmonary distress. The patient is obese. Vital signs as documented. Head exam is unremarkable. No scleral icterus . Neck is without jugular venous distension, thyromegaly, or carotid bruits. Lungs intubated on MV. Cardiac exam reveals regular rate and Rhythm. Abdominal exam reveals normal bowel sounds. There is left nephrostomy tube. Extremities are nonedematous. 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 No focal weakness. - Constitutional Vitals: Temp Pulse Resp BP Pulse Ox 97.4 F L 86 22 146/85 100 04/10/19 12:00 04/10/19 12:16 04/10/19 12:16 04/10/19 12:16 04/10/19 12:16 General appearance: Present: no acute distress, other (A&O x0) Results - Labs CBC & Chem 7: 04/10/19 04:57 04/10/19 04:57 Labs: Laboratory Last Values WBC 32.9 K/mm3 (4.5-11.0) H 04/10/19 04:57 RBC 2.60 M/mm3 (3.65-5.03) L 04/10/19 04:57 Hgb 7.1 gm/dl (11.8-15.2) L 04/10/19 04:57 Hct 21.7 % (35.5-45.6) L 04/10/19 04:57 MCV 83 fl (84-94) L 04/10/19 04:57 MCH 27 pg (28-32) L 04/10/19 04:57 MCHC 33 % (32-34) 04/10/19 04:57 RDW 16.6 % (13.2-15.2) H 04/10/19 04:57 Plt Count 97 K/mm3 (140-440) L 04/10/19 04:57 [place] % (Auto) 1.4 % (0.0-7.3) 04/04/19 12:18 Eos % (Auto) 0.1 % (0.0-4.3) 04/04/19 12:18 [place] # 0.0 K/mm3 (0.0-0.8) 04/04/19 12:18 Eos # 0.0 K/mm3 (0.0-0.4) 04/04/19 12:18 Baso # 0.0 K/mm3 (0.0-0.1) 04/04/19 12:18 Add Manual Diff Complete 04/10/19 04:57 Total Counted 100 04/10/19 04:57 Seg Neutrophils % Clean Room Assembler 04/10/19 04:57 Seg Neuts % (Manual) 89.0 % (40.0-70.0) H 04/10/19 04:57 1.0 % 04/10/19 04:57 4.0 % (13.4-35.0) L 04/10/19 04:57 Reactive Lymphs % (Man) 0 % 04/10/19 04:57 4.0 % (0.0-7.3) 04/10/19 04:57 0 % (0.0-4.3) 04/10/19 04:57 0 % (0.0-1.8) 04/10/19 04:57 2.0 % 04/10/19 04:57 0 % 04/10/19 04:57 0 % 04/10/19 04:57 0 % 04/10/19 04:57 Nucleated RBC % Not Reportable 04/10/19 04:57 Seg Neutrophils # 0.8 K/mm3 (1.8-7.7) L 04/04/19 12:18 Seg Neutrophils # Man 29.3 K/mm3 (1.8-7.7) H 04/10/19 04:57 Band Neutrophils # 0.3 K/mm3 04/10/19 04:57 1.3 K/mm3 (1.2-5.4) 04/10/19 04:57 Abs React Lymphs (Man) 0.0 K/mm3 04/10/19 04:57 1.3 K/mm3 (0.0-0.8) H 04/10/19 04:57 0.0 K/mm3 (0.0-0.4) 04/10/19 04:57 0.0 K/mm3 (0.0-0.1) 04/10/19 04:57 0.7 K/mm3 04/10/19 04:57 0.0 K/mm3 04/10/19 04:57 0.0 K/mm3 04/10/19 04:57 Blast Cells # 0.0 K/mm3 04/10/19 04:57 Pathologist Review 04/10/19 04:57 WBC Morphology Not Reportable 04/10/19 04:57 Hypersegmented Neuts Not Reportable 04/10/19 04:57 Hyposegmented Neuts Not Reportable 04/10/19 04:57 Hypogranular Neuts Not Reportable 04/10/19 04:57 Not Reportable 04/10/19 04:57 Not Reportable 04/10/19 04:57 Not Reportable 04/10/19 04:57 Not Reportable 04/10/19 04:57 Not Reportable 04/10/19 04:57 Not Reportable 04/10/19 04:57 Consistent w auto 04/10/19 04:57 Not Reportable 04/10/19 04:57 Plt Clumps, EDTA Not Reportable 04/10/19 04:57 Not Reportable 04/10/19 04:57 Not Reportable 04/10/19 04:57 Not Reportable 04/10/19 04:57 Plt Morphology Comment Not Reportable 04/10/19 04:57 RBC Morphology Not Reportable 04/10/19 04:57 Dimorphic RBCs Not Reportable 04/10/19 04:57 Not Reportable 04/10/19 04:57 Not Reportable 04/10/19 04:57 Not Reportable 04/10/19 04:57 Not Reportable 04/10/19 04:57 Few 04/10/19 04:57 Not Reportable 04/10/19 04:57 Not Reportable 04/10/19 04:57 Not Reportable 04/10/19 04:57 Not Reportable 04/10/19 04:57 Not Reportable 04/10/19 04:57 Not Reportable 04/10/19 04:57 Not Reportable 04/10/19 04:57 Not Reportable 04/10/19 04:57 Not Reportable 04/10/19 04:57 Not Reportable 04/10/19 04:57 Not Reportable 04/10/19 04:57 Not Reportable 04/10/19 04:57 Not Reportable 04/10/19 04:57 Few 04/10/19 04:57 Acanthocytes (Spur) Not Reportable 04/10/19 04:57 Rouleaux Not Reportable 04/10/19 04:57 Not Reportable 04/10/19 04:57 Not Reportable 04/10/19 04:57 Not Reportable 04/10/19 04:57 Not Reportable 04/10/19 04:57 Hem Pathologist Commnt Sent to pathology 04/10/19 04:57 PT 15.2 Sec. (12.2-14.9) H 04/08/19 12:29 INR 1.23 (0.87-1.13) H 04/08/19 12:29 APTT 31.1 Sec. (24.2-36.6) 04/08/19 12:29 355 mg/dl (211-480) 04/08/19 12:29 > 42844 ng/mlDDU (0-234) H 04/08/19 12:29 POC ABG pH 7.340 (7.35-7.45) L 04/08/19 05:34 POC ABG pCO2 32.0 (35-45) L 04/08/19 05:34 POC ABG pO2 103 (80-105) 04/08/19 05:34 POC ABG HCO3 17.3 (22-26 mml/L) 04/08/19 05:34 POC ABG Total CO2 18 (23-27mmol/L) 04/08/19 05:34 POC ABG O2 Sat 98 04/08/19 05:34 POC ABG Base Excess -8 ((-2) - (+3)mmol/L) 04/08/19 05:34 VBG pH 7.417 (7.320-7.420) 04/04/19 12:18 30 % 04/08/19 05:34 Sodium 147 mmol/L (137-145) H 04/10/19 04:57 Potassium 3.5 mmol/L (3.6-5.0) L 04/10/19 04:57 Chloride 116.3 mmol/L (98-107) H 04/10/19 04:57 Carbon Dioxide 20 mmol/L (22-30) L 04/10/19 04:57 14 mmol/L 04/10/19 04:57 BUN 108 mg/dL (9-20) H 04/10/19 04:57 4.1 mg/dL (0.8-1.5) H 04/10/19 04:57 Estimated GFR 18 ml/min 04/10/19 04:57 26 % 04/10/19 04:57 Glucose 97 mg/dL (75-100) 04/10/19 04:57 Lactic Acid 2.80 mmol/L (0.7-2.0) H* 04/05/19 05:22 Calcium 7.0 mg/dL (8.4-10.2) L 04/10/19 04:57 Magnesium 1.50 mg/dL (1.7-2.3) L 04/04/19 13:53 0.60 mg/dL (0.1-1.2) 04/06/19 13:05 AST 355 units/L (5-40) H 04/06/19 13:05 ALT 76 units/L (7-56) H 04/06/19 13:05 71 units/L (35-129) 04/06/19 13:05 0.016 ng/mL (0.00-0.029) 04/04/19 12:18 6.9 g/dL (6.3-8.2) 04/06/19 13:05 3.1 g/dL (3.9-5) L 04/06/19 13:05 0.8 % 04/06/19 13:05 Triglycerides 126 mg/dL (2-149) 04/10/19 04:57 Yellow (Yellow) 04/04/19 Unknown Turbid (Clear) 04/04/19 Unknown 7.0 (5.0-7.0) 04/04/19 Unknown Ur Specific [place] 1.008 (1.003-1.030) 04/04/19 Unknown 100 mg/dl mg/dL (Negative) 04/04/19 Unknown Neg mg/dL (Negative) 04/04/19 Unknown Neg mg/dL (Negative) 04/04/19 Unknown Lg (Negative) 04/04/19 Unknown Neg (Negative) 04/04/19 Unknown Neg (Negative) 04/04/19 Unknown < 2.0 mg/dL (<2.0) 04/04/19 Unknown Ur Leukocyte Esterase Lg (Negative) 04/04/19 Unknown > 182.0 /HPF (0.0-6.0) H 04/04/19 Unknown 87.0 /HPF (0.0-6.0) 04/04/19 Unknown 2+ /HPF (Negative) 04/04/19 Unknown 3+ /HPF 04/04/19 Unknown Presumptive negative 04/04/19 Unknown Presumptive negative 04/04/19 Unknown Ur Barbiturates Screen Presumptive negative 04/04/19 Unknown Ur Phencyclidine Scrn Presumptive negative 04/04/19 Unknown Ur Amphetamines Screen Presumptive negative 04/04/19 Unknown U Benzodiazepines Scrn Presumptive negative 04/04/19 Unknown Presumptive negative 04/04/19 Unknown U Marijuana (THC) Screen Presumptive negative 04/04/19 Unknown Disclamer 04/04/19 Unknown HIV 1&2 Antibody Rapid Non react (Non React) 04/04/19 22:50 Non react (Non React) 04/04/19 22:50 Blood Type B POSITIVE 04/08/19 14:58 Antibody Screen Negative 04/08/19 14:58 Crossmatch See Detail 04/08/19 14:58 Active Medications - Current Medications Current Medications: Generic Name Dose Route Start Last Admin Trade Name Freq PRN Reason Stop Dose Admin Acetaminophen 650 mg 04/04/19 14:35 04/06/19 23:17 Tylenol PO 650 mg Q4H PRN Administration Pain MILD(1-3)/Fever >100.5/RIOJAS Albuterol 2.5 mg 04/04/19 14:35 Proventil IH Q4HRT PRN Shortness Of Breath Alprazolam 0.5 mg 04/04/19 13:43 Xanax PO DAILY PRN Anxiety Carbidopa/Levodopa 1 each 04/04/19 22:00 04/10/19 10:59 Sinemet PO 1 each BID ANDREZ Administration Docusate Sodium 100 mg 04/09/19 22:00 04/10/19 10:59 Colace PO 100 mg BID ANDREZ Administration Finasteride 5 mg 04/05/19 10:00 04/10/19 10:59 Proscar PO 5 mg QDAY ANDREZ Administration Ceftriaxone Sodium 2 gm in 100 mls @ 200 mls/hr 04/06/19 15:00 04/10/19 10:59 Rocephin/Ns 2 Gm/100 Ml IV 200 mls/hr Q24HR ANDREZ Administration Protocol Ondansetron HCl 4 mg 04/04/19 14:35 04/06/19 13:43 Zofran IV 4 mg Q8H PRN Administration Nausea And Vomiting Pantoprazole Sodium 40 mg 04/10/19 10:00 04/10/19 10:59 Protonix PO 40 mg QDAY ANDREZ Administration Sodium Chloride 10 ml 04/04/19 22:00 04/10/19 11:00 Sodium Chloride Flush Syringe 10 Ml IV 10 ml BID ANDREZ Administration Sodium Chloride 10 ml 04/04/19 14:35 Sodium Chloride Flush Syringe 10 Ml IV PRN PRN LINE FLUSH Tamsulosin HCl 0.4 mg 04/05/19 10:00 04/10/19 10:59 Flomax PO 0.4 mg QDAY ANDREZ Administration Nutrition/Malnutrition Assess - Dietary Evaluation Nutrition/Malnutrition Findings: Nutrition Notes Start: 04/05/19 16:00 Freq: Status: Active Protocol: Document 04/10/19 09:10 LM (Rec: 04/10/19 09:20 LM [id number]) Nutrition Notes Initial or Follow up Reassessment Current Diagnosis Acute Kidney Injury,Sepsis, Hypertension Other Pertinent Diagnosis Dementia, Parkinsons, UTI Current Diet Full liquid diet Labs/Tests Na 147 K 3.5 BUN 108 Cr 4.1 Pertinent Medications Reviewed Height 5 ft 10 in Weight 108.8 kg [place] Body Weight (kg) 75.45 BMI 34.4 Subjective/Other Information Pt extubated and diet advanced to full liquid yesterday. Pt did not eat any full liquids this AM. Pt stated he only wants juice. Percent of energy/protein needs met: 0%/0% Burn Absent Trauma Absent Minimum of two criteria Yes #2 Nutrition Diagnosis Inadequate oral intake As Evidenced by Signs and Symptoms diet advanced to full liquid Diagnosis Progress(for reassessment Improved documentation) #1 Nutrition Diagnosis Malnutrition Diagnosis Progress(for reassessment Continues documentation) Is patient on ventilator? No Is Patient Ambulatory and/or Out of Bed No REE-([facility]-confined to bed) 2265.936 Kcal/Kg value to use for calculation 17 Approximate Energy Requirements Using 1850 kcal/Kg Calculation Used for Recommendations Kcal/kg Additional Notes Protein: 92-120g (1-1.3g/kg AdBW 92 kg) Fluid: 1 ml/kcal or per MD Nutrition Intervention Change Diet Order: Continue full liquids Add Supplement/Snack (indicate name/kcal Ensure Clear daily /protein ) Provides kCal: 240 Provides Protein (gm) 8 Goal #1 Meet at least 75% of energy and protein needs Goal #2 diet advancement Anticipated Discharge Needs: unable to determine at this time Follow-Up By: 04/13/19 Additional Comments F/U for PO/ONS intakes, diet advancement
[2019-04-11 05:29] LABS: Hematocrit 20.7 % (35.5-45.6); Hemoglobin 6.7 gm/dl (11.8-15.2); Mean Corpuscular HGB Conc 32 % (32-34); Mean Corpuscular Volume 84 fl (84-94); Platelet Count 125 K/mm3 (140-440); Red Blood Count 2.48 M/mm3 (3.65-5.03); Red Cell Distribution Width 16.8 % (13.2-15.2)
[2019-04-11 05:44] LABS: Creatinine,Urine 57.2 mg/dL (0.1-20.0)
[2019-04-11] MEDS ORDERED: SODIUM CHLORIDE 0.9% 500 ML 500 ML IV ONE ×2 (06:04→08:41)
--- NOTE | 2019-04-11 06:07 | Event Note ---
Date: 04/11/19 Hgb this am 6.7 (trensing down from 7.1 yesterday), ordered 1u PRBC for transfusion. F/U post transfusion h/H.
[2019-04-11 06:20] LABS: Total Cells Counted 100
[2019-04-11 06:21] LABS: RBC Morphology Normal
[2019-04-11 06:22] LABS: Creatinine,Urine 57.2 mg/dL (0.1-20.0); Protein/Creatinine Ratio,Urine 0.66
[2019-04-11] MEDS: cefTRIAXone/NS 2 GM/100 ML 2 GM/100 ML BAG IV SCH ×3 (08:15→10:34)
[2019-04-11] MEDS ORDERED: SODIUM CHLORIDE 0.9% 500 ML 500 ML IV NR (08:30)
--- NOTE | 2019-04-11 08:46 | Progress Note ---
Assessment and Plan acute kidney injury secondary to ischemic ATN Left hydronephrosis s/p nephrostomy tube GI bleed, s/p transfusion, followed by GI Sepsis on broad spectrum abx, followed by ID Acidosis secondary to renal failure Hypernatremia due to decreased oral fluid intake - urine eos pending - some improvement in Cr and BUN after IVF, good UOP - will check creatinine clearance - strict I&O - Daily weight - renally dose meds - strict I&O Bandar boles MD [phone] Subjective Date of service: 04/11/19 Principal diagnosis: hematochezia Interval history: feels weak but comfortable Objective - Vital Signs Vital signs: Vital Signs - 12hr 04/10/19 04/10/19 04/11/19 21:06 23:33 05:07 Temperature 97.3 F L 98.1 F Pulse Rate 90 89 Pulse Rate [ 70 Bilateral Throughout] Respiratory 22 20 Rate Respiratory 20 Rate [Bilateral Throughout] Blood Pressure 156/87 149/87 O2 Sat by Pulse 99 100 100 Oximetry 04/11/19 08:38 Temperature Pulse Rate Pulse Rate [ Bilateral Throughout] Respiratory Rate Respiratory Rate [Bilateral Throughout] Blood Pressure O2 Sat by Pulse 100 Oximetry - General Appearance General appearance: well-developed, well-nourished, appears stated age EENT: ATNC, PERRL, mucous membranes moist Neck: no JVD, no carotid bruit Respiratory: Present: Clear to Ascultation. Absent: Rales, Ronchi Cardiology: regular, S1S2 Gastrointestinal: normoactive bowel sounds, no hypoactive bowel sounds, no absent bowel sounds Integumentary: no rash, warm and dry Neurologic: no focal deficit, no asterixis, alert and oriented x3 Musculoskeletal: other (2+ pitting edema in BLE) Psychiatric: mood/affect appropriate, cooperative - Lab 04/11/19 05:00 04/11/19 05:00 Most recent lab results Calcium 7.0 mg/dL (8.4-10.2) L 04/11/19 05:00 Phosphorus 3.10 mg/dL (2.5-4.5) 04/11/19 05:00 Magnesium 1.50 mg/dL (1.7-2.3) L 04/04/19 13:53 57.2 mg/dL (0.1-20.0) H 04/11/19 05:00 57.2 mg/dL (0.1-20.0) H 04/11/19 05:00 30 mmol/L 04/11/19 05:00 38 mg/dL (5-11.8) H 04/11/19 05:00 Medications & Allergies - Medications Allergies/Adverse Reactions: Allergies No Known Allergies Allergy (Verified 06/05/18 08:22) Home Medications: Home Medications Medication Instructions Recorded Confirmed Last Taken Type ALPRAZolam [Xanax] 0.5 tab PO DAILY PRN #6 tablet 08/04/18 04/04/19 Unknown Rx Carbidopa/Levodopa 25-250 [Sinemet 1 each PO BID #60 tablet 08/04/18 04/04/19 Unknown Rx 25/250] Tamsulosin [Flomax] 0.4 mg PO QDAY #30 cap 08/04/18 04/04/19 Unknown Rx amLODIPine [Norvasc] 5 mg PO DAILY #30 tablet 08/04/18 04/04/19 Unknown Rx Finasteride 1 mg PO DAILY 04/04/19 04/04/19 Unknown History Hydrochlorothiazide 25 mg PO DAILY 04/04/19 04/04/19 Unknown History Lisinopril 20 mg PO DAILY 04/04/19 04/04/19 Unknown History Losartan 50 mg PO DAILY 04/04/19 04/04/19 Unknown History Valsartan 320 mg PO DAILY 04/04/19 04/04/19 Unknown History Active Medications: Generic Name Dose Route Start Last Admin Trade Name Freq PRN Reason Stop Dose Admin Acetaminophen 650 mg 04/04/19 14:35 04/06/19 23:17 Tylenol PO 650 mg Q4H PRN Administration Pain MILD(1-3)/Fever >100.5/RIOJAS Albuterol 2.5 mg 04/04/19 14:35 Proventil IH Q4HRT PRN Shortness Of Breath Alprazolam 0.5 mg 04/04/19 13:43 Xanax PO DAILY PRN Anxiety Carbidopa/Levodopa 1 each 04/04/19 22:00 04/10/19 22:56 Sinemet PO 1 each BID ANDREZ Administration Docusate Sodium 100 mg 04/09/19 22:00 04/10/19 22:56 Colace PO 100 mg BID ANDREZ Administration Finasteride 5 mg 04/05/19 10:00 04/10/19 10:59 Proscar PO 5 mg QDAY ANDREZ Administration Ceftriaxone Sodium 2 gm in 100 mls @ 200 mls/hr 04/06/19 15:00 04/11/19 08:17 Rocephin/Ns 2 Gm/100 Ml IV Not Given Q24HR ANDREZ Protocol Sodium Chloride 500 mls @ 0 mls/hr 04/11/19 08:30 Nacl 0.9% 500 Ml IV 04/11/19 15:00 ONCE NR As Directed Sodium Chloride 500 mls @ 0 mls/hr 04/11/19 08:41 Nacl 0.9% 500 Ml IV 04/11/19 08:42 ONCE ONE As Directed Ondansetron HCl 4 mg 04/04/19 14:35 04/06/19 13:43 Zofran IV 4 mg Q8H PRN Administration Nausea And Vomiting Pantoprazole Sodium 40 mg 04/10/19 10:00 04/10/19 10:59 Protonix PO 40 mg QDAY ANDREZ Administration Sodium Chloride 10 ml 04/04/19 22:00 04/10/19 22:57 Sodium Chloride Flush Syringe 10 Ml IV 10 ml BID ANDREZ Administration Sodium Chloride 10 ml 04/04/19 14:35 Sodium Chloride Flush Syringe 10 Ml IV PRN PRN LINE FLUSH Tamsulosin HCl 0.4 mg 04/05/19 10:00 04/10/19 10:59 Flomax PO 0.4 mg QDAY ANDREZ Administration
[2019-04-11] MEDS: PANTOPRAZOLE 40 MG TAB PO SCH (10:34)
[2019-04-11] MEDS: DOCUSATE SODIUM 100 MG CAP PO SCH ×2 (10:34→23:28)
[2019-04-11] MEDS: TAMSULOSIN 0.4 MG CAP PO SCH (10:34)
[2019-04-11] MEDS: FINASTERIDE 5 MG TAB PO SCH (10:34)
[2019-04-11] MEDS: CARBIDOPA/LEVODOPA 25-250 TAB PO SCH ×2 (10:37→23:28)
--- NOTE | 2019-04-11 13:00 | Progress Note ---
Assessment and Plan Assessment and plan: 64 y/o male with a hx of parkinsons and UTI requiring hospitlization in Jul 2018. He states he has similar sx. He has been unable to get OOB since last admission. Sits ordinarily-- can walk. Presents with SIRS criteria and can't stop shaking. Has UTI. Patient was taken to OR yesterday and patient desat and not able to tolerate the procedure with out intubation, patient was intubated 04/07/[address] and transferred to ICU. patient extubated on 04/08/19 Rectal bleeding - Patient had massive rectal bleeding with hemodynamic compromise and significant drop in H&H on 04/07 - Patient was transfused 4 units of blood, FFP - GI did emergent flexible sigmoidoscopy and found patient has a rectal ulcers with active bleeding and stopped it - We'll follow H&H closely, will transfuse as needed Severe anemia secondary to acute blood loss anemia - Patient has hgb 6.7 this morning and will transfuse him 2 units of blood - Monitor H&H - No active bleeding (1) Sepsis secondary to GI Current Visit: Yes Status: Acute Plan to address problem: Sec to UTI On Cefepime ID consult appreciated Aspiration pneumonia, UTI - continue with Iv antibiotics Per ID - patient was intubated 04/07 and extubated 04/08 Acute renal failure secondary to ATN - CT abdomen and pelvis there is a lesion in the bladder with left hydronephrosis - urology was consulted and Nephrostomy tube was done yesterday by IR - Nephrology is following, no PIPELINE TECHNICIAN for now will consider in the next 24-48 hrs if no improvement - Creatinine is trending down (3) Acidosis Improving with IVF (4) HTN (hypertension) - Continue to monitor and adjust BP meds as needed (5) Dementia - CT head is normal - Continue supportive care (6) Debility - supportive care - PT/OT when stable (7) Neutropenia Resolved Now Leukocytosis PTOT evaluation (8) DVT prophylaxis Current Visit: Yes Status: Acute Plan to address problem: SCD to BLE while in bed Disposition; continue inpatient care. History Interval history: patient was seen and evaluated, Patient is stable today, alert and oriented. No new complaints. H/H was dropping overnight. Hospitalist Physical - Physical exam Narrative exam: Patient is not in cardiopulmonary distress. The patient is obese. Vital signs as documented. Head exam is unremarkable. No scleral icterus . Neck is without jugular venous distension, thyromegaly, or carotid bruits. Lungs clear to auscultation bilaterally Cardiac exam reveals regular rate and Rhythm. Abdominal exam reveals normal bowel sounds. There is left nephrostomy tube. Extremities are nonedematous. TANGLED YARN SPOOL STRAIGHTENER: Alert and oriented 3. No focal weakness. - Constitutional Vitals: Temp Pulse Resp BP Pulse Ox 98.0 F 99 H 18 149/71 96 04/11/19 12:13 04/11/19 12:13 04/11/19 12:13 04/11/19 12:13 04/11/19 12:13 General appearance: Present: no acute distress, other (A&O x0) Results - Labs CBC & Chem 7: 04/11/19 05:00 04/11/19 05:00 Labs: Laboratory Last Values WBC 36.7 K/mm3 (4.5-11.0) H 04/11/19 05:00 RBC 2.48 M/mm3 (3.65-5.03) L 04/11/19 05:00 Hgb 6.7 gm/dl (11.8-15.2) L 04/11/19 05:00 Hct 20.7 % (35.5-45.6) L 04/11/19 05:00 MCV 84 fl (84-94) 04/11/19 05:00 MCH 27 pg (28-32) L 04/11/19 05:00 MCHC 32 % (32-34) 04/11/19 05:00 RDW 16.8 % (13.2-15.2) H 04/11/19 05:00 Plt Count 125 K/mm3 (140-440) L 04/11/19 05:00 Boyd % (Auto) 1.4 % (0.0-7.3) 04/04/19 12:18 Eos % (Auto) 0.1 % (0.0-4.3) 04/04/19 12:18 Boyd # 0.0 K/mm3 (0.0-0.8) 04/04/19 12:18 Eos # 0.0 K/mm3 (0.0-0.4) 04/04/19 12:18 Baso # 0.0 K/mm3 (0.0-0.1) 04/04/19 12:18 Add Manual Diff Complete 04/11/19 05:00 Total Counted 100 04/11/19 05:00 Seg Neutrophils % Glass Bulb Silverer 04/11/19 05:00 Seg Neuts % (Manual) 90.0 % (40.0-70.0) H 04/11/19 05:00 0 % 04/11/19 05:00 4.0 % (13.4-35.0) L 04/11/19 05:00 Reactive Lymphs % (Man) 0 % 04/11/19 05:00 4.0 % (0.0-7.3) 04/11/19 05:00 1.0 % (0.0-4.3) 04/11/19 05:00 1.0 % (0.0-1.8) 04/11/19 05:00 0 % 04/11/19 05:00 0 % 04/11/19 05:00 0 % 04/11/19 05:00 0 % 04/11/19 05:00 Nucleated RBC % Not Reportable 04/11/19 05:00 Seg Neutrophils # 0.8 K/mm3 (1.8-7.7) L 04/04/19 12:18 Seg Neutrophils # Man 33.0 K/mm3 (1.8-7.7) H 04/11/19 05:00 Band Neutrophils # 0.0 K/mm3 04/11/19 05:00 1.5 K/mm3 (1.2-5.4) 04/11/19 05:00 Abs React Lymphs (Man) 0.0 K/mm3 04/11/19 05:00 1.5 K/mm3 (0.0-0.8) H 04/11/19 05:00 0.4 K/mm3 (0.0-0.4) 04/11/19 05:00 0.4 K/mm3 (0.0-0.1) H 04/11/19 05:00 0.0 K/mm3 04/11/19 05:00 0.0 K/mm3 04/11/19 05:00 0.0 K/mm3 04/11/19 05:00 Blast Cells # 0.0 K/mm3 04/11/19 05:00 Pathologist Review 04/10/19 04:57 WBC Morphology Not Reportable 04/11/19 05:00 Hypersegmented Neuts Not Reportable 04/11/19 05:00 Hyposegmented Neuts Not Reportable 04/11/19 05:00 Hypogranular Neuts Not Reportable 04/11/19 05:00 Not Reportable 04/11/19 05:00 Not Reportable 04/11/19 05:00 Not Reportable 04/11/19 05:00 Not Reportable 04/11/19 05:00 Not Reportable 04/11/19 05:00 Not Reportable 04/11/19 05:00 Not Reportable 04/11/19 05:00 Not Reportable 04/11/19 05:00 Plt Clumps, EDTA Not Reportable 04/11/19 05:00 Not Reportable 04/11/19 05:00 Not Reportable 04/11/19 05:00 Not Reportable 04/11/19 05:00 Plt Morphology Comment Not Reportable 04/11/19 05:00 RBC Morphology Normal 04/11/19 05:00 Dimorphic RBCs Not Reportable 04/11/19 05:00 Not Reportable 04/11/19 05:00 Not Reportable 04/11/19 05:00 Not Reportable 04/11/19 05:00 Not Reportable 04/11/19 05:00 Not Reportable 04/11/19 05:00 Not Reportable 04/11/19 05:00 Not Reportable 04/11/19 05:00 Not Reportable 04/11/19 05:00 Not Reportable 04/11/19 05:00 Not Reportable 04/11/19 05:00 Not Reportable 04/11/19 05:00 Not Reportable 04/11/19 05:00 Not Reportable 04/11/19 05:00 Not Reportable 04/11/19 05:00 Not Reportable 04/11/19 05:00 Not Reportable 04/11/19 05:00 Not Reportable 04/11/19 05:00 Not Reportable 04/11/19 05:00 Not Reportable 04/11/19 05:00 Acanthocytes (Spur) Not Reportable 04/11/19 05:00 Rouleaux Not Reportable 04/11/19 05:00 Not Reportable 04/11/19 05:00 Not Reportable 04/11/19 05:00 Not Reportable 04/11/19 05:00 Not Reportable 04/11/19 05:00 246 mg/dL (43-212) H 04/08/19 12:29 Hem Pathologist Commnt No 04/11/19 05:00 PT 15.2 Sec. (12.2-14.9) H 04/08/19 12:29 INR 1.23 (0.87-1.13) H 04/08/19 12:29 APTT 31.1 Sec. (24.2-36.6) 04/08/19 12:29 355 mg/dl (211-480) 04/08/19 12:29 > 55638 ng/mlDDU (0-234) H 04/08/19 12:29 POC ABG pH 7.340 (7.35-7.45) L 04/08/19 05:34 POC ABG pCO2 32.0 (35-45) L 04/08/19 05:34 POC ABG pO2 103 (80-105) 04/08/19 05:34 POC ABG HCO3 17.3 (22-26 mml/L) 04/08/19 05:34 POC ABG Total CO2 18 (23-27mmol/L) 04/08/19 05:34 POC ABG O2 Sat 98 04/08/19 05:34 POC ABG Base Excess -8 ((-2) - (+3)mmol/L) 04/08/19 05:34 VBG pH 7.417 (7.320-7.420) 04/04/19 12:18 30 % 04/08/19 05:34 Sodium 147 mmol/L (137-145) H 04/11/19 05:00 Potassium 3.5 mmol/L (3.6-5.0) L 04/11/19 05:00 Chloride 115.3 mmol/L (98-107) H 04/11/19 05:00 Carbon Dioxide 22 mmol/L (22-30) 04/11/19 05:00 13 mmol/L 04/11/19 05:00 BUN 97 mg/dL (9-20) H 04/11/19 05:00 3.4 mg/dL (0.8-1.5) H 04/11/19 05:00 Estimated GFR 22 ml/min 04/11/19 05:00 29 % 04/11/19 05:00 Glucose 86 mg/dL (75-100) 04/11/19 05:00 Lactic Acid 2.80 mmol/L (0.7-2.0) H* 04/05/19 05:22 Calcium 7.0 mg/dL (8.4-10.2) L 04/11/19 05:00 Phosphorus 3.10 mg/dL (2.5-4.5) 04/11/19 05:00 Magnesium 1.50 mg/dL (1.7-2.3) L 04/04/19 13:53 0.60 mg/dL (0.1-1.2) 04/06/19 13:05 AST 355 units/L (5-40) H 04/06/19 13:05 ALT 76 units/L (7-56) H 04/06/19 13:05 71 units/L (35-129) 04/06/19 13:05 0.016 ng/mL (0.00-0.029) 04/04/19 12:18 6.9 g/dL (6.3-8.2) 04/06/19 13:05 3.1 g/dL (3.9-5) L 04/06/19 13:05 0.8 % 04/06/19 13:05 Triglycerides 126 mg/dL (2-149) 04/10/19 04:57 Yellow (Yellow) 04/04/19 Unknown Turbid (Clear) 04/04/19 Unknown 7.0 (5.0-7.0) 04/04/19 Unknown Ur Specific [place] 1.008 (1.003-1.030) 04/04/19 Unknown 100 mg/dl mg/dL (Negative) 04/04/19 Unknown Neg mg/dL (Negative) 04/04/19 Unknown Neg mg/dL (Negative) 04/04/19 Unknown Lg (Negative) 04/04/19 Unknown Neg (Negative) 04/04/19 Unknown Neg (Negative) 04/04/19 Unknown < 2.0 mg/dL (<2.0) 04/04/19 Unknown Ur Leukocyte Esterase Lg (Negative) 04/04/19 Unknown > 182.0 /HPF (0.0-6.0) H 04/04/19 Unknown 87.0 /HPF (0.0-6.0) 04/04/19 Unknown 2+ /HPF (Negative) 04/04/19 Unknown 3+ /HPF 04/04/19 Unknown 57.2 mg/dL (0.1-20.0) H 04/11/19 05:00 57.2 mg/dL (0.1-20.0) H 04/11/19 05:00 Protein/Creatinin Ratio 0.66 04/11/19 05:00 30 mmol/L 04/11/19 05:00 38 mg/dL (5-11.8) H 04/11/19 05:00 Presumptive negative 04/04/19 Unknown Presumptive negative 04/04/19 Unknown Ur Barbiturates Screen Presumptive negative 04/04/19 Unknown Ur Phencyclidine Scrn Presumptive negative 04/04/19 Unknown Ur Amphetamines Screen Presumptive negative 04/04/19 Unknown U Benzodiazepines Scrn Presumptive negative 04/04/19 Unknown Presumptive negative 04/04/19 Unknown U Marijuana (THC) Screen Presumptive negative 04/04/19 Unknown Disclamer 04/04/19 Unknown HIV 1&2 Antibody Rapid Non react (Non React) 04/04/19 22:50 Non react (Non React) 04/04/19 22:50 Blood Type B POSITIVE 04/11/19 09:34 Antibody Screen Negative 04/11/19 09:34 Crossmatch See Detail 04/11/19 09:34 Active Medications - Current Medications Current Medications: Generic Name Dose Route Start Last Admin Trade Name Freq PRN Reason Stop Dose Admin Acetaminophen 650 mg 04/04/19 14:35 04/06/19 23:17 Tylenol PO 650 mg Q4H PRN Administration Pain MILD(1-3)/Fever >100.5/RIOJAS Albuterol 2.5 mg 04/04/19 14:35 Proventil IH Q4HRT PRN Shortness Of Breath Alprazolam 0.5 mg 04/04/19 13:43 Xanax PO DAILY PRN Anxiety Carbidopa/Levodopa 1 each 04/04/19 22:00 04/11/19 10:37 Sinemet PO 1 each BID ANDREZ Administration Docusate Sodium 100 mg 04/09/19 22:00 04/11/19 10:34 Colace PO 100 mg BID ANDREZ Administration Finasteride 5 mg 04/05/19 10:00 04/11/19 10:34 Proscar PO 5 mg QDAY ANDREZ Administration Ceftriaxone Sodium 2 gm in 100 mls @ 200 mls/hr 04/06/19 15:00 04/11/19 10:34 Rocephin/Ns 2 Gm/100 Ml IV 200 mls/hr Q24HR ANDREZ Administration Protocol Sodium Chloride 500 mls @ 0 mls/hr 04/11/19 08:30 Nacl 0.9% 500 Ml IV 04/11/19 15:00 ONCE NR As Directed Ondansetron HCl 4 mg 04/04/19 14:35 04/06/19 13:43 Zofran IV 4 mg Q8H PRN Administration Nausea And Vomiting Pantoprazole Sodium 40 mg 04/10/19 10:00 04/11/19 10:34 Protonix PO 40 mg QDAY ANDREZ Administration Sodium Chloride 10 ml 04/04/19 22:00 04/11/19 10:38 Sodium Chloride Flush Syringe 10 Ml IV 10 ml BID ANDREZ Administration Sodium Chloride 10 ml 04/04/19 14:35 Sodium Chloride Flush Syringe 10 Ml IV PRN PRN LINE FLUSH Tamsulosin HCl 0.4 mg 04/05/19 10:00 04/11/19 10:34 Flomax PO 0.4 mg QDAY ANDREZ Administration Nutrition/Malnutrition Assess - Dietary Evaluation Nutrition/Malnutrition Findings: Nutrition Notes Start: 04/05/19 16:00 Freq: Status: Active Protocol: Document 04/10/19 09:10 LM (Rec: 04/10/19 09:20 LM [id number]) Nutrition Notes Initial or Follow up Reassessment Current Diagnosis Acute Kidney Injury,Sepsis, Hypertension Other Pertinent Diagnosis Dementia, Parkinsons, UTI Current Diet Full liquid diet Labs/Tests Na 147 K 3.5 BUN 108 Cr 4.1 Pertinent Medications Reviewed Height 5 ft 10 in Weight 108.8 kg [place] Body Weight (kg) 75.45 BMI 34.4 Subjective/Other Information Pt extubated and diet advanced to full liquid yesterday. Pt did not eat any full liquids this AM. Pt stated he only wants juice. Percent of energy/protein needs met: 0%/0% Burn Absent Trauma Absent Minimum of two criteria Yes #2 Nutrition Diagnosis Inadequate oral intake As Evidenced by Signs and Symptoms diet advanced to full liquid Diagnosis Progress(for reassessment Improved documentation) #1 Nutrition Diagnosis Malnutrition Diagnosis Progress(for reassessment Continues documentation) Is patient on ventilator? No Is Patient Ambulatory and/or Out of Bed No REE-([place]-St. Jeor-confined to bed) 2265.936 Kcal/Kg value to use for calculation 17 Approximate Energy Requirements Using 1850 kcal/Kg Calculation Used for Recommendations Kcal/kg Additional Notes Protein: 92-120g (1-1.3g/kg AdBW 92 kg) Fluid: 1 ml/kcal or per MD Nutrition Intervention Change Diet Order: Continue full liquids Add Supplement/Snack (indicate name/kcal Ensure Clear daily /protein ) Provides kCal: 240 Provides Protein (gm) 8 Goal #1 Meet at least 75% of energy and protein needs Goal #2 diet advancement Anticipated Discharge Needs: unable to determine at this time Follow-Up By: 04/13/19 Additional Comments F/U for PO/ONS intakes, diet advancement
[2019-04-12 05:10] LABS: Hematocrit 25.5 % (35.5-45.6); Hemoglobin 8.4 gm/dl (11.8-15.2); Mean Corpuscular HGB Conc 33 % (32-34); Mean Corpuscular Volume 85 fl (84-94); Platelet Count 171 K/mm3 (140-440); Red Blood Count 3.01 M/mm3 (3.65-5.03); Red Cell Distribution Width 16.4 % (13.2-15.2)
[2019-04-12 05:22] LABS: Calcium 7.3 mg/dL (8.4-10.2)
[2019-04-12 05:49] LABS: Basophils % (Manual) 0 % (0.0-1.8); RBC Morphology Normal; Total Cells Counted 100
--- NOTE | 2019-04-12 09:06 | Progress Note ---
Assessment and Plan acute kidney injury secondary to ischemic ATN Left hydronephrosis s/p nephrostomy tube GI bleed, s/p transfusion, followed by GI Sepsis on broad spectrum abx, followed by ID Acidosis secondary to renal failure Hypernatremia due to decreased oral fluid intake - urine eos pending - some improvement in Cr and BUN after IVF, good UOP - creatinine clearance is pending - no indication for CIVIL DRAFTER - strict I&O - Daily weight - renally dose meds - strict I&O Bandar boles MD [phone] Subjective Date of service: 04/12/19 Principal diagnosis: hematochezia Interval history: weak but denies acute issues Objective - Vital Signs Vital signs: Vital Signs - 12hr 04/11/19 04/11/19 04/12/19 22:20 23:46 05:02 Temperature 97.6 F Pulse Rate 96 H 91 H Respiratory 16 20 Rate Blood Pressure 156/85 179/87 O2 Sat by Pulse 99 100 100 Oximetry - General Appearance General appearance: well-developed, well-nourished EENT: ATNC, PERRL, mucous membranes moist Neck: no JVD, no carotid bruit Respiratory: Present: Clear to Ascultation. Absent: Rales, Ronchi Cardiology: regular, S1S2 Gastrointestinal: normoactive bowel sounds Integumentary: no rash, warm and dry Neurologic: no focal deficit, no asterixis, alert and oriented x3 Musculoskeletal: other (trace pitting edema in BLE) Psychiatric: mood/affect appropriate, cooperative - Lab 04/12/19 04:55 04/12/19 04:55 Most recent lab results Calcium 7.3 mg/dL (8.4-10.2) L 04/12/19 04:55 Phosphorus 2.80 mg/dL (2.5-4.5) 04/12/19 04:55 Magnesium 1.50 mg/dL (1.7-2.3) L 04/04/19 13:53 57.2 mg/dL (0.1-20.0) H 04/11/19 05:00 57.2 mg/dL (0.1-20.0) H 04/11/19 05:00 30 mmol/L 04/11/19 05:00 38 mg/dL (5-11.8) H 04/11/19 05:00 Medications & Allergies - Medications Allergies/Adverse Reactions: Allergies No Known Allergies Allergy (Verified 06/05/18 08:22) Home Medications: Home Medications Medication Instructions Recorded Confirmed Last Taken Type ALPRAZolam [Xanax] 0.5 tab PO DAILY PRN #6 tablet 08/04/18 04/04/19 Unknown Rx Carbidopa/Levodopa 25-250 [Sinemet 1 each PO BID #60 tablet 08/04/18 04/04/19 Unknown Rx 25/250] Tamsulosin [Flomax] 0.4 mg PO QDAY #30 cap 08/04/18 04/04/19 Unknown Rx amLODIPine [Norvasc] 5 mg PO DAILY #30 tablet 08/04/18 04/04/19 Unknown Rx Finasteride 1 mg PO DAILY 04/04/19 04/04/19 Unknown History Hydrochlorothiazide 25 mg PO DAILY 04/04/19 04/04/19 Unknown History Lisinopril 20 mg PO DAILY 04/04/19 04/04/19 Unknown History Losartan 50 mg PO DAILY 04/04/19 04/04/19 Unknown History Valsartan 320 mg PO DAILY 04/04/19 04/04/19 Unknown History Active Medications: Generic Name Dose Route Start Last Admin Trade Name Freq PRN Reason Stop Dose Admin Acetaminophen 650 mg 04/04/19 14:35 04/06/19 23:17 Tylenol PO 650 mg Q4H PRN Administration Pain MILD(1-3)/Fever >100.5/RIOJAS Albuterol 2.5 mg 04/04/19 14:35 Proventil IH Q4HRT PRN Shortness Of Breath Alprazolam 0.5 mg 04/04/19 13:43 Xanax PO DAILY PRN Anxiety Carbidopa/Levodopa 1 each 04/04/19 22:00 04/11/19 23:28 Sinemet PO 1 each BID ANDREZ Administration Docusate Sodium 100 mg 04/09/19 22:00 04/11/19 23:28 Colace PO 100 mg BID ANDREZ Administration Finasteride 5 mg 04/05/19 10:00 04/11/19 10:34 Proscar PO 5 mg QDAY ANDREZ Administration Ceftriaxone Sodium 2 gm in 100 mls @ 200 mls/hr 04/06/19 15:00 04/11/19 10:34 Rocephin/Ns 2 Gm/100 Ml IV 10/01/19 23:59 200 mls/hr Q24HR ANDREZ Administration Protocol Ondansetron HCl 4 mg 04/04/19 14:35 04/06/19 13:43 Zofran IV 4 mg Q8H PRN Administration Nausea And Vomiting Pantoprazole Sodium 40 mg 04/10/19 10:00 04/11/19 10:34 Protonix PO 40 mg QDAY ANDREZ Administration Sodium Chloride 10 ml 04/04/19 22:00 04/11/19 10:38 Sodium Chloride Flush Syringe 10 Ml IV 10 ml BID ANDREZ Administration Sodium Chloride 10 ml 04/04/19 14:35 Sodium Chloride Flush Syringe 10 Ml IV PRN PRN LINE FLUSH Tamsulosin HCl 0.4 mg 04/05/19 10:00 04/11/19 10:34 Flomax PO 0.4 mg QDAY ANDREZ Administration
--- NOTE | 2019-04-12 09:56 | Progress Note ---
Assessment and Plan Assessment and plan: 64 y/o male with a hx of parkinsons and UTI requiring hospitlization in Jul 2018. He states he has similar sx. He has been unable to get OOB since last admission. Sits ordinarily-- can walk. Presents with SIRS criteria and can't stop shaking. Has UTI. Patient was taken to OR yesterday and patient desat and not able to tolerate the procedure with out intubation, patient was intubated 04/07/[address] and transferred to ICU. patient extubated on 04/08/19 Rectal bleeding - Patient had massive rectal bleeding with hemodynamic compromise and significant drop in H&H on 04/07 - Patient was transfused 4 units of blood, FFP - GI did emergent flexible sigmoidoscopy and found patient has a rectal ulcers with active bleeding and stopped it Severe anemia secondary to acute blood loss anemia -Hemoglobin this morning was 8.4 -No active bleeding (1) Sepsis secondary to UTI due to Klebsiella pneumonia, bacteremia Was on cefepime and currently on ceftriaxone Urine and blood grew Klebsiella pneumoniae ID consult appreciated Aspiration pneumonia, UTI - continue with Iv antibiotics Per ID - patient was intubated 04/07 and extubated 04/08 Acute renal failure secondary to ATN - CT abdomen and pelvis there is a lesion in the bladder with left hydronephrosis - urology was consulted and Nephrostomy tube was done yesterday by IR - Nephrology is following, no MEDIA PRODUCTION MANAGER for now - Creatinine is trending down from 4-2.5 this morning (3) Acidosis Improving with IVF (4) HTN (hypertension) - Continue to monitor and adjust BP meds as needed (5) Dementia - CT head is normal - Continue supportive care (6) Debility - supportive care - PT/OT when stable (7) leukocytosis - Could be reactive due to GI bleeding - WBC count was 37K this morning - If no improvement consider hematology consult PTOT evaluation (8) DVT prophylaxis Current Visit: Yes Status: Acute Plan to address problem: SCD to BLE while in bed Disposition; continue inpatient care. History Interval history: patient was seen and evaluated, Patient is stable today, alert and oriented. No new complaints. Hospitalist Physical - Physical exam Narrative exam: Patient is not in cardiopulmonary distress. The patient is obese. Vital signs as documented. Head exam is unremarkable. No scleral icterus . Neck is without jugular venous distension, thyromegaly, or carotid bruits. Lungs clear to auscultation bilaterally Cardiac exam reveals regular rate and Rhythm. Abdominal exam reveals normal bowel sounds. There is left nephrostomy tube. Extremities are nonedematous. SKIVER HAND: Alert and oriented 3. No focal weakness. - Constitutional Vitals: Temp Pulse Resp BP Pulse Ox 97.6 F 91 H 20 179/87 100 04/12/19 05:02 04/12/19 05:02 04/12/19 05:02 04/12/19 05:02 04/12/19 05:02 General appearance: Present: no acute distress, other (A&O x0) Results - Labs CBC & Chem 7: 04/12/19 04:55 04/12/19 04:55 Labs: Laboratory Last Values WBC 37.6 K/mm3 (4.5-11.0) H 04/12/19 04:55 RBC 3.01 M/mm3 (3.65-5.03) L 04/12/19 04:55 Hgb 8.4 gm/dl (11.8-15.2) L 04/12/19 04:55 Hct 25.5 % (35.5-45.6) L 04/12/19 04:55 MCV 85 fl (84-94) 04/12/19 04:55 MCH 28 pg (28-32) 04/12/19 04:55 MCHC 33 % (32-34) 04/12/19 04:55 RDW 16.4 % (13.2-15.2) H 04/12/19 04:55 Plt Count 171 K/mm3 (140-440) 04/12/19 04:55 [place] % (Auto) 1.4 % (0.0-7.3) 04/04/19 12:18 Eos % (Auto) 0.1 % (0.0-4.3) 04/04/19 12:18 [place] # 0.0 K/mm3 (0.0-0.8) 04/04/19 12:18 Eos # 0.0 K/mm3 (0.0-0.4) 04/04/19 12:18 Baso # 0.0 K/mm3 (0.0-0.1) 04/04/19 12:18 Add Manual Diff Complete 04/12/19 04:55 Total Counted 100 04/12/19 04:55 Seg Neutrophils % [employer] 04/11/19 05:00 Seg Neuts % (Manual) 87.0 % (40.0-70.0) H 04/12/19 04:55 0 % 04/12/19 04:55 5.0 % (13.4-35.0) L 04/12/19 04:55 Reactive Lymphs % (Man) 0 % 04/12/19 04:55 6.0 % (0.0-7.3) 04/12/19 04:55 2.0 % (0.0-4.3) 04/12/19 04:55 0 % (0.0-1.8) 04/12/19 04:55 0 % 04/12/19 04:55 0 % 04/12/19 04:55 0 % 04/12/19 04:55 0 % 04/12/19 04:55 Nucleated RBC % 4.0 % (0.0-0.9) H 04/12/19 04:55 Seg Neutrophils # 0.8 K/mm3 (1.8-7.7) L 04/04/19 12:18 Seg Neutrophils # Man 32.7 K/mm3 (1.8-7.7) H 04/12/19 04:55 Band Neutrophils # 0.0 K/mm3 04/12/19 04:55 1.9 K/mm3 (1.2-5.4) 04/12/19 04:55 Abs React Lymphs (Man) 0.0 K/mm3 04/12/19 04:55 2.3 K/mm3 (0.0-0.8) H 04/12/19 04:55 0.8 K/mm3 (0.0-0.4) H 04/12/19 04:55 0.0 K/mm3 (0.0-0.1) 04/12/19 04:55 0.0 K/mm3 04/12/19 04:55 0.0 K/mm3 04/12/19 04:55 0.0 K/mm3 04/12/19 04:55 Blast Cells # 0.0 K/mm3 04/12/19 04:55 Pathologist Review 04/10/19 04:57 WBC Morphology Not Reportable 04/12/19 04:55 Hypersegmented Neuts Not Reportable 04/12/19 04:55 Hyposegmented Neuts Not Reportable 04/12/19 04:55 Hypogranular Neuts Not Reportable 04/12/19 04:55 Not Reportable 04/12/19 04:55 Not Reportable 04/12/19 04:55 Not Reportable 04/12/19 04:55 Not Reportable 04/12/19 04:55 Not Reportable 04/12/19 04:55 Not Reportable 04/12/19 04:55 Not Reportable 04/12/19 04:55 Not Reportable 04/12/19 04:55 Plt Clumps, EDTA Not Reportable 04/12/19 04:55 Not Reportable 04/12/19 04:55 Not Reportable 04/12/19 04:55 Not Reportable 04/12/19 04:55 Plt Morphology Comment Not Reportable 04/12/19 04:55 RBC Morphology Normal 04/12/19 04:55 Dimorphic RBCs Not Reportable 04/12/19 04:55 Not Reportable 04/12/19 04:55 Not Reportable 04/12/19 04:55 Not Reportable 04/12/19 04:55 Not Reportable 04/12/19 04:55 Not Reportable 04/12/19 04:55 Not Reportable 04/12/19 04:55 Not Reportable 04/12/19 04:55 Not Reportable 04/12/19 04:55 Not Reportable 04/12/19 04:55 Not Reportable 04/12/19 04:55 Not Reportable 04/12/19 04:55 Not Reportable 04/12/19 04:55 Not Reportable 04/12/19 04:55 Not Reportable 04/12/19 04:55 Not Reportable 04/12/19 04:55 Not Reportable 04/12/19 04:55 Not Reportable 04/12/19 04:55 Not Reportable 04/12/19 04:55 Not Reportable 04/12/19 04:55 Acanthocytes (Spur) Not Reportable 04/12/19 04:55 Rouleaux Not Reportable 04/12/19 04:55 Not Reportable 04/12/19 04:55 Not Reportable 04/12/19 04:55 Not Reportable 04/12/19 04:55 Not Reportable 04/12/19 04:55 246 mg/dL (43-212) H 04/08/19 12:29 Hem Pathologist Commnt No 04/12/19 04:55 PT 15.2 Sec. (12.2-14.9) H 04/08/19 12:29 INR 1.23 (0.87-1.13) H 04/08/19 12:29 APTT 31.1 Sec. (24.2-36.6) 04/08/19 12:29 355 mg/dl (211-480) 04/08/19 12:29 > 32279 ng/mlDDU (0-234) H 04/08/19 12:29 POC ABG pH 7.340 (7.35-7.45) L 04/08/19 05:34 POC ABG pCO2 32.0 (35-45) L 04/08/19 05:34 POC ABG pO2 103 (80-105) 04/08/19 05:34 POC ABG HCO3 17.3 (22-26 mml/L) 04/08/19 05:34 POC ABG Total CO2 18 (23-27mmol/L) 04/08/19 05:34 POC ABG O2 Sat 98 04/08/19 05:34 POC ABG Base Excess -8 ((-2) - (+3)mmol/L) 04/08/19 05:34 VBG pH 7.417 (7.320-7.420) 04/04/19 12:18 30 % 04/08/19 05:34 Sodium 147 mmol/L (137-145) H 04/12/19 04:55 Potassium 3.5 mmol/L (3.6-5.0) L 04/12/19 04:55 Chloride 113.9 mmol/L (98-107) H 04/12/19 04:55 Carbon Dioxide 24 mmol/L (22-30) 04/12/19 04:55 13 mmol/L 04/12/19 04:55 BUN 81 mg/dL (9-20) H 04/12/19 04:55 2.5 mg/dL (0.8-1.5) H 04/12/19 04:55 Estimated GFR 32 ml/min 04/12/19 04:55 32 % 04/12/19 04:55 Glucose 97 mg/dL (75-100) 04/12/19 04:55 Lactic Acid 2.80 mmol/L (0.7-2.0) H* 04/05/19 05:22 Calcium 7.3 mg/dL (8.4-10.2) L 04/12/19 04:55 Phosphorus 2.80 mg/dL (2.5-4.5) 04/12/19 04:55 Magnesium 1.50 mg/dL (1.7-2.3) L 04/04/19 13:53 0.60 mg/dL (0.1-1.2) 04/06/19 13:05 AST 355 units/L (5-40) H 04/06/19 13:05 ALT 76 units/L (7-56) H 04/06/19 13:05 71 units/L (35-129) 04/06/19 13:05 0.016 ng/mL (0.00-0.029) 04/04/19 12:18 6.9 g/dL (6.3-8.2) 04/06/19 13:05 3.1 g/dL (3.9-5) L 04/06/19 13:05 0.8 % 04/06/19 13:05 Triglycerides 126 mg/dL (2-149) 04/10/19 04:57 Yellow (Yellow) 04/04/19 Unknown Turbid (Clear) 04/04/19 Unknown 7.0 (5.0-7.0) 04/04/19 Unknown Ur Specific [place] 1.008 (1.003-1.030) 04/04/19 Unknown 100 mg/dl mg/dL (Negative) 04/04/19 Unknown Neg mg/dL (Negative) 04/04/19 Unknown Neg mg/dL (Negative) 04/04/19 Unknown Lg (Negative) 04/04/19 Unknown Neg (Negative) 04/04/19 Unknown Neg (Negative) 04/04/19 Unknown < 2.0 mg/dL (<2.0) 04/04/19 Unknown Ur Leukocyte Esterase Lg (Negative) 04/04/19 Unknown > 182.0 /HPF (0.0-6.0) H 04/04/19 Unknown 87.0 /HPF (0.0-6.0) 04/04/19 Unknown 2+ /HPF (Negative) 04/04/19 Unknown 3+ /HPF 04/04/19 Unknown 57.2 mg/dL (0.1-20.0) H 04/11/19 05:00 57.2 mg/dL (0.1-20.0) H 04/11/19 05:00 Protein/Creatinin Ratio 0.66 04/11/19 05:00 30 mmol/L 04/11/19 05:00 38 mg/dL (5-11.8) H 04/11/19 05:00 Presumptive negative 04/04/19 Unknown Presumptive negative 04/04/19 Unknown Ur Barbiturates Screen Presumptive negative 04/04/19 Unknown Ur Phencyclidine Scrn Presumptive negative 04/04/19 Unknown Ur Amphetamines Screen Presumptive negative 04/04/19 Unknown U Benzodiazepines Scrn Presumptive negative 04/04/19 Unknown Presumptive negative 04/04/19 Unknown U Marijuana (THC) Screen Presumptive negative 04/04/19 Unknown Disclamer 04/04/19 Unknown HIV 1&2 Antibody Rapid Non react (Non React) 04/04/19 22:50 Non react (Non React) 04/04/19 22:50 Blood Type B POSITIVE 04/11/19 09:34 Antibody Screen Negative 04/11/19 09:34 Crossmatch See Detail 04/11/19 09:34 Active Medications - Current Medications Current Medications: Generic Name Dose Route Start Last Admin Trade Name Freq PRN Reason Stop Dose Admin Acetaminophen 650 mg 04/04/19 14:35 04/06/19 23:17 Tylenol PO 650 mg Q4H PRN Administration Pain MILD(1-3)/Fever >100.5/RIOJAS Albuterol 2.5 mg 04/04/19 14:35 Proventil IH Q4HRT PRN Shortness Of Breath Alprazolam 0.5 mg 04/04/19 13:43 Xanax PO DAILY PRN Anxiety Carbidopa/Levodopa 1 each 04/04/19 22:00 04/11/19 23:28 Sinemet PO 1 each BID ANDREZ Administration Docusate Sodium 100 mg 04/09/19 22:00 04/11/19 23:28 Colace PO 100 mg BID ANDREZ Administration Finasteride 5 mg 04/05/19 10:00 04/11/19 10:34 Proscar PO 5 mg QDAY ANDREZ Administration Ceftriaxone Sodium 2 gm in 100 mls @ 200 mls/hr 04/06/19 15:00 04/11/19 10:34 Rocephin/Ns 2 Gm/100 Ml IV 04/14/19 23:59 200 mls/hr Q24HR ANDREZ Administration Protocol Ondansetron HCl 4 mg 04/04/19 14:35 04/06/19 13:43 Zofran IV 4 mg Q8H PRN Administration Nausea And Vomiting Pantoprazole Sodium 40 mg 04/10/19 10:00 04/11/19 10:34 Protonix PO 40 mg QDAY ANDREZ Administration Sodium Chloride 10 ml 04/04/19 22:00 04/11/19 10:38 Sodium Chloride Flush Syringe 10 Ml IV 10 ml BID ANDREZ Administration Sodium Chloride 10 ml 04/04/19 14:35 Sodium Chloride Flush Syringe 10 Ml IV PRN PRN LINE FLUSH Tamsulosin HCl 0.4 mg 04/05/19 10:00 04/11/19 10:34 Flomax PO 0.4 mg QDAY ANDREZ Administration Nutrition/Malnutrition Assess - Dietary Evaluation Nutrition/Malnutrition Findings: Nutrition Notes Start: 04/05/19 16:00 Freq: Status: Active Protocol: Document 04/10/19 09:10 LM (Rec: 04/10/19 09:20 LM [id number]) Nutrition Notes Initial or Follow up Reassessment Current Diagnosis Acute Kidney Injury,Sepsis, Hypertension Other Pertinent Diagnosis Dementia, Parkinsons, UTI Current Diet Full liquid diet Labs/Tests Na 147 K 3.5 BUN 108 Cr 4.1 Pertinent Medications Reviewed Height 5 ft 10 in Weight 108.8 kg [place] Body Weight (kg) 75.45 BMI 34.4 Subjective/Other Information Pt extubated and diet advanced to full liquid yesterday. Pt did not eat any full liquids this AM. Pt stated he only wants juice. Percent of energy/protein needs met: 0%/0% Burn Absent Trauma Absent Minimum of two criteria Yes #2 Nutrition Diagnosis Inadequate oral intake As Evidenced by Signs and Symptoms diet advanced to full liquid Diagnosis Progress(for reassessment Improved documentation) #1 Nutrition Diagnosis Malnutrition Diagnosis Progress(for reassessment Continues documentation) Is patient on ventilator? No Is Patient Ambulatory and/or Out of Bed No REE-([facility]-confined to bed) 2265.936 Kcal/Kg value to use for calculation 17 Approximate Energy Requirements Using 1850 kcal/Kg Calculation Used for Recommendations Kcal/kg Additional Notes Protein: 92-120g (1-1.3g/kg AdBW 92 kg) Fluid: 1 ml/kcal or per MD Nutrition Intervention Change Diet Order: Continue full liquids Add Supplement/Snack (indicate name/kcal Ensure Clear daily /protein ) Provides kCal: 240 Provides Protein (gm) 8 Goal #1 Meet at least 75% of energy and protein needs Goal #2 diet advancement Anticipated Discharge Needs: unable to determine at this time Follow-Up By: 04/13/19 Additional Comments F/U for PO/ONS intakes, diet advancement
[2019-04-12] MEDS: CARBIDOPA/LEVODOPA 25-250 TAB PO SCH ×2 (10:30→21:40)
[2019-04-12] MEDS: TAMSULOSIN 0.4 MG CAP PO SCH (10:30)
[2019-04-12] MEDS: PANTOPRAZOLE 40 MG TAB PO SCH (10:30)
[2019-04-12] MEDS: DOCUSATE SODIUM 100 MG CAP PO SCH ×2 (10:30→21:40)
[2019-04-12] MEDS: FINASTERIDE 5 MG TAB PO SCH (10:30)
[2019-04-12] MEDS: cefTRIAXone/NS 2 GM/100 ML 2 GM/100 ML BAG IV SCH (10:32)
[2019-04-12 13:16] LABS: Creatinine,Urine 52.7 mg/dL (0.1-20.0)
[2019-04-12 13:44] LABS: Creatinine 24 Hour,Urine 1.7 (0.8-2.8)
[2019-04-13 07:31] LABS: Calcium 7.2 mg/dL (8.4-10.2); Hematocrit 25.6 % (35.5-45.6); Hemoglobin 8.3 gm/dl (11.8-15.2); Mean Corpuscular HGB Conc 32 % (32-34); Mean Corpuscular Volume 85 fl (84-94); Platelet Count 191 K/mm3 (140-440); Red Blood Count 3.02 M/mm3 (3.65-5.03); Red Cell Distribution Width 16.5 % (13.2-15.2)
--- NOTE | 2019-04-13 08:44 | Progress Note ---
Assessment and Plan acute kidney injury secondary to ischemic ATN Left hydronephrosis s/p nephrostomy tube GI bleed, s/p transfusion, followed by GI Sepsis on broad spectrum abx, followed by ID Acidosis secondary to renal failure Hypernatremia due to decreased oral fluid intake - Cr and BUN cont to improve, good UOP - will signs off, to be followed in my office upon discharge - strict I&O - Daily weight - renally dose meds - strict I&O Bandar boles MD [phone] Subjective Date of service: 04/13/19 Principal diagnosis: hematochezia Interval history: denies acute issues Objective - Vital Signs Vital signs: Vital Signs - 12hr 04/12/19 04/13/19 21:12 05:55 Temperature 98.4 F 97.5 F L Pulse Rate 84 80 Respiratory 24 24 Rate Blood Pressure 155/78 157/72 O2 Sat by Pulse 98 99 Oximetry - Lab 04/13/19 05:20 04/13/19 05:20 Most recent lab results Calcium 7.2 mg/dL (8.4-10.2) L 04/13/19 05:20 Phosphorus 2.90 mg/dL (2.5-4.5) 04/13/19 05:20 Magnesium 1.50 mg/dL (1.7-2.3) L 04/04/19 13:53 Urine Creatinine 52.7 mg/dL (0.1-20.0) H 04/11/19 08:43 Urine Sodium 30 mmol/L 04/11/19 05:00 Urine Total Protein 38 mg/dL (5-11.8) H 04/11/19 05:00 Medications & Allergies - Medications Allergies/Adverse Reactions: Allergies No Known Allergies Allergy (Verified 06/05/18 08:22) Home Medications: Home Medications Medication Instructions Recorded Confirmed Last Taken Type ALPRAZolam [Xanax] 0.5 tab PO DAILY PRN #6 tablet 08/04/18 04/04/19 Unknown Rx Carbidopa/Levodopa 25-250 [Sinemet 1 each PO BID #60 tablet 08/04/18 04/04/19 Unknown Rx 25/250] Tamsulosin [Flomax] 0.4 mg PO QDAY #30 cap 08/04/18 04/04/19 Unknown Rx amLODIPine [Norvasc] 5 mg PO DAILY #30 tablet 08/04/18 04/04/19 Unknown Rx Finasteride 1 mg PO DAILY 04/04/19 04/04/19 Unknown History Hydrochlorothiazide 25 mg PO DAILY 04/04/19 04/04/19 Unknown History Lisinopril 20 mg PO DAILY 04/04/19 04/04/19 Unknown History Losartan 50 mg PO DAILY 04/04/19 04/04/19 Unknown History Valsartan 320 mg PO DAILY 04/04/19 04/04/19 Unknown History Active Medications: Generic Name Dose Route Start Last Admin Trade Name Freq PRN Reason Stop Dose Admin Acetaminophen 650 mg 04/04/19 14:35 04/06/19 23:17 Tylenol PO 650 mg Q4H PRN Administration Pain MILD(1-3)/Fever >100.5/RIOJAS Albuterol 2.5 mg 04/04/19 14:35 Proventil IH Q4HRT PRN Shortness Of Breath Alprazolam 0.5 mg 04/04/19 13:43 Xanax PO DAILY PRN Anxiety Carbidopa/Levodopa 1 each 04/04/19 22:00 04/12/19 21:40 Sinemet PO 1 each BID ANDREZ Administration Docusate Sodium 100 mg 04/09/19 22:00 04/12/19 21:40 Colace PO 100 mg BID ANDREZ Administration Finasteride 5 mg 04/05/19 10:00 04/12/19 10:30 Proscar PO 5 mg QDAY ANDREZ Administration Ceftriaxone Sodium 2 gm in 100 mls @ 200 mls/hr 04/06/19 15:00 04/12/19 10:32 Rocephin/Ns 2 Gm/100 Ml IV 04/14/19 23:59 200 mls/hr Q24HR ANDREZ Administration Protocol Ondansetron HCl 4 mg 04/04/19 14:35 04/06/19 13:43 Zofran IV 4 mg Q8H PRN Administration Nausea And Vomiting Pantoprazole Sodium 40 mg 04/10/19 10:00 04/12/19 10:30 Protonix PO 40 mg QDAY ANDREZ Administration Sodium Chloride 10 ml 04/04/19 22:00 04/12/19 21:41 Sodium Chloride Flush Syringe 10 Ml IV 10 ml BID ANDREZ Administration Sodium Chloride 10 ml 04/04/19 14:35 Sodium Chloride Flush Syringe 10 Ml IV PRN PRN LINE FLUSH Tamsulosin HCl 0.4 mg 04/05/19 10:00 04/12/19 10:30 Flomax PO 0.4 mg QDAY ANDREZ Administration
[2019-04-13] MEDS: cefTRIAXone/NS 2 GM/100 ML 2 GM/100 ML BAG IV SCH (09:49)
[2019-04-13] MEDS: DOCUSATE SODIUM 100 MG CAP PO SCH ×2 (09:50→23:17)
[2019-04-13] MEDS: FINASTERIDE 5 MG TAB PO SCH (09:50)
[2019-04-13] MEDS: PANTOPRAZOLE 40 MG TAB PO SCH (09:50)
[2019-04-13] MEDS: TAMSULOSIN 0.4 MG CAP PO SCH (09:50)
[2019-04-13] MEDS: CARBIDOPA/LEVODOPA 25-250 TAB PO SCH ×2 (09:50→22:05)
--- NOTE | 2019-04-13 10:29 | Discharge Summary ---
Providers - Providers Date of Admission: 04/06/19 16:28 Attending physician: SHERLY DICKERSON MD 04/04/19 15:19 Consult to Physician [CONS] Urgent Comment: Consulting Provider: LEEANN GAYTAN Physician Instructions: Reason For Exam: sepsis neutropenia UTI 04/06/19 15:04 Consult to Physician [CONS] Routine Comment: Consulting Provider: ELENI SCHREIBER Physician Instructions: Reason For Exam: bladder lesion causing left hydronephrosis 04/06/19 16:27 Physical Therapy Evaluation and Treat [CONS] Routine Comment: Reason For Exam: generalized weakness 04/08/19 08:00 Consult to Dietitian/Nutrition [CONS] Routine Physician Instructions: Reason For Exam: Reason for Consult: Evaluate nutritional intake 04/08/19 11:41 Consult to Physician [CONS] Routine Comment: Consulting Provider: JOHNY HICKEY Physician Instructions: Reason For Exam: bloody stools, drop in H&H. 04/10/19 07:54 Consult to Physician [CONS] Routine Comment: Consulting Provider: DIEGO CORADO Physician Instructions: Reason For Exam: acute renal failure 04/10/19 11:16 Physical Therapy Evaluation and Treat [CONS] Routine Comment: Ok to eval with HgB of less than 8 Reason For Exam: Debility 04/10/19 20:31 Consult to Wound/ET Nurse [CONS] Routine Reason For Exam: wound eval [facility] Condition: Stable Hospital course: 64-year-old man with history of Parkinson's who was brought to the hospital for weakness and because he could not stop shaking, his Parkinson's was not under control. Patient had massive rectal bleeding received multiple units of blood he had flex sig which showed rectal ulcers, bleeding has since stopped. Patient was treated with antibiotics for UTI Aspiration pneumonia, received antibiotics, he had respiratory failure due to pneumonia, he was on ventilator for about 24 hours after which he was extubated Acute renal failure, improved with IV fluids and antibiotics -He was seen by neurologist and Parkinson's medications were optimized Diagnosis Acute lower GI bleeding Acute blood loss anemia Sepsis secondary to UTI and pneumonia Acute kidney injury due to ATN Hypertension Debility Uncontrolled Parkinson's disease Acute respiratory failure on mechanical ventilator less than 96 hours Disposition: [id number] HOME [facility] Time spent for discharge: 33 mins Core Measure Documentation - Palliative Care Palliative Care/ Comfort Measures: Not Applicable - Core Measures Any of the following diagnoses?: none Exam - Physical Exam Narrative exam: General.: Appears chronically ill HEENT: Moist mucous membranes, extraocular muscles intact, no lymphadenopathy Neck: supple Cardiac: S1-S2 heard Lungs: clear to auscultation bilaterally Abdomen: soft , nontender, nondistended, bowel sounds positive Extremities: no edema clubbing or cyanosis Skin: no rash or lesions Neurologic: no gross focal deficits, resting tremors in hands Psych: calm, and cooperative - Constitutional Vitals: Temp Pulse Resp BP Pulse Ox 97.5 F L 80 24 157/72 99 04/13/19 05:55 04/13/19 05:55 04/13/19 05:55 04/13/19 05:55 04/13/19 09:05 Plan Follow up with: JOSE ALSTONADAMS RUN MD CANELO [Primary Care Provider] - 7 Days Prescriptions: Tamsulosin [Flomax] 0.4 mg PO QDAY #30 cap amLODIPine [Norvasc] 10 mg PO DAILY #30 tab Finasteride [Proscar] 5 mg PO QDAY #30 tablet Pantoprazole [Protonix TAB] 40 mg PO QDAY #30 tablet Carbidopa/Levodopa 25-250 [Sinemet 25/250] 1 each PO QID 30 Days tablet Carbidopa/Levodopa 25-250 [Sinemet] 1 each PO QID #120 tab
[2019-04-13] MEDS ORDERED: POTASSIUM CHLORIDE ER 20 MEQ TAB PO ONE ×2 (11:00→18:07)
--- NOTE | 2019-04-13 11:16 | Progress Note ---
Assessment and Plan Cultures: Blood culture and urine culture: Klebsiella pneumoniae 04/07/2019 left kidney: no growth 04/07/2019 sputum: usual resp [place] Assessment: 64 y/o male with history of Parkinson, BPH with a indwelling daniel and previous UTI admitted on due to 24 hour history of acute SOB, shakes and severe generalized weakness: 1) Severe Sepsis: resolved; source UTI and GNR bacteremia. CXR negative. 2) Klebsiella UTI with bacteremia: CAUTI. Daniel was exchanged in the ED. Blood culture growing 04/04/2019 Klebsiela 4 of 4 bottles. Urine culture 04/04/2019 Klebsiella >100K colonies. History of previous UTIs. CT showed ?bladder lesion with left renal hydronephrosis S/p perc nephrostomy placement by IR on 04/07/2019. 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 Samantha Gómez MD Infectious Diseases [facility] M [phone] O [phone] Subjective Date of service: 04/13/19 Principal diagnosis: hematochezia Interval history: Patient feels better, no fever. No GI bleed. Objective - Exam Narrative Exam: General appearance: Alert in NAD on NC O2 Eyes: anicteric sclerae, moist conjunctivae; no lid-lag; PERRLA HENT: Atraumatic; oropharynx clear limited Lungs: CTA, with normal respiratory effort and no intercostal retractions CV: RRR no murmur Abdomen: Soft, non-tender; no masses or hepatosplenomegaly Extremities: katie leg edema Skin: No rash. Psych: No agitated Neuro: alert and oriented x 2. Moving all extremities Right IJ cath comdon cath - Constitutional Vitals: Vital Signs Temp Pulse Resp BP Pulse Ox 97.5 F L 80 24 157/72 99 04/13/19 05:55 04/13/19 05:55 04/13/19 05:55 04/13/19 05:55 04/13/19 09:05 Temperature -Last 24 Hours Temperature 97.5 F Temperature 98.4 F Temperature 97.9 F Temperature 97.9 F - Labs CBC & Chem 7: 04/13/19 05:20 04/13/19 05:20 Labs: Abnormal lab results 04/11/19 04/13/19 04/13/19 Range/Units 08:43 05:20 05:20 WBC 29.5 H (4.5-11.0) K/mm3 RBC 3.02 L (3.65-5.03) M/mm3 Hgb 8.3 L (11.8-15.2) gm/dl Hct 25.6 L (35.5-45.6) % MCH 27 L (28-32) pg RDW 16.5 H (13.2-15.2) % Potassium 3.2 L (3.6-5.0) mmol/L Chloride 108.0 H (98-107) mmol/L BUN 62 H (9-20) mg/dL Creatinine 1.8 H (0.8-1.5) mg/dL Glucose 107 H (75-100) mg/dL Calcium 7.2 L (8.4-10.2) mg/dL Urine Creatinine 52.7 H (0.1-20.0) mg/dL
[2019-04-13 11:41] LABS: Band Neutrophils # (Manual) 1.8 K/mm3; Basophils % (Manual) 0 % (0.0-1.8); Total Cells Counted 100
[2019-04-13 11:42] LABS: Anisocytosis Few; Ovalocytes Few
[2019-04-13 11:48] LABS: Platelet Estimate Consistent w Auto
--- NOTE | 2019-04-13 18:20 | Consultation ---
Past History Past Medical History: arthritis, hypertension, other (Dementia,Parkinsons Disease, BPH) Past Surgical History: total knee replacement, Other (Prostate biopsy, Eye surgery) Social history: single, lives with family. denies: smoking, alcohol abuse, prescription drug abuse Family history: hypertension Medications and Allergies Allergies Allergy/AdvReac Type Severity Reaction Status Date / Time No Known Allergies Allergy Verified 06/05/18 08:22 Home Medications Medication Instructions Recorded Confirmed Last Taken Type ALPRAZolam [Xanax TAB] 0.5 mg PO DAILY PRN #7 tablet 04/13/19 Unknown Rx Carbidopa/Levodopa 25-250 [Sinemet 1 each PO BID #60 tablet 04/13/19 Unknown Rx 25/250] Finasteride [Proscar] 5 mg PO QDAY #30 tablet 04/13/19 Unknown Rx Pantoprazole [Protonix TAB] 40 mg PO QDAY #30 tablet 04/13/19 Unknown Rx Tamsulosin [Flomax] 0.4 mg PO QDAY #30 cap 04/13/19 Unknown Rx amLODIPine [Norvasc] 10 mg PO DAILY #30 tab 04/13/19 Unknown Rx cephALEXin [Keflex] 500 mg PO Q12HR #3 cap 04/13/19 Unknown Rx Active Meds: Active Medications Acetaminophen (Tylenol) 650 mg PO Q4H PRN PRN Reason: Pain MILD(1-3)/Fever >100.5/RIOJAS Last Admin: 04/06/19 23:17 Dose: 650 mg Documented by: Albuterol (Proventil) 2.5 mg IH Q4HRT PRN PRN Reason: Shortness Of Breath Alprazolam (Xanax) 0.5 mg PO DAILY PRN PRN Reason: Anxiety Carbidopa/Levodopa (Sinemet) 1 each PO BID [facility] Last Admin: 04/13/19 09:50 Dose: 1 each Documented by: Docusate Sodium (Colace) 100 mg PO BID [facility] Last Admin: 04/13/19 09:50 Dose: 100 mg Documented by: Finasteride (Proscar) 5 mg PO QDAY [facility] Last Admin: 04/13/19 09:50 Dose: 5 mg Documented by: Ceftriaxone Sodium (Rocephin/Ns 2 Gm/100 Ml) 2 gm in 100 mls @ 200 mls/hr IV Q24HR [facility]; Protocol Stop: 04/14/19 23:59 Last Admin: 04/13/19 09:49 Dose: 200 mls/hr Documented by: Ondansetron HCl (Zofran) 4 mg IV Q8H PRN PRN Reason: Nausea And Vomiting Last Admin: 04/06/19 13:43 Dose: 4 mg Documented by: Pantoprazole Sodium (Protonix) 40 mg PO QDAY [facility] Last Admin: 04/13/19 09:50 Dose: 40 mg Documented by: Sodium Chloride (Sodium Chloride Flush Syringe 10 Ml) 10 ml IV BID [facility] Last Admin: 04/13/19 09:51 Dose: 10 ml Documented by: Sodium Chloride (Sodium Chloride Flush Syringe 10 Ml) 10 ml IV PRN PRN PRN Reason: LINE FLUSH Tamsulosin HCl (Flomax) 0.4 mg PO QDAY [facility] Last Admin: 04/13/19 09:50 Dose: 0.4 mg Documented by: Physical Examination - Vital Signs Vital Signs: Vital Signs Temp Pulse BP Pulse Ox 98.3 F 100 H 99/53 96 04/04/19 11:40 04/04/19 11:40 04/04/19 11:40 04/04/19 11:40 Results - Laboratory Findings CBC and BMP: 04/13/19 05:20 04/13/19 05:20 Abnormal Lab Findings: Abnormal Labs 04/04/19 04/04/19 04/04/19 12:18 12:18 12:18 WBC 1.0 L* RBC Hgb Hct MCV MCH MCHC RDW Plt Count Seg Neutrophils % 83.5 H Seg Neuts % (Manual) 80.0 H Lymphocytes % (Manual) 12.0 L Nucleated RBC % Seg Neutrophils # 0.8 L Seg Neutrophils # Man 0.8 L Lymphocytes # (Manual) 0.1 L Monocytes # (Manual) Eosinophils # (Manual) Basophils # (Manual) Haptoglobin PT INR 1.16 H D-Dimer POC ABG pH POC ABG pCO2 POC ABG pO2 Sodium Potassium 3.2 L Chloride Carbon Dioxide BUN Creatinine Glucose 105 H Lactic Acid Calcium Magnesium AST ALT Total Protein Albumin 3.7 L Urine WBC (Auto) Urine Creatinine Urine Total Protein Crossmatch 04/04/19 04/04/19 04/04/19 12:18 13:53 13:53 WBC RBC Hgb Hct MCV MCH MCHC RDW Plt Count Seg Neutrophils % Seg Neuts % (Manual) Lymphocytes % (Manual) Nucleated RBC % Seg Neutrophils # Seg Neutrophils # Man Lymphocytes # (Manual) Monocytes # (Manual) Eosinophils # (Manual) Basophils # (Manual) Haptoglobin PT INR D-Dimer POC ABG pH POC ABG pCO2 POC ABG pO2 Sodium Potassium Chloride Carbon Dioxide BUN Creatinine Glucose Lactic Acid 6.40 H* 6.00 H* Calcium Magnesium 1.50 L AST ALT Total Protein Albumin Urine WBC (Auto) Urine Creatinine Urine Total Protein Crossmatch 04/04/19 04/04/19 04/05/19 22:50 Unknown 05:22 WBC 17.9 H RBC Hgb Hct MCV MCH MCHC 35 H RDW Plt Count Seg Neutrophils % Seg Neuts % (Manual) 93.0 H Lymphocytes % (Manual) 2.0 L Nucleated RBC % Seg Neutrophils # Seg Neutrophils # Man 16.6 H Lymphocytes # (Manual) 0.4 L Monocytes # (Manual) Eosinophils # (Manual) Basophils # (Manual) 0.2 H Haptoglobin PT INR D-Dimer POC ABG pH POC ABG pCO2 POC ABG pO2 Sodium Potassium Chloride Carbon Dioxide BUN Creatinine Glucose Lactic Acid 5.40 H* Calcium Magnesium AST ALT Total Protein Albumin Urine WBC (Auto) > 182.0 H Urine Creatinine Urine Total Protein Crossmatch 04/05/19 04/05/19 04/06/19 05:22 05:22 13:05 WBC 29.2 H RBC Hgb Hct MCV MCH MCHC RDW Plt Count 133 L Seg Neutrophils % Seg Neuts % (Manual) Lymphocytes % (Manual) 2.0 L Nucleated RBC % Seg Neutrophils # Seg Neutrophils # Man 19.6 H Lymphocytes # (Manual) 0.6 L Monocytes # (Manual) 0.9 H Eosinophils # (Manual) Basophils # (Manual) Haptoglobin PT INR D-Dimer POC ABG pH POC ABG pCO2 POC ABG pO2 Sodium Potassium 3.0 L Chloride Carbon Dioxide 19 L BUN 34 H Creatinine 2.4 H D Glucose 72 L Lactic Acid 2.80 H* Calcium 7.6 L Magnesium AST 250 H ALT 108 H Total Protein 6.2 L Albumin 3.2 L Urine WBC (Auto) Urine Creatinine Urine Total Protein Crossmatch 04/06/19 04/07/19 04/07/19 13:05 04:55 04:55 WBC 22.6 H RBC Hgb Hct MCV MCH MCHC RDW Plt Count 95 L Seg Neutrophils % Seg Neuts % (Manual) 96.0 H Lymphocytes % (Manual) 2.0 L Nucleated RBC % Seg Neutrophils # Seg Neutrophils # Man 21.7 H Lymphocytes # (Manual) 0.5 L Monocytes # (Manual) Eosinophils # (Manual) Basophils # (Manual) Haptoglobin PT INR D-Dimer POC ABG pH POC ABG pCO2 POC ABG pO2 Sodium Potassium Chloride 108.7 H Carbon Dioxide 16 L 18 L BUN 68 H 79 H Creatinine 3.6 H 4.0 H Glucose Lactic Acid Calcium 6.9 L 6.7 L Magnesium AST 355 H ALT 76 H Total Protein Albumin 3.1 L Urine WBC (Auto) Urine Creatinine Urine Total Protein Crossmatch 04/07/19 04/08/19 04/08/19 23:44 05:34 08:41 WBC 21.0 H RBC Hgb 10.7 L Hct 32.2 L MCV 83 L MCH MCHC RDW Plt Count 71 L Seg Neutrophils % Seg Neuts % (Manual) 94.0 H Lymphocytes % (Manual) 4.0 L Nucleated RBC % Seg Neutrophils # Seg Neutrophils # Man 19.7 H Lymphocytes # (Manual) 0.8 L Monocytes # (Manual) Eosinophils # (Manual) Basophils # (Manual) Haptoglobin PT INR D-Dimer POC ABG pH 7.207 L 7.340 L POC ABG pCO2 48.6 H 32.0 L POC ABG pO2 130 H Sodium Potassium Chloride Carbon Dioxide BUN Creatinine Glucose Lactic Acid Calcium Magnesium AST ALT Total Protein Albumin Urine WBC (Auto) Urine Creatinine Urine Total Protein Crossmatch 04/08/19 04/08/19 04/08/19 08:41 10:51 12:29 WBC RBC Hgb 9.9 L Hct 29.3 L MCV MCH MCHC RDW Plt Count Seg Neutrophils % Seg Neuts % (Manual) Lymphocytes % (Manual) Nucleated RBC % Seg Neutrophils # Seg Neutrophils # Man Lymphocytes # (Manual) Monocytes # (Manual) Eosinophils # (Manual) Basophils # (Manual) Haptoglobin PT 15.2 H INR 1.23 H D-Dimer > 53528 H POC ABG pH POC ABG pCO2 POC ABG pO2 Sodium Potassium Chloride 108.6 H Carbon Dioxide 18 L BUN 96 H Creatinine 4.5 H Glucose Lactic Acid Calcium 6.7 L Magnesium AST ALT Total Protein Albumin Urine WBC (Auto) Urine Creatinine Urine Total Protein Crossmatch 04/08/19 04/08/1904/08/19 12:29 14:58 17:36 WBC RBC Hgb 7.1 L Hct 21.6 L D MCV MCH MCHC RDW Plt Count Seg Neutrophils % Seg Neuts % (Manual) Lymphocytes % (Manual) Nucleated RBC % Seg Neutrophils # Seg Neutrophils # Man Lymphocytes # (Manual) Monocytes # (Manual) Eosinophils # (Manual) Basophils # (Manual) Haptoglobin 246 H PT INR D-Dimer POC ABG pH POC ABG pCO2 POC ABG pO2 Sodium Potassium Chloride Carbon Dioxide BUN Creatinine Glucose Lactic Acid Calcium Magnesium AST ALT Total Protein Albumin Urine WBC (Auto) Urine Creatinine Urine Total Protein Crossmatch See Detail 04/09/19 04/09/19 04/09/19 02:30 05:27 05:27 WBC RBC Hgb 7.7 L 7.7 L Hct 23.2 L 23.1 L MCV MCH MCHC RDW Plt Count Seg Neutrophils % Seg Neuts % (Manual) Lymphocytes % (Manual) Nucleated RBC % Seg Neutrophils # Seg Neutrophils # Man Lymphocytes # (Manual) Monocytes # (Manual) Eosinophils # (Manual) Basophils # (Manual) Haptoglobin PT INR D-Dimer POC ABG pH POC ABG pCO2 POC ABG pO2 Sodium 149 H Potassium Chloride 118.8 H Carbon Dioxide 19 L BUN 108 H Creatinine 4.3 H Glucose Lactic Acid Calcium 6.7 L Magnesium AST ALT Total Protein Albumin Urine WBC (Auto) Urine Creatinine Urine Total Protein Crossmatch 04/09/19 04/09/19 04/09/19 05:55 15:15 21:30 WBC RBC Hgb 7.4 L 7.4 L 7.5 L Hct 22.3 L 23.0 L 23.0 L MCV MCH MCHC RDW Plt Count Seg Neutrophils % Seg Neuts % (Manual) Lymphocytes % (Manual) Nucleated RBC % Seg Neutrophils # Seg Neutrophils # Man Lymphocytes # (Manual) Monocytes # (Manual) Eosinophils # (Manual) Basophils # (Manual) Haptoglobin PT INR D-Dimer POC ABG pH POC ABG pCO2 POC ABG pO2 Sodium Potassium Chloride Carbon Dioxide BUN Creatinine Glucose Lactic Acid Calcium Magnesium AST ALT Total Protein Albumin Urine WBC (Auto) Urine Creatinine Urine Total Protein Crossmatch 04/10/19 04/10/19 04/10/19 00:23 04:57 04:57 WBC 32.9 H RBC 2.60 L Hgb 7.2 L 7.1 L Hct 21.8 L 21.7 L MCV 83 L MCH 27 L MCHC RDW 16.6 H Plt Count 97 L Seg Neutrophils % Seg Neuts % (Manual) 89.0 H Lymphocytes % (Manual) 4.0 L Nucleated RBC % Seg Neutrophils # Seg Neutrophils # Man 29.3 H Lymphocytes # (Manual) Monocytes # (Manual) 1.3 H Eosinophils # (Manual) Basophils # (Manual) Haptoglobin PT INR D-Dimer POC ABG pH POC ABG pCO2 POC ABG pO2 Sodium 147 H Potassium 3.5 L Chloride 116.3 H Carbon Dioxide 20 L BUN 108 H Creatinine 4.1 H Glucose Lactic Acid Calcium 7.0 L Magnesium AST ALT Total Protein Albumin Urine WBC (Auto) Urine Creatinine Urine Total Protein Crossmatch 04/11/19 04/11/19 04/11/19 05:00 05:00 05:00 WBC 36.7 H RBC 2.48 L Hgb 6.7 L Hct 20.7 L MCV MCH 27 L MCHC RDW 16.8 H Plt Count 125 L Seg Neutrophils % Seg Neuts % (Manual) 90.0 H Lymphocytes % (Manual) 4.0 L Nucleated RBC % Seg Neutrophils # Seg Neutrophils # Man 33.0 H Lymphocytes # (Manual) Monocytes # (Manual) 1.5 H Eosinophils # (Manual) Basophils # (Manual) 0.4 H Haptoglobin PT INR D-Dimer POC ABG pH POC ABG pCO2 POC ABG pO2 Sodium Potassium Chloride Carbon Dioxide BUN Creatinine Glucose Lactic Acid Calcium Magnesium AST ALT Total Protein Albumin Urine WBC (Auto) Urine Creatinine 57.2 H 57.2 H Urine Total Protein 38 H Crossmatch 04/11/19 04/11/19 04/11/19 05:00 08:43 09:34 WBC RBC Hgb Hct MCV MCH MCHC RDW Plt Count Seg Neutrophils % Seg Neuts % (Manual) Lymphocytes % (Manual) Nucleated RBC % Seg Neutrophils # Seg Neutrophils # Man Lymphocytes # (Manual) Monocytes # (Manual) Eosinophils # (Manual) Basophils # (Manual) Haptoglobin PT INR D-Dimer POC ABG pH POC ABG pCO2 POC ABG pO2 Sodium 147 H Potassium 3.5 L Chloride 115.3 H Carbon Dioxide BUN 97 H Creatinine 3.4 H Glucose Lactic Acid Calcium 7.0 L Magnesium AST ALT Total Protein Albumin Urine WBC (Auto) Urine Creatinine 52.7 H Urine Total Protein Crossmatch See Detail 04/12/19 04/12/19 04/13/19 04:55 04:55 05:20 WBC 37.6 H 29.5 H RBC 3.01 L 3.02 L Hgb 8.4 L 8.3 L Hct 25.5 L 25.6 L MCV MCH 27 L MCHC RDW 16.4 H 16.5 H Plt Count Seg Neutrophils % Seg Neuts % (Manual) 87.0 H 84.0 H Lymphocytes % (Manual) 5.0 L 2.0 L Nucleated RBC % 4.0 H Seg Neutrophils # Seg Neutrophils # Man 32.7 H 24.8 H Lymphocytes # (Manual) 0.6 L Monocytes # (Manual) 2.3 H 2.1 H Eosinophils # (Manual) 0.8 H Basophils # (Manual) Haptoglobin PT INR D-Dimer POC ABG pH POC ABG pCO2 POC ABG pO2 Sodium 147 H Potassium 3.5 L Chloride 113.9 H Carbon Dioxide BUN 81 H Creatinine 2.5 H Glucose Lactic Acid Calcium 7.3 L Magnesium AST ALT Total Protein Albumin Urine WBC (Auto) Urine Creatinine Urine Total Protein Crossmatch 04/13/19 05:20 WBC RBC Hgb Hct MCV MCH MCHC RDW Plt Count Seg Neutrophils % Seg Neuts % (Manual) Lymphocytes % (Manual) Nucleated RBC % Seg Neutrophils # Seg Neutrophils # Man Lymphocytes # (Manual) Monocytes # (Manual) Eosinophils # (Manual) Basophils # (Manual) Haptoglobin PT INR D-Dimer POC ABG pH POC ABG pCO2 POC ABG pO2 Sodium Potassium 3.2 L Chloride 108.0 H Carbon Dioxide BUN 62 H Creatinine 1.8 H Glucose 107 H Lactic Acid Calcium 7.2 L Magnesium AST ALT Total Protein Albumin Urine WBC (Auto) Urine Creatinine Urine Total Protein Crossmatch Assessment and Plan 64 YR OLD MALE WITH HIST OF PARKINSON'S DISEASE,HYPERTENSION,OA, WHO PRESENTED TO ER WITH CONFUSION AND GNERALIZED WEAKNESS MORE THAN A WEEK AGO. HE WAS ADMITTED IN THE ICU FOR ACUTE METABOLIC ENCEPHALOPATHY FROM UTI AND ALSO HAD NON TRAUMATIC RHABDOMYOLYSIS. AFTER ADMISSION HE DEVELOPED GI BLEED AND ALSO HAD NEPHROSTOMY TUBE PLACED DUE TO HYDROEPHROSIS. AFTER STABILZING HE WAS TRANSFERED TO REGULAR FLOOR AND PRIOR TO DISCHARGE HE WAS FOUND TO HAVE STIFFNESS CAUSING DIFFCIULTY TO GET PHYSICAL THERAPY. PHYSICAL EXAMINATION- PATIENT IS ALERT AND APPROPRIATE. HAS INSIGHT INTO HIS PROBLEM AND ANSWERS QUESTIONS APPROPRIATELY HEART- NORMAL RATE AND RYTHM. CAROTIDS-BOTH PALPABLE, CRANIAL NERVES- ALL CRANIAL NERVES ARE WITH IN NORMAL LIMIT, MOTOR- RIGID ALL FOUR EXTREMITIES, HAS COG WHEELING IN THE WRIST JOINTS,NO ASYMMETRY OF STRENGTH BETWEEN EXTREMITIES. MILD RESTING TREMOR WAS NOTED, PATIENT ALSO WAS NOTED TO HAVE TREMOR ON THE RT HAND WHICH INCREASED WHILE HE ATTEMPTED TO EAT REFLEXES- ALL REFLEXES WERE WITH IN NORMAL LIMIT WITH BILATERAL UP GOING TOES SENOSRY EXAMINATION WAS GROSSLY WITH IN NORMAL LIMIT. IMPRESSION. 1. PATIENT HAS PARKINSON'S DISEASE NOT SUFFICIENTLY TREATED AT PRESENT. RIGIDITY/STIFFNESS IS DUE TO INSUFFICIENTLY TREATED PARKINSON'S DISEASE 2. PATIENT ALSO HAS SOME ELEMENT OF BENIGN ESSENTIAL TREMOR, WHICH IS MILD AT PRESENT. RECOMMEND. 1. PLEASE GIVE HIM SINEMET 25/100 MG PO Q5 HRS FOLLOWS, EACH SINEMET TO BE GIVEN AT LEAST ONE TO ONE AND HALF HOUR BEFORE FOOD, AT 6AM, 11AM,4PM AND 9PM. 2. ONCE STIFFNESS IS ADEQUATELY CONTROLLED HE WILL BENEFIT FROM PHYSICAL THERAPY. 3. MAY NEED FURTHER ADJUSTMENT OF SINEMET DOSE. 4. WILL FOLLOW UP.
[2019-04-14 06:16] VITALS: BP 112/63
[2019-04-14 08:15] LABS: Hematocrit 26.3 % (35.5-45.6); Hemoglobin 8.9 gm/dl (11.8-15.2); Mean Corpuscular HGB Conc 34 % (32-34); Mean Corpuscular Volume 85 fl (84-94); Platelet Count 219 K/mm3 (140-440); Red Cell Distribution Width 16.5 % (13.2-15.2)
[2019-04-14 08:37] LABS: BUN/Creatinine Ratio 34; Blood Urea Nitrogen 44 mg/dL (9-20); Calcium 7.2 mg/dL (8.4-10.2); Hemolysis Index 7
--- NOTE | 2019-04-14 10:04 | Progress Note ---
Assessment and Plan Assessment and plan: 64-year-old man with history of Parkinson's who was brought to the hospital for weakness and because he could not stop shaking, his Parkinson's was not under control. Patient had massive rectal bleeding received multiple units of blood he had flex sig which showed rectal ulcers, bleeding has since stopped. Patient was treated with antibiotics for UTI Aspiration pneumonia, received antibiotics, he had respiratory failure due to pneumonia, he was on ventilator for about 24 hours after which he was extubated Acute renal failure, improved with IV fluids and antibiotics -He was seen by neurologist and Parkinson's medications were optimized Diagnosis Acute lower GI bleeding Acute blood loss anemia Sepsis secondary to UTI and pneumonia Acute kidney injury due to ATN Hypertension Debility Uncontrolled Parkinson's disease Acute respiratory failure on mechanical ventilator less than 96 hours History Interval history: Review of systems Constitutional: No fevers, no malaise, no joint pains CVS: No chest pain, no orthopnea, no pedal edema GI: No abdominal pain, no diarrhea, no vomiting, no constipation Respiratory: No shortness of breath, no wheezing, no coughing Hospitalist Physical - Physical exam Narrative exam: General.: Appears chronically ill HEENT: Moist mucous membranes, extraocular muscles intact, no lymphadenopathy Neck: supple Cardiac: S1-S2 heard Lungs: clear to auscultation bilaterally Abdomen: soft , nontender, nondistended, bowel sounds positive Extremities: no edema clubbing or cyanosis Skin: no rash or lesions Neurologic: no gross focal deficits, resting tremors in hands Psych: calm, and cooperative - Constitutional Vitals: Temp Pulse Resp BP Pulse Ox 98.0 F 80 18 112/63 97 04/14/19 05:45 04/14/19 05:45 04/14/19 05:45 04/14/19 05:45 04/14/19 09:37 General appearance: Present: no acute distress, other (A&O x0) Results - Labs CBC & Chem 7: 04/14/19 07:55 04/14/19 07:55 Labs: Laboratory Last Values WBC 25.5 K/mm3 (4.5-11.0) H 04/14/19 07:55 RBC 3.10 M/mm3 (3.65-5.03) L 04/14/19 07:55 Hgb 8.9 gm/dl (11.8-15.2) L 04/14/19 07:55 Hct 26.3 % (35.5-45.6) L 04/14/19 07:55 MCV 85 fl (84-94) 04/14/19 07:55 MCH 29 pg (28-32) 04/14/19 07:55 MCHC 34 % (32-34) 04/14/19 07:55 RDW 16.5 % (13.2-15.2) H 04/14/19 07:55 Plt Count 219 K/mm3 (140-440) 04/14/19 07:55 [place] % (Auto) 1.4 % (0.0-7.3) 04/04/19 12:18 Eos % (Auto) 0.1 % (0.0-4.3) 04/04/19 12:18 [place] # 0.0 K/mm3 (0.0-0.8) 04/04/19 12:18 Eos # 0.0 K/mm3 (0.0-0.4) 04/04/19 12:18 Baso # 0.0 K/mm3 (0.0-0.1) 04/04/19 12:18 Add Manual Diff Complete 04/13/19 05:20 Total Counted 100 04/13/19 05:20 Seg Neutrophils % Infectious Waste Technician 04/11/19 05:00 Seg Neuts % (Manual) 84.0 % (40.0-70.0) H 04/13/19 05:20 Band Neutrophils % 6.0 % 04/13/19 05:20 Lymphocytes % (Manual) 2.0 % (13.4-35.0) L 04/13/19 05:20 Reactive Lymphs % (Man) 0 % 04/13/19 05:20 Monocytes % (Manual) 7.0 % (0.0-7.3) 04/13/19 05:20 Eosinophils % (Manual) 1.0 % (0.0-4.3) 04/13/19 05:20 Basophils % (Manual) 0 % (0.0-1.8) 04/13/19 05:20 Metamyelocytes % 0 % 04/13/19 05:20 Myelocytes % 0 % 04/13/19 05:20 Promyelocytes % 0 % 04/13/19 05:20 Blast Cells % 0 % 04/13/19 05:20 Nucleated RBC % Not Reportable 04/13/19 05:20 Seg Neutrophils # 0.8 K/mm3 (1.8-7.7) L 04/04/19 12:18 Seg Neutrophils # Man 24.8 K/mm3 (1.8-7.7) H 04/13/19 05:20 Band Neutrophils # 1.8 K/mm3 04/13/19 05:20 Lymphocytes # (Manual) 0.6 K/mm3 (1.2-5.4) L 04/13/19 05:20 Abs React Lymphs (Man) 0.0 K/mm3 04/13/19 05:20 Monocytes # (Manual) 2.1 K/mm3 (0.0-0.8) H 04/13/19 05:20 Eosinophils # (Manual) 0.3 K/mm3 (0.0-0.4) 04/13/19 05:20 Basophils # (Manual) 0.0 K/mm3 (0.0-0.1) 04/13/19 05:20 Metamyelocytes # 0.0 K/mm3 04/13/19 05:20 Myelocytes # 0.0 K/mm3 04/13/19 05:20 Promyelocytes # 0.0 K/mm3 04/13/19 05:20 Blast Cells # 0.0 K/mm3 04/13/19 05:20 Pathologist Review 04/10/19 04:57 WBC Morphology Not Reportable 04/13/19 05:20 Hypersegmented Neuts Not Reportable 04/13/19 05:20 Hyposegmented Neuts Not Reportable 04/13/19 05:20 Hypogranular Neuts Not Reportable 04/13/19 05:20 Smudge Cells Not Reportable 04/13/19 05:20 Toxic Granulation Not Reportable 04/13/19 05:20 Toxic Vacuolation Not Reportable 04/13/19 05:20 Dohle Bodies Not Reportable 04/13/19 05:20 Pelger-Huet Anomaly Not Reportable 04/13/19 05:20 Araseli Rods Not Reportable 04/13/19 05:20 Platelet Estimate Consistent w auto 04/13/19 05:20 Clumped Platelets Not Reportable 04/13/19 05:20 Plt Clumps, EDTA Not Reportable 04/13/19 05:20 Large Platelets Not Reportable 04/13/19 05:20 Giant Platelets Not Reportable 04/13/19 05:20 Platelet Satelliting Not Reportable 04/13/19 05:20 Plt Morphology Comment Not Reportable 04/13/19 05:20 RBC Morphology Not Reportable 04/13/19 05:20 Dimorphic RBCs Not Reportable 04/13/19 05:20 Polychromasia Not Reportable 04/13/19 05:20 Hypochromasia Not Reportable 04/13/19 05:20 Poikilocytosis Not Reportable 04/13/19 05:20 Anisocytosis Few 04/13/19 05:20 Microcytosis Not Reportable 04/13/19 05:20 Macrocytosis Not Reportable 04/13/19 05:20 Spherocytes Not Reportable 04/13/19 05:20 Pappenheimer Bodies Not Reportable 04/13/19 05:20 Sickle Cells Not Reportable 04/13/19 05:20 Target Cells Not Reportable 04/13/19 05:20 Tear Drop Cells Not Reportable 04/13/19 05:20 Ovalocytes Few 04/13/19 05:20 Helmet Cells Not Reportable 04/13/19 05:20 [place] Bodies Not Reportable 04/13/19 05:20 [place] Rings Not Reportable 04/13/19 05:20 Lorna Cells Not Reportable 04/13/19 05:20 Bite Cells Not Reportable 04/13/19 05:20 Crenated Cell Not Reportable 04/13/19 05:20 Elliptocytes Not Reportable 04/13/19 05:20 Acanthocytes (Spur) Not Reportable 04/13/19 05:20 Rouleaux Not Reportable 04/13/19 05:20 Hemoglobin C Crystals Not Reportable 04/13/19 05:20 Schistocytes Not Reportable 04/13/19 05:20 Malaria parasites Not Reportable 04/13/19 05:20 Amilcar Bodies Not Reportable 04/13/19 05:20 Haptoglobin 246 mg/dL (43-212) H 04/08/19 12:29 Hem Pathologist Commnt No 04/13/19 05:20 PT 15.2 Sec. (12.2-14.9) H 04/08/19 12:29 INR 1.23 (0.87-1.13) H 04/08/19 12:29 APTT 31.1 Sec. (24.2-36.6) 04/08/19 12:29 Fibrinogen 355 mg/dl (211-480) 04/08/19 12:29 D-Dimer > 77533 ng/mlDDU (0-234) H 04/08/19 12:29 POC ABG pH 7.340 (7.35-7.45) L 04/08/19 05:34 POC ABG pCO2 32.0 (35-45) L 04/08/19 05:34 POC ABG pO2 103 (80-105) 04/08/19 05:34 POC ABG HCO3 17.3 (22-26 mml/L) 04/08/19 05:34 POC ABG Total CO2 18 (23-27mmol/L) 04/08/19 05:34 POC ABG O2 Sat 98 04/08/19 05:34 POC ABG Base Excess -8 ((-2) - (+3)mmol/L) 04/08/19 05:34 VBG pH 7.417 (7.320-7.420) 04/04/19 12:18 FiO2 30 % 04/08/19 05:34 Sodium 146 mmol/L (137-145) H 04/14/19 07:55 Potassium 3.6 mmol/L (3.6-5.0) 04/14/19 07:55 Chloride 111.8 mmol/L (98-107) H 04/14/19 07:55 Carbon Dioxide 23 mmol/L (22-30) 04/14/19 07:55 Anion Gap 15 mmol/L 04/14/19 07:55 BUN 44 mg/dL (9-20) H 04/14/19 07:55 Creatinine 1.3 mg/dL (0.8-1.5) 04/14/19 07:55 Estimated GFR > 60 ml/min 04/14/19 07:55 BUN/Creatinine Ratio 34 % 04/14/19 07:55 Glucose 90 mg/dL (75-100) 04/14/19 07:55 POC Glucose 89 (70-105) 04/14/19 07:54 Lactic Acid 2.80 mmol/L (0.7-2.0) H* 04/05/19 05:22 Calcium 7.2 mg/dL (8.4-10.2) L 04/14/19 07:55 Phosphorus 3.00 mg/dL (2.5-4.5) 04/14/19 07:55 Magnesium 1.50 mg/dL (1.7-2.3) L 04/04/19 13:53 Total Bilirubin 0.60 mg/dL (0.1-1.2) 04/06/19 13:05 AST 355 units/L (5-40) H 04/06/19 13:05 ALT 76 units/L (7-56) H 04/06/19 13:05 Alkaline Phosphatase 71 units/L (35-129) 04/06/19 13:05 Troponin T 0.016 ng/mL (0.00-0.029) 04/04/19 12:18 Total Protein 6.9 g/dL (6.3-8.2) 04/06/19 13:05 Albumin 3.1 g/dL (3.9-5) L 04/06/19 13:05 Albumin/Globulin Ratio 0.8 % 04/06/19 13:05 Triglycerides 126 mg/dL (2-149) 04/10/19 04:57 Urine Color Yellow (Yellow) 04/04/19 Unknown Urine Turbidity Turbid (Clear) 04/04/19 Unknown Urine pH 7.0 (5.0-7.0) 04/04/19 Unknown Ur Specific [place] 1.008 (1.003-1.030) 04/04/19 Unknown Urine Protein 100 mg/dl mg/dL (Negative) 04/04/19 Unknown Urine Glucose (UA) Neg mg/dL (Negative) 04/04/19 Unknown Urine Ketones Neg mg/dL (Negative) 04/04/19 Unknown Urine Blood Lg (Negative) 04/04/19 Unknown Urine Nitrite Neg (Negative) 04/04/19 Unknown Urine Bilirubin Neg (Negative) 04/04/19 Unknown Urine Urobilinogen < 2.0 mg/dL (<2.0) 04/04/19 Unknown Ur Leukocyte Esterase Lg (Negative) 04/04/19 Unknown Urine WBC (Auto) > 182.0 /HPF (0.0-6.0) H 04/04/19 Unknown Urine RBC (Auto) 87.0 /HPF (0.0-6.0) 04/04/19 Unknown Urine Bacteria (Auto) 2+ /HPF (Negative) 04/04/19 Unknown Urine WBC Clumps 3+ /HPF 04/04/19 Unknown Urine Total Volume 3200 ml 04/11/19 08:43 Urine Creatinine 52.7 mg/dL (0.1-20.0) H 04/11/19 08:43 Ur Creatinine 24 Hour 1.7 (0.8-2.8) 04/11/19 08:43 Protein/Creatinin Ratio 0.66 04/11/19 05:00 Urine Sodium 30 mmol/L 04/11/19 05:00 Urine Total Protein 38 mg/dL (5-11.8) H 04/11/19 05:00 Urine Opiates Screen Presumptive negative 04/04/19 Unknown Urine Methadone Screen Presumptive negative 04/04/19 Unknown Ur Barbiturates Screen Presumptive negative 04/04/19 Unknown Ur Phencyclidine Scrn Presumptive negative 04/04/19 Unknown Ur Amphetamines Screen Presumptive negative 04/04/19 Unknown U Benzodiazepines Scrn Presumptive negative 04/04/19 Unknown Urine Cocaine Screen Presumptive negative 04/04/19 Unknown U Marijuana (THC) Screen Presumptive negative 04/04/19 Unknown Drugs of Abuse Note Disclamer 04/04/19 Unknown HIV 1&2 Antibody Rapid Non react (Non React) 04/04/19 22:50 HIV P24 Antigen Non react (Non React) 04/04/19 22:50 Blood Type B POSITIVE 04/11/19 09:34 Antibody Screen Negative 04/11/19 09:34 Crossmatch See Detail 04/11/19 09:34 Active Medications - Current Medications Current Medications: Generic Name Dose Route Start Last Admin Trade Name Navjotq PRN Reason Stop Dose Admin Acetaminophen 650 mg 04/04/19 14:35 04/06/19 23:17 Tylenol PO 650 mg Q4H PRN Administration Pain MILD(1-3)/Fever >100.5/RIOJAS Albuterol 2.5 mg 04/04/19 14:35 Proventil IH Q4HRT PRN Shortness Of Breath Alprazolam 0.5 mg 04/04/19 13:43 Xanax PO DAILY PRN Anxiety Carbidopa/Levodopa 1 each 04/04/19 22:00 04/13/19 22:05 Sinemet PO 1 each BID ANDREZ Administration Docusate Sodium 100 mg 04/09/19 22:00 04/13/19 23:17 Colace PO 100 mg BID ANDREZ Administration Finasteride 5 mg 04/05/19 10:00 04/13/19 09:50 Proscar PO 5 mg QDAY ANDREZ Administration Ceftriaxone Sodium 2 gm in 100 mls @ 200 mls/hr 04/06/19 15:00 04/13/19 09:49 Rocephin/Ns 2 Gm/100 Ml IV 04/14/19 23:59 200 mls/hr Q24HR ANDREZ Administration Protocol Ondansetron HCl 4 mg 04/04/19 14:35 04/06/19 13:43 Zofran IV 4 mg Q8H PRN Administration Nausea And Vomiting Pantoprazole Sodium 40 mg 04/10/19 10:00 04/13/19 09:50 Protonix PO 40 mg QDAY ANDREZ Administration Sodium Chloride 10 ml 04/04/19 22:00 04/13/19 21:03 Sodium Chloride Flush Syringe 10 Ml IV 10 ml BID ANDREZ Administration Sodium Chloride 10 ml 04/04/19 14:35 Sodium Chloride Flush Syringe 10 Ml IV PRN PRN LINE FLUSH Tamsulosin HCl 0.4 mg 04/05/19 10:00 04/13/19 09:50 Flomax PO 0.4 mg QDAY ANDREZ Administration Nutrition/Malnutrition Assess - Dietary Evaluation Nutrition/Malnutrition Findings: Nutrition Notes Start: 04/05/19 16:00 Freq: Status: Active Protocol: Document 04/13/19 16:53 RM (Rec: 04/13/19 17:07 RM [id number]) Nutrition Notes Initial or Follow up Reassessment Current Diagnosis Acute Kidney Injury,Sepsis, Hypertension Other Pertinent Diagnosis Dementia, Parkinsons, UTI, Aspiration Pneu Current Diet Cardiac w/Ensure Enlive Labs/Tests Reviewed Pertinent Medications Zofran Height 5 ft 10 in Weight 110 kg [place] Body Weight (kg) 75.45 BMI 34.7 Subjective/Other Information Full liquid diet w/Ensure Clear [address] earlier today. Cardiac diet w/Ensure Enlive ordered later today. Pt stated that he drinks all of his meals and drinks the Ensure Clear. Percent of energy/protein needs met: 75%/48% Burn Absent Trauma Absent Minimum of two criteria Yes #2 Nutrition Diagnosis Inadequate oral intake As Evidenced by Signs and Symptoms pt meeting 75% of calorie and 48% of protein needs Diagnosis Progress(for reassessment Improved documentation) #1 Nutrition Diagnosis Malnutrition Diagnosis Progress(for reassessment Continues documentation) Is patient on ventilator? No Is Patient Ambulatory and/or Out of Bed No REE-([place]-St. Jeor-confined to bed) 2280.324 Kcal/Kg value to use for calculation 17 Approximate Energy Requirements Using 1870 kcal/Kg Calculation Used for Recommendations Kcal/kg Additional Notes Protein: 93-121g (1-1.3g/kg AdBW 93 kg) Fluid: 1 ml/kcal or per MD Nutrition Intervention Change Diet Order: Continue current Add Supplement/Snack (indicate name/kcal Continue Ensure Enlive /protein ) Provides kCal: 350 Provides Protein (gm) 20 Goal #1 Meet at least 75% of energy and protein needs Anticipated Discharge Needs: Cardiac diet Follow-Up By: 04/16/19 Additional Comments Follow for PO and ONS intakes
[2019-04-14 12:06] LABS: Band Neutrophils # (Manual) 0.3 K/mm3; Basophils % (Manual) 0 % (0.0-1.8); Eosinophils % (Manual) 0 % (0.0-4.3); Large Platelets Rare; Platelet Estimate Consistent w Auto; Total Cells Counted 100
[2019-04-14] MEDS: cefTRIAXone/NS 2 GM/100 ML 2 GM/100 ML BAG IV SCH (12:45)
[2019-04-14] MEDS: TAMSULOSIN 0.4 MG CAP PO SCH (12:45)
[2019-04-14] MEDS: PANTOPRAZOLE 40 MG TAB PO SCH (12:46)
[2019-04-14] MEDS: DOCUSATE SODIUM 100 MG CAP PO SCH (12:46)
[2019-04-14] MEDS: CARBIDOPA/LEVODOPA 25-250 TAB PO SCH ×2 (12:46→16:00)
[2019-04-14] MEDS: FINASTERIDE 5 MG TAB PO SCH (12:46)
--- NOTE | 2019-04-14 16:35 | Progress Note ---
Assessment and Plan Cultures: Blood culture and urine culture: Klebsiella pneumoniae 04/07/2019 left kidney: no growth 04/07/2019 sputum: usual resp everett Assessment: 64 y/o male with history of Parkinson, BPH with a indwelling daniel and previous UTI admitted on due to 24 hour history of acute SOB, shakes and severe generalized weakness: 1) Severe Sepsis: resolved; source UTI and GNR bacteremia. CXR negative. 2) Klebsiella UTI with bacteremia: CAUTI. Daniel was exchanged in the ED. Blood culture growing 04/04/2019 Klebsiela 4 of 4 bottles. Urine culture 04/04/2019 Klebsiella >100K colonies. History of previous UTIs. CT showed ?bladder lesion with left renal hydronephrosis S/p perc nephrostomy placement by IR on 04/07/2019. 3) Acute encephalopathy due to #1: better 4) MYCHAL: better 6) GI bleed Recommendations: monitor leukocytosis likely reactive due to GI bleed continue ceftriaxone at discharge will do ceftin 500 mg PO q12h for [address] CUTTER tube placement (end date for abx: 04/14/2019) Ok to d/c from ID stand point remove IJ Will follow Samantha Gómez MD Infectious Diseases Heavy Duty Press Operator [facility] M [phone] O [phone] Subjective Date of service: 04/14/19 Principal diagnosis: hematochezia Interval history: Patient feels good, no fever. No GI bleed. Objective - Exam Narrative Exam: General appearance: Alert in NAD on NC O2 Eyes: anicteric sclerae, moist conjunctivae; no lid-lag; PERRLA HENT: Atraumatic; oropharynx clear limited Lungs: CTA, with normal respiratory effort and no intercostal retractions CV: RRR no murmur Abdomen: Soft, non-tender; no masses or hepatosplenomegaly Extremities: katie leg edema Skin: No rash. Psych: No agitated Neuro: alert and oriented x 2. Moving all extremities Right IJ cath comdon cath - Constitutional Vitals: Vital Signs Temp Pulse Resp BP Pulse Ox 98.0 F 80 18 112/63 97 04/14/19 05:45 04/14/19 05:45 04/14/19 05:45 04/14/19 05:45 04/14/19 10:04 Temperature -Last 24 Hours Temperature 98.0 F Temperature 98.2 F Temperature 98.0 F - Labs CBC & Chem 7: 04/14/19 07:55 04/14/19 07:55 Labs: Abnormal lab results 04/14/19 04/14/19 04/14/19 Range/Units 07:55 07:55 11:39 WBC 25.5 H (4.5-11.0) K/mm3 RBC 3.10 L (3.65-5.03) M/mm3 Hgb 8.9 L (11.8-15.2) gm/dl Hct 26.3 L (35.5-45.6) % RDW 16.5 H (13.2-15.2) % Seg Neuts % (Manual) 95.0 H (40.0-70.0) % Lymphocytes % (Manual) 3.0 L (13.4-35.0) % Seg Neutrophils # Man 24.2 H (1.8-7.7) K/mm3 Lymphocytes # (Manual) 0.8 L (1.2-5.4) K/mm3 Sodium 146 H (137-145) mmol/L Chloride 111.8 H (98-107) mmol/L BUN 44 H (9-20) mg/dL POC Glucose 121 H (70-105) Calcium 7.2 L (8.4-10.2) mg/dL
== END 2019-04-14 17:20 | disposition home health service (06) | DRG 698 ==
LOC: ED 11:26 → 3A 14:35 → OBSVTOIN 04-06 16:28 → CC1 04-07 19:41 → 3A 04-10 13:22
PROVIDERS: ADMIT Internal Medicine; ATTEND Internal Medicine
PROC: 0T943ZZ Drainage of Left Kidney Pelvis, Percutaneous Approach (ICD-10-PCS; 2019-04-07)
PROC: 02HV33Z Insertion of Infusion Device into Superior Vena Cava, Percutaneous Approach (ICD-10-PCS; 2019-04-07)
PROC: B548ZZA Ultrasonography of Superior Vena Cava, Guidance (ICD-10-PCS; 2019-04-07)
PROC: 4A033R1 Measurement of Arterial Saturation, Peripheral, Percutaneous Approach (ICD-10-PCS; principal; 2019-04-08)
PROC: 30233K1 Transfusion of Nonautologous Frozen Plasma into Peripheral Vein, Percutaneous Approach (ICD-10-PCS; 2019-04-08)
PROC: 30233N1 Transfusion of Nonautologous Red Blood Cells into Peripheral Vein, Percutaneous Approach (ICD-10-PCS; 2019-04-08)
PROC: 0W3P8ZZ Control Bleeding in Gastrointestinal Tract, Via Natural or Artificial Opening Endoscopic (ICD-10-PCS; 2019-04-08)
PROC: 30233R1 Transfusion of Nonautologous Platelets into Peripheral Vein, Percutaneous Approach (ICD-10-PCS; 2019-04-09)
DX: T83.511A Infection and inflammatory reaction due to indwelling urethral catheter, initial encounter (principal); G93.41 Metabolic encephalopathy; J69.0 Pneumonitis due to inhalation of food and vomit; N17.0 Acute kidney failure with tubular necrosis; R65.20 Severe sepsis without septic shock; A41.59 Other Gram-negative sepsis; N13.6 Pyonephrosis; M62.82 Rhabdomyolysis; K62.5 Hemorrhage of anus and rectum; D62 Acute posthemorrhagic anemia; K62.6 Ulcer of anus and rectum; E87.0 Hyperosmolality and hypernatremia; G20 Parkinson's disease; F02.80 Dementia in other diseases classified elsewhere, unspecified severity, without behavioral disturbance, psychotic disturbance, mood disturbance, and anxiety; M19.90 Unspecified osteoarthritis, unspecified site; I10 Essential (primary) hypertension; N40.0 Benign prostatic hyperplasia without lower urinary tract symptoms; D70.3 Neutropenia due to infection; B96.89 Other specified bacterial agents as the cause of diseases classified elsewhere; Y83.8 Other surgical procedures as the cause of abnormal reaction of the patient, or of later complication, without mention of misadventure at the time of the procedure; Y92.89 Other specified places as the place of occurrence of the external cause; Z74.01 Bed confinement status
CPT/HCPCS: 36415; 36600; 50432; 70450; 71045; 72132; 74177; 78278; 80048; 80053; 80307; 81001; 82140; 82570; 82803; 82805; 82962; 83010; 83735; 84100; 84154; 84156; 84300; 84478; 84484; 85007; 85014; 85018; 85025; 85379; 85384; 85610; 85730; 86850; 86900; 86901; 86920; 87040; 87070; 87076; 87086; 87186; 87205; 87806; 93005; 93010; 94002; 94003; 94640; 94760; 96361; 96365; 96375; G0378; A9560; C1729; C1769; C9113; J0171; J0330; J0690; J0692; J0696; J1642; J1644; J2250; J2370; J2405; J2704; J3010; J3370; J7030; J7040; J7050; P9016; P9017; P9035; Q9967

== ENCOUNTER 2019-05-07 18:42 | Emergency (ER) | payer SELFPAY ==
--- NOTE | 2019-05-07 20:21 | Emergency Department Report ---
Blank Doc - Documentation Documentation: 64 y/o male with parkinson WAs in icu 4 days ago for renal issues and had tube placed in back that was suppose to be removed yesterday but the location that was to removed advised mr. Gallo they no longer remove them. Now he has pain to the site. This initial assessment/diagnostic orders/clinical plan/treatment(s) is/are subject to change based on patient's health status, clinical progression and re- assessment by fellow clinical providers in the ED. Further treatment and workup at subsequent clinical providers discretion. Patient/guardians urged not to elope from the ED as their condition may be serious if not clinically assessed and managed. Initial orders include: Urine and labs.
[2019-05-07 20:52] LABS: Basophils # (Auto) 0.1 K/mm3 (0.0-0.1); Basophils % (Auto) 0.6 % (0.0-1.8); Eosinophils # (Auto) 0.3 K/mm3 (0.0-0.4); Eosinophils % (Auto) 2.9 % (0.0-4.3); Hematocrit 35.3 % (35.5-45.6); Hemoglobin 11.5 gm/dl (11.8-15.2); Lymphocytes # (Auto) 1.4 K/mm3 (1.2-5.4); Lymphocytes % (Auto) 15.6 % (13.4-35.0); Mean Corpuscular HGB Conc 33 % (32-34); Mean Corpuscular Volume 84 fl (84-94); Monocytes # (Auto) 0.5 K/mm3 (0.0-0.8); Platelet Count 407 K/mm3 (140-440); Red Blood Count 4.22 M/mm3 (3.65-5.03); Red Cell Distribution Width 15.1 % (13.2-15.2)
[2019-05-07 21:09] LABS: Albumin 3.4 g/dL (3.9-5); BUN/Creatinine Ratio 10; Blood Urea Nitrogen 5 mg/dL (9-20); Calcium 8.4 mg/dL (8.4-10.2); Hemolysis Index 19
[2019-05-07 21:11] LABS: Alanine Aminotransferase < 5 units/L (7-56)
--- NOTE | 2019-05-07 23:49 | Emergency Department Report ---
ED General Adult HPI - General Chief complaint: Back Pain/Injury Stated complaint: BACK PAIN Time Seen by Provider: 05/07/19 20:18 Source: patient, old records reviewed Mode of arrival: Ambulatory Limitations: No Limitations - History of Present Illness Initial comments: 64-year-old male the past medical history of Parkinson's disease, BPH, recently diagnosed bladder mass but associated with hydronephrosis, and hypertension presents to the hospital requesting removal of his left nephrostomy tube. Patient was admitted here April 06 intact until April 14 for uncontrolled Parkinson's, massive rectal bleeding requiring blood transfusion, bladder mass diagnosed causing left hydronephrosis with associated UTI with sepsis, left nephrostomy tube placement, acute renal failure, and aspiration pneumonia requiring ventilation. Patient followed up with [facility] and was told that they do not remove nephrostomy tubes and to return to the ER. Patient states tube was supposed to be moves yesterday. Patient gets he has urine output. Left nephrostomy and does also urinate from his penis. He denies any pain or fevers. - Related Data Previous Rx's Medication Instructions Recorded Last Taken Type Finasteride [Proscar] 5 mg PO QDAY #30 tablet 04/13/19 Unknown Rx Pantoprazole [Protonix TAB] 40 mg PO QDAY #30 tablet 04/13/19 Unknown Rx Tamsulosin [Flomax] 0.4 mg PO QDAY #30 cap 04/13/19 Unknown Rx amLODIPine [Norvasc] 10 mg PO DAILY #30 tab 04/13/19 Unknown Rx Carbidopa/Levodopa 25-250 [Sinemet 1 each PO QID 30 Days tablet 04/14/19 Unknown Rx 25/250] Carbidopa/Levodopa 25-250 [Sinemet] 1 each PO QID #120 tab 04/15/19 Unknown Rx cephALEXin [Keflex] 500 mg PO Q6HR #28 capsule 05/08/19 Unknown Rx Allergies Allergy/AdvReac Type Severity Reaction Status Date / Time No Known Allergies Allergy Verified 06/05/18 08:22 ED Review of Systems ROS: Stated complaint: BACK PAIN Other details as noted in HPI Comment: All other systems reviewed and negative ED Past Medical Hx - Past Medical History Previous Medical History?: Yes Hx Hypertension: Yes Hx Congestive Heart Failure: No Hx Diabetes: No Hx Liver Disease: No Hx Renal Disease: Yes (ARF) Hx Arthritis: Yes Hx Asthma: No Hx COPD: No Hx HIV: No Additional medical history: BPH. parkinson - Surgical History Past Surgical History?: Yes Additional Surgical History: Jeffrey. knee surgery, eye surgery (detached retina). PROSTATE BIOPSY - Social History Smoking Status: Never Smoker Substance Use Type: None - Medications Home Medications: Home Medications Medication Instructions Recorded Confirmed Last Taken Type Finasteride [Proscar] 5 mg PO QDAY #30 tablet 04/13/19 Unknown Rx Pantoprazole [Protonix TAB] 40 mg PO QDAY #30 tablet 04/13/19 Unknown Rx Tamsulosin [Flomax] 0.4 mg PO QDAY #30 cap 04/13/19 Unknown Rx amLODIPine [Norvasc] 10 mg PO DAILY #30 tab 04/13/19 Unknown Rx Carbidopa/Levodopa 25-250 [Sinemet 1 each PO QID 30 Days tablet 04/14/19 Unknown Rx 25/250] Carbidopa/Levodopa 25-250 [Sinemet] 1 each PO QID #120 tab 04/15/19 Unknown Rx cephALEXin [Keflex] 500 mg PO Q6HR #28 capsule 05/08/19 Unknown Rx ED Physical Exam - General Limitations: No Limitations - Other Other exam information: General: No acute distress Head: Atraumatic Eyes: normal appearance ENT: Moist mucous membranes Neck: Normal appearance, no midline tenderness Chest: Clear to auscultation bilaterally CV: Regular rate and rhythm Abdomen: Soft, normal bowel sounds, nontender, nondistended, no rebound or guarding Back: Normal inspection, left nephrostomy tube sutured to the skin with soiled dressing. Clear yellow urine output from nephrostomy tube Extremity: Bilateral lower extremity pitting edema, full range of motion Neuro: Alert O x 3, no facial asymmetry, speech clear, resting tremor greatest on the left arm, patient is wheelchair dependent Psych: Appropriate behavior Skin: No rash. ED Course Vital Signs 05/07/19 05/07/19 05/08/19 19:19 23:40 02:09 Temperature 97.8 F Pulse Rate 109 H Respiratory 18 18 Rate Blood Pressure 139/84 O2 Sat by Pulse 100 98 97 Oximetry 05/08/19 05/08/19 05/08/19 02:16 02:30 02:46 Temperature Pulse Rate Respiratory Rate Blood Pressure 155/89 158/82 158/82 O2 Sat by Pulse 99 100 100 Oximetry 05/08/19 05/08/19 03:00 03:16 Temperature 98.9 F Pulse Rate 96 H Respiratory 18 Rate Blood Pressure 166/95 166/95 O2 Sat by Pulse 99 98 Oximetry - Reevaluation(s) Reevaluation #1: 05/08/19 02:26 Patient urinated and noted to provide a urine sample (not from nephrostomy urine bag) which is positive for UTI. Rocephin IV ordered - Consultations Consultation #1: 05/08/19 03:[address] Dowell urologist, urine wbc could be due to stent, rec outpatient f/u ED Medical Decision Making - Lab Data Result diagrams: 05/07/19 20:34 05/07/19 20:34 Lab Results 05/07/19 05/07/19 05/07/19 Range/Units 00:40 20:34 20:34 WBC 9.1 (4.5-11.0) K/mm3 RBC 4.22 (3.65-5.03) M/mm3 Hgb 11.5 L (11.8-15.2) gm/dl Hct 35.3 L (35.5-45.6) % MCV 84 (84-94) fl MCH 27 L (28-32) pg MCHC 33 (32-34) % RDW 15.1 (13.2-15.2) % Plt Count 407 (140-440) K/mm3 Lymph % (Auto) 15.6 (13.4-35.0) % [place] % (Auto) 6.0 (0.0-7.3) % Eos % (Auto) 2.9 (0.0-4.3) % Baso % (Auto) 0.6 (0.0-1.8) % Lymph # 1.4 (1.2-5.4) K/mm3 [place] # 0.5 (0.0-0.8) K/mm3 Eos # 0.3 (0.0-0.4) K/mm3 Baso # 0.1 (0.0-0.1) K/mm3 Seg Neutrophils % 74.9 H (40.0-70.0) % Seg Neutrophils # 6.8 (1.8-7.7) K/mm3 Sodium 135 L (137-145) mmol/L Potassium 3.5 L (3.6-5.0) mmol/L Chloride 97.9 L (98-107) mmol/L Carbon Dioxide 21 L (22-30) mmol/L Anion Gap 20 mmol/L BUN 5 L (9-20) mg/dL Creatinine 0.5 L (0.8-1.5) mg/dL Estimated GFR > 60 ml/min BUN/Creatinine Ratio 10 % Glucose 75 (75-100) mg/dL Calcium 8.4 (8.4-10.2) mg/dL Total Bilirubin 0.30 (0.1-1.2) mg/dL AST 17 (5-40) units/L ALT < 5 L (7-56) units/L Alkaline Phosphatase 65 (35-129) units/L Total Protein 7.7 (6.3-8.2) g/dL Albumin 3.4 L (3.9-5) g/dL Albumin/Globulin Ratio 0.8 % Urine Color Yellow (Yellow) Urine Turbidity Cloudy (Clear) Urine pH 6.0 (5.0-7.0) Ur Specific [place] 1.010 (1.003-1.030) Urine Protein 30 mg/dl (Negative) mg/dL Urine Glucose (UA) Neg (Negative) mg/dL Urine Ketones 20 (Negative) mg/dL Urine Blood Sm (Negative) Urine Nitrite Neg (Negative) Urine Bilirubin Neg (Negative) Urine Urobilinogen < 2.0 (<2.0) mg/dL Ur Leukocyte Esterase Lg (Negative) Urine WBC (Auto) > 182.0 H (0.0-6.0) /HPF Urine RBC (Auto) 62.0 (0.0-6.0) /HPF Urine Bacteria (Auto) 2+ (Negative) /HPF Urine WBC Clumps 2+ /HPF - Radiology Data Radiology results: report reviewed CT ABDOMEN AND PELVIS WITHOUT CONTRAST INDICATION / CLINICAL INFORMATION: requesting nephrostomy tube removal. TECHNIQUE: Axial CT images were obtained through the abdomen and pelvis without IV contrast. All CT scans at this location are performed using CT dose reduction for ALARA by means of automated exposure control. COMPARISON: 04/04/2019. FINDINGS: When compared to the prior exam, there is been significant reduction in the overall severity of left-sided hydronephrosis. The nephrostomy tube remains in good position. 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 The liver, gallbladder, spleen pancreas adrenal glands and right kidney appear unchanged. No free air free fluid. Diffuse anasarca. There are no bladder is partially fluid distended and there is severe thickening secondary to severely enlarged prostate which has slightly decreased in size in the interim. No bowel obstruction. IMPRESSION: The nephrostomy tube remains in good position and has resolved previously seen severe left-sided hydronephrosis. There is persistent dilatation of the more distal left-sided ureters, as above. Although the prostate has moderately decreased in size of still remains quite enlarged and is causing at least moderate bladder outlet obstruction. - Medical Decision Making Patient received Rocephin IV for UTI. CT shows improving obstruction. No signs of sepsis, leukocytosis, or renal failure. pt given po kcl for mild hypokalemia new nephrostomy dressing placed - Differential Diagnosis retained stent, nephrostomy tube Critical Care Time: No Critical care attestation.: If time is entered above; I have spent that time in minutes in the direct care of this critically ill patient, excluding procedure time. ED Disposition Clinical Impression: UTI (urinary tract infection), Prostate hypertrophy, Attention to nephrostomy Disposition: DC-01 TO HOME OR SELFCARE Is pt being admited?: No Does the pt Need Aspirin: No Condition: Stable Instructions: Urinary Tract Infection in Men (ED), Nephrostomy Tube Care (ED), Hydronephrosis (ED) Additional Instructions: Take the medication as prescribed. It is very important that you follow-up with the urologist for renal stent removal. Prescriptions: cephALEXin [Keflex] 500 mg PO Q6HR #28 capsule Referrals: PRIMARY MD PADMA [Primary Care Provider] - 3-5 Days ELENI DOWELL MD [Staff Physician] - 3-5 Days (Urologist ) Time of Disposition: 04:50
--- NOTE | 2019-05-08 01:35 | Cat Scan Report ---
CT ABDOMEN AND PELVIS WITHOUT CONTRAST INDICATION / CLINICAL INFORMATION: requesting nephrostomy tube removal. TECHNIQUE: Axial CT images were obtained through the abdomen and pelvis without IV contrast. All CT scans at [facility] location are performed using CT dose reduction for ALARA by means of automated exposure control. COMPARISON: 04/04/2019. FINDINGS: When compared to the prior exam, there is been significant reduction in the overall severity of left- sided hydronephrosis. The nephrostomy tube remains in good position. There is persistent dilatation a nd abnormal appearance involving the proximal mid and distal aspects of the duplicated left ureter. The liver, gallbladder, spleen pancreas adrenal glands and right kidney appear unchanged. No free air free fluid. Diffuse anasarca. There are no bladder is partially fluid distended and there is severe thickening secondary to severely enlarged prostate which has slightly decreased in size in the interi m. No bowel obstruction. IMPRESSION: The nephrostomy tube remains in good position and has resolved previously seen severe lef t-sided hydronephrosis. There is persistent dilatation of the more distal left-sided ureters, as abov e. Although the prostate has moderately decreased in size of still remains quite enlarged and is caus ing at least moderate bladder outlet obstruction. Signer Name: Adam Lindsay MD Signed: 05/08/2019 1:31 AM Workstation Name: [email or web address]
[2019-05-08 02:01] LABS: Bacteria,Urine 2+ /HPF (Negative); Bilirubin,Urine NEG (Negative); Blood,Urine SM (Negative); Color,Urine Yellow (Yellow); Urobilinogen,Urine < 2.0 mg/dL (<2.0)
[2019-05-08 02:13] LABS: WBC,Urine > 182.0 /HPF (0.0-6.0)
[2019-05-08] MEDS ORDERED: ROCEPHIN/NS 1 GM/50 ML 1 GM/50 ML BAG IV ONE (02:25)
[2019-05-08] MEDS ORDERED: K-DUR PO ONE (03:00)
[2019-05-08 03:19] VITALS: BP 166/95
== END 2019-05-08 05:10 | disposition home or self-care (01) ==
LOC: ED 18:42
DX: N39.0 Urinary tract infection, site not specified (principal); N40.0 Benign prostatic hyperplasia without lower urinary tract symptoms; Z43.6 Encounter for attention to other artificial openings of urinary tract; G20 Parkinson's disease; I10 Essential (primary) hypertension; N17.9 Acute kidney failure, unspecified; M19.90 Unspecified osteoarthritis, unspecified site; Z79.899 Other long term (current) drug therapy
CPT/HCPCS: 36415; 74176; 80053; 81001; 85025; 96365; 99284; J0696

== ENCOUNTER 2019-05-25 09:32 | Emergency (ER) | payer SELFPAY ==
--- NOTE | 2019-05-25 09:55 | Event Note ---
ED Screening Note ED Screening Note: april 07 placed nephrostomy was supposed to have replacement by Dr. Fredrick lagos came out pt having abd pain no V/D no fever This initial assessment/diagnostic orders/clinical plan/treatment(s) is/are subject to change based on patients health status, clinical progression and re- assessment by fellow clinical providers in the ED. Further treatment and workup at subsequent clinical providers discretion. Patient/guardian urged not to elope from the ED as their condition may be serious if not clinically assessed and managed. Initial orders include: labs, UA
[2019-05-25 10:39] LABS: Basophils # (Auto) 0.1 K/mm3 (0.0-0.1); Basophils % (Auto) 1.7 % (0.0-1.8); Eosinophils # (Auto) 0.3 K/mm3 (0.0-0.4); Eosinophils % (Auto) 3.4 % (0.0-4.3); Hematocrit 34.2 % (35.5-45.6); Hemoglobin 11.5 gm/dl (11.8-15.2); Lymphocytes # (Auto) 1.5 K/mm3 (1.2-5.4); Lymphocytes % (Auto) 19.1 % (13.4-35.0); Mean Corpuscular HGB Conc 34 % (32-34); Mean Corpuscular Volume 81 fl (84-94); Monocytes # (Auto) 0.6 K/mm3 (0.0-0.8); Monocytes % (Auto) 7.3 % (0.0-7.3); Red Blood Count 4.22 M/mm3 (3.65-5.03); Red Cell Distribution Width 15.6 % (13.2-15.2)
[2019-05-25 10:51] LABS: BUN/Creatinine Ratio 12; Blood Urea Nitrogen 7 mg/dL (9-20); Hemolysis Index 124
[2019-05-25 10:53] LABS: INR 1.07 (0.87-1.13)
--- NOTE | 2019-05-25 11:10 | Emergency Department Report ---
ED General Adult HPI - General Chief complaint: Medical Clearance Time Seen by Provider: 05/25/19 09:52 Source: patient Mode of arrival: Ambulatory Limitations: No Limitations - History of Present Illness Initial comments: The patient presents to the emergency department from [facility] for nephrostomy tube issue. Patient states he was supposed to have his nephrostomy tube changed today but was told that his insurance does not cover it so he was told to come to the emergency department. She denies any chest pain, shortness breath, or headache. -: unknown Severity scale (0 -10): 0 Improves with: none Worsens with: none Associated Symptoms: denies other symptoms Treatments Prior to Arrival: none - Related Data Home Medications Medication Instructions Recorded Confirmed Last Taken ALPRAZolam [Xanax TAB] 0.5 mg PO DAILY 05/23/19 05/23/19 Unknown hydroCHLOROthiazide [HCTZ] 25 mg PO DAILY 05/23/19 05/23/19 Unknown Previous Rx's Medication Instructions Recorded Last Taken Type Finasteride [Proscar] 5 mg PO QDAY #30 tablet 04/13/19 Unknown Rx Pantoprazole [Protonix TAB] 40 mg PO QDAY #30 tablet 04/13/19 Unknown Rx Tamsulosin [Flomax] 0.4 mg PO QDAY #30 cap 04/13/19 Unknown Rx amLODIPine [Norvasc] 10 mg PO DAILY #30 tab 04/13/19 Unknown Rx Carbidopa/Levodopa 25-250 [Sinemet] 1 each PO QID #120 tab 04/15/19 Unknown Rx Allergies Allergy/AdvReac Type Severity Reaction Status Date / Time No Known Allergies Allergy Verified 06/05/18 08:22 ED Review of Systems ROS: Stated complaint: Other details as noted in HPI Constitutional: denies: chills, fever Eyes: denies: eye pain, eye discharge, vision change ENT: denies: ear pain, throat pain Respiratory: denies: cough, shortness of breath, wheezing Cardiovascular: denies: chest pain, palpitations Endocrine: no symptoms reported Gastrointestinal: denies: abdominal pain, nausea, diarrhea Genitourinary: denies: urgency, dysuria Musculoskeletal: denies: back pain, joint swelling, arthralgia Skin: denies: rash, lesions Neurological: denies: headache, weakness, paresthesias Psychiatric: denies: anxiety, depression Hematological/Lymphatic: denies: easy bleeding, easy bruising ED Past Medical Hx - Past Medical History Previous Medical History?: Yes Hx Hypertension: Yes Hx Congestive Heart Failure: No Hx Diabetes: No Hx Liver Disease: No Hx Renal Disease: Yes (ARF) Hx Arthritis: Yes Hx Asthma: No Hx COPD: No Hx HIV: No Additional medical history: BPH. parkinson - Surgical History Past Surgical History?: Yes Additional Surgical History: Jeffrey. knee surgery, eye surgery (detached retina). PROSTATE BIOPSY - Social History Smoking Status: Never Smoker Substance Use Type: None - Medications Home Medications: Home Medications Medication Instructions Recorded Confirmed Last Taken Type Finasteride [Proscar] 5 mg PO QDAY #30 tablet 04/13/19 05/23/19 Unknown Rx Pantoprazole [Protonix TAB] 40 mg PO QDAY #30 tablet 04/13/19 05/23/19 Unknown Rx Tamsulosin [Flomax] 0.4 mg PO QDAY #30 cap 04/13/19 05/23/19 Unknown Rx amLODIPine [Norvasc] 10 mg PO DAILY #30 tab 04/13/19 05/23/19 Unknown Rx Carbidopa/Levodopa 25-250 [Sinemet] 1 each PO QID #120 tab 04/15/19 05/23/19 Unknown Rx ALPRAZolam [Xanax TAB] 0.5 mg PO DAILY 05/23/19 05/23/19 Unknown History hydroCHLOROthiazide [HCTZ] 25 mg PO DAILY 05/23/19 05/23/19 Unknown History ED Physical Exam - General Limitations: No Limitations General appearance: alert, in no apparent distress - Head Head exam: Present: atraumatic, normocephalic - Eye Eye exam: Present: normal appearance, PERRL, EOMI - ENT ENT exam: Present: mucous membranes moist - Neck Neck exam: Present: normal inspection - Respiratory Respiratory exam: Present: normal lung sounds bilaterally. Absent: respiratory distress - Cardiovascular Cardiovascular Exam: Present: regular rate, normal rhythm. Absent: systolic m urmur, diastolic murmur, rubs, gallop - GI/Abdominal GI/Abdominal exam: Present: soft, normal bowel sounds. Absent: distended, tenderness - Rectal Rectal exam: Present: deferred - Extremities Exam Extremities exam: Present: normal inspection - Back Exam Back exam: Present: normal inspection, other (stage II sacral ulcer; nephrostomy tube left side) - Neurological Exam Neurological exam: Present: alert, oriented X3, CN II-XII intact. Absent: motor sensory deficit - Psychiatric Psychiatric exam: Present: normal affect, normal mood - Skin Skin exam: Present: warm, dry, intact, normal color. Absent: rash ED Course Vital Signs 05/25/19 09:42 Temperature 98.2 F Pulse Rate 83 Respiratory 18 Rate Blood Pressure 141/88 O2 Sat by Pulse 99 Oximetry ED Medical Decision Making - Lab Data Result diagrams: 05/25/19 10:25 05/25/19 10:25 Lab Results 05/25/19 05/25/19 05/25/19 Range/Units 10:25 10:25 10:25 WBC 7.9 (4.5-11.0) K/mm3 RBC 4.22 (3.65-5.03) M/mm3 Hgb 11.5 L (11.8-15.2) gm/dl Hct 34.2 L (35.5-45.6) % MCV 81 L (84-94) fl MCH 27 L (28-32) pg MCHC 34 (32-34) % RDW 15.6 H (13.2-15.2) % Lymph % (Auto) 19.1 (13.4-35.0) % [place] % (Auto) 7.3 (0.0-7.3) % Eos % (Auto) 3.4 (0.0-4.3) % Baso % (Auto) 1.7 (0.0-1.8) % Lymph # 1.5 (1.2-5.4) K/mm3 [place] # 0.6 (0.0-0.8) K/mm3 Eos # 0.3 (0.0-0.4) K/mm3 Baso # 0.1 (0.0-0.1) K/mm3 Seg Neutrophils % 68.5 (40.0-70.0) % Seg Neutrophils # 5.4 (1.8-7.7) K/mm3 PT 13.8 (12.2-14.9) Sec. INR 1.07 (0.87-1.13) APTT 24.0 L (24.2-36.6) Sec. Sodium 138 (137-145) mmol/L Potassium 3.9 (3.6-5.0) mmol/L Chloride 99.6 (98-107) mmol/L Carbon Dioxide 24 (22-30) mmol/L Anion Gap 18 mmol/L BUN 7 L (9-20) mg/dL Creatinine 0.6 L (0.8-1.5) mg/dL Estimated GFR > 60 ml/min BUN/Creatinine Ratio 12 % Glucose 91 (75-100) mg/dL Calcium 9.0 (8.4-10.2) mg/dL - Medical Decision Making Spoke with Dr. Hassan and the patient can go to [facility] and have procedure done Critical care attestation.: If time is entered above; I have spent that time in minutes in the direct care of this critically ill patient, excluding procedure time. ED Disposition Clinical Impression: Nephrostomy complication Disposition: TO HOME OR SELFCARE Is pt being admited?: No Does the pt Need Aspirin: No Condition: Stable Referrals: SHANNAN BARON MD [Primary Care Provider] - 3-5 Days
[2019-05-25] MEDS ORDERED: HEPARIN/NS 5000 UNIT/500ML 500 ML IR ONE (12:01)
[2019-05-25] MEDS ORDERED: LIDOCAINE 1%/EPINEPHRINE 1:100,000 VIAL (20 ML) INFILTRATI ONE ×2 (12:01→12:20)
[2019-05-25] MEDS ORDERED: MIDAZOLAM 2 MG/2 ML INJ ONE (12:02)
[2019-05-25] MEDS ORDERED: fentaNYL 100 MCG/2 ML INJ ONE (12:02)
--- NOTE | 2019-05-25 12:02 | Consultation ---
History of Present Illness - Reason for Consult Consult date: 05/25/19 Left nephrostomy tube malfunction - History of Present Illness 64-year-old male with history of Parkinson's disease and recent urosepsis presents with left-sided nephrostomy tube malfunction with poor output and purulent urine in the tube with a foul odor who requires nephrostomy tube exchange. Past History Past Medical History: other (Parkinson's disease, lower extremity paresis) Past Surgical History: Other (nephrostomy tube placement) Social history: no significant social history Family history: no significant family history Medications and Allergies Allergies Allergy/AdvReac Type Severity Reaction Status Date / Time No Known Allergies Allergy Verified 06/05/18 08:22 Home Medications Medication Instructions Recorded Confirmed Last Taken Type Finasteride [Proscar] 5 mg PO QDAY #30 tablet 04/13/19 05/23/19 Unknown Rx Pantoprazole [Protonix TAB] 40 mg PO QDAY #30 tablet 04/13/19 05/23/19 Unknown Rx Tamsulosin [Flomax] 0.4 mg PO QDAY #30 cap 04/13/19 05/23/19 Unknown Rx amLODIPine [Norvasc] 10 mg PO DAILY #30 tab 04/13/19 05/23/19 Unknown Rx Carbidopa/Levodopa 25-250 [Sinemet] 1 each PO QID #120 tab 04/15/19 05/23/19 Unknown Rx ALPRAZolam [Xanax TAB] 0.5 mg PO DAILY 05/23/19 05/23/19 Unknown History hydroCHLOROthiazide [HCTZ] 25 mg PO DAILY 05/23/19 05/23/19 Unknown History Review of Systems All systems: negative (see HPI) Exam - Constitutional Vitals: Temp Pulse Resp BP Pulse Ox 98.2 F 83 18 141/88 99 05/25/19 09:42 05/25/19 09:42 05/25/19 09:42 05/25/19 09:42 05/25/19 09:42 General appearance: Present: no acute distress - EENT Eyes: Present: EOM intact ENT: hearing intact - Respiratory Respiratory effort: normal - Abdominal General gastrointestinal: Present: other (left nephrostomy with dark, foul smelling urine) - Psychiatric Psychiatric: appropriate mood/affect, cooperative - Neurologic Neurologic: other (lower extremity paresis) Results - Labs CBC & Chem 7: 05/25/19 10:25 05/25/19 10:25 Labs: Abnormal lab results 05/25/19 05/25/19 05/25/19 Range/Units 10:25 10:25 10:25 Hgb 11.5 L (11.8-15.2) gm/dl Hct 34.2 L (35.5-45.6) % MCV 81 L (84-94) fl MCH 27 L (28-32) pg RDW 15.6 H (13.2-15.2) % APTT 24.0 L (24.2-36.6) Sec. BUN 7 L (9-20) mg/dL Creatinine 0.6 L (0.8-1.5) mg/dL Assessment and Plan 64-year-old male with severe lower extremity paresis and Parkinson's disease who presents with nephrostomy tube malfunction. Patient will require nephrostomy tube exchange under local anesthetic. Already on antibiotics. Can be discharged after procedure.
--- NOTE | 2019-05-25 12:42 | Operative Report ---
Operative Report Operative Report: EXAM: 1. Nephrostogram through the indwelling left nephrostomy tube. 2. Left 8 Chinese nephrostomy tube exchange DATE: 05/25/19 MEDICINE TEACHER: BRYSON BUTLER MD INDICATION: Left nephrostomy tube malfunction MEDICATIONS: Please see nursing report for full details. DEVICES: 8 Chinese nephrostomy tube CONTRAST: Please see laborer plumbing report for full details PROCEDURE: The risks, benefits, and alternatives were discussed with the patient; written informed consent was obtained. The patient was brought to the angiography suite in satisfactory condition. The patient was placed in a prone position. The tube was prepped and draped in a sterile fashion. The left nephrostomy tube was evaluated and determined to be intact. The tract demonstrated no evidence of superficial tract infection. 1% lidocaine with epinephrine was injected around the nephrostomy tube for local anesthetic. Contrast was injected through the existing nephrostomy tube confirming position. The nephrostomy tube was cut. 0.035 inch [place] wire was passed into the renal collecting system. The nephrostomy tube was removed over a wire. A new nephrostomy tube was advanced over the wire into the collecting system. The wire and plastic stiffener were removed under fluoroscopic guidance. [place] loop was formed in the renal pelvis. Contrast was injected confirming position in the renal pelvis. Contrast was then aspirated and saline was injected and aspirated through the collecting system. The catheter was secured with two 2-0 Ethilon. Sterile dressing was applied. The catheter was connected to a drainage bag. The patient tolerated the procedure without issue. The patient was transferred to the [facility] area without issue. FINDINGS: 1. The left sided nephrostogram demonstrated a duplicated collecting system with the nephrostomy tube in the upper pole renal pelvis. There is mild hydronephrosis, but moderate to severe hydroureter extends down to the bladder. On delayed imaging, the lower pole duplicated system is visualized with severe hydroureter and mild to moderate hydronephrosis suggesting that there is some communication in the distal ureter. 2. Successful fluoroscopic guided exchange of a left 8 Chinese nephrostomy tube. IMPRESSION: Successful nephrostogram and nephrostomy tube exchange of a left sided nephrostomy tube.
[2019-05-25 12:47] LABS: Platelet Count 352 K/mm3 (140-440)
[2019-05-25 13:56] VITALS: BP 132/78
== END 2019-05-25 14:36 | disposition home or self-care (01) ==
LOC: ED 09:32
DX: N99.522 Malfunction of incontinent external stoma of urinary tract (principal); G20 Parkinson's disease; I10 Essential (primary) hypertension; M19.90 Unspecified osteoarthritis, unspecified site; N40.0 Benign prostatic hyperplasia without lower urinary tract symptoms; Z79.899 Other long term (current) drug therapy; Z98.890 Other specified postprocedural states
CPT/HCPCS: 36415; 50432; 80048; 85025; 85610; 85730; 99283; C1729; C1769; J1644; J2250; J3010; Q9967

== ENCOUNTER 2019-06-26 13:18 | Emergency (ER) | payer SELFPAY ==
--- NOTE | 2019-06-26 14:05 | Event Note ---
ED Screening Note Date of service: 06/26/19 Time: 14:01 ED Screening Note: This is a 64 y.o. M. that presents to the ER with low output from left nephrostomy tube. Reports right flank pain. This initial assessment/diagnostic orders/clinical plan/treatment(s) is/are subject to change based on patients health status, clinical progression and re- assessment by fellow clinical providers in the ED. Further treatment and workup at subsequent clinical providers discretion. Patient/guardian urged not to elope from the ED as their condition may be serious if not clinically assessed and managed. Initial orders include: Labs
[2019-06-26 15:18] LABS: Basophils % (Auto) 0.8 % (0.0-1.8); Eosinophils # (Auto) 0.1 K/mm3 (0.0-0.4); Eosinophils % (Auto) 1.9 % (0.0-4.3); Hematocrit 35.9 % (35.5-45.6); Hemoglobin 12.1 gm/dl (11.8-15.2); Lymphocytes # (Auto) 1.3 K/mm3 (1.2-5.4); Lymphocytes % (Auto) 25.5 % (13.4-35.0); Mean Corpuscular HGB Conc 34 % (32-34); Mean Corpuscular Volume 80 fl (84-94); Monocytes # (Auto) 0.3 K/mm3 (0.0-0.8); Monocytes % (Auto) 5.5 % (0.0-7.3); Platelet Count 269 K/mm3 (140-440); Red Blood Count 4.51 M/mm3 (3.65-5.03); Red Cell Distribution Width 17.5 % (13.2-15.2)
[2019-06-26 15:54] LABS: Albumin 3.8 g/dL (3.9-5); BUN/Creatinine Ratio 12; Blood Urea Nitrogen 7 mg/dL (9-20); Calcium 9.2 mg/dL (8.4-10.2); Hemolysis Index 14
[2019-06-26] MEDS ORDERED: LIDOCAINE 1%/EPINEPHRINE 1:100,000 VIAL (20 ML) INFILTRATI ONE (16:04)
[2019-06-26] MEDS ORDERED: SODIUM CHLORIDE 0.9% 500 ML 500 ML ONE (16:04)
[2019-06-26] MEDS ORDERED: SODIUM CHLORIDE IRRI 500 ML 500 ML IR ONE (16:04)
[2019-06-26 16:06] LABS: Alanine Aminotransferase < 5 units/L (7-56)
--- NOTE | 2019-06-26 16:53 | Emergency Department Report ---
ED General Adult HPI - General Chief complaint: Back Pain/Injury Stated complaint: POSS UTI/REPLACE TUBE/PAIN Time Seen by Provider: 06/26/19 13:58 Source: patient Mode of arrival: Ambulatory Limitations: No Limitations - History of Present Illness Initial comments: Mr. Gallo is a 64 yo male with hx of Parkinson's disease who presents with decreased urine output from nephrostomy tube. He has left sided hydronephrosis caused by a bladder lesion. According to patient, he has hx of Klebsiella UTI. He wants to make sure that he does not have an acute infection. He has contacted his interventional radiologist who evaluated him in the ED. He denies pain currently. He denies fever. My colleague documented right flank pain which he denies. He has increased urine output from his penis. -: Gradual, days(s) (3) Location: back, left Consistency: constant Improves with: none Worsens with: none Associated Symptoms: denies other symptoms Treatments Prior to Arrival: none - Related Data Home Medications Medication Instructions Recorded Confirmed Last Taken ALPRAZolam [Xanax TAB] 0.5 mg PO DAILY 05/23/19 05/23/19 Unknown hydroCHLOROthiazide [HCTZ] 25 mg PO DAILY 05/23/19 05/23/19 Unknown Previous Rx's Medication Instructions Recorded Last Taken Type Finasteride [Proscar] 5 mg PO QDAY #30 tablet 04/13/19 Unknown Rx Pantoprazole [Protonix TAB] 40 mg PO QDAY #30 tablet 04/13/19 Unknown Rx Tamsulosin [Flomax] 0.4 mg PO QDAY #30 cap 04/13/19 Unknown Rx amLODIPine [Norvasc] 10 mg PO DAILY #30 tab 04/13/19 Unknown Rx Carbidopa/Levodopa 25-250 [Sinemet] 1 each PO QID #120 tab 04/15/19 Unknown Rx Allergies Allergy/AdvReac Type Severity Reaction Status Date / Time No Known Allergies Allergy Verified 06/05/18 08:22 ED Review of Systems ROS: Stated complaint: POSS UTI/REPLACE TUBE/PAIN Other details as noted in HPI Comment: All other systems reviewed and negative Constitutional: denies: fever, malaise Respiratory: denies: cough Cardiovascular: denies: chest pain Genitourinary: denies: urgency, dysuria, frequency, hematuria, discharge, testicular pain, testicular mass ED Past Medical Hx - Past Medical History Previous Medical History?: Yes Hx Hypertension: Yes Hx Congestive Heart Failure: No Hx Diabetes: No Hx Liver Disease: No Hx Renal Disease: Yes (ARF) Hx Arthritis: Yes Hx Asthma: No Hx COPD: No Hx HIV: No Additional medical history: BPH. parkinson - Surgical History Past Surgical History?: Yes Additional Surgical History: Jeffrey. knee surgery, eye surgery (detached retina). PROSTATE BIOPSY - Social History Smoking Status: Never Smoker Substance Use Type: None - Medications Home Medications: Home Medications Medication Instructions Recorded Confirmed Last Taken Type Finasteride [Proscar] 5 mg PO QDAY #30 tablet 04/13/19 05/23/19 Unknown Rx Pantoprazole [Protonix TAB] 40 mg PO QDAY #30 tablet 04/13/19 05/23/19 Unknown Rx Tamsulosin [Flomax] 0.4 mg PO QDAY #30 cap 04/13/19 05/23/19 Unknown Rx amLODIPine [Norvasc] 10 mg PO DAILY #30 tab 04/13/19 05/23/19 Unknown Rx Carbidopa/Levodopa 25-250 [Sinemet] 1 each PO QID #120 tab 04/15/19 05/23/19 Unknown Rx ALPRAZolam [Xanax TAB] 0.5 mg PO DAILY 05/23/19 05/23/19 Unknown History hydroCHLOROthiazide [HCTZ] 25 mg PO DAILY 05/23/19 05/23/19 Unknown History ED Physical Exam - General Limitations: No Limitations General appearance: alert, in no apparent distress, other (alert pleasant appears frail but nontoxic, walks with walker) - Head Head exam: Present: atraumatic, normocephalic - Eye Eye exam: Present: normal appearance - ENT ENT exam: Present: mucous membranes moist - Neck Neck exam: Present: normal inspection, full ROM - Respiratory Respiratory exam: Present: normal lung sounds bilaterally. Absent: respiratory distress, wheezes, rales, rhonchi - Cardiovascular Cardiovascular Exam: Present: regular rate, normal rhythm, normal heart sounds. Absent: systolic murmur, diastolic murmur, rubs, gallop - GI/Abdominal GI/Abdominal exam: Present: soft, normal bowel sounds. Absent: distended, tenderness, guarding, rebound - Rectal Rectal exam: Present: deferred - Back Exam Back exam: Present: other (left flank: nephrostomy tube in place no surrounding edema or erythema or purulence) - Neurological Exam Neurological exam: Present: alert, oriented X3 - Psychiatric Psychiatric exam: Present: normal affect, normal mood - Skin Skin exam: Present: warm, dry, intact, normal color. Absent: rash ED Course Vital Signs 06/26/19 13:59 Temperature 97.5 F L Pulse Rate 81 Respiratory 18 Rate Blood Pressure 135/83 O2 Sat by Pulse 98 Oximetry ED Medical Decision Making - Lab Data Result diagrams: 06/26/19 14:22 06/26/19 14:22 Laboratory Results - last 24 hr 06/26/19 06/26/19 14:22 14:22 WBC 5.0 RBC 4.51 Hgb 12.1 Hct 35.9 MCV 80 L MCH 27 L MCHC 34 RDW 17.5 H Plt Count 269 Lymph % (Auto) 25.5 [place] % (Auto) 5.5 Eos % (Auto) 1.9 Baso % (Auto) 0.8 Lymph # 1.3 [place] # 0.3 Eos # 0.1 Baso # 0.0 Seg Neutrophils % 66.3 Seg Neutrophils # 3.3 Sodium 136 L Potassium 3.6 Chloride 99.8 Carbon Dioxide 21 L Anion Gap 19 BUN 7 L Creatinine 0.6 L Estimated GFR > 60 BUN/Creatinine Ratio 12 Glucose 84 Calcium 9.2 Total Bilirubin 0.40 AST 16 ALT < 5 L Alkaline Phosphatase 53 Total Protein 7.8 Albumin 3.8 L Albumin/Globulin Ratio 1.0 - Medical Decision Making Nephrostomy tube malfunction. Interventional radiologist Dr. Betancourt evaluated patient in the emergency department. Dr. Betancourt took Mr. Gallo to the biological lab technician for nephrostomy tube replacement. I reviewed electronic medical record in March, and culture grew out Klebsiella pneumoniae which was pansensitive. I have prescribed CiproFloxacin preemptively . Critical care attestation.: If time is entered above; I have spent that time in minutes in the direct care of this critically ill patient, excluding procedure time. ED Disposition Clinical Impression: Obstructed nephrostomy tube, History of UTI Disposition: - TO HOME OR SELFCARE Is pt being admited?: No Does the pt Need Aspirin: No Condition: Stable Referrals: PRIMARY CARE, [Primary Care Provider] - 3-5 Days
[2019-06-26] MEDS ORDERED: LIDOCAINE (2%) 20 MG/1 ML VIAL 20 ML MDV INFILTRATI ONE (17:01)
[2019-06-26 17:04] LABS: INR 1.11 (0.87-1.13)
[2019-06-26 17:05] LABS: Hematocrit 40.8 % (35.5-45.6); Mean Corpuscular HGB Conc 32 % (32-34); Mean Corpuscular Volume 82 fl (84-94); Partial Thromboplastin Time 29.2 Sec. (24.2-36.6); Platelet Count 289 K/mm3 (140-440); Red Blood Count 4.97 M/mm3 (3.65-5.03); Red Cell Distribution Width 17.5 % (13.2-15.2)
[2019-06-26] MEDS: MIDAZOLAM 2 MG/2 ML INJ ONE ×2 (17:27→17:37)
[2019-06-26] MEDS: fentaNYL 100 MCG/2 ML INJ ONE ×3 (17:27→17:36)
--- NOTE | 2019-06-26 17:40 | Consultation ---
History of Present Illness - Reason for Consult Consult date: 06/26/19 left hydronephrosis - History of Present Illness Patient with a history of left hydronephrosis status post placement of a left nephrostomy tube. The patient complains that he has had decreased and no output over the last several days up. Additionally, the patient has noticed that he is increased urination through his bladder and penis. No erythema or exudates at the tract site. No pain at the catheter exit site. Past History Past Medical History: other (hydronephrosis) Medications and Allergies Allergies Allergy/AdvReac Type Severity Reaction Status Date / Time No Known Allergies Allergy Verified 06/05/18 08:22 Home Medications Medication Instructions Recorded Confirmed Last Taken Type Finasteride [Proscar] 5 mg PO QDAY #30 tablet 04/13/19 05/23/19 Unknown Rx Pantoprazole [Protonix TAB] 40 mg PO QDAY #30 tablet 04/13/19 05/23/19 Unknown Rx Tamsulosin [Flomax] 0.4 mg PO QDAY #30 cap 04/13/19 05/23/19 Unknown Rx amLODIPine [Norvasc] 10 mg PO DAILY #30 tab 04/13/19 05/23/19 Unknown Rx Carbidopa/Levodopa 25-250 [Sinemet] 1 each PO QID #120 tab 04/15/19 05/23/19 Unknown Rx ALPRAZolam [Xanax TAB] 0.5 mg PO DAILY 05/23/19 05/23/19 Unknown History hydroCHLOROthiazide [HCTZ] 25 mg PO DAILY 05/23/19 05/23/19 Unknown History Ciprofloxacin HCl [Ciprofloxacin 500 mg PO Q12HR 10 Days #20 tab 06/26/19 Unknown Rx TAB] Review of Systems All systems: negative Exam - Constitutional Vitals: Temp Pulse Resp BP Pulse Ox 97.5 F L 81 18 135/83 98 06/26/19 13:59 06/26/19 13:59 06/26/19 13:59 06/26/19 13:59 06/26/19 13:59 General appearance: Present: no acute distress - EENT Eyes: Present: EOM intact ENT: hearing intact - Neck Neck: Present: supple, normal ROM - Respiratory Respiratory effort: normal - Extremities Extremities: no ischemia - Abdominal General gastrointestinal: Present: deferred - Rectal Rectal Exam: deferred - Psychiatric Psychiatric: appropriate mood/affect, cooperative Results - Labs CBC & Chem 7: 06/26/19 16:05 06/26/19 14:22 Labs: Abnormal lab results 06/26/19 06/26/19 06/26/19 Range/Units 14:22 14:22 16:05 MCV 80 L 82 L (84-94) fl MCH 27 L 26 L (28-32) pg RDW 17.5 H 17.5 H (13.2-15.2) % Sodium 136 L (137-145) mmol/L Carbon Dioxide 21 L (22-30) mmol/L BUN 7 L (9-20) mg/dL Creatinine 0.6 L (0.8-1.5) mg/dL ALT < 5 L (7-56) units/L Albumin 3.8 L (3.9-5) g/dL Assessment and Plan Patient will be taken to the [facility] for evaluation and exchange of a nephrostomy tube
--- NOTE | 2019-06-26 17:44 | Operative Report ---
Operative Report Operative Report: Exam: Left nephrostogram through indwelling nephrostomy tube, fluoroscopic guided exchange of nephrostomy tube Clinical indication: Patient with a history of decreased output through indwelling nephrostomy tube Date: 06/26/2019 Procedure: Following an expiration of the risks, benefits and alternatives; wri tten informed consent was obtained. The patient was brought to the angiographic suite and placed in supine position on the examination table. Initial fluoroscopic images demonstrated appropriate positioning of the patient's indwelling nephrostomy tube. The patient's back and indwelling nephrostomy tube were prepped and draped in the usual sterile fashion. 1% lidocaine was used for anesthesia at the catheter insertion site. Contrast was injected through the indwelling nephrostomy tube. This demonstrates appropriate positioning of the pigtail within the renal pelvis and prompt opacification of the proximal ureter. The kidney is decompressed. The catheter was cut to release the pigtail and a 0.035 guidewire advanced through the catheter into the proximal ureter. The indwelling nephrostomy tube was removed intact. A new 8 [place] nephrostomy tube was then advanced over the guidewire under fluoroscopy and coiled within the renal pelvis. The trocar and guidewire were removed. The pigtail was formed and contrast injected through the new catheter which demonstrated appropriate positioning. The catheter was securely fastened at the skin surface using 2-0 Ethilon suture in a StayFix device. A sterile dressing was applied. The catheter was then placed to dependent drainage. The patient tolerated the procedure well. There were no immediate post procedure couple complications. A minimal amount of conscious sedation was utilized. Continuous cardiopulmonary monitoring was utilized. Impression: 1) Left nephrostogram demonstrating decompressed left kidney and appropriate positioning of indwelling nephrostomy tube. 2) Fluoroscopic guided exchange of nephrostomy tube.
[2019-06-26 19:09] VITALS: BP 127/83
== END 2019-06-26 19:09 | disposition home or self-care (01) ==
LOC: ED 13:18
DX: T83.092A Other mechanical complication of nephrostomy catheter, initial encounter (principal); I10 Essential (primary) hypertension; N17.9 Acute kidney failure, unspecified; M19.90 Unspecified osteoarthritis, unspecified site; Z98.890 Other specified postprocedural states; Z79.899 Other long term (current) drug therapy; Y92.89 Other specified places as the place of occurrence of the external cause
CPT/HCPCS: 36415; 50435; 80053; 85025; 85027; 85610; 85730; 99283; C1729; C1769; J2250; J3010; J7040; Q9967